=== PATIENT | male | born 1945 | race Caucasian/White ===

== ENCOUNTER 2021-04-01 19:11 | Emergency (ER) | payer MEDICARE, BC ==
[2021-04-01 19:25] LABS: Glucose,Whole Blood 131 mg/dL (75-99)
[2021-04-01 19:34] LABS: Basophils % (A) 0 %; Eosinophils # (A) 0.1 k/uL (0-0.7); Eosinophils % (A) 1 %; HCT 41.6 % (39.0-53.0); HGB 13.9 gm/dL (13.0-17.5); Lymphocytes # (A) 0.4 k/uL (1.0-4.8); Lymphocytes % (A) 5 %; MCH 32.5 pg (25.0-35.0); MCHC 33.3 g/dL (31.0-37.0); MCV 97.6 fL (80.0-100.0); Mean Platelet Volume 7.2; Monocytes # (A) 0.4 k/uL (0-1.0); Monocytes % (A) 5 %; Neutrophils # (A) 6.6 k/uL (1.3-7.7); Neutrophils % (A) 87 %; Platelet Count 183 k/uL (150-450); RBC 4.27 m/uL (4.30-5.90); RDW 13.2 % (11.5-15.5); WBC 7.6 k/uL (3.8-10.6)
[2021-04-01 19:45] LABS: ALT 15 U/L (4-49); AST 30 U/L (17-59); African American GFR (CKD) 75 (>60 ml/min/1.73 sqM); Alcohol <10 mg/dL; Alkaline Phosphatase 73 U/L (38-126); Anion Gap 8 mmol/L; Blood Urea Nitrogen 16 mg/dL (9-20); Calcium 9.8 mg/dL (8.4-10.2); Carbon Dioxide 25 mmol/L (22-30); Chloride 105 mmol/L (98-107); Creatine Kinase 200 U/L (55-170); Glucose 132 mg/dL (74-99); Magnesium 1.6 mg/dL (1.6-2.3); Non-African American GFR(CKD) 65 (>60 ml/min/1.73 sqM); Sodium 138 mmol/L (137-145); Total Protein 6.6 g/dL (6.3-8.2)
[2021-04-01 19:48] LABS: Partial Thromboplastin Time 22.6 sec (22.0-30.0); Prothrombin Time 10.4 sec (9.0-12.0)
--- NOTE | 2021-04-01 20:08 | CT ---
EXAMINATION TYPE: CT brain ramon jean DATE OF EXAM: 04/01/2021 COMPARISON: None HISTORY: Frequent falls. CT DLP: 1525.9 mGycm Automated exposure control for dose reduction was used. Images obtained of the brain and cervical spine without contrast. There is cerebral cortical atrophy. There is no mass effect nor midline shift. There is no sign of in tracranial hemorrhage. The cervical vertebra have fairly normal alignment. There is a minimal retrolisthesis at C3-4. There is degenerative disc space narrowing throughout the cervical spine with moderate spur formation. Ther e is multilevel hypertrophic facet arthropathy. There is C5-6 left-sided neural foraminal stenosis du e to uncovertebral spurring. There is right side C3-4 neural foraminal stenosis. There is right temporal parietal scalp hematoma. This measures up to 1.5 cm in thickness. IMPRESSION: Cerebral atrophy. No acute intracranial abnormality. Right temporal parietal scalp hematoma. Multilevel cervical spondylotic changes. No fracture.
--- NOTE | 2021-04-01 20:15 | ED ---
General Adult HPI - General Chief complaint: Fall Stated complaint: Fall Time Seen by Provider: 04/01/21 19:18 Source: patient, EMS Mode of arrival: EMS Limitations: no limitations - History of Present Illness Initial comments: Dictation was produced using [employer] dictation software. please excuse any grammatical, word or spelling errors. Chief Complaint: 76-year-old male presents to the emergency department for frequent falls History of Present Illness: 76-year-old male he is been suffering frequent falls. He was at home by himself. His neighbors came to check on him and saw that he was on the ground. He seemed to be very weak. Patient states that he was squatting on the ground when he lost his balance and fell forward striking his head. This concerned that patient has been falling frequently. Patient was at home by himself. States that he takes depression medications. States that he feels fine at this point denies any pain currently. The ROS documented in this emergency department record has been reviewed and confirmed by me. Those systems with pertinent positive or negative responses have been documented in the HPI. All other systems are other negative and/or noncontributory. PHYSICAL EXAM: General Impression: Alert and oriented x3, not in acute distress HEENT: Abrasion to the forehead, extra-ocular movements intact, pupils equal and reactive to light bilaterally, mucous membranes moist. Cardiovascular: Heart regular rate and rhythm Chest: Able to complete full sentences, no retractions, no tachypnea Abdomen: abdomen soft, non-tender, non-distended, no organomegaly Musculoskeletal: Pulses present and equal in all extremities, no peripheral edema, all extremities ranged with no complication Motor: no focal deficits noted Neurological: CN II-XII grossly intact, no focal motor or sensory deficits noted Skin: Abrasions to the bilateral knees Psych: Normal affect and mood ED course: 76-year-old male presents to the emergency department for frequent falls. Supposedly he felt today. Vital signs Upon arrival shows her oral 5, rest of vital signs within acceptable limits. Chest x-ray pelvis x-ray is not acute. Laboratory evaluation obtained. CBC, coag panel, walk panel, urinalysis unremarkable. Serum alcohol is negative. Computed tomography scan of the head and C-spine shows no acute processes. Discussed patient had recommended he stay in hospital due to the concern that he has physical exam findings for multiple falls. He is coherent and does not want to stay to be admitted. He lives at home by himself. He does not have family in the area. He does however have neighbors that are concerned about his well- being. He understands that he is a fall risk and if he falls on he can hurt himself even more seriously. Patient understands the risk and wants to be discharged and follow up with his primary care physician. He is coherent and understands the risk of discharge. EKG interpretation: Ventricular rate sinus tachycardia, heart rate 104, UT interval 170, QRS 80, QTC 452. No UT prolongation, no QTC prolongation, no ST or T-wave changes noted. Overall, this EKG is unremarkable - Related Data Allergies Allergy/AdvReac Type Severity Reaction Status Date / Time No Known Allergies Allergy Verified 04/01/21 19:24 Review of Systems ROS Statement: Those systems with pertinent positive or pertinent negative responses have been documented in the HPI. ROS Other: All systems not noted in ROS Statement are negative. Past Medical History Past Medical History: No Reported History History of Any Multi-Drug Resistant Organisms: None Reported Additional Past Surgical History / Comment(s): eye surgery Past Psychological History: Depression Smoking Status: Never smoker Past Alcohol Use History: Daily Past Drug Use History: None Reported General Exam Limitations: no limitations Course Vital Signs 04/01/21 04/01/21 19:19 19:24 Temperature 98.0 F Pulse Rate 104 H 105 H Respiratory 18 18 Rate Blood Pressure 147/79 157/96 O2 Sat by Pulse 94 L 95 Oximetry Medical Decision Making - Lab Data Result diagrams: 04/01/21 19:26 04/01/21 19:26 Lab Results 04/01/21 04/01/21 04/01/21 Range/Units 19:23 19:26 19:26 WBC 7.6 (3.8-10.6) k/uL RBC 4.27 L (4.30-5.90) m/uL Hgb 13.9 (13.0-17.5) gm/dL Hct 41.6 (39.0-53.0) % MCV 97.6 (80.0-100.0) fL MCH 32.5 (25.0-35.0) pg MCHC 33.3 (31.0-37.0) g/dL RDW 13.2 (11.5-15.5) % Plt Count 183 (150-450) k/uL MPV 7.2 Neutrophils % 87 % Lymphocytes % 5 % Monocytes % 5 % Eosinophils % 1 % Basophils % 0 % Neutrophils # 6.6 (1.3-7.7) k/uL Lymphocytes # 0.4 L (1.0-4.8) k/uL Monocytes # 0.4 (0-1.0) k/uL Eosinophils # 0.1 (0-0.7) k/uL Basophils # 0.0 (0-0.2) k/uL PT 10.4 (9.0-12.0) sec INR 1.0 (<1.2) APTT 22.6 (22.0-30.0) sec Sodium (137-145) mmol/L Potassium (3.5-5.1) mmol/L Chloride (98-107) mmol/L Carbon Dioxide (22-30) mmol/L Anion Gap mmol/L BUN (9-20) mg/dL Creatinine (0.66-1.25) mg/dL Est GFR (CKD-EPI)AfAm (>60 ml/min/1.73 sqM) Est GFR (CKD-EPI)NonAf (>60 ml/min/1.73 sqM) Glucose (74-99) mg/dL POC Glucose (mg/dL) 131 H (75-99) mg/dL POC Glu Pit Operator Belkys Camacho Plasma Lactic Acid Ulises (0.7-2.0) mmol/L Calcium (8.4-10.2) mg/dL Magnesium (1.6-2.3) mg/dL Total Bilirubin (0.2-1.3) mg/dL AST (17-59) U/L ALT (4-49) U/L Alkaline Phosphatase (38-126) U/L Creatine Kinase (55-170) U/L Troponin I (0.000-0.034) ng/mL Total Protein (6.3-8.2) g/dL Albumin (3.5-5.0) g/dL Urine Color Urine Appearance (Clear) Urine pH (5.0-8.0) Ur Specific [place] (1.001-1.035) Urine Protein (Negative) Urine Glucose (UA) (Negative) Urine Ketones (Negative) Urine Blood (Negative) Urine Nitrite (Negative) Urine Bilirubin (Negative) Urine Urobilinogen (<2.0) mg/dL Ur Leukocyte Esterase (Negative) Urine RBC (0-5) /hpf Urine WBC (0-5) /hpf Ur Squamous Epith Cells (0-4) /hpf Hyaline Casts (0-2) /lpf Urine Mucus (None) /hpf Serum Alcohol mg/dL 04/01/21 04/01/21 04/01/21 Range/Units 19:26 19:26 19:26 WBC (3.8-10.6) k/uL RBC (4.30-5.90) m/uL Hgb (13.0-17.5) gm/dL Hct (39.0-53.0) % MCV (80.0-100.0) fL MCH (25.0-35.0) pg MCHC (31.0-37.0) g/dL RDW (11.5-15.5) % Plt Count (150-450) k/uL MPV Neutrophils % % Lymphocytes % % Monocytes % % Eosinophils % % Basophils % % Neutrophils # (1.3-7.7) k/uL Lymphocytes # (1.0-4.8) k/uL Monocytes # (0-1.0) k/uL Eosinophils # (0-0.7) k/uL Basophils # (0-0.2) k/uL PT (9.0-12.0) sec INR (<1.2) APTT (22.0-30.0) sec Sodium 138 (137-145) mmol/L Potassium 4.0 (3.5-5.1) mmol/L Chloride 105 (98-107) mmol/L Carbon Dioxide 25 (22-30) mmol/L Anion Gap 8 mmol/L BUN 16 (9-20) mg/dL Creatinine 1.11 (0.66-1.25) mg/dL Est GFR (CKD-EPI)AfAm 75 (>60 ml/min/1.73 sqM) Est GFR (CKD-EPI)NonAf 65 (>60 ml/min/1.73 sqM) Glucose 132 H (74-99) mg/dL POC Glucose (mg/dL) (75-99) mg/dL POC Glu Pit Operator ID Plasma Lactic Acid Ulises 1.3 (0.7-2.0) mmol/L Calcium 9.8 (8.4-10.2) mg/dL Magnesium 1.6 (1.6-2.3) mg/dL Total Bilirubin 1.0 (0.2-1.3) mg/dL AST 30 (17-59) U/L ALT 15 (4-49) U/L Alkaline Phosphatase 73 (38-126) U/L Creatine Kinase 200 H (55-170) U/L Troponin I (0.000-0.034) ng/mL Total Protein 6.6 (6.3-8.2) g/dL Albumin 4.0 (3.5-5.0) g/dL Urine Color Yellow Urine Appearance Clear (Clear) Urine pH 5.5 (5.0-8.0) Ur Specific [place] 1.018 (1.001-1.035) Urine Protein Trace H (Negative) Urine Glucose (UA) Negative (Negative) Urine Ketones 1+ H (Negative) Urine Blood Negative (Negative) Urine Nitrite Negative (Negative) Urine Bilirubin Negative (Negative) Urine Urobilinogen <2.0 (<2.0) mg/dL Ur Leukocyte Esterase Small H (Negative) Urine RBC 1 (0-5) /hpf Urine WBC 4 (0-5) /hpf Ur Squamous Epith Cells <1 (0-4) /hpf Hyaline Casts 15 H (0-2) /lpf Urine Mucus Rare H (None) /hpf Serum Alcohol <10 mg/dL 04/01/21 Range/Units 19:26 WBC (3.8-10.6) k/uL RBC (4.30-5.90) m/uL Hgb (13.0-17.5) gm/dL Hct (39.0-53.0) % MCV (80.0-100.0) fL MCH (25.0-35.0) pg MCHC (31.0-37.0) g/dL RDW (11.5-15.5) % Plt Count (150-450) k/uL MPV Neutrophils % % Lymphocytes % % Monocytes % % Eosinophils % % Basophils % % Neutrophils # (1.3-7.7) k/uL Lymphocytes # (1.0-4.8) k/uL Monocytes # (0-1.0) k/uL Eosinophils # (0-0.7) k/uL Basophils # (0-0.2) k/uL PT (9.0-12.0) sec INR (<1.2) APTT (22.0-30.0) sec Sodium (137-145) mmol/L Potassium (3.5-5.1) mmol/L Chloride (98-107) mmol/L Carbon Dioxide (22-30) mmol/L Anion Gap mmol/L BUN (9-20) mg/dL Creatinine (0.66-1.25) mg/dL Est GFR (CKD-EPI)AfAm (>60 ml/min/1.73 sqM) Est GFR (CKD-EPI)NonAf (>60 ml/min/1.73 sqM) Glucose (74-99) mg/dL POC Glucose (mg/dL) (75-99) mg/dL POC Glu Pit Operator ID Plasma Lactic Acid Ulises (0.7-2.0) mmol/L Calcium (8.4-10.2) mg/dL Magnesium (1.6-2.3) mg/dL Total Bilirubin (0.2-1.3) mg/dL AST (17-59) U/L ALT (4-49) U/L Alkaline Phosphatase (38-126) U/L Creatine Kinase (55-170) U/L Troponin I <0.012 (0.000-0.034) ng/mL Total Protein (6.3-8.2) g/dL Albumin (3.5-5.0) g/dL Urine Color Urine Appearance (Clear) Urine pH (5.0-8.0) Ur Specific [place] (1.001-1.035) Urine Protein (Negative) Urine Glucose (UA) (Negative) Urine Ketones (Negative) Urine Blood (Negative) Urine Nitrite (Negative) Urine Bilirubin (Negative) Urine Urobilinogen (<2.0) mg/dL Ur Leukocyte Esterase (Negative) Urine RBC (0-5) /hpf Urine WBC (0-5) /hpf Ur Squamous Epith Cells (0-4) /hpf Hyaline Casts (0-2) /lpf Urine Mucus (None) /hpf Serum Alcohol mg/dL Disposition Clinical Impression: Frequent falls Disposition: HOME SELF-CARE Condition: Fair Instructions (If sedation given, give patient instructions): Fall Prevention for Older Adults (ED) Is patient prescribed a controlled substance at d/c from ED?: No Referrals: Nonstaff,Physician [Primary Care Provider] - 1-2 days
--- NOTE | 2021-04-01 20:21 | XR ---
EXAMINATION TYPE: XR pelvis AP view DATE OF EXAM: 04/01/2021 COMPARISON: NONE HISTORY: Pain TECHNIQUE: Single view FINDINGS: Pelvic ring is intact. The proximal femurs and hip joints are intact. Sacroiliac joints are intact. There is no fracture. IMPRESSION: Negative pelvis x-ray exam.
--- NOTE | 2021-04-01 20:23 | XR ---
EXAMINATION TYPE: XR chest 1V portable DATE OF EXAM: 04/01/2021 COMPARISON: NONE HISTORY: Pain. Fall. TECHNIQUE: Single view FINDINGS: Heart is normal. The lungs are clear of consolidation. There are no hilar masses. Costophre curt angles are clear. There are chest leads. There is minimal reticular nodular density in the lungs. IMPRESSION: There is some pulmonary fibrosis. Normal heart.
[2021-04-01 20:38] LABS: Appearance,Urine Clear (Clear); Bilirubin,Urine Negative (Negative); Blood,Urine Negative (Negative); Color,Urine Yellow; Glucose,Urine (UA) Negative (Negative); Hyaline Casts,Urine 15 /lpf (0-2); Ketones,Urine 1+ (Negative); Leukocyte Esterase,Urine Small (Negative); Mucus,Urine Rare /hpf; Nitrite,Urine Negative (Negative); PH, Urine 5.5 (5.0-8.0); Protein,Urine Trace (Negative); RBC,Urine 1 /hpf (0-5); Specific Gravity,Urine 1.018 (1.001-1.035); Squamous Epithelial Cell,Urine <1 /hpf (0-4); Urobilinogen,Urine <2.0 mg/dL (<2.0); WBC,Urine 4 /hpf (0-5)
[2021-04-01] MEDS ORDERED: DIPH,PERTUS(ACELL)TETVAC-LF 0.5 ML VIAL IM ONE (21:08)
[2021-04-01 22:14] VITALS: BP 147/71; PULSE 71; RESP 15; TEMP 97.2
== END 2021-04-01 22:15 | disposition home or self-care (01) ==
LOC: EC 19:11
DX: S00.03XA Contusion of scalp, initial encounter (principal); S80.212A Abrasion, left knee, initial encounter; S80.211A Abrasion, right knee, initial encounter; S00.81XA Abrasion of other part of head, initial encounter; R29.6 Repeated falls; W01.10XA Fall on same level from slipping, tripping and stumbling with subsequent striking against unspecified object, initial encounter
CPT/HCPCS: 99285; 36415; 93005; 80053; 82550; 83605; 83735; 84484; 85025; 85610; 85730; 81001; 72170; 71045; 72125; 70450; G0480; 80320

== ENCOUNTER 2021-04-01 23:13 | Observation (INO) | payer MEDICARE, BC ==
[2021-04-01 23:22] VITALS: RESP 18
[2021-04-01] MEDS ORDERED: NALOXONE 0.4 MG/ML 1 ML VIAL IV PRN (23:27)
--- NOTE | 2021-04-01 23:27 | ED ---
General Adult HPI - General Chief complaint: Weakness Stated complaint: Weakness Time Seen by Provider: 04/01/21 23:22 Source: patient, family Mode of arrival: wheelchair Limitations: no limitations - History of Present Illness Initial comments: Dictation was produced using [employer] dictation software. please excuse any grammatical, word or spelling errors. Chief Complaint: 76-year-old male presents for debility History of Present Illness: Patient is a 76-year-old male he was seen by myself earlier today. He was seen earlier for frequent falls and a fall today. He expressed to me that he wanted to be discharge. Patient was discharged and was brought home by her best friend Lori. Lori states that shortly in the house every could not even stand up. She's had to turn around patient talks him since intubation and now he is agreeable to stay. The ROS documented in this emergency department record has been reviewed and c onfirmed by me. Those systems with pertinent positive or negative responses have been documented in the HPI. All other systems are other negative and/or noncontributory. PHYSICAL EXAM: General Impression: Alert and oriented x3, not in acute distress HEENT: Normocephalic atraumatic, extra-ocular movements intact, pupils equal and reactive to light bilaterally, mucous membranes moist. Cardiovascular: Heart regular rate and rhythm Chest: Able to complete full sentences, no retractions, no tachypnea Abdomen: abdomen soft, non-tender, non-distended, no organomegaly Musculoskeletal: Pulses present and equal in all extremities, no peripheral edema Motor: no focal deficits noted Neurological: CN II-XII grossly intact, no focal motor or sensory deficits noted Skin: Intact with no visualized rashes Psych: Normal affect and mood ED course: 76-year-old male presents with generalized weakness and grave disability. He lives at home by himself and is a fall risk. Vital signs upon arrival are within Acceptable limits. Patient will be admitted to [facility]. - Related Data Allergies Allergy/AdvReac Type Severity Reaction Status Date / Time No Known Allergies Allergy Verified 04/01/21 19:24 Review of Systems ROS Statement: Those systems with pertinent positive or pertinent negative responses have been documented in the HPI. ROS Other: All systems not noted in ROS Statement are negative. Past Medical History Past Medical History: No Reported History History of Any Multi-Drug Resistant Organisms: None Reported Past Surgical History: No Surgical Hx Reported Additional Past Surgical History / Comment(s): eye surgery Past Psychological History: Depression Smoking Status: Never smoker Past Alcohol Use History: Daily Past Drug Use History: None Reported General Exam Limitations: no limitations Course Vital Signs 04/01/21 23:16 Temperature 98.0 F Pulse Rate 106 H Respiratory 18 Rate Blood Pressure 105/46 O2 Sat by Pulse 95 Oximetry Disposition Clinical Impression: Risk for falls Disposition: ADMITTED IP TO THIS HOSP Condition: Fair Referrals: Nonstaff,Physician [Primary Care Provider] - 1-2 days
[2021-04-02] MEDS ORDERED: ACETAMINOPHEN TAB 500 MG TAB PO PRN (05:34)
[2021-04-02] MEDS ORDERED: lamoTRIgine 100 MG TAB PO SCH (11:15)
[2021-04-02] MEDS ORDERED: ESCITALOPRAM 20 MG TAB PO SCH (11:15)
[2021-04-02] MEDS ORDERED: PANTOPRAZOLE 40 MG TABLET PO PRN (11:15)
--- NOTE | 2021-04-02 13:14 | P.DS ---
Providers Date of admission: 04/01/21 23:27 Attending physician: Keith Guerrero Primary care physician: Physician Nonstaff Hospital Course: Please refer to HPI for further details Patient Condition at Discharge: Fair Plan - Discharge Summary New Discharge Prescriptions: New Cholecalciferol [Vitamin D3 (25 Mcg = 1000 Iu)] 25 mcg PO DAILY #30 tab No Action lamoTRIgine 200 mg PO BID Escitalopram [Lexapro] 20 mg PO DAILY Omeprazole 20 mg PO BID PRN PRN Reason: GERDS Discharge Medication List Escitalopram [Lexapro] 20 mg PO DAILY 04/01/21 [History] Omeprazole 20 mg PO BID PRN 04/01/21 [History] lamoTRIgine 200 mg PO BID 04/01/21 [History] Cholecalciferol [Vitamin D3 (25 Mcg = 1000 Iu)] 25 mcg PO DAILY #30 tab 04/02/21 [Rx] Follow up Appointment(s)/Referral(s): Jelani Cervantes MD [STAFF PHYSICIAN] - 1-2 Days
--- NOTE | 2021-04-02 13:14 | P.HPIM ---
History of Present Illness Patient is a pleasant 76-year-old the male was admitted after he presented to ER with complaints of frequent falls patient has multiple lacerations and bruises. Patient lives by himself. Patient was seen in ER yesterday and was subsequently discharged after discharge family brought him back as they were unable to even get him out of the car into the house. Patient doesn't have any fever chills doesn't have any signs or symptoms of sepsis patient doesn't have any dysuria chest x-ray did not show pneumonia. Patient is alert oriented 3 but does have some memory deficits elicited status of possible senile or vascular dementia. Patient has progressive weakness that progressed over months to years. Patient is awaiting placement probably will be discharged to subacute rehabilitation. Patient doesn't appear to be dehydrated either. Review of Systems REVIEW OF SYSTEMS: CONSTITUTIONAL: No fever, no malaise, no fatigue. HEENT: No recent visual problems or hearing problems. Denied any sore throat. CARDIOVASCULAR: No chest pain, orthopnea, PND, no palpitations, no syncope. PULMONARY: No shortness of breath, no cough, no hemoptysis. GASTROINTESTINAL: No diarrhea, no nausea, no vomiting, no abdominal pain. NEUROLOGICAL: No headaches, no weakness, no numbness. HEMATOLOGICAL: Denies any bleeding or petechiae. GENITOURINARY: Denies any burning micturition, frequency, or urgency. MUSCULOSKELETAL/RHEUMATOLOGICAL: Denies any joint pain, swelling, or any muscle pain. ENDOCRINE: Denies any polyuria or polydipsia. The rest of the 14-point review of systems is negative. Past Medical History Past Medical History: No Reported History History of Any Multi-Drug Resistant Organisms: None Reported Past Surgical History: No Surgical Hx Reported Additional Past Surgical History / Comment(s): eye surgery Past Psychological History: Depression Smoking Status: Never smoker Past Alcohol Use History: Daily Past Drug Use History: None Reported Medications and Allergies Home Medications Medication Instructions Recorded Confirmed Type Escitalopram [Lexapro] 20 mg PO DAILY 04/01/21 04/01/21 History Omeprazole 20 mg PO BID PRN 04/01/21 04/01/21 History lamoTRIgine 200 mg PO BID 04/01/21 04/01/21 History Allergies Allergy/AdvReac Type Severity Reaction Status Date / Time No Known Allergies Allergy Verified 04/01/21 23:30 Physical Exam Vitals: Vital Signs Temp Pulse Pulse Resp BP BP Pulse Ox 04/02/21 07:49 91 18 04/02/21 06:44 99.1 F 91 18 167/81 93 L 04/02/21 00:23 99.0 F 94 18 173/96 96 04/01/21 23:16 98.0 F 106 H 18 105/46 95 Intake and Output 04/01/21 04/02/21 04/02/21 22:59 06:59 14:59 Output Total 100 Balance -100 Output: Urine 100 Straight 100 Other: # Voids 3 Weight 86.183 kg PHYSICAL EXAMINATION: GENERAL: The patient is alert and oriented x3, not in any acute distress. Well developed, well nourished. HEENT: Pupils are round and equally reacting to light. EOMI. No scleral icterus. No conjunctival pallor. Normocephalic, atraumatic. No pharyngeal erythema. No thyromegaly. CARDIOVASCULAR: S1 and S2 present. No murmurs, rubs, or gallops. PULMONARY: Chest is clear to auscultation, no wheezing or crackles. ABDOMEN: Soft, nontender, nondistended, normoactive bowel sounds. No palpable organomegaly. MUSCULOSKELETAL: No joint swelling or deformity. EXTREMITIES: No cyanosis, clubbing, or pedal edema. NEUROLOGICAL: Gross neurological examination did not reveal any focal deficits. Does have generalized weakness SKIN:bruising, lacerations ulcerations multiple areas of the body Assessment and Plan Plan: Generalized weakness and deconditioning:: Mostly secondary to age-related muscle atrophy, possible early stages of dementia patient will benefit from a placement in subacute rehabilitation. We'll also obtain TSH and d-dimer considering the patient is tachycardic. If they're negative patient will be discharged to subacute rehabilitation today. Patient will be discharged on vitamin D supplementation -Gastroesophageal reflux disease -Depression.
[2021-04-02 15:08] VITALS: BP 169/81; PULSE 83; TEMP 98.2
--- NOTE | 2021-04-02 15:51 | CT ---
CT CHEST FOR PULMONARY EMBOLISM. EXAMINATION TYPE: CT angio chest DATE OF EXAM: 04/02/2021 INDICATION: Elevated d-dimer. CT DLP: 331.1 mGycm, Automated exposure control for dose reduction was used. CONTRAST: Patient injected with 100 mL of Isovue 370. COMPARISON: None TECHNIQUE: CT of the chest is performed on a spiral scan at 2 mm thick sections. Study is performed with intravenous contrast timed for evaluation for pulmonary embolism. This will limit additional po rtions of the evaluation. 3-D MIP images reconstructed by the technologist are reviewed on the compu ter in the coronal and sagittal planes. FINDINGS: No persistent filling defects are evident to suggest an acute pulmonary embolism. Subcarinal adenopathy is present which appears enlarged. Calcifications are present. This may measure 1.7 cm. A 1.0 cm lateral aortic pulmonic window lymph node is present. There may be a pretracheal ao rtopulmonic window lymph node 1.2 cm. Small superior mediastinal lymph nodes are present. Calcified l ymphadenopathy is present. The ascending aorta diameter at the level of the main pulmonary artery is 3.2 cm. The main pulmonary artery diameter at the bifurcation is 2.6 cm. There is a 0.7 cm nodule in the left apex. Series 406 image 16. There is some pleural-based thickenin g within the bilateral upper lung dozier measuring 0.4 cm on the left and 0.6 cm on the right. Series 406 image 53. There are some additional small areas of pleural thickening. There is a nodular densit y within the right mid lung peripherally measuring 0.7 cm. Series 406 image 67. Additional nodules ar e in this right midlung region. Examples 0.6 cm image 69. 0.8 cm, image 75. Additional peripheral sma ller nodules are present in the posterior lateral right lung base. Consider atelectasis within the di fferential. Groundglass opacities are at the left lung base. Limited CT section through the upper abdomen are unremarkable. IMPRESSIONS: 1. No acute pulmonary embolism. 2. Scattered pulmonary nodules greater on the right with some enlarged lymphadenopathy discussed abov e. Metastatic disease should be considered. Consider PET CT for additional evaluation.
== END 2021-04-02 17:35 ==
LOC: EC 23:13 → 4SSUR 23:27
PROVIDERS: ADMIT Internal Medicine; ATTEND Internal Medicine
DX: R53.1 Weakness (principal); M62.50 Muscle wasting and atrophy, not elsewhere classified, unspecified site; W19.XXXA Unspecified fall, initial encounter; R00.0 Tachycardia, unspecified; R29.6 Repeated falls; R91.1 Solitary pulmonary nodule; R59.9 Enlarged lymph nodes, unspecified; Z20.822 Contact with and (suspected) exposure to COVID-19; K21.9 Gastro-esophageal reflux disease without esophagitis; F32.9 Major depressive disorder, single episode, unspecified; Z79.899 Other long term (current) drug therapy; Z91.81 History of falling
CPT/HCPCS: 99285; 97162; 97166; 85379; 84443; 87635; 71275; G0378; Q9967

== ENCOUNTER 2021-04-02 19:49 | Emergency (ER) | payer MEDICARE, BC ==
[2021-04-02 19:57] VITALS: BP 153/80; PULSE 69; RESP 20; TEMP 98.1
--- NOTE | 2021-04-02 19:58 | ED ---
General Adult HPI - General Stated complaint: Recheck Time Seen by Provider: 04/02/21 19:50 - History of Present Illness Initial comments: Dictation was produced using [employer], dictation software. please excuse any grammatical, word or spelling errors. Chief Complaint: Patient is 76-year-old male he was sent here from [facility] for unequal pupils History of Present Illness: To 76-year-old male he is very familiar to me. I saw him twice yesterday. He was here in emergency department twice. The first time he was here in the ER he had an seen for frequent falls. Computed tomography scan of the head and C-spine and blood work. His workup was essentially negative and was encouraged him to be admitted because he is a fall risk and lives at home by himself. He refuses in preferred to be discharged. He was discharged however his family friend tried to bring him home but he could not walk to get into his own house. He was convinced by family friend, Lori to agree to be admitted. Patient was here in emergency department. He had a d- dimer and a CT of the chest that showed no embolism but scattered pulmonary nodules. Nonetheless he was discharged tomorrow with for further rehab. According to EMS he was evaluated there and was found to have unequal pupils. Patient denies any complaints at this time. Denies any headache. No numbness and paresthesias to the arms or legs. The ROS documented in this emergency department record has been reviewed and confirmed by me. Those systems with pertinent positive or negative responses have been documented in the HPI. All other systems are other negative and/or noncontributory. PHYSICAL EXAM: General Impression: Alert and oriented x3, not in acute distress HEENT: Normocephalic atraumatic, extra-ocular movements intact, pupils equal and reactive to light bilaterally, mucous membranes moist. Cardiovascular: Heart regular rate and rhythm Chest: Able to complete full sentences, no retractions, no tachypnea Abdomen: abdomen soft, non-tender, non-distended, no organomegaly Musculoskeletal: Pulses present and equal in all extremities, no peripheral edema Motor: no focal deficits noted Neurological: CN II-XII grossly intact, no focal motor or sensory deficits noted Skin: Intact with no visualized rashes Psych: Normal affect and mood ED course: 76-year-old male brought to our emergency department for unequal pupils. He is not appended physical examination is benign. Clinical presentation consistent with anisocoria. Vital signs are within acceptable limits. Patient had extensive workup yesterday. He had computed tomography scan of the head C-spine pelvis x-ray chest x-ray complete blood work which were within acceptable limits. He was simply admitted for fall risk. During his hospital stay in d-dimer was ordered which led to CT angios the chest that showed scattered pulmonary nodules concerning for possibly metastatic disease. He is discharged from [place]. There was concern by EMS that patient did not have a extensive enough workup. It is likely that [facility] did not get access information from patient's two ER visits yesterday. - Related Data Home Medications Medication Instructions Recorded Confirmed Escitalopram [Lexapro] 20 mg PO DAILY 04/01/21 04/01/21 Omeprazole 20 mg PO BID PRN 04/01/21 04/01/21 lamoTRIgine 200 mg PO BID 04/01/21 04/01/21 Previous Rx's Medication Instructions Recorded Acetaminophen Tab [Tylenol] 1,000 mg PO Q6HR PRN tab 04/02/21 Cholecalciferol [Vitamin D3 (25 25 mcg PO DAILY #30 tab 04/02/21 Mcg = 1000 Iu)] Allergies Allergy/AdvReac Type Severity Reaction Status Date / Time No Known Allergies Allergy Verified 04/02/21 19:57 Review of Systems ROS Statement: Those systems with pertinent positive or pertinent negative responses have been documented in the HPI. ROS Other: All systems not noted in ROS Statement are negative. Past Medical History Past Medical History: No Reported History History of Any Multi-Drug Resistant Organisms: None Reported Past Surgical History: No Surgical Hx Reported Additional Past Surgical History / Comment(s): eye surgery Past Psychological History: Depression Smoking Status: Never smoker Past Alcohol Use History: Daily Past Drug Use History: None Reported Disposition Clinical Impression: Anisocoria Disposition: OTHER INSTITUTION NOT DEFINED Condition: Fair Instructions (If sedation given, give patient instructions): Fall Prevention for Older Adults (ED) Is patient prescribed a controlled substance at d/c from ED?: No Referrals: None,Stated [Primary Care Provider] - 1-2 days - Out of Hospital Transfer - Req. Specs Out of Hospital Transfer - Requested Specifics: Other Non-Acute ([facility])
== END 2021-04-02 22:08 | disposition other institution (70) ==
LOC: EC 19:49
DX: H57.02 Anisocoria (principal); F32.9 Major depressive disorder, single episode, unspecified; Z79.899 Other long term (current) drug therapy
CPT/HCPCS: 99284

== ENCOUNTER 2021-05-15 17:16 | Inpatient (IN) | payer MEDICARE, BC ==
[2021-05-15 18:28] LABS: Basophils % (A) 0 %; Eosinophils # (A) 0.1 k/uL (0-0.7); Eosinophils % (A) 2 %; HCT 39.5 % (39.0-53.0); HGB 13.7 gm/dL (13.0-17.5); Lymphocytes # (A) 0.6 k/uL (1.0-4.8); Lymphocytes % (A) 8 %; MCH 34.5 pg (25.0-35.0); MCHC 34.7 g/dL (31.0-37.0); MCV 99.3 fL (80.0-100.0); Mean Platelet Volume 7.9; Monocytes # (A) 0.7 k/uL (0-1.0); Monocytes % (A) 8 %; Neutrophils # (A) 6.4 k/uL (1.3-7.7); Neutrophils % (A) 81 %; Platelet Count 293 k/uL (150-450); RBC 3.98 m/uL (4.30-5.90); RDW 12.1 % (11.5-15.5)
[2021-05-15 18:40] LABS: ALT 14 U/L (4-49); AST 29 U/L (17-59); African American GFR (CKD) >90 (>60 ml/min/1.73 sqM); Alkaline Phosphatase 101 U/L (38-126); Anion Gap 10 mmol/L; Blood Urea Nitrogen 15 mg/dL (9-20); Calcium 9.5 mg/dL (8.4-10.2); Carbon Dioxide 25 mmol/L (22-30); Chloride 103 mmol/L (98-107); Creatine Kinase 178 U/L (55-170); Glucose 122 mg/dL (74-99); Non-African American GFR(CKD) 87 (>60 ml/min/1.73 sqM); Potassium 3.9 mmol/L (3.5-5.1); Sodium 138 mmol/L (137-145); Total Bilirubin 0.6 mg/dL (0.2-1.3); Total Protein 6.8 g/dL (6.3-8.2)
[2021-05-15 18:45] LABS: Valproic Acid (Depakene) 23.7 ug/mL
[2021-05-15 18:48] LABS: INR 0.9 (<1.2); Partial Thromboplastin Time 23.7 sec (22.0-30.0); Prothrombin Time 10.1 sec (9.0-12.0)
--- NOTE | 2021-05-15 18:48 | ED ---
Altered Mental Status HPI - General Chief Complaint: Altered Mental Status Stated Complaint: Altered Mental Status Source: EMS Mode of arrival: EMS Limitations: language barrier, altered mental status, physical limitation - History of Present Illness Initial Comments: The patient is a 76-year-old male with past medical history of chronic alcohol abuse, multiple falls who presents to the emergency department with altered mental status. Patient's was a heavy drinker and could no longer take care of himself. He was admitted to [facility] in March. Facility reports that the patient continues to have frequent falls and has had decrease in his mentation since admission to their facility. EMS presents today with the patient stating that he has had accelerated mental status changes today. He was recently started on Depakote on Monday for mood stabilization. They deny that the patient suffered any type of trauma. No fevers. Patient cannot provide any history. I did revi ew the patient's chart. Depakote was started on the . Patient had a UA and laboratory studies completed yesterday. UA was positive for nitrates and the patient was initiated on Ceftin - Related Data Home Medications Medication Instructions Recorded Confirmed Escitalopram [Lexapro] 20 mg PO DAILY@0800 04/01/21 05/15/21 lamoTRIgine 200 mg PO BID@0800,2100 04/01/21 05/15/21 Acetaminophen Tab [Tylenol] 1,000 mg PO Q6H PRN 05/15/21 05/15/21 Cefuroxime Axetil [Ceftin] 500 mg PO BID@0800,1700 05/15/21 05/15/21 Cholecalciferol [Vitamin D3 (25 25 mcg PO DAILY@1700 05/15/21 05/15/21 Mcg = 1000 Iu)] Divalproex Sprinkle [Depakote 125 mg PO BID@0800,1700 05/15/21 05/15/21 Sprinkle] LORazepam [Ativan] 0.5 mg PO Q8H PRN 05/15/21 05/15/21 Magnesium Hydroxide [Milk of 7,200 mg PO Q48H PRN 05/15/21 05/15/21 Magnesia Concentrate] Na Phos,M-B/Na Phos,Di-Ba [Fleet 133 ml RECTAL DAILY PRN 05/15/21 05/15/21 Adult] Omeprazole 20 mg PO BID PRN 05/15/21 05/15/21 QUEtiapine FUMARATE [SEROquel] 25 mg PO BID@0800,2100 05/15/21 05/15/21 bisacodyL [Bisacodyl] 10 mg RECTAL DAILY PRN 05/15/21 05/15/21 Allergies Allergy/AdvReac Type Severity Reaction Status Date / Time No Known Allergies Allergy Verified 05/15/21 18:06 Review of Systems ROS Statement: Those systems with pertinent positive or pertinent negative responses have been documented in the HPI. ROS Other: All systems not noted in ROS Statement are negative. Past Medical History Past Medical History: GERD/Reflux History of Any Multi-Drug Resistant Organisms: None Reported Past Surgical History: No Surgical Hx Reported Additional Past Surgical History / Comment(s): eye surgery Past Psychological History: Depression Smoking Status: Never smoker Past Alcohol Use History: Daily Past Drug Use History: None Reported - Past Family History Father Family Medical History: Unable to Obtain General Exam Limitations: altered mental status, physical limitation General appearance: obtunded Head exam: Present: atraumatic, normocephalic, normal inspection Eye exam: Present: normal appearance, PERRL, EOMI. Absent: scleral icterus, conjunctival injection, periorbital swelling Respiratory exam: Present: normal lung sounds bilaterally. Absent: respiratory distress, wheezes, rales, rhonchi, stridor Cardiovascular Exam: Present: normal rhythm, tachycardia GI/Abdominal exam: Present: soft, normal bowel sounds. Absent: distended, tenderness, guarding, rebound, rigid Extremities exam: Present: normal inspection, full ROM, normal capillary refill. Absent: tenderness, pedal edema, joint swelling, calf tenderness Neurological exam: Present: altered, other (will not follow commands. Does not respond to verbal or tactile stimuli. Appears agitated. Moves all extremities. Rigidity) Course Vital Signs 05/15/21 05/15/21 05/15/21 17:18 18:11 20:00 Temperature 98.4 F 98.8 F Pulse Rate 112 H 110 H 118 H Respiratory 18 17 18 Rate Blood Pressure 152/118 189/97 188/108 O2 Sat by Pulse 95 97 Oximetry 05/15/21 20:53 Temperature 98.7 F Pulse Rate 117 H Respiratory 18 Rate Blood Pressure 163/106 O2 Sat by Pulse 95 Oximetry Medical Decision Making - Medical Decision Making Upon arrival patient was placed into room 8. A thorough history was attempted to be obtained. Laboratory studies were obtained. Valproic acid level 23.7. CT of the patient's brain demonstrates her vital and chronic small vessel ischemia. No acute cranial mobility. Chest x-ray does demonstrate increasing pulmonary interstitial infiltrates. I did obtain blood cultures and initiated the patient on Rocephin. I spoke with Dr. cleaning who agreed to admit the patient. Will place neurology and psychiatry on consult of this may be medic ation side effect. Patient remained in stable condition awaiting a bed on the floor - Lab Data Result diagrams: 05/16/21 05:33 05/16/21 05:33 Lab Results 05/15/21 05/15/21 05/15/21 Range/Units 18:11 18:11 18:11 WBC 8.0 (3.8-10.6) k/uL RBC 3.98 L (4.30-5.90) m/uL Hgb 13.7 (13.0-17.5) gm/dL Hct 39.5 (39.0-53.0) % MCV 99.3 (80.0-100.0) fL MCH 34.5 (25.0-35.0) pg MCHC 34.7 (31.0-37.0) g/dL RDW 12.1 (11.5-15.5) % Plt Count 293 (150-450) k/uL MPV 7.9 Neutrophils % 81 % Lymphocytes % 8 % Monocytes % 8 % Eosinophils % 2 % Basophils % 0 % Neutrophils # 6.4 (1.3-7.7) k/uL Lymphocytes # 0.6 L (1.0-4.8) k/uL Monocytes # 0.7 (0-1.0) k/uL Eosinophils # 0.1 (0-0.7) k/uL Basophils # 0.0 (0-0.2) k/uL PT (9.0-12.0) sec INR (<1.2) APTT (22.0-30.0) sec Sodium 138 (137-145) mmol/L Potassium 3.9 (3.5-5.1) mmol/L Chloride 103 (98-107) mmol/L Carbon Dioxide 25 (22-30) mmol/L Anion Gap 10 mmol/L BUN 15 (9-20) mg/dL Creatinine 0.81 (0.66-1.25) mg/dL Est GFR (CKD-EPI)AfAm >90 (>60 ml/min/1.73 sqM) Est GFR (CKD-EPI)NonAf 87 (>60 ml/min/1.73 sqM) BUN/Creatinine Ratio (12.00-20.00) Ratio Glucose 122 H (74-99) mg/dL POC Glucose (mg/dL) (75-99) mg/dL POC Glu Hull Molder ID Calcium 9.5 (8.4-10.2) mg/dL Total Bilirubin 0.6 (0.2-1.3) mg/dL AST 29 (17-59) U/L ALT 14 (4-49) U/L Alkaline Phosphatase 101 (38-126) U/L Ammonia (<30) umol/L Creatine Kinase 178 H (55-170) U/L Troponin I (0.000-0.034) ng/mL Total Protein 6.8 (6.3-8.2) g/dL Albumin 4.0 (3.5-5.0) g/dL TSH 0.972 (0.465-4.680) mIU/L Urine Color Urine Appearance (Clear) Urine pH (5.0-8.0) Ur Specific [place] (1.001-1.035) Urine Protein (Negative) Urine Glucose (UA) (Negative) Urine Ketones (Negative) Urine Blood (Negative) Urine Nitrite (Negative) Urine Bilirubin (Negative) Urine Urobilinogen (<2.0) mg/dL Ur Leukocyte Esterase (Negative) Urine RBC (0-5) /hpf Urine WBC (0-5) /hpf Ur Squamous Epith Cells (0-4) /hpf Urine Mucus (None) /hpf Urine Opiates Screen (NotDetected) Ur Oxycodone Screen (NotDetected) Urine Methadone Screen (NotDetected) Ur Propoxyphene Screen (NotDetected) Ur Barbiturates Screen (NotDetected) Valproic Acid 23.7 ug/mL Lamotrigine 11.6 (2.0-15.0) ug/mL U Tricyclic Antidepress (NotDetected) Ur Phencyclidine Scrn (NotDetected) Ur Amphetamines Screen (NotDetected) U Methamphetamines Scrn (NotDetected) U Benzodiazepines Scrn (NotDetected) Urine Cocaine Screen (NotDetected) U Marijuana (THC) Screen (NotDetected) 05/15/21 05/15/21 05/15/21 Range/Units 18:11 18:11 18:11 WBC (3.8-10.6) k/uL RBC (4.30-5.90) m/uL Hgb (13.0-17.5) gm/dL Hct (39.0-53.0) % MCV (80.0-100.0) fL MCH (25.0-35.0) pg MCHC (31.0-37.0) g/dL RDW (11.5-15.5) % Plt Count (150-450) k/uL MPV Neutrophils % % Lymphocytes % % Monocytes % % Eosinophils % % Basophils % % Neutrophils # (1.3-7.7) k/uL Lymphocytes # (1.0-4.8) k/uL Monocytes # (0-1.0) k/uL Eosinophils # (0-0.7) k/uL Basophils # (0-0.2) k/uL PT 10.1 (9.0-12.0) sec INR 0.9 (<1.2) APTT 23.7 (22.0-30.0) sec Sodium (137-145) mmol/L Potassium (3.5-5.1) mmol/L Chloride (98-107) mmol/L Carbon Dioxide (22-30) mmol/L Anion Gap mmol/L BUN (9-20) mg/dL Creatinine (0.66-1.25) mg/dL Est GFR (CKD-EPI)AfAm (>60 ml/min/1.73 sqM) Est GFR (CKD-EPI)NonAf (>60 ml/min/1.73 sqM) BUN/Creatinine Ratio (12.00-20.00) Ratio Glucose (74-99) mg/dL POC Glucose (mg/dL) (75-99) mg/dL POC Glu Hull Molder ID Calcium (8.4-10.2) mg/dL Total Bilirubin (0.2-1.3) mg/dL AST (17-59) U/L ALT (4-49) U/L Alkaline Phosphatase (38-126) U/L Ammonia <9 (<30) umol/L Creatine Kinase (55-170) U/L Troponin I <0.012 (0.000-0.034) ng/mL Total Protein (6.3-8.2) g/dL Albumin (3.5-5.0) g/dL TSH (0.465-4.680) mIU/L Urine Color Urine Appearance (Clear) Urine pH (5.0-8.0) Ur Specific [place] (1.001-1.035) Urine Protein (Negative) Urine Glucose (UA) (Negative) Urine Ketones (Negative) Urine Blood (Negative) Urine Nitrite (Negative) Urine Bilirubin (Negative) Urine Urobilinogen (<2.0) mg/dL Ur Leukocyte Esterase (Negative) Urine RBC (0-5) /hpf Urine WBC (0-5) /hpf Ur Squamous Epith Cells (0-4) /hpf Urine Mucus (None) /hpf Urine Opiates Screen (NotDetected) Ur Oxycodone Screen (NotDetected) Urine Methadone Screen (NotDetected) Ur Propoxyphene Screen (NotDetected) Ur Barbiturates Screen (NotDetected) Valproic Acid ug/mL Lamotrigine (2.0-15.0) ug/mL U Tricyclic Antidepress (NotDetected) Ur Phencyclidine Scrn (NotDetected) Ur Amphetamines Screen (NotDetected) U Methamphetamines Scrn (NotDetected) U Benzodiazepines Scrn (NotDetected) Urine Cocaine Screen (NotDetected) U Marijuana (THC) Screen (NotDetected) 05/15/21 05/15/21 05/16/21 Range/Units 20:33 20:45 05:33 WBC 8.9 (3.8-10.6) k/uL RBC 4.00 L (4.30-5.90) m/uL Hgb 13.4 (13.0-17.5) gm/dL Hct 39.8 (39.0-53.0) % MCV 99.4 (80.0-100.0) fL MCH 33.4 (25.0-35.0) pg MCHC 33.6 (31.0-37.0) g/dL RDW 12.0 (11.5-15.5) % Plt Count 273 (150-450) k/uL MPV 8.2 Neutrophils % 85 % Lymphocytes % 5 % Monocytes % 8 % Eosinophils % 0 % Basophils % 0 % Neutrophils # 7.6 (1.3-7.7) k/uL Lymphocytes # 0.5 L (1.0-4.8) k/uL Monocytes # 0.7 (0-1.0) k/uL Eosinophils # 0.0 (0-0.7) k/uL Basophils # 0.0 (0-0.2) k/uL PT (9.0-12.0) sec INR (<1.2) APTT (22.0-30.0) sec Sodium (137-145) mmol/L Potassium (3.5-5.1) mmol/L Chloride (98-107) mmol/L Carbon Dioxide (22-30) mmol/L Anion Gap mmol/L BUN (9-20) mg/dL Creatinine (0.66-1.25) mg/dL Est GFR (CKD-EPI)AfAm (>60 ml/min/1.73 sqM) Est GFR (CKD-EPI)NonAf (>60 ml/min/1.73 sqM) BUN/Creatinine Ratio (12.00-20.00) Ratio Glucose (74-99) mg/dL POC Glucose (mg/dL) 179 H (75-99) mg/dL POC Glu Hull Molder ID Lucianago, Admon Calcium (8.4-10.2) mg/dL Total Bilirubin (0.2-1.3) mg/dL AST (17-59) U/L ALT (4-49) U/L Alkaline Phosphatase (38-126) U/L Ammonia (<30) umol/L Creatine Kinase (55-170) U/L Troponin I (0.000-0.034) ng/mL Total Protein (6.3-8.2) g/dL Albumin (3.5-5.0) g/dL TSH (0.465-4.680) mIU/L Urine Color Yellow Urine Appearance Clear (Clear) Urine pH 7.5 (5.0-8.0) Ur Specific [place] 1.016 (1.001-1.035) Urine Protein Negative (Negative) Urine Glucose (UA) Negative (Negative) Urine Ketones 2+ H (Negative) Urine Blood Negative (Negative) Urine Nitrite Negative (Negative) Urine Bilirubin Negative (Negative) Urine Urobilinogen 2.0 (<2.0) mg/dL Ur Leukocyte Esterase Moderate H (Negative) Urine RBC 4 (0-5) /hpf Urine WBC 29 H (0-5) /hpf Ur Squamous Epith Cells <1 (0-4) /hpf Urine Mucus Rare H (None) /hpf Urine Opiates Screen Not Detected (NotDetected) Ur Oxycodone Screen Not Detected (NotDetected) Urine Methadone Screen Not Detected (NotDetected) Ur Propoxyphene Screen Not Detected (NotDetected) Ur Barbiturates Screen Not Detected (NotDetected) Valproic Acid ug/mL Lamotrigine (2.0-15.0) ug/mL U Tricyclic Antidepress Not Detected (NotDetected) Ur Phencyclidine Scrn Not Detected (NotDetected) Ur Amphetamines Screen Not Detected (NotDetected) U Methamphetamines Scrn Not Detected (NotDetected) U Benzodiazepines Scrn Detected H (NotDetected) Urine Cocaine Screen Not Detected (NotDetected) U Marijuana (THC) Screen Not Detected (NotDetected) 05/16/21 Range/Units 05:33 WBC (3.8-10.6) k/uL RBC (4.30-5.90) m/uL Hgb (13.0-17.5) gm/dL Hct (39.0-53.0) % MCV (80.0-100.0) fL MCH (25.0-35.0) pg MCHC (31.0-37.0) g/dL RDW (11.5-15.5) % Plt Count (150-450) k/uL MPV Neutrophils % % Lymphocytes % % Monocytes % % Eosinophils % % Basophils % % Neutrophils # (1.3-7.7) k/uL Lymphocytes # (1.0-4.8) k/uL Monocytes # (0-1.0) k/uL Eosinophils # (0-0.7) k/uL Basophils # (0-0.2) k/uL PT (9.0-12.0) sec INR (<1.2) APTT (22.0-30.0) sec Sodium 138 (137-145) mmol/L Potassium 3.6 (3.5-5.1) mmol/L Chloride 102 (98-107) mmol/L Carbon Dioxide 24.5 (22-30) mmol/L Anion Gap 11.50 mmol/L BUN 12.0 (9-20) mg/dL Creatinine 0.8 (0.66-1.25) mg/dL Est GFR (CKD-EPI)AfAm 101.3 (>60 ml/min/1.73 sqM) Est GFR (CKD-EPI)NonAf 87.4 (>60 ml/min/1.73 sqM) BUN/Creatinine Ratio 15.00 (12.00-20.00) Ratio Glucose 154 H (74-99) mg/dL POC Glucose (mg/dL) (75-99) mg/dL POC Glu Hull Molder ID Calcium 9.1 (8.4-10.2) mg/dL Total Bilirubin (0.2-1.3) mg/dL AST (17-59) U/L ALT (4-49) U/L Alkaline Phosphatase (38-126) U/L Ammonia (<30) umol/L Creatine Kinase (55-170) U/L Troponin I (0.000-0.034) ng/mL Total Protein (6.3-8.2) g/dL Albumin (3.5-5.0) g/dL TSH (0.465-4.680) mIU/L Urine Color Urine Appearance (Clear) Urine pH (5.0-8.0) Ur Specific [place] (1.001-1.035) Urine Protein (Negative) Urine Glucose (UA) (Negative) Urine Ketones (Negative) Urine Blood (Negative) Urine Nitrite (Negative) Urine Bilirubin (Negative) Urine Urobilinogen (<2.0) mg/dL Ur Leukocyte Esterase (Negative) Urine RBC (0-5) /hpf Urine WBC (0-5) /hpf Ur Squamous Epith Cells (0-4) /hpf Urine Mucus (None) /hpf Urine Opiates Screen (NotDetected) Ur Oxycodone Screen (NotDetected) Urine Methadone Screen (NotDetected) Ur Propoxyphene Screen (NotDetected) Ur Barbiturates Screen (NotDetected) Valproic Acid ug/mL Lamotrigine (2.0-15.0) ug/mL U Tricyclic Antidepress (NotDetected) Ur Phencyclidine Scrn (NotDetected) Ur Amphetamines Screen (NotDetected) U Methamphetamines Scrn (NotDetected) U Benzodiazepines Scrn (NotDetected) Urine Cocaine Screen (NotDetected) U Marijuana (THC) Screen (NotDetected) - EKG Data EKG Comments: EKG demonstrates a sinus tachycardia with a ventricular rate of 109. NC interval 176. QRS 76. QTC of 463. No acute ST segment elevations or depressions concerning for ischemic changes Disposition Clinical Impression: Multiple falls, Acute encephalopathy Disposition: ADMITTED IP TO THIS [facility] Condition: Serious Is patient prescribed a controlled substance at d/c from ED?: No Decision to Admit Reason: Admit from EC Decision Date: 05/15/21 Decision Time: 19:55
--- NOTE | 2021-05-15 19:09 | XR ---
EXAMINATION TYPE: XR chest 2V DATE OF EXAM: 05/15/2021 COMPARISON: 04/01/2021 HISTORY: Altered mental status TECHNIQUE: 2 views FINDINGS: There is coarse pulmonary interstitial infiltrates. There is poor inspiration. There are ch est leads. Heart size is fairly normal. IMPRESSION: Increasing pulmonary interstitial infiltrates compared to old exam. No pleural fluid seen to suggest heart failure. This could be some acute and chronic interstitial pneumonia.
--- NOTE | 2021-05-15 19:11 | CT ---
EXAMINATION TYPE: CT brain wo con DATE OF EXAM: 05/15/2021 COMPARISON: 04/01/2021 HISTORY: ams CT DLP: 1158.4 mGycm Automated exposure control for dose reduction was used. There is cerebral cortical atrophy. There is no mass effect nor midline shift. There is no sign of in tracranial hemorrhage. There is hypodensity in the periventricular white matter. The calvarium is int act. Skull base is intact. There is normal aeration of the mastoid sinuses. IMPRESSION: Cerebral atrophy and chronic small vessel ischemia. No acute intracranial abnormality. No change comp ared to recent exam.
[2021-05-15] MEDS ORDERED: cefTRIAXone IN SWFI 1,000 MG/10 ML SYRINGE IVP STA (19:52)
[2021-05-15] MEDS ORDERED: NALOXONE 0.4 MG/ML 1 ML VIAL IV PRN (20:08)
[2021-05-15 20:46] LABS: Glucose,Whole Blood 179 mg/dL (75-99)
[2021-05-15] MEDS ORDERED: PANTOPRAZOLE 40 MG TABLET PO PRN (20:50)
[2021-05-15] MEDS ORDERED: LORazepam 0.5 MG TAB PO PRN (20:50)
[2021-05-15 20:56] LABS: Appearance,Urine Clear (Clear); Bilirubin,Urine Negative (Negative); Blood,Urine Negative (Negative); Color,Urine Yellow; Glucose,Urine (UA) Negative (Negative); Ketones,Urine 2+ (Negative); Leukocyte Esterase,Urine Moderate (Negative); Mucus,Urine Rare /hpf; Nitrite,Urine Negative (Negative); PH, Urine 7.5 (5.0-8.0); Protein,Urine Negative (Negative); RBC,Urine 4 /hpf (0-5); Specific Gravity,Urine 1.016 (1.001-1.035); Squamous Epithelial Cell,Urine <1 /hpf (0-4); WBC,Urine 29 /hpf (0-5)
[2021-05-15 21:08] LABS: Amphetamine Screen,Urine Not Detected (NotDetected); Cocaine Screen,Urine Not Detected (NotDetected); Opiate Screen,Urine Not Detected (NotDetected); Phencyclidine Screen,Urine Not Detected (NotDetected); Urn Cannabinoid Scrn Not Detected (NotDetected)
[2021-05-15 21:09] LABS: Barbiturate Screen,Urine Not Detected (NotDetected); Benzodiazepines Screen,Urine Detected (NotDetected); Methadone Screen, Urine Not Detected (NotDetected); Oxycodone Screen, Urine Not Detected (NotDetected); Tricyclic Antidepressant,Urine Not Detected (NotDetected)
[2021-05-16] MEDS: SODIUM CHLORIDE 0.9% 1,000 ML IV SCH ×2 (00:35→11:13)
[2021-05-16] MEDS: lamoTRIgine 100 MG TAB PO SCH ×3 (01:35→20:54)
[2021-05-16 05:52] LABS: Basophils % (A) 0 %; Eosinophils % (A) 0 %; HCT 39.8 % (39.0-53.0); HGB 13.4 gm/dL (13.0-17.5); Lymphocytes # (A) 0.5 k/uL (1.0-4.8); Lymphocytes % (A) 5 %; MCH 33.4 pg (25.0-35.0); MCHC 33.6 g/dL (31.0-37.0); MCV 99.4 fL (80.0-100.0); Mean Platelet Volume 8.2; Monocytes # (A) 0.7 k/uL (0-1.0); Monocytes % (A) 8 %; Neutrophils # (A) 7.6 k/uL (1.3-7.7); Neutrophils % (A) 85 %; Platelet Count 273 k/uL (150-450); WBC 8.9 k/uL (3.8-10.6)
[2021-05-16] MEDS ORDERED: CEFDINIR 300 MG CAP PO SCH (08:00)
[2021-05-16] MEDS: ESCITALOPRAM 20 MG TAB PO SCH (09:30)
[2021-05-16 10:23] LABS: African American GFR (CKD) 101.3 (60.0-200.0); Anion Gap 11.5 mmol/L (4.00-12.00); Calcium 9.1 mg/dL (8.7-10.3); Carbon Dioxide 24.5 mmol/L (21.6-31.8); Non-African American GFR(CKD) 87.4 (60.0-200.0); Potassium 3.6 mmol/L (3.5-5.5)
--- NOTE | 2021-05-16 13:39 | P.CNNES ---
History of Present Illness Consult date: 05/16/21 Requesting physician: Charisma Lane Reason for Consult: Acute encephalopathy History of Present Illness: This is a tele-neurology consultation performed today on 05/16/2021. Patient is a 76-year-old male came to the hospital yesterday at 5:16 PM by ambulance. As per EMS flow sheet, patient is a resident of [facility]. Patient is noted to normally be combative and attempts to stand multiple times a day. Patient over the last 2 days has had a decrease in mentation and level of consciousness. Yesterday, patient was noted by staff to be lethargic, and today on the day of admission, patient was noted to have 0 oral intake and has not in awake for any period through the day. Patient is otherwise very active known in the care home. On examination patient was found to be alert to painful stimuli but no response appropriately. No obvious signs of trauma. Pupils were round and reacting. Patient would normally follow commands. Patient's vital status at the scene was blood pressure 171/104 pulse 110, saturation 96%, blood sugar 136 and temperature 98.6 [address] GCS was 10. CT head showed cerebral atrophy and chronic small vessel ischemia. No acute intracranial abnormality. No change compared to recent exam. Chest x-ray showed increasing pulmonary interstitial infiltrates compared to old exam. No pleural fluid seen to suggest heart failure. This could be subacute and chronic interstitial pneumonia. EKG shows sinus tachycardia, left axis deviation. Blood tests shows WBC 8.0 hemoglobin 13.7, normal platelets. PT/PTT normal. Chem-20 normal. Troponin negative. CK 178, TSH 0.92. UA shows moderate leukocyte esterase, 29 WBC. Urine drug screen positive for benzodiazepine. Depakote level is 23.7. Patient has been started on Rocephin 1 g every 24 hours. Hemoglobin A1c 5.7 on 05/13/2021. B12 801 on 04/26/2021. TFTs normal. Patient's home medications include Lamictal 200 mg twice a day, Depakote 125 mg twice a day, Seroquel 25 mg twice a day, lorazepam 0.5 mg every 8 hours when necessary, Lexapro 20 mg. Vitamin D and omeprazole. Patient apparently during hospital admission on 04/02/2021 was not on Depakote. This now has been admitted to the regimen since last admission. Depakote probably resulted in Lamictal toxicity. Patient at present not able to provide any history. Review of Systems ROS unobtainable: due to mental status Past Medical History Past Medical History: GERD/Reflux History of Any Multi-Drug Resistant Organisms: None Reported Past Surgical History: No Surgical Hx Reported Additional Past Surgical History / Comment(s): eye surgery Past Anesthesia/Blood Transfusion Reactions: Unable to Obtain Past Psychological History: Depression Smoking Status: Never smoker Past Alcohol Use History: Daily Past Drug Use History: None Reported - Past Family History Father Family Medical History: Unable to Obtain Medications and Allergies Home Medications Medication Instructions Recorded Confirmed Type Escitalopram [Lexapro] 20 mg PO DAILY@0800 04/01/21 05/15/21 History lamoTRIgine 200 mg PO BID@0800,2100 04/01/21 05/15/21 History Acetaminophen Tab [Tylenol] 1,000 mg PO Q6H PRN 05/15/21 05/15/21 History Cefuroxime Axetil [Ceftin] 500 mg PO BID@0800,1700 05/15/21 05/15/21 History Cholecalciferol [Vitamin D3 (25 25 mcg PO DAILY@1700 05/15/21 05/15/21 History Mcg = 1000 Iu)] Divalproex Sprinkle [Depakote 125 mg PO BID@0800,1700 05/15/21 05/15/21 History Sprinkle] LORazepam [Ativan] 0.5 mg PO Q8H PRN 05/15/21 05/15/21 History Magnesium Hydroxide [Milk of 7,200 mg PO Q48H PRN 05/15/21 05/15/21 History Magnesia Concentrate] Na Phos,M-B/Na Phos,Di-Ba [Fleet 133 ml RECTAL DAILY PRN 05/15/21 05/15/21 History Adult] Omeprazole 20 mg PO BID PRN 05/15/21 05/15/21 History QUEtiapine FUMARATE [SEROquel] 25 mg PO BID@0800,2100 05/15/21 05/15/21 History bisacodyL [Bisacodyl] 10 mg RECTAL DAILY PRN 05/15/21 05/15/21 History Allergies Allergy/AdvReac Type Severity Reaction Status Date / Time No Known Allergies Allergy Verified 05/15/21 18:06 Physical Examination - Vital Signs Vital Signs: Vital Signs Temp Pulse Pulse Resp BP BP Pulse Ox 05/16/21 05:18 98.2 F 111 H 18 179/104 94 L 05/16/21 02:00 121 H 16 186/99 92 L 05/15/21 21:18 109 H 05/15/21 20:53 98.7 F 117 H 18 163/106 95 05/15/21 20:00 98.8 F 118 H 18 188/108 97 05/15/21 18:11 110 H 17 189/97 95 05/15/21 17:18 98.4 F 112 H 18 152/118 Intake and Output 05/15/21 05/16/21 05/16/21 22:59 06:59 14:59 Intake Total 600 Balance 600 Intake: Intake, IV Titration 600 Amount Sodium Chloride 0.9% 1, 600 000 ml @ 75 mls/hr IV . [id number] [facility] Rx#:[id number] Other: Voiding Method Diaper Diaper Incontinent Incontinent Weight 91.354 kg Patient is an elderly male, in no acute distress. Patient is obtunded, not responding to painful stimuli. He does open his eyes, but does not track, or grimace on painful stimuli. Speech and language functions cannot be assessed due to mental status. Attention, concentration is severely impaired and fund of knowledge is adequate cannot be assessed. On cranial examination, pupils are round and reacting to light, left pupil is slightly larger, both are equally reactive. Patient is not tracking. visual dozier cannot be checked. extraocular muscles could not be checked as patient would not cooperate because of encephalopathy. On rotating his head [id number], patient did wince slightly. Patient's face is symmetric, tongue cannot be checked. Palatal elevation and sensation cannot be checked. Hearing cannot be checked. Shoulder shrug cannot be checked. On muscle strength testing, patient does hold his arms up, but slightly more faster brings down the left arm as compared to the right. Patient seems to move the right arm and right leg slightly more than the left. Patient has equal strength for the existing for passive movements of the legs and arms. Deep tendon reflexes are 2 in the upper limbs at biceps and brachioradialis, 3 at the knees, 1+ at ankles and plantars are upgoing bilaterally. Sensory to touch cannot be assessed. Patient does not withdraw or grimace to painful stimuli on either side. Cerebellar function cannot be checked. Tone is slightly increased and bulk of muscles normal. Gait not able to be checked. On general examination, there is no carotid bruit or murmur, S1-S2 audible. Abdomen is soft nontender. Chest is clear. Peripheral pulses are present. Mild edema in the left leg. Results - Laboratory Findings CBC and BMP: 05/16/21 05:33 05/16/21 05:33 Abnormal Lab Findings: Abnormal Labs 05/15/21 05/15/21 05/15/21 18:11 18:11 20:33 RBC 3.98 L Lymphocytes # 0.6 L Glucose 122 H POC Glucose (mg/dL) Creatine Kinase 178 H Urine Ketones 2+ H Ur Leukocyte Esterase Moderate H Urine WBC 29 H Urine Mucus Rare H U Benzodiazepines Scrn Detected H 05/15/21 05/16/21 05/16/21 20:45 05:33 05:33 RBC 4.00 L Lymphocytes # 0.5 L Glucose 154 H POC Glucose (mg/dL) 179 H Creatine Kinase Urine Ketones Ur Leukocyte Esterase Urine WBC Urine Mucus U Benzodiazepines Scrn Assessment and Plan Assessment: * Altered mental status, most likely due to Lamictal toxicity. Patient is on high-dose Lamictal 200 mg twice a day. It appears Depakote was recently introduced (since sometimes after last admission on 04/02/2021). Depakote can further increase the dose of Lamictal due to medication interaction. Toxic metabolic encephalopathy due to reasons mentioned below also a possibility. * Abnormal UA, possible UTI. Patient has been started on ceftriaxone. * Abnormal chest x-ray, rule out interstitial pneumonia. * Patient is noticed to be moving left side of the body slightly less as compared to the right. Rule out CVA, although less likely. Plan: * Hold Depakote, as it can significantly enhance the serum levels of Lamictal. * Hold Lamictal until levels are back. Once patient's mental status improves, then would recommend decreasing dose of Lamictal to 150 mg twice a day. * Await Lamictal level. * Carotid Doppler to rule out stenosis. * EEG to evaluate for any epileptiform activity. * 2-D echo * Await Lamictal level. * Hemoglobin A1c normal 5.7, TFTs normal, B12 normal 801. Ammonia normal <9. * Await blood and urine cultures. Patient on ceftriaxone. * Repeat computed tomography scan of head in a.m., if mental status does not improve. * Dr. Luis Worley will resume neurology service in the morning.
--- NOTE | 2021-05-16 15:04 | US ---
EXAMINATION TYPE: US carotid duplex BILAT DATE OF EXAM: 05/16/2021 COMPARISON: NONE CLINICAL HISTORY: Altered mental status, rule out CVA. EXAM MEASUREMENTS: RIGHT: Peak Systolic Velocity (PSV) cm/sec ----- Right CCA: 77.3 cm/s (Calcified atherosclerotic plaque at the right carotid bulb/proximal int ernal carotid artery which limits evaluation of the lumen). ----- Right ICA: 96.1 cm/s ----- Right ECA: 112 cm/s ICA/CCA ratio: 1.24 RIGHT: End Diastole cm/sec ----- Right CCA: 11.0 cm/s ----- Right ICA: 18.8 cm/s ----- Right ECA: 0.0 cm/s LEFT: Peak Systolic Velocity (PSV) cm/sec ----- Left CCA: 75.4 cm/s ----- Left ICA: 65.0 cm/s ----- Left ECA: Not obtained ICA/CCA ratio: 0.86 LEFT: End Diastole cm/sec ----- Left CCA: 11.0 cm/s ----- Left ICA: 0.00 cm/s ----- Left ECA: Not obtained VERTEBRALS (direction of flow): Right Vertebral: Antegrade Left Vertebral: Not well visualized and appears small caliber on previous CTA chest IMPRESSION: 1. Calcified atherosclerotic plaque of the right carotid bulb/proximal internal carotid artery which limits evaluation of the lumen. Further evaluation with CTA neck can be obtained. The remaining right common carotid artery and internal carotid artery appear normal. 2. Normal left common carotid artery and internal carotid artery. 3. Antegrade flow of the right vertebral artery; however, the left vertebral artery was not well visu alized and appears small caliber on the previous CTA chest. NASCET criteria was used in interpretation of this exam? Criteria for Assigning % of Stenosis / Diameter reduction (Estimation based on the indirect measurements of the internal carotid artery velocities (ICA PSV). 1. Normal (no stenosis)=ICA PSV < 125 cm/s: ratio < 2.0: ICA EDV<40 cm/s. 2. Less than 50% stenosis=ICA PSV < 125 cm/s: ratio < 2.0: ICA EDV<40 cm/s. 3. 50 to 69% stenosis=ICA PSV of 125 to 230 cm/s: ration 2.0 ? 4.0: ICA EDV 40-100 cm/s. 4. Greater than 70% stenosis to near occlusion= ICA PSV > 230 cm/s: ratio > 4.0: ICA EDV > 100 cm/s. 5. Near occlusion= ICA PSV velocities may be low or undetectable: variable ratio and ICA EDV. 6. Total occlusion=unable to detect flow.
[2021-05-16] MEDS: CHOLECALCIFEROL 25 MCG (1000 IU) TABLET PO SCH (17:19)
--- NOTE | 2021-05-16 18:06 | P.PN ---
Progress Note - Text Progress Note Date: 05/16/21 Reason for psych consult ; acute encephalopathy Attempted to see the patient. The patient is currently not alert. Psychiatry will attempt again tomorrow to complete the psychiatric assessment
[2021-05-17] MEDS: SODIUM CHLORIDE 0.9% 1,000 ML IV SCH ×2 (00:28→20:04)
--- NOTE | 2021-05-17 02:15 | P.HPIM ---
History of Present Illness H&P Date: 05/16/21 Chief Complaint: Altered mental status Patient is a 76 male with a known history of alcohol use, GERD, multiple infarcts and depression who is currently at [facility] was sent to hospital due to altered mental status. Patient did have severe alcohol abuse and could not take care of himself. He was admitted to [facility] in March 2021. Patient continues to have frequent falls and decreasing mentation since admission. EMS was called due to increased altered mental status, lethargy and not taking any oral intake.. He was recently started on Depakote on Monday for mood stabilization. Patient cannot provide any history. Chest x-ray showed increasing pulmonary interstitial infiltrates compared to old exam. No pleural fluid is seen to suggest heart failure. It could be some acute and chronic interstitial pneumonia. CT head showed stable atrophy and chronic small vessel ischemia. No acute intracranial normality. No change compared to old exam. EKG showed sinus tachycardia Laboratory data reviewed. Urinalysis showed 2+ ketones and moderate leukocyte esterase and elevated WBC count 29 Urinalysis positive for benzodiazepines.. Review of Systems Complete review of systems could not be obtained from the patient Past Medical History Past Medical History: GERD/Reflux History of Any Multi-Drug Resistant Organisms: None Reported Past Surgical History: No Surgical Hx Reported Additional Past Surgical History / Comment(s): eye surgery Past Anesthesia/Blood Transfusion Reactions: Unable to Obtain Past Psychological History: Depression Smoking Status: Never smoker Past Alcohol Use History: Daily Past Drug Use History: None Reported - Past Family History Father Family Medical History: Unable to Obtain Medications and Allergies Home Medications Medication Instructions Recorded Confirmed Type Escitalopram [Lexapro] 20 mg PO DAILY@0800 04/01/21 05/15/21 History lamoTRIgine 200 mg PO BID@0800,2100 04/01/21 05/15/21 History Acetaminophen Tab [Tylenol] 1,000 mg PO Q6H PRN 05/15/21 05/15/21 History Cefuroxime Axetil [Ceftin] 500 mg PO BID@0800,1700 05/15/21 05/15/21 History Cholecalciferol [Vitamin D3 (25 25 mcg PO DAILY@1700 05/15/21 05/15/21 History Mcg = 1000 Iu)] Divalproex Sprinkle [Depakote 125 mg PO BID@0800,1700 05/15/21 05/15/21 History Sprinkle] LORazepam [Ativan] 0.5 mg PO Q8H PRN 05/15/21 05/15/21 History Magnesium Hydroxide [Milk of 7,200 mg PO Q48H PRN 05/15/21 05/15/21 History Magnesia Concentrate] Na Phos,M-B/Na Phos,Di-Ba [Fleet 133 ml RECTAL DAILY PRN 05/15/21 05/15/21 History Adult] Omeprazole 20 mg PO BID PRN 05/15/21 05/15/21 History QUEtiapine FUMARATE [SEROquel] 25 mg PO BID@0800,2100 05/15/21 05/15/21 History bisacodyL [Bisacodyl] 10 mg RECTAL DAILY PRN 05/15/21 05/15/21 History Allergies Allergy/AdvReac Type Severity Reaction Status Date / Time No Known Allergies Allergy Verified 05/15/21 18:06 Physical Exam Vitals: Vital Signs Temp Pulse Pulse Resp BP BP Pulse Ox 05/16/21 05:18 98.2 F 111 H 18 179/104 94 L 05/16/21 02:00 121 H 16 186/99 92 L 05/15/21 21:18 109 H 05/15/21 20:53 98.7 F 117 H 18 163/106 95 05/15/21 20:00 98.8 F 118 H 18 188/108 97 05/15/21 18:11 110 H 17 189/97 95 05/15/21 17:18 98.4 F 112 H 18 152/118 Intake and Output 05/15/21 05/16/21 05/16/21 22:59 06:59 14:59 Intake Total 600 Balance 600 Intake: Intake, IV Titration 600 Amount Sodium Chloride 0.9% 1, 600 000 ml @ 75 mls/hr IV . [id number] [facility] Rx#:[id number] Other: Voiding Method Diaper Diaper Incontinent Incontinent Weight 91.354 kg PHYSICAL EXAMINATION: Patient is lying in the bed comfortably, no acute distress,.Is obtunded and not responding to verbal or painful stimuli.. HEENT: Normocephalic. Neck is supple. Pupils reactive. Nostrils clear. Oral cavity is moist. Neck reveals no JVD, carotid bruits, or thyromegaly. CHEST EXAMINATION: Trachea is central. Symmetrical expansion. Lung dozier clear to auscultation and percussion. CARDIAC: Normal S1, S2 with no gallops. No murmurs ABDOMEN: Soft. Bowel sounds normal. No organomegaly. No abdominal bruits. Extremities: trace edema. No clubbing or cyanosis Neurologically Is obtunded and not responding to verbal or painful stimuli. no gross focal deficits noted Skin: No rash or skin lesions. Psychiatric: could not be assesed Musculoskeletal: No joint swelling or deformity. Results CBC & Chem 7: 05/16/21 05:33 05/16/21 05:33 Labs: Abnormal Lab Results - Last 24 Hours (Table) 05/15/21 05/15/21 05/15/21 Range/Units 18:11 18:11 20:33 RBC 3.98 L (4.30-5.90) m/uL Lymphocytes # 0.6 L (1.0-4.8) k/uL Glucose 122 H (74-99) mg/dL POC Glucose (mg/dL) (75-99) mg/dL Creatine Kinase 178 H (55-170) U/L Urine Ketones 2+ H (Negative) Ur Leukocyte Esterase Moderate H (Negative) Urine WBC 29 H (0-5) /hpf Urine Mucus Rare H (None) /hpf U Benzodiazepines Scrn Detected H (NotDetected) 05/15/21 05/16/21 05/16/21 Range/Units 20:45 05:33 05:33 RBC 4.00 L (4.30-5.90) m/uL Lymphocytes # 0.5 L (1.0-4.8) k/uL Glucose 154 H (74-99) mg/dL POC Glucose (mg/dL) 179 H (75-99) mg/dL Creatine Kinase (55-170) U/L Urine Ketones (Negative) Ur Leukocyte Esterase (Negative) Urine WBC (0-5) /hpf Urine Mucus (None) /hpf U Benzodiazepines Scrn (NotDetected) Thrombosis Risk Factor Assmnt - DVT/VTE Prophylaxis DVT/VTE Prophylaxis: Pharmacologic Prophylaxis ordered - Choose All That Apply Any of the Below Risk Factors Present?: Yes Each Factor Represents 1 point: Obesity (BMI >25) Other Risk Factors: Yes Each Risk Factor Represents 3 Points: Age 75 years or older Other congenital or acquired thrombophilia - If yes, enter type in comment: No Thrombosis Risk Factor Assessment Total Risk Factor Score: 4 Thrombosis Risk Factor Assessment Level: Moderate Risk Assessment and Plan Assessment: Altered mental status likely due to metabolic and toxic encephalopathy. P ossible Lamictal toxicity is being considered. Patient is Seroquel, Lexapro, lamotrigine and recently added Depakote. Acute urinary tract infection. Possible interstitial pneumonia Severe alcohol abuse and currently not able to take care of himself. Admitted to [facility] in March 2021 Depression/bipolar disorder GERD DVT and GI prophylaxis Plan: Patient will be continued on gentle IV hydration And antibiotics in the form of ceftriaxone and follow-up urine culture report. Depakote is on hold. Hold Lamictal until levels are back. EEG, carotid duplex, 2D echo was ordered. Neurology is on board. Appreciate recommendations. Continue to follow closely. Continue supportive care. Time with Patient: Greater than 30
[2021-05-17] MEDS: HEPARIN SODIUM,PORCINE/PF 5,000 UNIT/0.5 ML SYRINGE SQ SCH ×2 (08:47→16:50)
[2021-05-17] MEDS: ESCITALOPRAM 20 MG TAB PO SCH (08:47)
--- NOTE | 2021-05-17 12:19 | ECHOF ---
Referral Reason:Altered mental status, rule out CVA MEASUREMENTS -------- HEIGHT: 180.3 cm WEIGHT: 91.2 kg BP: 199/109 IVSd: 1.0 cm (0.6 - 1.1) LVIDd: 2.9 cm (3.9 - 5.3) LVPWd: 1.3 cm (0.6 - 1.1) IVSs: 1.6 cm LVIDs: 1.3 cm LVPWs: 1.4 cm Ao Diam: 3.2 cm (2.0 - 3.7) AV Cusp: 2.0 cm (1.5 - 2.6) LA Diam: 3.7 cm (2.7 - 3.8) MV E Stanley: 0.47 m/s MV DecT: 113 ms MV A Stanley: 0.24 m/s MV E/A Ratio: 1.98 AV maxP.55 mmHg AV meanP.85 mmHg RAP: 5.00 mmHg RVSP: 9.94 mmHg FINDINGS -------- Sinus rhythm. This was a technically difficult study with suboptimal views. The left ventricular size is normal. Left ventricular wall thickness is normal. Overall left vent ricular systolic function is normal with, an EF between 55 - 60 %. The RV was not well visualized. The left atrium was not well visualized. The right atrium was not well visualized. Lumason used The aortic valve was not well visualized. Peak/mean gradient across the Aortic Valve is 16.55mmHg / 9.85mmHg. The mitral valve is normal. Mild mitral regurgitation is present. The tricuspid valve appears structurally normal. Trace tricuspid regurgitation present. Right devyn tricular systolic pressure is normal at < 35 mmHg. The pulmonic valve was not well visualized. The aortic root size is normal. IVC Not well visulized. There is no pericardial effusion. CONCLUSIONS -------- 1. This was a technically difficult study with suboptimal views. 2. Left ventricular wall thickness is normal. 3. Overall left ventricular systolic function is normal with, an EF between 55 - 60 %. 4. Peak/mean gradient across the Aortic Valve is 16.55mmHg / 9.85mmHg. 5. Mild mitral regurgitation is present. 6. Trace tricuspid regurgitation present. 7. There is no pericardial effusion. RESIDENTIAL [employer] TECHNICIAN: Bryanna Stone RDCS
[2021-05-17] MEDS: THIAMINE 100 MG in SODIUM CHLORIDE 0.9% 50 ML IVPB SCH ×2 (12:34→20:04)
--- NOTE | 2021-05-17 14:05 | XR ---
EXAMINATION TYPE: XR Hip Bilateral Complete DATE OF EXAM: 05/17/2021 COMPARISON: NONE HISTORY: 76-year-old male with pain TECHNIQUE: 2 views each side FINDINGS: Bony adenopathy at both greater trochanters. Vascular calcifications. No acute fracture, subluxation, dislocation. IMPRESSION: Prominent reactive bony changes of gluteal insertional tendinopathy on both sides. No acute osseous a bnormality seen.
--- NOTE | 2021-05-17 14:43 | EEG ---
ELECTROENCEPHALOGRAM REPORT DATE OF SERVICE: 05/17/2021 CLINICAL HISTORY: This is a 76-year-old gentleman with reported history of depression who has altered mental status. This video EEG is obtained to evaluate for seizure epileptiform activity. RELEVANT MEDICATION: Lamictal and Depakote. EEG TYPE: A routine 21 channel EEG is obtained with video using the 10/20 electrode placement system. DESCRIPTION: Wakefulness is only obtained. During wakefulness, the background consists of moderate voltage of nonrhythmic 5-5.5 hertz theta activity and sometimes intermixed with delta activity. There is no sleep background architecture seen. There is no focal slowing. Interictal and ictal is none. ACTIVATION PROCEDURE: Photic stimulation and hyperventilation are not performed. CLINICAL INTERPRETATION: This is an abnormal routine EEG. The background slowing is suggestive of moderate to severe encephalopathy. There are no focal slowing, epileptiform discharge or seizure on the EEG. Clinical correlation is recommended. SANDI / HAILEEN: [id number] /
--- NOTE | 2021-05-17 15:25 | P.PN ---
Subjective Progress Note Date: 05/17/21 Patient is a 76 male with a known history of alcohol use, GERD, multiple infarcts and depression who is currently at [facility] was sent to hospital due to altered mental status. Patient did have severe alcohol abuse and could not take care of himself. He was admitted to [facility] in March 2021. Patient continues to have frequent falls and decreasing mentation since admission. EMS was called due to increased altered mental status, lethargy and not taking any oral intake.. He was recently started on Depakote on Monday for mood stabilization. Patient cannot provide any history. Chest x-ray showed increasing pulmonary interstitial infiltrates compared to old exam. No pleural fluid is seen to suggest heart failure. It could be some acute and chronic interstitial pneumonia. CT head showed stable atrophy and chronic small vessel ischemia. No acute intracranial normality. No change compared to old exam. EKG showed sinus tachycardia Laboratory data reviewed. Urinalysis showed 2+ ketones and moderate leukocyte esterase and elevated WBC count 29 Urinalysis positive for benzodiazepines.. 05/17/2021 Patient is seen in follow-up this morning continues to be confused and somewhat altered although per nursing staff more awake today and responding to questions and commands. Patient states [place] although unsure of where in [place] and unable to give a date. Patient is having generalized pain and reported pain in the hip and will obtain x-ray. Patient is also having difficulty in swallowing food along with medications. Will consult speech for swallow eval. Urine culture obtained and pending although patient denies any urinary frequency or dysuria and was maintained on IV ceftriaxone and will discontinue and monitor cultures closely. Neurology also evaluating the patient and EEG was taken and waiting to be red along with a 2-D echo. Will add Toradol for pain and monitor closely. Patient also awaiting for psych consult and will await report. PT/OT to evaluate the patient and will likely require ECF placement for continued weakness. Lamictal level was 11.6 and valproic acid 23.7. Will use Seroquel at night as needed for agitation. Patient is continued on gentle IV hydration and will continue and repeat a.m. labs. Review of systems: Constitutional: reports of fatigue, no reports of fever, or chills Cardiovascular: No reports of chest pain or palpitations Respiratory: No reports of shortness of breath or cough GI: No reports of nausea, vomiting, or diarrhea : No reports of dysuria or retention Neurovascular: Reports generalized weakness and pain All medications have been reviewed Physical exam: Patient is lying in the bed comfortably, no acute distress,.slightly more awake today alert and oriented 1-2 HEENT: Normocephalic. Neck is supple. Pupils reactive. Nostrils clear. Oral cavity is moist. Neck reveals no JVD, carotid bruits, or thyromegaly. CHEST EXAMINATION: Trachea is central. Symmetrical expansion. Lung dozier clear to auscultation and percussion. CARDIAC: Normal S1, S2 with no gallops. No murmurs ABDOMEN: Soft. Bowel sounds normal. No organomegaly. No abdominal bruits. Extremities: trace edema. No clubbing or cyanosis Neurologically diffusely weak. no gross focal deficits noted Skin: No rash or skin lesions. Psychiatric: could not be assessed Musculoskeletal: No joint swelling or deformity. Assessment and plan: Altered mental status likely due to metabolic and toxic encephalopathy. Possible Lamictal toxicity is being considered although Lamictal level was within normal limits. Patient is on Seroquel, Lexapro, lamotrigine and recently added Depakote. Possible Acute urinary tract infection Possible asymptomatic bacteriuria, denies any dysuria or retention and awaiting urine culture Possible interstitial pneumonia Severe alcohol abuse and currently not able to take care of himself. Admitted to ECF in March 2021 Depression/bipolar disorder GERD DVT and GI prophylaxis Full code Plan: Patient will be continued on gentle IV hydration, and antibiotics have been discontinued as patient was maintained on ceftriaxone and will follow culture report and make changes as necessary. Depakote on hold along with Lamictal and levels came back within normal limits. Neurology following and underwent EEG which is pending and also awaiting psychology evaluation. PT/OT to evaluate the patient as patient will likely require ECF placement once stabilized discharged. Will also order speech eval as he is having difficulty swallowing food and medications. Patient is having some bilateral hip pain and will order x-ray. Will add Toradol for pain and continue to monitor closely. Objective - Vital Signs Vital signs: Vital Signs Temp 97.4 F L 05/17/21 05:00 Pulse 104 H 05/17/21 05:00 Resp 16 05/17/21 05:00 BP 199/109 05/17/21 05:00 Pulse Ox 96 05/17/21 05:00 Intake & Output 05/16/21 05/17/21 05/17/21 18:59 06:59 18:59 Intake Total 900 1290 Balance 900 1290 Intake: Intake, IV Titration 900 900 Amount Sodium Chloride 0.9% 1, 900 900 000 ml @ 75 mls/hr IV . [id number] [facility] Rx#:[id number] Oral 390 Other: Voiding Method Diaper Diaper Incontinent Incontinent # Voids 1 3 - Labs CBC & Chem 7: 05/16/21 05:33 05/16/21 05:33 Labs: Abnormal Lab Results - Last 24 Hours (Table) 05/16/21 Range/Units 05:33 Glucose 154 H (70-110) mg/dL Microbiology - Last 24 Hours (Table) 05/15/21 20:30 Blood Culture - Preliminary Blood No Growth after 24 hours 05/15/21 20:33 Urine Culture - Preliminary Urine,Voided
[2021-05-17] MEDS: KETOROLAC 15 MG/ML 1 ML VIAL IVP PRN ×2 (16:50→22:51)
[2021-05-17] MEDS: CHOLECALCIFEROL 25 MCG (1000 IU) TABLET PO SCH (16:51)
--- NOTE | 2021-05-17 18:02 | P.PN ---
Subjective Progress Note Date: 05/17/21 I'm seeing the patient for the first time. Please refer to Dr. Harley's note for further details. Per the patient nurse the patient continues to be altered. Per the nurse he has not had any jerking of any extremities. He does not have fever or leukocytosis. He was suppose to be seen by his Neurologist and get work-up such as Dariusz scan and other work-up. I spoke with Lori (friend) and has known him for 20 years and is the power of prosecuting attorney. She stated he has recurrent falls and had a fall in March and had left sided weakness and was taken to [facility]. She stated that his speech is declining for the past one week that is understable. He has rigidity of hands and clenches and declining for the past 4 weeks. She said he had left side weakness initially then progressively for generalized weakness. He had MRI Brain recently at Dr. Marino's office. He was suppose to be on get other MRI and Dariusz scan this weakness. He has history of carpal tunnel syndrome and hold off surgery He has not been complaining of headache, nausea or vomiting. He does not have history of seizure. He goes to [place] and follows-up a physician there. But not sure why he is on Depakote or Lamictal. He is on Lexapro. It seems he has significant history alcohol use and possible last drink was a month ago. Objective - Vital Signs Vital signs: Vital Signs Temp 97.8 F 05/17/21 12:32 Pulse 108 H 05/17/21 12:32 Resp 18 05/17/21 12:32 BP 115/85 05/17/21 12:32 Pulse Ox 98 05/17/21 12:32 Intake & Output 05/16/21 05/17/21 05/17/21 18:59 06:59 18:59 Intake Total 900 1290 Balance 900 1290 Intake: Intake, IV Titration 900 900 Amount Sodium Chloride 0.9% 1, 900 900 000 ml @ 75 mls/hr IV . [id number] [facility] Rx#:[id number] Oral 390 Other: Voiding Method Diaper Diaper Diaper Incontinent Incontinent Incontinent # Voids 1 3 - Exam GENERAL: The patient is lying in bed and is not in acute distress. HENT: Neck is rigid and could not assess because of his cooperation. PSYCH: Flat affect. NEUROLOGICAL: Limited because of his condition/cooperation. Higher mental function: The patient is awake. Not verbally responding or following commands. Could not assess language. Cranial nerves: The pupils are round, equal and reactive to light. He minimally track with both eyes to right and left but not fully. No facial weakness. Could not assess rest of cranial nerves because of his condition. Motor: The strength is hard to assess because he was severely rigid in upper extremities> lowers and then after resting the patient he was mildly to moderately rigid in uppers. He would spontaneously move upper briefly on his own. Normal bulk. Cerebellum: Could not assess. Sensation: Could not assess. Reflexes (right/left): 2+ uppers, patellar 1-2+ and ankles are 1+ bilaterally. Plantars are upgoing bilaterally. WORK-UP: CT head showed cerebral atrophy and chronic small vessel ischemia. No acute intracranial abnormality. No change compared to recent exam. 2-D echo was reported as left ventricle wall thickness is normal. Ejection fraction of 55-60%. Left atrium was not well visualized. Carotid duplex is reported as calcified atherosclerotic plaque of the right carotid bulb/proximal internal carotid artery which limits evaluation of the lumen. Further evaluation was CTA neck can be obtained at. The remaining right common carotid artery and internal carotid artery appears normal. Normal left common carotid artery and internal carotid artery. Antegrade flow of the right vertebral artery, however left vertebral artery was not well visualized and appears small caliber on the previous CTA chest. Chest x-ray showed increasing pulmonary interstitial infiltrates compared to old exam. No pleural fluid seen to suggest heart failure. This could be subacute and chronic interstitial pneumonia. UA shows moderate leukocyte esterase, 29 WBC. Urine drug screen positive for benzodiazepine. Hemoglobin A1c 5.7 on 05/13/2021. B12 801 on 04/26/2021. Depakote level is 23.7 (subtherapeutic). Lamictal 11.6 (therapeutic) TSH: 0.972 (normal). Ammonia <9 (normal) EEG on 05/17/2021: Is an abnormal routine EEG. The background slowing suggestive of moderate to severe encephalopathy. There are no focal slowing, epileptiform discharges or seizure in the EEG. - Labs CBC & Chem 7: 05/16/21 05:33 05/16/21 05:33 Labs: Microbiology - Last 24 Hours (Table) 05/15/21 20:30 Blood Culture - Preliminary Blood No Growth after 24 hours 05/15/21 20:33 Urine Culture - Preliminary Urine,Voided Assessment and Plan Assessment: * Encephalopathy: Unknown cause. It was suspected to Lamictal toxicity because on high dose 200mg bid but his levels were therapeutic. Rule out underlying central infection and seems low (but no leukocytosis or fever). * It was reported that patient is noticed to be moving left side of the body slightly less as compared to the right. Rule out CVA, although less likely. * He has been declining for the past 4 weeks (per his power of prosecuting attorney). * He is on Lamictal and Depakote and no history of seizure * Abnormal UA, possible UTI. Patient has been started on ceftriaxone. * Abnormal chest x-ray, rule out interstitial pneumonia. * History of significant of alcohol use (possibly last drink 4 weeks ago per power of prosecuting attorney) Plan: We a copy of recent MRI Brain that he had at Dr. Duncan's. I ordered CTA of the head and neck. PT, OT and IMMIGRATION MANAGER are consulted Q4 hour neuro-checks. On IV thiamine 100mg daily every 12 hours. Will consider getting lumbar puncture after getting results of MRI. Patient is on extremely high dose of Lamictal 200 mg 1 tablet twice a day and he is on Depakote 250 mg twice a day recommend the if possible to be on a lower dose of Lamictal and defer the management to the psychiatry team Psychiatry team is consulted. Will defer the rest of medical management to the primary team. The plan is discussed with the patient's nurse and his power of prosecuting attorney (Lori) via phone. Luis Worley MD Neuro-Hospitalist Time with Patient: Less than 30
--- NOTE | 2021-05-18 00:10 | CT ---
EXAMINATION TYPE: CT angio head neck DATE OF EXAM: 05/17/2021 COMPARISON: None HISTORY: left side weakness CT DLP: 406.3 mGycm Automated exposure control for dose reduction was used. CONTRAST: Performed with IV Contrast, patient injected with 65 mL of Isovue 370. Images obtained from the aortic arch to the vertex of the brain with IV contrast. There are 3-D post processed images. There is normal branching pattern of the great vessels on the aortic arch. There is arterial flow in both subclavian arteries. There is arterial flow in the common internal and external carotid arteries bilaterally. There is arterial flow in both vertebral arteries. There is plaque formation with calci fication at the right carotid artery bifurcation. I do not see any significant luminal narrowing. The re is no evidence of carotid or vertebral artery aneurysm or dissection. There is wide patency of the carotid artery bifurcations. There is arterial flow in the anterior middle and posterior cerebral arteries. There is no mass effec t. I see no evidence of intracranial aneurysm or neovascularity. There is normal enhancement of the v enous sinuses. I see no evidence of intracranial arterial stenosis. IMPRESSION: No significant angiographic abnormality of the brain and neck.
[2021-05-18] MEDS: HEPARIN SODIUM,PORCINE/PF 5,000 UNIT/0.5 ML SYRINGE SQ SCH ×3 (00:35→17:10)
[2021-05-18] MEDS: SODIUM CHLORIDE 0.9% 1,000 ML IV SCH ×2 (03:40→21:34)
[2021-05-18] MEDS: KETOROLAC 15 MG/ML 1 ML VIAL IVP PRN (06:08)
[2021-05-18] MEDS: ESCITALOPRAM 20 MG TAB PO SCH (07:44)
[2021-05-18] MEDS: THIAMINE 100 MG in SODIUM CHLORIDE 0.9% 50 ML IVPB SCH ×2 (07:44→21:38)
--- NOTE | 2021-05-18 13:53 | P.CN ---
Psychiatric Consult - . Consult date: 05/18/21 Consult:: 05/18/21 13:51 IDENTIFYING DATA: This patient is a 76-year-old male who is a resident of [facility] presents to the hospital on 05/15/2021 for altered mental status. HISTORY OF PRESENT ILLNESS: The patient presented to the hospital brought in by EMS for altered mental status. The patient has a reported history of being a heavy alcoholic and has had multiple falls and decrease in mentation since being admitted to [facility] in March. The patient recently was started on Depakote for mood stabilization 1 week prior to his presentation to this hospital. Psychiatry has been consulted for evaluation of altered mental status and possible medication side effects. My colleague attempted to assess the patient on 05/16/21, but the patient was not alert and unable to participate in the p sychiatric interview. The patient was seen at bedside and is reportedly doing much better than his initial presentation 2 days prior. The patient is currently somnolent but he is alert and oriented to person and place but does not answer or respond to the time. As per discussion with the patient's nurse and neurology, the patient is currently being worked up by his outpatient neurologist Dr. Duncan for his complaints of weakaness with an MRI anad Dariusz scan ordered. He does not have a reported history of seizure and has been prescribed lamictal and depakote for mood stabilization. The patient is quite somnolent at this time and does not provide any significant history regarding his mood or history of psychosis. He does not participate in the psychiatric interview and is somnolent. PAST PSYCHIATRIC HISTORY: Patient has a reported history of alcohol abuse and depression. He has been prescribed lamictal and depakote for mood stabilization. Other home medications include ativan, lexapro and seroquel. PAST MEDICAL HISTORY: Past Medical History: GERD/Reflux History of Any Multi-Drug Resistant Organisms: None Reported Past Surgical History: No Surgical Hx Reported Additional Past Surgical History / Comment(s): eye surgery Past Anesthesia/Blood Transfusion Reactions: Unable to Obtain Past Psychological History: Depression Smoking Status: Never smoker Past Alcohol Use History: Daily Past Drug Use History: None Reported ALLERGIES: NO KNOWN DRUG ALLERGIES CHEMICAL DEPENDENCY HISTORY: History of alcohol abuse. unable to obtain further history. FAMILY PSYCHIATRIC/SUBSTANCE USE HISTORY: unable to obtain SOCIAL HISTORY: Patient is currently a resident of [facility]. His friend Lori is the Power of Store Sales Consultant. MENTAL STATUS EXAM: General Appearance: Patient appears to be stated age, is somnolent, and appears to have fair hygiene and grooming wearing hospital gown with fair eye contact. Behavior: Patient is calmly lying in bed without any agitated behavior. Difficult to arouse. Speech: Patient's speech is nonspontaneous, low in volume, minimal in conversation. Mood/Affect: Unable to assess. Suicidality/Homicidality: Unable to assess. Perceptions: Unable to assess. Though content/process: Unable to assess. Memory and concentration: Unable to assess. Grossly poor. Judgment and insight: poor Vital Signs Temp 97.9 F 05/18/21 12:08 Pulse 95 05/18/21 12:08 Resp 17 05/18/21 12:08 BP 161/87 05/18/21 12:08 Pulse Ox 94 L 05/18/21 12:08 Intake & Output 05/17/21 05/18/21 05/18/21 18:59 06:59 18:59 Intake Total 1100 1550 Balance 1100 1550 Intake: Intake, IV Titration 700 950 Amount Sodium Chloride 0.9% 1, 600 900 000 ml @ 75 mls/hr IV . [id number] [facility] Rx#:[id number] Thiamine 100 mg In Sodium 50 50 Chloride 0.9% 50 ml @ 100 mls/hr IVPB Q12HR [facility] Rx#:[id number] cefTRIAXone 1 gm In 50 Sodium Chloride 0.9% 50 ml @ 100 mls/hr IVPB Q24HR [facility] Rx#:[id number] Oral 400 600 Other: Voiding Method Diaper Diaper Diaper Incontinent Incontinent Incontinent # Voids 3 2 4 # Bowel Movements 2 3 Laboratory Results WBC 8.9 k/uL (3.8-10.6) 05/16/21 05:33 RBC 4.00 m/uL (4.30-5.90) L 05/16/21 05:33 Hgb 13.4 gm/dL (13.0-17.5) 05/16/21 05:33 Hct 39.8 % (39.0-53.0) 05/16/21 05:33 MCV 99.4 fL (80.0-100.0) 05/16/21 05:33 MCH 33.4 pg (25.0-35.0) 05/16/21 05:33 MCHC 33.6 g/dL (31.0-37.0) 05/16/21 05:33 RDW 12.0 % (11.5-15.5) 05/16/21 05:33 Plt Count 273 k/uL (150-450) 05/16/21 05:33 MPV 8.2 05/16/21 05:33 Neutrophils % 85 % 05/16/21 05:33 Lymphocytes % 5 % 05/16/21 05:33 Monocytes % 8 % 05/16/21 05:33 Eosinophils % 0 % 05/16/21 05:33 Basophils % 0 % 05/16/21 05:33 Neutrophils # 7.6 k/uL (1.3-7.7) 05/16/21 05:33 Lymphocytes # 0.5 k/uL (1.0-4.8) L 05/16/21 05:33 Monocytes # 0.7 k/uL (0-1.0) 05/16/21 05:33 Eosinophils # 0.0 k/uL (0-0.7) 05/16/21 05:33 Basophils # 0.0 k/uL (0-0.2) 05/16/21 05:33 PT 10.1 sec (9.0-12.0) 05/15/21 18:11 INR 0.9 (<1.2) 05/15/21 18:11 APTT 23.7 sec (22.0-30.0) 05/15/21 18:11 Sodium 138 mmol/L (135-145) 05/16/21 05:33 Potassium 3.6 mmol/L (3.5-5.5) 05/16/21 05:33 Chloride 102 mmol/L (96-109) 05/16/21 05:33 Carbon Dioxide 24.5 mmol/L (21.6-31.8) 05/16/21 05:33 Anion Gap 11.50 mmol/L (4.00-12.00) 05/16/21 05:33 BUN 12.0 mg/dL (9.0-27.0) 05/16/21 05:33 Creatinine 0.8 mg/dL (0.6-1.5) 05/16/21 05:33 Est GFR (CKD-EPI)AfAm 101.3 (60.0-200.0) 05/16/21 05:33 Est GFR (CKD-EPI)NonAf 87.4 (60.0-200.0) 05/16/21 05:33 BUN/Creatinine Ratio 15.00 Ratio (12.00-20.00) 05/16/21 05:33 Glucose 154 mg/dL (70-110) H 05/16/21 05:33 POC Glucose (mg/dL) 179 mg/dL (75-99) H 05/15/21 20:45 POC Glu General Repair Mechanic ID Wayne Regalado 05/15/21 20:45 Calcium 9.1 mg/dL (8.7-10.3) 05/16/21 05:33 Total Bilirubin 0.6 mg/dL (0.2-1.3) 05/15/21 18:11 AST 29 U/L (17-59) 05/15/21 18:11 ALT 14 U/L (4-49) 05/15/21 18:11 Alkaline Phosphatase 101 U/L (38-126) 05/15/21 18:11 Ammonia <9 umol/L (<30) 05/15/21 18:11 Creatine Kinase 178 U/L (55-170) H 05/15/21 18:11 Troponin I <0.012 ng/mL (0.000-0.034) 05/15/21 18:11 Total Protein 6.8 g/dL (6.3-8.2) 05/15/21 18:11 Albumin 4.0 g/dL (3.5-5.0) 05/15/21 18:11 TSH 0.972 mIU/L (0.465-4.680) 05/15/21 18:11 Urine Color Yellow 05/15/21 20:33 Urine Appearance Clear (Clear) 05/15/21 20:33 Urine pH 7.5 (5.0-8.0) 05/15/21 20:33 Ur Specific [place] 1.016 (1.001-1.035) 05/15/21 20:33 Urine Protein Negative (Negative) 05/15/21 20:33 Urine Glucose (UA) Negative (Negative) 05/15/21 20:33 Urine Ketones 2+ (Negative) H 05/15/21 20:33 Urine Blood Negative (Negative) 05/15/21 20:33 Urine Nitrite Negative (Negative) 05/15/21 20:33 Urine Bilirubin Negative (Negative) 05/15/21 20:33 Urine Urobilinogen 2.0 mg/dL (<2.0) 05/15/21 20:33 Ur Leukocyte Esterase Moderate (Negative) H 05/15/21 20:33 Urine RBC 4 /hpf (0-5) 05/15/21 20:33 Urine WBC 29 /hpf (0-5) H 05/15/21 20:33 Ur Squamous Epith Cells <1 /hpf (0-4) 05/15/21 20:33 Urine Mucus Rare /hpf (None) H 05/15/21 20:33 Urine Opiates Screen Not Detected (NotDetected) 05/15/21 20:33 Ur Oxycodone Screen Not Detected (NotDetected) 05/15/21 20:33 Urine Methadone Screen Not Detected (NotDetected) 05/15/21 20:33 Ur Propoxyphene Screen Not Detected (NotDetected) 05/15/21 20:33 Ur Barbiturates Screen Not Detected (NotDetected) 05/15/21 20:33 Valproic Acid 23.7 ug/mL 05/15/21 18:11 Lamotrigine 11.6 ug/mL (2.0-15.0) 05/15/21 18:11 U Tricyclic Antidepress Not Detected (NotDetected) 05/15/21 20:33 Ur Phencyclidine Scrn Not Detected (NotDetected) 05/15/21 20:33 Ur Amphetamines Screen Not Detected (NotDetected) 05/15/21 20:33 U Methamphetamines Scrn Not Detected (NotDetected) 05/15/21 20:33 U Benzodiazepines Scrn Detected (NotDetected) H 05/15/21 20:33 Urine Cocaine Screen Not Detected (NotDetected) 05/15/21 20:33 U Marijuana (THC) Screen Not Detected (NotDetected) 05/15/21 20:33 IMPRESSIONS: Encephalopathy - Unknown cause - Depakote and lamictal levels were within therapeutic range; Possible polypharmacy; Neurology onboard. Possible UTI - on ceftriaxone Alcohol Use Disorder Mood disorder, unspecified - Patient prescribed home medications of lamictal, depakote, lexapro and seroquel. Medication regimen consistent with bipolar disorder but no records of prior inpatient psychiatric admissions to this hospital. Patient is a poor historian at this time. PLAN: -At this time patient DOES NOT meet criteria for inpatient psychiatric admission. -Delirium precautions recommended with patient including - avoiding use of narcotics and CHIEF EXECUTIVE OFFICER sedatives, limit anticholinergic medications when possible, frequent re-orientation, minimize use of restraints, open window shades during the day and close them at night -Would recommend the following medication changes/additions: Continue Lexapro 20 mg daily for depression Agree with Seroquel PRN for agitation Hold home medications of lamictal, ativan and depakote. -Will continue to follow along to reassess for bipolar history / necessity of his home psychotropic medications. 05/18/21 13:51
--- NOTE | 2021-05-18 16:28 | P.PN ---
Subjective Progress Note Date: 05/18/21 The patient is seen at bedside and per the nurse he is doing better today compared to what was reported yesterday. Patient stated what is he doing here? He denies of any headaches, focal weakness, numbness, visual disturbance. We are still waiting for report of MRI Brain from his neurologist (Dr. Duncan). Objective - Vital Signs Vital signs: Vital Signs Temp 97.9 F 05/18/21 12:08 Pulse 95 05/18/21 12:08 Resp 17 05/18/21 12:08 BP 161/87 05/18/21 12:08 Pulse Ox 94 L 05/18/21 12:08 Intake & Output 05/17/21 05/18/21 05/18/21 18:59 06:59 18:59 Intake Total 1100 1550 Balance 1100 1550 Intake: Intake, IV Titration 700 950 Amount Sodium Chloride 0.9% 1, 600 900 000 ml @ 75 mls/hr IV . [id number] ASAD Rx#:[id number] Thiamine 100 mg In Sodium 50 50 Chloride 0.9% 50 ml @ 100 mls/hr IVPB Q12HR ASAD Rx#:[id number] cefTRIAXone 1 gm In 50 Sodium Chloride 0.9% 50 ml @ 100 mls/hr IVPB Q24HR ASAD Rx#:[id number] Oral 400 600 Other: Voiding Method Diaper Diaper Diaper Incontinent Incontinent Incontinent # Voids 3 2 4 # Bowel Movements 2 3 - Exam GENERAL: The patient is lying in bed and is not in acute distress. HENT: Neck is rigid and could not assess because of his cooperation. PSYCH: Flat affect. NEUROLOGICAL: Higher mental function: The patient is awake, alert, oriented to self and place. Not oriented to time. Patient is following commands. Patient is able to name objects (pen, watch and glassess). No aphasia and no neglect. Cranial nerves: The pupils are round, equal and reactive to light and accommodation. Visual dozier are full to confrontation throughout. Extraocular movement is intact no nystagmus is noted. Facial sensation is normal to touch throughout. The facial strength is normal throughout. Tongue is midline and moved [id number] without any difficulty. No dysarthria is noted. Shoulder shrug is normal bilaterally. Motor: The strength over the left upper extremity is 4+ to 5- while right 5 over 5. The lower is able to lift above gravity without drift. Normal tone and bulk. Cerebellum: Normal finger to nose bilaterally. Sensation: Sensation is normal to touch throughout. Reflexes (right/left): 2+ uppers, patellar 1-2+ and ankles are 1+ bilaterally. Plantars are upgoing bilaterally. WORK-UP: CT head showed cerebral atrophy and chronic small vessel ischemia. No acute intracranial abnormality. No change compared to recent exam. 2-D echo was reported as left ventricle wall thickness is normal. Ejection fraction of 55-60%. Left atrium was not well visualized. Carotid duplex is reported as calcified atherosclerotic plaque of the right carotid bulb/proximal internal carotid artery which limits evaluation of the lumen. Further evaluation was CTA neck can be obtained at. The remaining right common carotid artery and internal carotid artery appears normal. Normal left common carotid artery and internal carotid artery. Antegrade flow of the right vertebral artery, however left vertebral artery was not well visualized and appears small caliber on the previous CTA chest. Chest x-ray showed increasing pulmonary interstitial infiltrates compared to old exam. No pleural fluid seen to suggest heart failure. This could be subacute and chronic interstitial pneumonia. UA shows moderate leukocyte esterase, 29 WBC. Urine drug screen positive for benzodiazepine. Hemoglobin A1c 5.7 on 05/13/2021. B12 801 on 04/26/2021. Depakote level is 23.7 (subtherapeutic). Lamictal 11.6 (therapeutic) TSH: 0.972 (normal). Ammonia <9 (normal) EEG on 05/17/2021: Is an abnormal routine EEG. The background slowing suggestive of moderate to severe encephalopathy. There are no focal slowing, epileptiform discharges or seizure in the EEG. CT angiography of the head and neck was reported as no significant drive for abnormality of the brain and the neck - Labs CBC & Chem 7: 05/16/21 05:33 05/16/21 05:33 Labs: Microbiology - Last 24 Hours (Table) 05/15/21 20:30 Blood Culture - Preliminary Blood No Growth after 48 hours 05/15/21 20:33 Urine Culture - Final Urine,Voided Assessment and Plan Assessment: * Encephalopathy: Unknown cause. It was suspected to Lamictal toxicity because on high dose 200mg bid but his levels were therapeutic. Possibly polypharamcy. Rule out underlying central infection and seems low (but no leukocytosis or fever)--mentation improved * It was reported that patient is noticed to be moving left side of the body slightly less as compared to the right. Rule out CVA, although less likely. * He has been declining for the past 4 weeks (per his power of welder fitter gas). * He is on Lamictal and Depakote and no history of seizure * Abnormal UA, possible UTI. Patient has been started on ceftriaxone. * Abnormal chest x-ray, rule out interstitial pneumonia. * History of significant of alcohol use (possibly last drink 4 weeks ago per power of welder fitter gas) Plan: Pending to get a copy of recent MRI Brain that he had at Dr. Duncan's. PT, OT and DIGITAL MEDIA REPRESENTATIVE are consulted Q4 hour neuro-checks. On IV thiamine 100mg daily every 12 hours. Will consider getting lumbar puncture after getting results of MRI (hold off for now since his mentation drastically improved which does not support meningoencephalitis. Patient is on extremely high dose of Lamictal 200 mg 1 tablet twice a day and he is on Depakote 250 mg twice a day recommend the if possible to be on a lower dose of Lamictal and defer the management to the psychiatry team Psychiatry team is consulted. Will defer the rest of medical management to the primary team. Upon discharge, the patient needs to follow-up with his neurologist (Dr. Duncan) as outpatient within 1-2 weeks. The plan is discussed with the patient's nurse and the primary team. Lusi Worley MD Neuro-Hospitalist Time with Patient: Less than 30
[2021-05-18] MEDS: CHOLECALCIFEROL 25 MCG (1000 IU) TABLET PO SCH (17:10)
[2021-05-19] MEDS: HEPARIN SODIUM,PORCINE/PF 5,000 UNIT/0.5 ML SYRINGE SQ SCH ×4 (01:00→23:08)
[2021-05-19] MEDS: QUEtiapine 25 MG TAB PO PRN ×2 (01:00→20:27)
--- NOTE | 2021-05-19 01:36 | P.PN ---
Subjective Progress Note Date: 05/18/21 Patient is a 76 male with a known history of alcohol use, GERD, multiple infarcts and depression who is currently at [facility] was sent to hospital due to altered mental status. Patient did have severe alcohol abuse and could not take care of himself. He was admitted to [facility] in March 2021. Patient continues to have frequent falls and decreasing mentation since admission. EMS was called due to increased altered mental status, lethargy and not taking any oral intake.. He was recently started on Depakote on Monday for mood stabilization. Patient cannot provide any history. Chest x-ray showed increasing pulmonary interstitial infiltrates compared to old exam. No pleural fluid is seen to suggest heart failure. It could be some acute and chronic interstitial pneumonia. CT head showed stable atrophy and chronic small vessel ischemia. No acute intracranial normality. No change compared to old exam. EKG showed sinus tachycardia Laboratory data reviewed. Urinalysis showed 2+ ketones and moderate leukocyte esterase and elevated WBC count 29 Urinalysis positive for benzodiazepines.. 05/17/2021 Patient is seen in follow-up this morning continues to be confused and somewhat altered although per nursing staff more awake today and responding to questions and commands. Patient states he is in [place] although unsure of where in [place] and unable to give a date. Patient is having generalized pain and reported pain in the hip and will obtain x-ray. Patient is also having difficulty in swallowing food along with medications. Will consult speech for swallow eval. Urine culture obtained and pending although patient denies any urinary frequency or dysuria and was maintained on IV ceftriaxone and will discontinue and monitor cultures closely. Neurology also evaluating the patient and EEG was taken and waiting to be red along with a 2-D echo. Will add Toradol for pain and monitor closely. Patient also awaiting for psych consult and will await report. PT/OT to evaluate the patient and will likely require ECF placement for continued weakness. Lamictal level was 11.6 and valproic acid 23.7. Will use Seroquel at night as needed for agitation. Patient is continued on gentle IV hydration and will continue and repeat a.m. labs 05/18/2021 Patient is seen this morning and appearing more awake and alert at times compared to yesterday but continues to have periods of lethargy and encephalopathy. Patient is being followed by neurology along with psychiatry and mood stabilizing medications of lamictal, ativan, and depakote remain on hold. To continue with seroquel as needed at night. Patient seen by speech therapy for swallow eval and no reported deficits noted on exam and to continue with current diet. Recommend continued supervision with meals and aspiration precautions due to extreme lethargy and periods of confusion. Urine culture finalized showing normal presley. Awaiting MRI results from Dr. Duncan's office that was done rec ently to determine possible lumbar puncture which is being deferred at this time and this was discussed with neurology. Review of systems: Constitutional: reports of fatigue, no reports of fever, or chills Cardiovascular: No reports of chest pain or palpitations Respiratory: No reports of shortness of breath or cough GI: No reports of nausea, vomiting, or diarrhea : No reports of dysuria or retention Neurovascular: Reports generalized weakness and pain All medications have been reviewed Physical exam: Patient is lying in the bed comfortably, no acute distress,.slightly more awake today alert and oriented 1-2 HEENT: Normocephalic. Neck is supple. Pupils reactive. Nostrils clear. Oral cavity is moist. Neck reveals no JVD, carotid bruits, or thyromegaly. CHEST EXAMINATION: Trachea is central. Symmetrical expansion. Lung dozier clear to auscultation and percussion. CARDIAC: Normal S1, S2 with no gallops. No murmurs ABDOMEN: Soft. Bowel sounds normal. No organomegaly. No abdominal bruits. Extremities: trace edema. No clubbing or cyanosis Neurologically diffusely weak. no gross focal deficits noted Skin: No rash or skin lesions. Psychiatric: could not be assessed Musculoskeletal: No joint swelling or deformity. Assessment and plan: Altered mental status likely due to metabolic and toxic encephalopathy. Possible Lamictal toxicity was being considered although Lamictal level was within normal limits and depakote subtherapeutic. Lamictal, depakote, ativan on hold and psychiatry following. PRN Seroquel at night for agitation Patient is on Seroquel, Lexapro, lamotrigine and recently added Depakote. Possible Acute urinary tract infection, ruled out cultures were negative and patient did receive 3 days of IV ceftriaxone with no improvement in mentation Possible asymptomatic bacteriuria, denies any dysuria or retention and urine culture finalized as normal presley Possible interstitial pneumonia, although suspicion is low as patient is afebrile, not requiring oxygen, and WBC within normal limits Severe alcohol abuse and currently not able to take care of himself. Admitted to ECF in March 2021 Depression/bipolar disorder Hypertension GERD DVT and GI prophylaxis Full code Plan: Patient will be continued on gentle IV hydration, and antibiotics have been discontinued as patient was maintained on ceftriaxone and follow up culture finalized showing normal presley. Neurology following and underwent EEG which was abnormal with no epileptiform activity noted. Psych following. Awaiting MRI that was recently done in Dr. Duncan's office to evaluate. PT/OT to evaluate the patient as patient will likely require ECF placement once stabilized discharged. speech eval performed showing normal findings. Patient was having some bilateral hip pain and xray negative for acute fracture or dislocation noted. Will continue to monitor closely. Repeat am labs. Objective - Vital Signs Vital signs: Vital Signs Temp 97.5 F L 05/18/21 05:00 Pulse 93 05/18/21 05:00 Resp 16 05/18/21 05:00 BP 131/81 05/18/21 05:00 Pulse Ox 85 L 05/18/21 05:00 Intake & Output 05/17/21 05/18/21 05/18/21 18:59 06:59 18:59 Intake Total 1100 1550 Balance 1100 1550 Intake: Intake, IV Titration 700 950 Amount Sodium Chloride 0.9% 1, 600 900 000 ml @ 75 mls/hr IV . [id number] ASAD Rx#:[id number] Thiamine 100 mg In Sodium 50 50 Chloride 0.9% 50 ml @ 100 mls/hr IVPB Q12HR ASAD Rx#:[id number] cefTRIAXone 1 gm In 50 Sodium Chloride 0.9% 50 ml @ 100 mls/hr IVPB Q24HR ASDA Rx#:[id number] Oral 400 600 Other: Voiding Method Diaper Diaper Diaper Incontinent Incontinent Incontinent # Voids 3 2 # Bowel Movements 2 - Labs CBC & Chem 7: 05/16/21 05:33 05/16/21 05:33 Labs: Microbiology - Last 24 Hours (Table) 05/15/21 20:30 Blood Culture - Preliminary Blood No Growth after 48 hours 05/15/21 20:33 Urine Culture - Final Urine,Voided
[2021-05-19 06:03] LABS: Basophils % (A) 0 %; Eosinophils # (A) 0.2 k/uL (0-0.7); Eosinophils % (A) 3 %; HCT 39.9 % (39.0-53.0); HGB 13.5 gm/dL (13.0-17.5); Lymphocytes # (A) 0.5 k/uL (1.0-4.8); Lymphocytes % (A) 9 %; MCH 33.3 pg (25.0-35.0); MCHC 33.8 g/dL (31.0-37.0); MCV 98.5 fL (80.0-100.0); Mean Platelet Volume 7.3; Monocytes # (A) 0.5 k/uL (0-1.0); Monocytes % (A) 8 %; Neutrophils # (A) 4.6 k/uL (1.3-7.7); Neutrophils % (A) 76 %; Platelet Count 297 k/uL (150-450); RBC 4.05 m/uL (4.30-5.90); RDW 12.5 % (11.5-15.5); WBC 6.1 k/uL (3.8-10.6)
[2021-05-19 06:19] LABS: African American GFR (CKD) >90 (>60 ml/min/1.73 sqM); Anion Gap 8 mmol/L; Blood Urea Nitrogen 16 mg/dL (9-20); Calcium 9.1 mg/dL (8.4-10.2); Carbon Dioxide 27 mmol/L (22-30); Chloride 101 mmol/L (98-107); Glucose 148 mg/dL (74-99); Non-African American GFR(CKD) >90 (>60 ml/min/1.73 sqM); Potassium 3.2 mmol/L (3.5-5.1); Sodium 136 mmol/L (137-145)
[2021-05-19] MEDS: SODIUM CHLORIDE 0.9% 1,000 ML IV SCH ×2 (06:35→20:15)
[2021-05-19] MEDS: ESCITALOPRAM 20 MG TAB PO SCH (08:47)
[2021-05-19] MEDS: THIAMINE 100 MG in SODIUM CHLORIDE 0.9% 50 ML IVPB SCH ×2 (08:47→21:26)
[2021-05-19] MEDS ORDERED: Potassium Replacement Protocol 1 EACH MISC MISCELLANE PRN (10:53)
--- NOTE | 2021-05-19 11:13 | P.DS ---
Providers Date of admission: 05/17/21 08:55 Expected date of discharge: 05/19/21 Attending physician: Justin Mojica MD Consults: 05/15/21 20:10 Consult Physician Urgent Consulting Provider: Cornelio Harley Consult Reason/Comments: acute encephalopathy Do you want consulting provider notified?: Yes Consult Physician Urgent Consulting Provider: Lemuel Lopez Consult Reason/Comments: acute encephlopathy, possible medication side effect Do you want consulting provider notified?: Yes Primary care physician: Jelani Cervantes Hospital Course: Final diagnosis Altered mental status likely due to metabolic and toxic encephalopathy. Possible Lamictal toxicity was being considered although Lamictal level was within normal limits and depakote subtherapeutic. Lamictal, depakote, ativan on hold and psychiatry following. PRN Seroquel at night for agitation Patient is on Seroquel, Lexapro, lamotrigine and recently added Depakote. Possible Acute urinary tract infection, ruled out cultures were negative and patient did receive 3 days of IV ceftriaxone with no improvement in mentation Possible asymptomatic bacteriuria, denies any dysuria or retention and urine culture finalized as normal presley Possible interstitial pneumonia, although suspicion is low as patient is afebrile, not requiring oxygen, and WBC within normal limits Severe alcohol abuse and currently not able to take care of himself. Admitted to [facility] in March 2021 Depression/bipolar disorder Hypertension GERD DVT and GI prophylaxis Full code Discharge disposition Patient is being discharged in a stable condition with guarded prognosis to [facility] for continued PT/OT therapy. Patient will follow-up with Dr. Cervantes in the outpatient setting upon discharge. Patient needs outpatient follow-up this week with Dr. Duncan neurology to discuss medication adjustments as Lamictal/Depakote/Ativan are on hold. Total time taken is greater than 35 minutes. Hospital course Patient is a 76 male with a known history of alcohol use, GERD, multiple infarcts and depression who is currently at [facility] was sent to hospital due to altered mental status. Patient did have severe alcohol abuse and could not take care of himself. He was admitted to [facility] in March 2021. Patient continues to have frequent falls and decreasing mentation since admission. EMS was called due to increased altered mental status, lethargy and not taking any oral intake.. He was recently started on Depakote on Monday for mood stabilization. Patient cannot provide any history. Chest x-ray showed increasing pulmonary interstitial infiltrates compared to old exam. No pleural fluid is seen to suggest heart failure. It could be some acute and chronic interstitial pneumonia. CT head showed stable atrophy and chronic small vessel ischemia. No acute intracranial normality. No change compared to old exam. EKG showed sinus tachycardia Laboratory data reviewed. Urinalysis showed 2+ ketones and moderate leukocyte esterase and elevated WBC count 29 Urinalysis positive for benzodiazepines.. 05/17/2021 Patient is seen in follow-up this morning continues to be confused and somewhat altered although per nursing staff more awake today and responding to questions and commands. Patient states he is in [place] although unsure of where in [place] and unable to give a date. Patient is having generalized pain and reported pain in the hip and will obtain x-ray. Patient is also having difficulty in swallowing food along with medications. Will consult speech for swallow eval. Urine culture obtained and pending although patient denies any urinary frequency or dysuria and was maintained on IV ceftriaxone and will discontinue and monitor cultures closely. Neurology also evaluating the patient and EEG was taken and waiting to be red along with a 2-D echo. Will add Toradol for pain and monitor closely. Patient also awaiting for psych consult and will await report. PT/OT to evaluate the patient and will likely require ECF placement for continued weakness. Lamictal level was 11.6 and valproic acid 23.7. Will use Seroquel at night as needed for agitation. Patient is continued on gentle IV hydration and will continue and repeat a.m. labs 05/18/2021 Patient is seen this morning and appearing more awake and alert at times compared to yesterday but continues to have periods of lethargy and encephalopathy. Patient is being followed by neurology along with psychiatry and mood stabilizing medications of lamictal, ativan, and depakote remain on hold. To continue with seroquel as needed at night. Patient seen by speech therapy for swallow eval and no reported deficits noted on exam and to continue with current diet. Recommend continued supervision with meals and aspiration precautions due to extreme lethargy and periods of confusion. Urine culture finalized showing normal presley. Awaiting MRI results from Dr. Duncan's office that was done recently to determine possible lumbar puncture which is being deferred at this time and this was discussed with neurology. 05/19/2021 Patient is seen in follow-up this morning no acute overnight issues. Patient is awake and alert although continues to be confused at times. Mood stabilizing medications on hold right now and needs follow-up with his neurologist Dr. Duncan this week about medication adjustments. Patient was initially started on IV antibiotics for possible UTI although cultures reveal negative and no growth and antibiotics have been discontinued patient did receive 3 days of IV antibiotics. Discussion was had with power of employment law attorney at the bedside along with neurology and recommend continuing outpatient follow-up with Dr. Duncan where he is established and recently had an MRI. She was having some difficulty swallowing food and medications possibly due to encephalopathy although much improved and was evaluated by speech therapy recommending continued current diet. Patient potassium today 3.2 and replaced and recommend repeat labs in 2-3 days to monitor electrolytes. Currently no reports of chest pain, shortness of breath, or palpitations. Patient is afebrile. No reports of nausea or vomiting and patient is tolerating diet. Patient will be going to [facility] today. On exam vital signs are stable. Cardio S1, S2 are muffled. Respiratory system shows diminished breath sounds at the bases with no wheezing or rhonchi noted. Abdomen is soft and nontender. Nervous system shows diffuse weakness. Please refer to medication reconciliation sheet for a list of medications. Patient Condition at Discharge: Stable Plan - Discharge Summary Discharge Rx Participant: Yes New Discharge Prescriptions: New QUEtiapine [SEROquel] 25 mg PO HS PRN tab PRN Reason: Agitation Thiamine [Vitamin B-1] 100 mg PO DAILY #30 tablet Continue Na Phos,M-B/Na Phos,Di-Ba [Fleet Adult] 133 ml RECTAL DAILY PRN PRN Reason: Constipation Magnesium Hydroxide [Milk of Magnesia Concentrate] 7,200 mg PO Q48H PRN PRN Reason: Constipation Acetaminophen Tab [Tylenol] 1,000 mg PO Q6H PRN PRN Reason: Fever And/ Or Pain Omeprazole 20 mg PO BID PRN PRN Reason: gerd Escitalopram [Lexapro] 20 mg PO DAILY@0800 bisacodyL [Bisacodyl] 10 mg RECTAL DAILY PRN PRN Reason: Constipation Cholecalciferol [Vitamin D3 (25 Mcg = 1000 Iu)] 25 mcg PO DAILY@1700 Discontinued lamoTRIgine 200 mg PO BID@0800,2100 LORazepam [Ativan] 0.5 mg PO Q8H PRN PRN Reason: Anxiety QUEtiapine FUMARATE [SEROquel] 25 mg PO BID@0800,2100 Divalproex Sprinkle [Depakote Sprinkle] 125 mg PO BID@0800,1700 Cefuroxime Axetil [Ceftin] 500 mg PO BID@0800,1700 Discharge Medication List Escitalopram [Lexapro] 20 mg PO DAILY@0800 04/01/21 [History] Acetaminophen Tab [Tylenol] 1,000 mg PO Q6H PRN 05/15/21 [History] Cholecalciferol [Vitamin D3 (25 Mcg = 1000 Iu)] 25 mcg PO DAILY@1700 05/15/21 [History] Magnesium Hydroxide [Milk of Magnesia Concentrate] 7,200 mg PO Q48H PRN 05/15/21 [History] Na Phos,M-B/Na Phos,Di-Ba [Fleet Adult] 133 ml RECTAL DAILY PRN 05/15/21 [History] Omeprazole 20 mg PO BID PRN 05/15/21 [History] bisacodyL [Bisacodyl] 10 mg RECTAL DAILY PRN 05/15/21 [History] QUEtiapine [SEROquel] 25 mg PO HS PRN tab 05/19/21 [Rx] Thiamine [Vitamin B-1] 100 mg PO DAILY #30 tablet 05/19/21 [Rx] Follow up Appointment(s)/Referral(s): Jelani Cervantes MD [Primary Care Provider] - 1-2 days Ambulatory/Diagnostic Orders: Basic Metabolic Panel [LAB.AMB] Time Frame: 3 Days, Location: None Selected Activity/Diet/Wound Care/Special Instructions: Patient is returning to [facility] Activity as tolerated Patient needs follow-up with neurology outpatient in one week with Dr. Duncan to discuss medications Lamictal/Ativan/Depakote on hold currently Continue with Seroquel at night as needed Recommend BMP in 2-3 days to monitor electrolytes Continue with heart healthy diet and had of the bed elevated 30-45 with sup ervision with meals Discharge Disposition: TRANSFER TO SNF/ECF
[2021-05-19] MEDS: POTASSIUM CHLORIDE ER 20 MEQ TAB.ER PO SCH ×2 (12:32→13:48)
--- NOTE | 2021-05-19 12:59 | P.PN ---
Progress Note - Text Progress Note Date: 05/19/21 Interval History: Patient was seen resting in bed and was directable and agreeable to speak with editorial writer in his room. Currently the patient is alert and oriented to person and place but not to time. He is not endorsing any suicidal or homicidal ideation, intention, and/or plan. He is not reporting any auditory or visual hallucinations. As per discussion with his nurse he is appearing to be at baseline. The patient is a poor historian and could not provide details as to why he is prescribed lamictal and depakote or who prescribed it to him. This provider has attempted to contact [facility] for clarification and they provided collaeral: The patient is followed by [facility] was prescribed lamictal and depakote due to extreme restlessness and agitation throughout the day which resulted in 18+ falls. At night he has been noted to be aggressive and agitated. He is being worked up by Dr Duncan for Parkinson's Dementia. Prior to the regimen of Lamictal and depakote, the patient was placed on seroquel 25 mg twice daily which also provided no significant relief. The nursing staff expressed concern that the patient would continue to be agitated back at [facility]. Mental Status Exam: General Appearance: Patient appears to be stated age is alert, directable, and cooperative. Behavior: [Patient is calmly lying in bed without any agitated behavior. Speech: Patient's speech is fluent and nonpressured. Minimal and nonspontaneous. Mood/Affect: Mood is "feeling okay." Affect is blunted. Suicidality/Homicidality: Patient denies having any suicidal or homicidal ideation intent or plan. Perceptions: Patient denies any visual hallucinations and denies any auditory hallucinations Though content/process: There is no evidence of any delusional thought content and thought process is linear and goal-directed. Memory and concentration: AOX2 - Person and place but not to time, concentration is grossly intact for the purposes of this session Judgment and insight: Poor Assessment Encephalopathy - Unknown cause - Depakote and lamictal levels were within therap eutic range; Possible polypharmacy - appears resolved Possible UTI - on ceftriaxone Alcohol Use Disorder Mood disorder, unspecified Plan: -At this time patient DOES NOT meet criteria for inpatient psychiatric admission. Currently patient is not displaying any signfiicant agitation and polypharmacy may have contributed to his reason for admission. Recommend close outpatient follow-up with special attention to polypharmacy. -Delirium precautions recommended with patient including - avoiding use of narcotics and ANIMAL HUSBANDRY TECHNICIAN sedatives, limit anticholinergic medications when possible, frequent re-orientation, minimize use of restraints, open window shades during the day and close them at night -Would recommend the following medication changes/additions: Continue Lexapro 20 mg daily for depression Restart lamictal 25 mg daily for mood stabilization Start Risperdal 0.5 mg twice daily for mood stabilization --> Medications to be managed outpatient by [facility] when the patient returns to [facility]. [facility] was agreeable with the recommendation for Risperdal for agitation/mood stabilization. -Psychiatry will sign off at this time. Thank you for this consult.
[2021-05-19] MEDS: CHOLECALCIFEROL 25 MCG (1000 IU) TABLET PO SCH (16:59)
--- NOTE | 2021-05-19 17:15 | P.PN ---
Subjective Progress Note Date: 05/19/21 She seen at bedside and he stated that he is doing well. Denies of any new weakness, numbness or headaches. I spoke with the nurse practitioner for the primary team and she stated that she agrees that the patient is doing better compared to his initial presentation. Patient had MRI of the brain on the 05/10/[address] Duncan's office and we are able to get hold of the report. It is reported as moderate periventricular white matter ischemic change. H related involutional change. Technically limited examination secondary to patient motion. Objective - Vital Signs Vital signs: Vital Signs Temp 97.9 F 05/19/21 04:59 Pulse 91 05/19/21 12:21 Resp 19 05/19/21 12:21 BP 167/97 05/19/21 12:21 Pulse Ox 92 L 05/19/21 12:21 Intake & Output 05/18/21 05/19/21 05/19/21 18:59 06:59 18:59 Other: Voiding Method Diaper Diaper Diaper Incontinent Incontinent Incontinent # Voids 4 3 1 # Bowel Movements 3 1 - Exam GENERAL: The patient is lying in bed and is not in acute distress. HENT: Neck is rigid and could not assess because of his cooperation. PSYCH: Flat affect. NEUROLOGICAL: Higher mental function: The patient is awake, alert, oriented to self and place. Not oriented to time. Patient is following commands. Patient is able to name objects (pen, watch and glassess). No aphasia and no neglect. Cranial nerves: The pupils are round, equal and reactive to light and accommodation. Visual dozier are full to confrontation throughout. Extraocular movement is intact no nystagmus is noted. Facial sensation is normal to touch throughout. The facial strength is normal throughout. Tongue is midline and moved [id number] without any difficulty. No dysarthria is noted. Shoulder shrug is normal bilaterally. Motor: The strength over the left upper extremity is 4+ to 5- while right 5 over 5. The lower is able to lift above gravity without drift. Normal tone and bulk. Cerebellum: Normal finger to nose bilaterally. Sensation: Sensation is normal to touch throughout. Reflexes (right/left): 2+ uppers, patellar 1-2+ and ankles are 1+ bilaterally. Plantars are upgoing bilaterally. WORK-UP: * Hemoglobin A1c 5.7 on 05/13/2021. B12 801 on 04/26/2021. * Depakote level is 23.7 (subtherapeutic). Lamictal 11.6 (therapeutic) * TSH: 0.972 (normal). * Ammonia <9 (normal) * Chest x-ray showed increasing pulmonary interstitial infiltrates compared to old exam. No pleural fluid seen to suggest heart failure. This could be subacute and chronic interstitial pneumonia. * UA shows moderate leukocyte esterase, 29 WBC. * Urine drug screen positive for benzodiazepine. * CT head showed cerebral atrophy and chronic small vessel ischemia. No acute intracranial abnormality. No change compared to recent exam. * CT angiography of the head and neck was reported as no significant drive for abnormality of the brain and the neck * Patient had MRI of the brain on the 05/10/[address] Duncan's office and we are able to get hold of the report. It is reported as moderate periventricular white matter ischemic change. H related involutional change. Technically limited examination secondary to patient motion. * Carotid duplex is reported as calcified atherosclerotic plaque of the right carotid bulb/proximal internal carotid artery which limits evaluation of the lumen. Further evaluation was CTA neck can be obtained at. The remaining right common carotid artery and internal carotid artery appears normal. Normal left common carotid artery and internal carotid artery. Antegrade flow of the right vertebral artery, however left vertebral artery was not well visualized and appears small caliber on the previous CTA chest. * EEG on 05/17/2021: Is an abnormal routine EEG. The background slowing suggestive of moderate to severe encephalopathy. There are no focal slowing, epileptiform discharges or seizure in the EEG. * 2-D echo was reported as left ventricle wall thickness is normal. Ejection fraction of 55-60%. Left atrium was not well visualized. - Labs CBC & Chem 7: 05/19/21 05:30 05/19/21 05:30 Labs: Abnormal Lab Results - Last 24 Hours (Table) 05/19/21 05/19/21 Range/Units 05:30 05:30 RBC 4.05 L (4.30-5.90) m/uL Lymphocytes # 0.5 L (1.0-4.8) k/uL Sodium 136 L (137-145) mmol/L Potassium 3.2 L (3.5-5.1) mmol/L Creatinine 0.61 L (0.66-1.25) mg/dL Glucose 148 H (74-99) mg/dL Microbiology - Last 24 Hours (Table) 05/15/21 20:30 Blood Culture - Preliminary Blood No Growth after 72 hours Assessment and Plan Assessment: * Encephalopathy: Unknown cause. It was suspected to Lamictal toxicity because on high dose 200mg bid but his levels were therapeutic. Possibly polypharamcy. Rule out underlying central infection and seems low (but no leukocytosis or fever)--mentation improving * It was reported that patient is noticed to be moving left side of the body slightly less as compared to the right. Rule out CVA, although less likely (on his recent MRI Brain at his Neurologist office no mention of stroke). * He has been declining for the past 4 weeks (per his power of state's attorney). * He is on Lamictal and Depakote and no history of seizure * Abnormal UA, possible UTI. Patient has been started on ceftriaxone. * Abnormal chest x-ray, rule out interstitial pneumonia. * History of significant of alcohol use (possibly last drink 4 weeks ago per po wer of state's attorney) Plan: I recommend for the patient to the get the rest of the imaging such as MRI of the cervical and possibly consider repeating MRI the brain. PT, OT and SALESPERSON ART OBJECTS are consulted Q4 hour neuro-checks. On IV thiamine 100mg daily every 12 hours. Since the patient's mentation is improving there is no reason to get the lumbar puncture at this time. Patient is on extremely high dose of Lamictal 200 mg 1 tablet twice a day and he is on Depakote 250 mg twice a day recommend the if possible to be on a lower dose of Lamictal and defer the management to the psychiatry team Psychiatry team is consulted. Will defer the rest of medical management to the primary team. Upon discharge, the patient needs to follow-up with his neurologist (Dr. Duncan) as outpatient within 1-2 weeks. I spoke with the patient guardian (Lori) that she stated that she would like the rest of the workup to be done as an outpatient with Dr. Duncan's office. The plan is discussed with the primary team's nurse practioner and his friend (Lori). Luis Worley MD Neuro-Hospitalist Time with Patient: Less than 30
[2021-05-19] MEDS: risperiDONE 0.5 MG TAB PO SCH (20:27)
[2021-05-19] MEDS ORDERED: lamoTRIgine 25 MG TAB PO ONE (21:42)
[2021-05-20] MEDS: SODIUM CHLORIDE 0.9% 1,000 ML IV SCH ×2 (09:24→21:09)
[2021-05-20] MEDS: THIAMINE 100 MG in SODIUM CHLORIDE 0.9% 50 ML IVPB SCH ×2 (09:25→21:10)
[2021-05-20] MEDS: lamoTRIgine 25 MG TAB PO SCH (09:26)
[2021-05-20] MEDS: ESCITALOPRAM 20 MG TAB PO SCH (09:26)
[2021-05-20] MEDS: HEPARIN SODIUM,PORCINE/PF 5,000 UNIT/0.5 ML SYRINGE SQ SCH ×2 (09:26→16:20)
[2021-05-20] MEDS: risperiDONE 0.5 MG TAB PO SCH ×2 (09:26→21:58)
--- NOTE | 2021-05-20 13:54 | P.PN ---
Subjective Progress Note Date: 05/20/21 The patient seen at bedside per the nurses aid and primary team nurse practioner the patient is doing better today. It seems he had fluctuation of his mentaiton. He continues to be afebrile. No leukocytosis. Objective - Vital Signs Vital signs: Vital Signs Temp 98.1 F 05/20/21 12:32 Pulse 74 05/20/21 12:32 Resp 16 05/20/21 12:32 BP 146/92 05/20/21 12:32 Pulse Ox 91 L 05/20/21 12:32 Intake & Output 05/19/21 05/20/21 05/20/21 18:59 06:59 18:59 Intake Total 200 1150 Balance 200 1150 Intake: Intake, IV Titration 0 Amount Sodium Chloride 0.9% 1, 0 000 ml @ 75 mls/hr IV . [id number] [facility] Rx#:[id number] Thiamine 100 mg In Sodium 0 Chloride 0.9% 50 ml @ 100 mls/hr IVPB Q12HR [facility] Rx#:[id number] Oral 200 1150 Other: Voiding Method Diaper Diaper Diaper Incontinent Incontinent Incontinent # Voids 1 4 # Bowel Movements 1 1 - Exam GENERAL: The patient is lying in bed and is not in acute distress. HENT: Neck is rigid and could not assess because of his cooperation. PSYCH: Flat affect. NEUROLOGICAL: Higher mental function: The patient is awake, alert, oriented to self. He stated the year is 2020. He could not tell me month and did not respond for place. Patient is following commands. Patient is able to name objects (pen, watch and glassess). No aphasia and no neglect. Cranial nerves: The pupils are round, equal and reactive to light and accommodation. Visual dozier are full to confrontation throughout but had to be directed. Extraocular movement is intact no nystagmus is noted. Facial sensation is normal to touch throughout. The facial strength is normal throughout. Tongue is midline and moved [id number] without any difficulty. No dysarthria is noted. Shoulder shrug is normal bilaterally. Motor: The strength over the left upper extremity is 4+ to 5- while right 5 over 5. The lower is able to lift above gravity without drift. Normal tone and bulk. Sensation: Sensation is normal to touch throughout. Reflexes (right/left): 2+ uppers, patellar 1-2+ and ankles are 1+ bilaterally. Plantars are upgoing bilaterally. WORK-UP: * Hemoglobin A1c 5.7 on 05/13/2021. B12 801 on 04/26/2021. * Depakote level is 23.7 (subtherapeutic). Lamictal 11.6 (therapeutic) * TSH: 0.972 (normal). * Ammonia <9 (normal) * Chest x-ray showed increasing pulmonary interstitial infiltrates compared to old exam. No pleural fluid seen to suggest heart failure. This could be subacute and chronic interstitial pneumonia. * UA shows moderate leukocyte esterase, 29 WBC. * Urine drug screen positive for benzodiazepine. * CT head showed cerebral atrophy and chronic small vessel ischemia. No acute intracranial abnormality. No change compared to recent exam. * CT angiography of the head and neck was reported as no significant drive for abnormality of the brain and the neck * Patient had MRI of the brain on the 05/10/[address] Duncan's office and we are able to get hold of the report. It is reported as moderate periventricular white matter ischemic change. H related involutional change. Technically limited examination secondary to patient motion. * Carotid duplex is reported as calcified atherosclerotic plaque of the right carotid bulb/proximal internal carotid artery which limits evaluation of the lumen. Further evaluation was CTA neck can be obtained at. The remaining right common carotid artery and internal carotid artery appears normal. Normal left common carotid artery and internal carotid artery. Antegrade flow of the right vertebral artery, however left vertebral artery was not well visualized and appears small caliber on the previous CTA chest. * EEG on 05/17/2021: Is an abnormal routine EEG. The background slowing suggestive of moderate to severe encephalopathy. There are no focal slowing, epileptiform discharges or seizure in the EEG. * 2-D echo was reported as left ventricle wall thickness is normal. Ejection fraction of 55-60%. Left atrium was not well visualized. - Labs CBC & Chem 7: 05/19/21 05:30 05/19/21 05:30 Labs: Microbiology - Last 24 Hours (Table) 05/15/21 20:30 Blood Culture - Preliminary Blood No Growth after 96 hours Assessment and Plan Assessment: * Encephalopathy: Possilby due polypharmacy ?UTI. It was suspected to Lamictal toxicity because on high dose 200mg bid but his levels were therapeutic. (but no leukocytosis or fever)--mentation improving * Delerium * It was reported that patient is noticed to be moving left side of the body slightly less as compared to the right. Rule out CVA, although less likely (on his recent MRI Brain at his Neurologist office no mention of stroke). * He has been declining for the past 4 weeks (per his power of transactional attorney). * He is on Lamictal and Depakote and no history of seizure * Abnormal UA, possible UTI. Patient has been started on ceftriaxone. * Abnormal chest x-ray, rule out interstitial pneumonia. * History of significant of alcohol use (possibly last drink 4 weeks ago per power of transactional attorney) Plan: Patient is on extremely high dose of Lamictal 200 mg 1 tablet twice a day and he is on Depakote 250 mg twice a day recommend the if possible to be on a lower dose of Lamictal and defer the management to the psychiatry team. He was started on Lamictal 25 mg daily by psych as well as the Risperdal 0.5 mg 1 tablet twice a day. On thiamine 100mg daily every 12 hours. IF patient condition declines recommend repeating MRI Brain and getting MRI cervical. PT, OT and METAL BONDING HELPER are consulted Q4 hour neuro-checks. Since the patient's mentation is improving there is no reason to get the lumbar puncture at this time. Psychiatry team is on board. Will defer the rest of medical management to the primary team. Upon discharge, the patient needs to follow-up with his neurologist (Dr. Duncan) as outpatient within 1-2 weeks. I spoke with the patient guardian (Lori) that she stated that she is in agreement to pursue with work-up as outpatient with Dr. Duncan's office. The plan is discussed with the primary team's nurse practioner and his friend (Lori). Luis Worley MD Neuro-Hospitalist Time with Patient: Less than 30
[2021-05-20] MEDS: CHOLECALCIFEROL 25 MCG (1000 IU) TABLET PO SCH (16:20)
[2021-05-20] MEDS: QUEtiapine 25 MG TAB PO PRN (21:58)
[2021-05-21] MEDS: HEPARIN SODIUM,PORCINE/PF 5,000 UNIT/0.5 ML SYRINGE SQ SCH ×2 (01:43→08:51)
--- NOTE | 2021-05-21 02:23 | P.PN ---
Subjective Progress Note Date: 05/20/21 Patient is a 76 male with a known history of alcohol use, GERD, multiple infarcts and depression who is currently at [facility] was sent to hospital due to altered mental status. Patient did have severe alcohol abuse and could not take care of himself. He was admitted to [facility] in March 2021. Patient continues to have frequent falls and decreasing mentation since admission. EMS was called due to increased altered mental status, lethargy and not taking any oral intake.. He was recently started on Depakote on Monday for mood stabilization. Patient cannot provide any history. Chest x-ray showed increasing pulmonary interstitial infiltrates compared to old exam. No pleural fluid is seen to suggest heart failure. It could be some acute and chronic interstitial pneumonia. CT head showed stable atrophy and chronic small vessel ischemia. No acute intracranial normality. No change compared to old exam. EKG showed sinus tachycardia Laboratory data reviewed. Urinalysis showed 2+ ketones and moderate leukocyte esterase and elevated WBC count 29 Urinalysis positive for benzodiazepines.. 05/17/2021 Patient is seen in follow-up this morning continues to be confused and somewhat altered although per nursing staff more awake today and responding to questions and commands. Patient states he is in [place] unsure of where [place] and unable to give a date. Patient is having generalized pain and reported pain in the hip and will obtain x-ray. Patient is also having difficulty in swallowing food along with medications. Will consult speech for swallow eval. Urine culture obtained and pending although patient denies any urinary frequency or dysuria and was maintained on IV ceftriaxone and will discontinue and monitor cultures closely. Neurology also evaluating the patient and EEG was taken and waiting to be red along with a 2-D echo. Will add Toradol for pain and monitor closely. Patient also awaiting for psych consult and will await report. PT/OT to evaluate the patient and will likely require ECF placement for continued weakness. Lamictal level was 11.6 and valproic acid 23.7. Will use Seroquel at night as needed for agitation. Patient is continued on gentle IV hydration and will continue and repeat a.m. labs 05/18/2021 Patient is seen this morning and appearing more awake and alert at times compared to yesterday but continues to have periods of lethargy and encephalopathy. Patient is being followed by neurology along with psychiatry and mood stabilizing medications of lamictal, ativan, and depakote remain on hold. To continue with seroquel as needed at night. Patient seen by speech therapy for swallow eval and no reported deficits noted on exam and to continue with current diet. Recommend continued supervision with meals and aspiration precautions due to extreme lethargy and periods of confusion. Urine culture finalized showing normal presley. Awaiting MRI results from Dr. Duncan's office that was done rec ently to determine possible lumbar puncture which is being deferred at this time and this was discussed with neurology. 05/20/2021 Patient is seen and evaluated this morning and has been resumed on low dose Lamictal and risperdal added and patient is also continued on Seroquel. Per nursing staff, patient is calm, cooperative, and appropriate today with no signs of increased agitation noted. Patient is awake with continued periods of confusion at times. Patient denies any chest pain or palpitations. Patient is afebrile. Review of systems: Constitutional: reports of fatigue, no reports of fever, or chills Cardiovascular: No reports of chest pain or palpitations Respiratory: No reports of shortness of breath or cough GI: No reports of nausea, vomiting, or diarrhea : No reports of dysuria or retention Neurovascular: Reports generalized weakness All medications have been reviewed Physical exam: Patient is lying in the bed comfortably, no acute distress,.slightly more awake today alert and oriented 2 HEENT: Normocephalic. Neck is supple. Pupils reactive. Nostrils clear. Oral cavity is moist. Neck reveals no JVD, carotid bruits, or thyromegaly. CHEST EXAMINATION: Trachea is central. Symmetrical expansion. Lung dozier clear to auscultation and percussion. CARDIAC: Normal S1, S2 with no gallops. No murmurs ABDOMEN: Soft. Bowel sounds normal. No organomegaly. No abdominal bruits. Extremities: trace edema. No clubbing or cyanosis Neurologically diffusely weak. no gross focal deficits noted Skin: No rash or skin lesions. Psychiatric: cooperative Musculoskeletal: No joint swelling or deformity. Assessment and plan: Altered mental status likely due to metabolic and toxic encephalopathy. Lamictal low dose resumed and continues on Seroquel. Psych evaluated the patient and started on risperdal twice daily. Possible Acute urinary tract infection, ruled out cultures were negative and patient did receive 3 days of IV ceftriaxone Possible asymptomatic bacteriuria, denies any dysuria or retention and urine culture finalized as normal presley Possible interstitial pneumonia, although suspicion is low as patient is afebrile, not requiring oxygen, and WBC within normal limits Severe alcohol abuse and currently not able to take care of himself. [facility] Depression/bipolar disorder Hypertension GERD DVT and GI prophylaxis Full code Plan: Patient resumed on low dose Lamictal and risperdal and will continue with seroquel. Patient will be returning to [facility] once discharged. Neurology following and have ordered MRI to further assess and patient continues to have periods of confusion. Patient will need outpatient follow up with his ne urologist Dr. Duncan. Will continue to monitor closely. Anticipate discharge in 24 hours. Objective - Vital Signs Vital signs: Vital Signs Temp 97.0 F L 05/20/21 05:00 Pulse 101 H 05/20/21 05:00 Resp 20 05/20/21 05:00 BP 177/98 05/20/21 05:00 Pulse Ox 96 05/20/21 05:00 Intake & Output 05/19/21 05/20/21 05/20/21 18:59 06:59 18:59 Intake Total 200 1150 Balance 200 1150 Intake: Intake, IV Titration 0 Amount Sodium Chloride 0.9% 1, 0 000 ml @ 75 mls/hr IV . [id number] [facility] Rx#:[id number] Thiamine 100 mg In Sodium 0 Chloride 0.9% 50 ml @ 100 mls/hr IVPB Q12HR [facility] Rx#:[id number] Oral 200 1150 Other: Voiding Method Diaper Diaper Diaper Incontinent Incontinent Incontinent # Voids 1 4 # Bowel Movements 1 1 - Labs CBC & Chem 7: 05/19/21 05:30 05/19/21 05:30 Labs: Microbiology - Last 24 Hours (Table) 05/15/21 20:30 Blood Culture - Preliminary Blood No Growth after 96 hours
[2021-05-21] MEDS: lamoTRIgine 25 MG TAB PO SCH (08:51)
[2021-05-21] MEDS: risperiDONE 0.5 MG TAB PO SCH (08:51)
[2021-05-21] MEDS: ESCITALOPRAM 20 MG TAB PO SCH (08:51)
[2021-05-21] MEDS: SODIUM CHLORIDE 0.9% 1,000 ML IV SCH (08:52)
[2021-05-21] MEDS: THIAMINE 100 MG in SODIUM CHLORIDE 0.9% 50 ML IVPB SCH (08:52)
--- NOTE | 2021-05-21 10:22 | P.DS ---
Providers Date of admission: 05/17/21 08:55 Expected date of discharge: 05/21/21 Attending physician: Justin Mojica MD Consults: 05/15/21 20:10 Consult Physician Urgent Consulting Provider: Cornelio Harley Consult Reason/Comments: acute encephalopathy Do you want consulting provider notified?: Yes Consult Physician Urgent Consulting Provider: Lemuel Lopez Consult Reason/Comments: acute encephlopathy, possible medication side effect Do you want consulting provider notified?: Yes Primary care physician: Jelani Cervantes Hospital Course: Final diagnosis Altered mental status likely due to metabolic and toxic encephalopathy. Possible Lamictal toxicity was being considered although Lamictal level was within normal limits and depakote subtherapeutic. Lamictal, depakote, ativan on hold and psychiatry following. PRN Seroquel at night for agitation Patient is on Seroquel, Lexapro, lamotrigine and recently added Depakote. Possible Acute urinary tract infection, ruled out cultures were negative and patient did receive 3 days of IV ceftriaxone with no improvement in mentation Possible asymptomatic bacteriuria, denies any dysuria or retention and urine culture finalized as normal presley Possible interstitial pneumonia, although suspicion is low as patient is afebrile, not requiring oxygen, and WBC within normal limits Severe alcohol abuse and currently not able to take care of himself. Admitted to [facility] in March 2021 Depression/bipolar disorder Hypertension GERD DVT and GI prophylaxis Full code Discharge disposition Patient is being discharged in a stable condition with guarded prognosis to [facility] for continued PT/OT therapy. Patient will follow-up with Dr. Cervantes in the outpatient setting upon discharge. Patient needs outpatient follow-up this week with Dr. Duncan neurology to discuss medication adjustments as Lamictal/Depakote/Ativan are on hold. Total time taken is greater than 35 minutes. Hospital course Patient is a 76 male with a known history of alcohol use, GERD, multiple infarcts and depression who is currently at [facility] was sent to hospital due to altered mental status. Patient did have severe alcohol abuse an d could not take care of himself. He was admitted to [facility] in March 2021. Patient continues to have frequent falls and decreasing mentation since admission. EMS was called due to increased altered mental status, lethargy and not taking any oral intake.. He was recently started on Depakote on Monday for mood stabilization. Patient cannot provide any history. Chest x-ray showed increasing pulmonary interstitial infiltrates compared to old exam. No pleural fluid is seen to suggest heart failure. It could be some acute and chronic interstitial pneumonia. CT head showed stable atrophy and chronic small vessel ischemia. No acute intracranial normality. No change compared to old exam. EKG showed sinus tachycardia Laboratory data reviewed. Urinalysis showed 2+ ketones and moderate leukocyte esterase and elevated WBC count 29 Urinalysis positive for benzodiazepines.. 05/17/2021 Patient is seen in follow-up this morning continues to be confused and somewhat altered although per nursing staff more awake today and responding to questions and commands. Patient states he is in [place] although unsure of where [place] and unable to give a date. Patient is having generalized pain and reported pain in the hip and will obtain x-ray. Patient is also having difficulty in swallowing food along with medications. Will consult speech for swallow eval. Urine culture obtained and pending although patient denies any urinary frequency or dysuria and was maintained on IV ceftriaxone and will discontinue and monitor cultures closely. Neurology also evaluating the patient and EEG was taken and waiting to be red along with a 2-D echo. Will add Toradol for pain and monitor closely. Patient also awaiting for psych consult and will await report. PT/OT to evaluate the patient and will likely require ECF placement for continued weakness. Lamictal level was 11.6 and valproic acid 23.7. Will use Seroquel at night as needed for agitation. Patient is continued on gentle IV hydration and will continue and repeat a.m. labs 05/18/2021 Patient is seen this morning and appearing more awake and alert at times compared to yesterday but continues to have periods of lethargy and encephalopathy. Patient is being followed by neurology along with psychiatry and mood stabilizing medications of lamictal, ativan, and depakote remain on hold. To continue with seroquel as needed at night. Patient seen by speech therapy for swallow eval and no reported deficits noted on exam and to continue with current diet. Recommend continued supervision with meals and aspiration precautions due to extreme lethargy and periods of confusion. Urine culture finalized showing normal presley. Awaiting MRI results from Dr. Duncan's office that was done recently to determine possible lumbar puncture which is being deferred at this time and this was discussed with neurology. 05/19/2021 Patient is seen in follow-up this morning no acute overnight issues. Patient is awake and alert although continues to be confused at times. Mood stabilizing medications on hold right now and needs follow-up with his neurologist Dr. Duncan this week about medication adjustments. Patient was initially started on IV antibiotics for possible UTI although cultures reveal negative and no growth and antibiotics have been discontinued patient did receive 3 days of IV antibiotics. Discussion was had with power of transactional attorney at the bedside along with neurology and recommend continuing outpatient follow-up with Dr. Duncan where he is established and recently had an MRI. She was having some difficulty swallowing food and medications possibly due to encephalopathy although much improved and was evaluated by speech therapy recommending continued current diet. Patient potassium today 3.2 and replaced and recommend repeat labs in 2-3 days to monitor electrolytes. Currently no reports of chest pain, shortness of breath, or palpitations. Patient is afebrile. No reports of nausea or vomiting and patient is tolerating diet. Patient to have medication addressed prior to return to [facility]. Patient did have lamictal and depakote on hold while continued on Seroquel. Discussed the outside MRI that was recently done at Dr. Duncan's office and will defer LP to his neurologist if warranted in an outpatient setting. Patient denies any chest pain or shortness of breath. Patient continues to have periods of confusion which appears to be baseline when talking with POA at the bedside. Potassium found to be 3.2 and will replace per protocol. 05/20/2021 Patient is seen and evaluated this morning and has been resumed on low dose Lamictal and risperdal added and patient is also continued on Seroquel. Per nursing staff, patient is calm, cooperative, and appropriate today with no signs of increased agitation noted. Patient is awake with continued periods of confusion at times. Patient denies any chest pain or palpitations. Patient is afebrile. 05/21/2021 Patient seen in follow-up with no acute overnight issues noted. Patient improving in mentation and decreased agitation also continues to improve. Neurology following an ordered nuclear medicine ILEANA scan of the brain along with MRI of the brain and C-spine and underwent the ILEANA nuclear scan which is pending an MRI can also be done outpatient per neurology recommendations with his neurologist Dr. Duncan. A to follow with Dr. Duncan as well in regards to the nuclear scan as he was having continued episodes of confusion. Power of transactional attorney Sandra is aware and agreeable with outpatient follow-up and would like patient to return to [facility] for continued PT/OT therapy. Patient will be discharged to [facility] today. Patient did have a potassium of 3.2 yesterday and was replaced and recommend outpatient follow-up with labs in a few days to monitor electrolytes and kidney functions. Physical Exam: GENERAL: The patient is alert and oriented x2-3, not in any acute distress. Well developed, well nourished. HEENT: Pupils are round and equally reacting to light. EOMI. No scleral icterus. No conjunctival pallor. Normocephalic, atraumatic. No pharyngeal erythema. No thyromegaly. CARDIOVASCULAR: S1 and S2 present. No murmurs, rubs, or gallops. PULMONARY: Diminished breath sounds bilaterally with no wheezing or rhonchi noted. ABDOMEN: Soft, nontender, nondistended, normoactive bowel sounds. No palpable o rganomegaly. MUSCULOSKELETAL: No joint swelling or deformity. EXTREMITIES: No cyanosis, clubbing NEUROLOGICAL: Gross neurological examination did not reveal any focal deficits. Diffusely weak SKIN: No rashes. no petechiae. On exam vital signs are stable. Cardio S1, S2 are muffled. Respiratory system shows diminished breath sounds at the bases with no wheezing or rhonchi noted. Abdomen is soft and nontender. Nervous system shows diffuse weakness. Please refer to medication reconciliation sheet for a list of medications. Patient Condition at Discharge: Stable Plan - Discharge Summary Discharge Rx Participant: Yes New Discharge Prescriptions: New lamoTRIgine [LaMICtal] 25 mg PO DAILY #10 tab QUEtiapine [SEROquel] 25 mg PO HS PRN tab PRN Reason: Agitation Thiamine [Vitamin B-1] 100 mg PO DAILY #30 tablet risperiDONE [RisperDAL] 0.5 mg PO BID #10 tab Continue Na Phos,M-B/Na Phos,Di-Ba [Fleet Adult] 133 ml RECTAL DAILY PRN PRN Reason: Constipation Magnesium Hydroxide [Milk of Magnesia Concentrate] 7,200 mg PO Q48H PRN PRN Reason: Constipation Acetaminophen Tab [Tylenol] 1,000 mg PO Q6H PRN PRN Reason: Fever And/ Or Pain Omeprazole 20 mg PO BID PRN PRN Reason: gerd Escitalopram [Lexapro] 20 mg PO DAILY@0800 bisacodyL [Bisacodyl] 10 mg RECTAL DAILY PRN PRN Reason: Constipation Cholecalciferol [Vitamin D3 (25 Mcg = 1000 Iu)] 25 mcg PO DAILY@1700 Discontinued lamoTRIgine 200 mg PO BID@0800,2100 LORazepam [Ativan] 0.5 mg PO Q8H PRN PRN Reason: Anxiety QUEtiapine FUMARATE [SEROquel] 25 mg PO BID@0800,2100 Divalproex Sprinkle [Depakote Sprinkle] 125 mg PO BID@0800,1700 Cefuroxime Axetil [Ceftin] 500 mg PO BID@0800,1700 Discharge Medication List Escitalopram [Lexapro] 20 mg PO DAILY@0800 04/01/21 [History] Acetaminophen Tab [Tylenol] 1,000 mg PO Q6H PRN 05/15/21 [History] Cholecalciferol [Vitamin D3 (25 Mcg = 1000 Iu)] 25 mcg PO DAILY@1700 05/15/21 [History] Magnesium Hydroxide [Milk of Magnesia Concentrate] 7,200 mg PO Q48H PRN 05/15/21 [History] Na Phos,M-B/Na Phos,Di-Ba [Fleet Adult] 133 ml RECTAL DAILY PRN 05/15/21 [History] Omeprazole 20 mg PO BID PRN 05/15/21 [History] bisacodyL [Bisacodyl] 10 mg RECTAL DAILY PRN 05/15/21 [History] QUEtiapine [SEROquel] 25 mg PO HS PRN tab 05/19/21 [Rx] Thiamine [Vitamin B-1] 100 mg PO DAILY #30 tablet 05/19/21 [Rx] lamoTRIgine [LaMICtal] 25 mg PO DAILY #10 tab 05/21/21 [Rx] risperiDONE [RisperDAL] 0.5 mg PO BID #10 tab 05/21/21 [Rx] Follow up Appointment(s)/Referral(s): Jelani Cervantes MD [Primary Care Provider] - 1-2 days Gonzalez Duncan MD [Medical Doctor] - 1 Week Ambulatory/Diagnostic Orders: Basic Metabolic Panel [LAB.AMB] Time Frame: 3 Days, Location: None Selected Activity/Diet/Wound Care/Special Instructions: Patient is returning to [facility] Activity as tolerated Patient needs follow-up with neurology outpatient in one week with Dr. Duncan to discuss MRI studies and further MRI testing Continue current medications Continue with Seroquel at night as needed Recommend BMP in 2-3 days to monitor electrolytes Continue with heart healthy diet and had of the bed elevated 30-45 with supervision with meals Discharge Disposition: TRANSFER TO SNF/ECF
[2021-05-21 12:11] VITALS: BP 136/85; PULSE 97; RESP 16; TEMP 97.7
[2021-05-21 13:01] VITALS: BMI 27.3
--- NOTE | 2021-05-21 16:18 | NM ---
EXAMINATION TYPE: NM DatScan Brain SPECT DATE OF EXAM: 05/21/2021 COMPARISON: Correlation CT brain 05/15/2021 HISTORY: 76-year-old male confusion, altered mental status. TECHNIQUE: 10 drops of Lugol's solution was administered 1 hour prior to injection as a thyroid bloc prabha agent. After the administration of 4.3 mCi I-123 Ioflupane DaTscan. Images obtained [address] injection. SPECT images of the brain were acquired with axial and coronal reconstructions. FINDINGS: No significant increased background uptake. We note that the patient's head was tilted. Attempt at re -aligning the Y axis was made. Very subtle asymmetrically decreased activity within the right striatum is suspected to relate to the patient's head tilt. The overall comma shape remains relatively symmetrical. IMPRESSION: Minimal asymmetrically decreased activity within the right striatum felt to be a consequence of patie nt's head tilt as the overall comma shape is preserved. We suspect a normal study. If symptoms persis t and a reevaluation is desired at a later time, follow-up can be performed.
== END 2021-05-21 15:23 | DRG 93 ==
LOC: EC 17:16 → 5NMEDONC 20:08 → OBSVTOIN 05-17 08:55
PROVIDERS: ADMIT Internal Medicine; ATTEND Internal Medicine
DX: G92 Toxic encephalopathy (principal); T42.6X5A Adverse effect of other antiepileptic and sedative-hypnotic drugs, initial encounter; F10.10 Alcohol abuse, uncomplicated; R29.6 Repeated falls; K21.9 Gastro-esophageal reflux disease without esophagitis; F31.9 Bipolar disorder, unspecified; Z20.822 Contact with and (suspected) exposure to COVID-19; G20 Parkinson's disease; F02.80 Dementia in other diseases classified elsewhere, unspecified severity, without behavioral disturbance, psychotic disturbance, mood disturbance, and anxiety; I10 Essential (primary) hypertension; R13.10 Dysphagia, unspecified; R00.0 Tachycardia, unspecified; Z79.899 Other long term (current) drug therapy; Z91.81 History of falling
CPT/HCPCS: 36415; 70450; 70496; 70498; 71046; 73521; 78803; 80048; 80053; 80164; 80175; 80306; 81001; 82140; 82550; 84443; 84484; 85025; 85610; 85730; 87040; 87086; 87635; 93005; 93306; 93880; 95816; 99285

== ENCOUNTER 2021-06-24 13:59 | Emergency (ER) | payer MEDICARE, BC ==
[2021-06-24] MEDS ORDERED: SODIUM CHLORIDE 0.9% 500 ML 500 ML IV STA (14:02)
[2021-06-24 14:09] VITALS: RESP 18; TEMP 97.8
[2021-06-24 14:25] LABS: Basophils % (A) 0 %; Eosinophils # (A) 0.1 k/uL (0-0.7); Eosinophils % (A) 2 %; HCT 37.5 % (39.0-53.0); HGB 12.9 gm/dL (13.0-17.5); Lymphocytes % (A) 22 %; MCHC 34.4 g/dL (31.0-37.0); MCV 96.1 fL (80.0-100.0); Mean Platelet Volume 8.2; Monocytes # (A) 0.5 k/uL (0-1.0); Monocytes % (A) 11 %; Neutrophils # (A) 2.8 k/uL (1.3-7.7); Neutrophils % (A) 61 %; Platelet Count 189 k/uL (150-450); RBC 3.91 m/uL (4.30-5.90); RDW 12.2 % (11.5-15.5); WBC 4.5 k/uL (3.8-10.6)
--- NOTE | 2021-06-24 14:36 | CT ---
EXAMINATION TYPE: CT brain wo con DATE OF EXAM: 06/24/2021 COMPARISON: 05/15/2021 HISTORY: Dizziness, neuro deficits, acute, stroke suspected CT DLP: 1074.4 mGycm Automated exposure control for dose reduction was used. FINDINGS: There is mild to moderate generalized degenerative change. Diffuse areas of nonspecific white matter density most typical remote white matter ischemia. No midline shift or mass effect. No acute hemorrha ge. Orbits are symmetric. Sinuses are clear. Craniocervical junction maintained. Sella turcica has a norm al appearance. IMPRESSION: DEGENERATIVE AND NONSPECIFIC WHITE MATTER CHANGE MOST TYPICAL OF REMOTE ISCHEMIA.
[2021-06-24 14:39] LABS: ALT 17 U/L (4-49); AST 24 U/L (17-59); African American GFR (CKD) >90 (>60 ml/min/1.73 sqM); Albumin 3.5 g/dL (3.5-5.0); Alkaline Phosphatase 87 U/L (38-126); Anion Gap 8 mmol/L; Blood Urea Nitrogen 21 mg/dL (9-20); Calcium 9.4 mg/dL (8.4-10.2); Carbon Dioxide 28 mmol/L (22-30); Chloride 103 mmol/L (98-107); Glucose 186 mg/dL (74-99); Non-African American GFR(CKD) 84 (>60 ml/min/1.73 sqM); Potassium 4.1 mmol/L (3.5-5.1); Sodium 139 mmol/L (137-145); Total Bilirubin 0.1 mg/dL (0.2-1.3); Total Protein 6.3 g/dL (6.3-8.2)
--- NOTE | 2021-06-24 14:40 | ED ---
General Adult HPI - General Chief complaint: Neuro Symptoms/Deficit Stated complaint: Stroke symptoms Time Seen by Provider: 06/24/21 13:59 Source: patient, EMS, RN notes reviewed, old records reviewed Mode of arrival: EMS - History of Present Illness Initial comments: This is a 76-year-old male who [facility] because of altered level of consciousness and initially thought he might have some facial droop however on arrival patient has no facial droop feet speaks clearly needs able to move all 4 extremities with coordination. Patient has a complaint of a headache which she states is mild. Patient denies any injury or trauma. Patient denies difficulty breathing or chest pain. Patient denies any fever chills or cough per patient denies abdominal pain patient denies nausea vomiting diarrhea. Patient's only complaint is that he is extremely tired. - Related Data Home Medications Medication Instructions Recorded Confirmed Escitalopram [Lexapro] 20 mg PO DAILY@0800 04/01/21 06/24/21 Acetaminophen Tab [Tylenol] 1,000 mg PO Q6H PRN 05/15/21 06/24/21 Cholecalciferol [Vitamin D3 (25 25 mcg PO DAILY@79905/15/21 06/24/21 Mcg = 1000 Iu)] Magnesium Hydroxide [Milk of 7,200 mg PO Q48H PRN 05/15/21 06/24/21 Magnesia Concentrate] Na Phos,M-B/Na Phos,Di-Ba [Fleet 133 ml RECTAL DAILY PRN 05/15/21 06/24/21 Adult] Omeprazole 20 mg PO BID PRN 05/15/21 06/24/21 bisacodyL 10 mg RECTAL DAILY PRN 05/15/21 06/24/21 Divalproex Sodium [Depakote] 125 mg PO TID@0600,1400,209906/24/21 06/24/21 SILVER sulfADIAZINE CREAM 1 applic TOPICAL BID@0800,209906/24/21 06/24/21 [Silvadene Cream] Thiamine [Vitamin B-1] 100 mg PO DAILY@79906/24/21 06/24/21 lamoTRIgine [LaMICtal] 25 mg PO DAILY@0806/24/21 06/24/21 risperiDONE [RisperDAL] 0.5 mg PO BID@0800,209906/24/2106/24/21 Allergies Allergy/AdvReac Type Severity Reaction Status Date / Time No Known Allergies Allergy Verified 06/24/21 14:49 Review of Systems ROS Statement: Those systems with pertinent positive or pertinent negative responses have been documented in the HPI. ROS Other: All systems not noted in ROS Statement are negative. Past Medical History Past Medical History: GERD/Reflux History of Any Multi-Drug Resistant Organisms: None Reported Past Surgical History: No Surgical Hx Reported Additional Past Surgical History / Comment(s): eye surgery Past Anesthesia/Blood Transfusion Reactions: Unable to Obtain Past Psychological History: Depression Smoking Status: Never smoker Past Alcohol Use History: Daily Past Drug Use History: None Reported - Past Family History Father Family Medical History: Unable to Obtain General Exam - General Exam Comments Initial Comments: GENERAL: Patient is well-developed and well-nourished. Patient is nontoxic and well- hydrated and is in mild distress. ENT: Neck is soft and supple. No significant lymphadenopathy is noted. Oropharynx is clear. Moist mucous membranes. Neck has full range of motion without eliciting any pain. EYES: The sclera were anicteric and conjunctiva were pink and moist. Extraocular movements were intact and pupils were equal round and reactive to light. Eyelids were unremarkable. PULMONARY: Unlabored respirations. Good breath sounds bilaterally. No audible rales rhonchi or wheezing was noted. CARDIOVASCULAR: There is a regular rate and rhythm without any murmurs gallops or rubs. ABDOMEN: Soft and nontender with normal bowel sounds. No palpable organomegaly was noted. There is no palpable pulsatile mass. SKIN: Skin is clear with no lesions or rashes and otherwise unremarkable. NEUROLOGIC: Patient is alert and oriented 2. Cranial nerves II through XII are grossly intact. Motor and sensory are also intact. Normal speech, volume and content. Symmetrical smile. Cerebellar testing finger to nose is normal bilaterally. MUSCULOSKELETAL: Normal extremities with adequate strength and full range of motion. No lower extremity swelling or edema. No calf tenderness. LYMPHATICS: No significant lymphadenopathy is noted PSYCHIATRIC: Normal psychiatric evaluation. Course Vital Signs 06/24/21 06/24/21 06/24/21 14:02 16:22 17:07 Temperature 97.8 F Pulse Rate 95 88 92 Respiratory 18 18 18 Rate Blood Pressure 155/85 154/90 150/97 O2 Sat by Pulse 96 97 99 Oximetry Medical Decision Making - Medical Decision Making EKG shows normal sinus rhythm at 93 bpm DC interval is 174 QRS is 70 QT interval 336 QTC is 417. Patient's EKG shows no ST segment elevation or depression. CT of the brain shows no acute abnormality. Patient has no complaints and [facility] guardian is in agreement with this. Chest x-ray shows no acute abnormality. - Lab Data Result diagrams: 06/24/21 14:15 06/24/21 14:15 Lab Results 06/24/21 06/24/21 06/24/21 Range/Units 14:15 14:15 14:15 WBC 4.5 (3.8-10.6) k/uL RBC 3.91 L (4.30-5.90) m/uL Hgb 12.9 L (13.0-17.5) gm/dL Hct 37.5 L (39.0-53.0) % MCV 96.1 (80.0-100.0) fL MCH 33.0 (25.0-35.0) pg MCHC 34.4 (31.0-37.0) g/dL RDW 12.2 (11.5-15.5) % Plt Count 189 (150-450) k/uL MPV 8.2 Neutrophils % 61 % Lymphocytes % 22 % Monocytes % 11 % Eosinophils % 2 % Basophils % 0 % Neutrophils # 2.8 (1.3-7.7) k/uL Lymphocytes # 1.0 (1.0-4.8) k/uL Monocytes # 0.5 (0-1.0) k/uL Eosinophils # 0.1 (0-0.7) k/uL Basophils # 0.0 (0-0.2) k/uL Manual Slide Review Performed Poikilocytosis (manual Present PT 9.7 (9.0-12.0) sec INR 0.9 (<1.2) APTT 21.4 L (22.0-30.0) sec Sodium 139 (137-145) mmol/L Potassium 4.1 (3.5-5.1) mmol/L Chloride 103 (98-107) mmol/L Carbon Dioxide 28 (22-30) mmol/L Anion Gap 8 mmol/L BUN 21 H (9-20) mg/dL Creatinine 0.89 (0.66-1.25) mg/dL Est GFR (CKD-EPI)AfAm >90 (>60 ml/min/1.73 sqM) Est GFR (CKD-EPI)NonAf 84 (>60 ml/min/1.73 sqM) Glucose 186 H (74-99) mg/dL Calcium 9.4 (8.4-10.2) mg/dL Total Bilirubin 0.1 L (0.2-1.3) mg/dL AST 24 (17-59) U/L ALT 17 (4-49) U/L Alkaline Phosphatase 87 (38-126) U/L Troponin I (0.000-0.034) ng/mL Total Protein 6.3 (6.3-8.2) g/dL Albumin 3.5 (3.5-5.0) g/dL Urine Color Urine Appearance (Clear) Urine pH (5.0-8.0) Ur Specific Logan (1.001-1.035) Urine Protein (Negative) Urine Glucose (UA) (Negative) Urine Ketones (Negative) Urine Blood (Negative) Urine Nitrite (Negative) Urine Bilirubin (Negative) Urine Urobilinogen (<2.0) mg/dL Ur Leukocyte Esterase (Negative) Urine RBC (0-5) /hpf Urine WBC (0-5) /hpf Urine Mucus (None) /hpf 06/24/21 06/24/21 Range/Units 14:15 16:32 WBC (3.8-10.6) k/uL RBC (4.30-5.90) m/uL Hgb (13.0-17.5) gm/dL Hct (39.0-53.0) % MCV (80.0-100.0) fL MCH (25.0-35.0) pg MCHC (31.0-37.0) g/dL RDW (11.5-15.5) % Plt Count (150-450) k/uL MPV Neutrophils % % Lymphocytes % % Monocytes % % Eosinophils % % Basophils % % Neutrophils # (1.3-7.7) k/uL Lymphocytes # (1.0-4.8) k/uL Monocytes # (0-1.0) k/uL Eosinophils # (0-0.7) k/uL Basophils # (0-0.2) k/uL Manual Slide Review Poikilocytosis (manual PT (9.0-12.0) sec INR (<1.2) APTT (22.0-30.0) sec Sodium (137-145) mmol/L Potassium (3.5-5.1) mmol/L Chloride (98-107) mmol/L Carbon Dioxide (22-30) mmol/L Anion Gap mmol/L BUN (9-20) mg/dL Creatinine (0.66-1.25) mg/dL Est GFR (CKD-EPI)AfAm (>60 ml/min/1.73 sqM) Est GFR (CKD-EPI)NonAf (>60 ml/min/1.73 sqM) Glucose (74-99) mg/dL Calcium (8.4-10.2) mg/dL Total Bilirubin (0.2-1.3) mg/dL AST (17-59) U/L ALT (4-49) U/L Alkaline Phosphatase (38-126) U/L Troponin I <0.012 (0.000-0.034) ng/mL Total Protein (6.3-8.2) g/dL Albumin (3.5-5.0) g/dL Urine Color Light Yellow Urine Appearance Clear (Clear) Urine pH 7.0 (5.0-8.0) Ur Specific Logan 1.012 (1.001-1.035) Urine Protein Negative (Negative) Urine Glucose (UA) Negative (Negative) Urine Ketones Negative (Negative) Urine Blood Negative (Negative) Urine Nitrite Negative (Negative) Urine Bilirubin Negative (Negative) Urine Urobilinogen <2.0 (<2.0) mg/dL Ur Leukocyte Esterase Moderate H (Negative) Urine RBC 2 (0-5) /hpf Urine WBC 5 (0-5) /hpf Urine Mucus Rare H (None) /hpf Disposition Clinical Impression: Fatigue Disposition: HOME SELF-CARE Condition: Good Is patient prescribed a controlled substance at d/c from ED?: No Referrals: Jelani Cervantes MD [Primary Care Provider] - 1-2 days Time of Disposition: 17:43
[2021-06-24 14:44] LABS: INR 0.9 (<1.2); Partial Thromboplastin Time 21.4 sec (22.0-30.0); Prothrombin Time 9.7 sec (9.0-12.0)
--- NOTE | 2021-06-24 14:44 | XR ---
EXAMINATION TYPE: XR chest 2V DATE OF EXAM: 06/24/2021 COMPARISON: Chest x-ray May 15, 2021 and CTA chest April 02, 2021 HISTORY: Altered mental status and weakness. TECHNIQUE: Frontal and lateral views of the chest are obtained. FINDINGS: Background mild underlying emphysematous change with increasing hilar reticulonodular opac ities in the mid to lower lungs. Low lung volumes. The cardiac silhouette size remains within normal limits. 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 IMPRESSION: Worsening bilateral reticulonodular central opacities consistent with atypical infiltrat e and/or edema. Correlate clinically.
[2021-06-24 15:12] LABS: Poikilocytosis (M) Present
[2021-06-24 17:11] LABS: Appearance,Urine Clear (Clear); Bilirubin,Urine Negative (Negative); Blood,Urine Negative (Negative); Color,Urine Light Yellow; Glucose,Urine (UA) Negative (Negative); Ketones,Urine Negative (Negative); Leukocyte Esterase,Urine Moderate (Negative); Mucus,Urine Rare /hpf; Nitrite,Urine Negative (Negative); Protein,Urine Negative (Negative); RBC,Urine 2 /hpf (0-5); Specific Gravity,Urine 1.012 (1.001-1.035); Urobilinogen,Urine <2.0 mg/dL (<2.0); WBC,Urine 5 /hpf (0-5)
[2021-06-24 18:27] VITALS: BP 154/87; PULSE 78
== END 2021-06-24 18:10 | disposition home or self-care (01) ==
LOC: EC 13:59
DX: R53.83 Other fatigue (principal); K21.9 Gastro-esophageal reflux disease without esophagitis; F32.9 Major depressive disorder, single episode, unspecified
CPT/HCPCS: 36415; 70450; 71046; 80053; 81001; 84484; 85025; 85610; 85730; 93005; 99285

== ENCOUNTER 2021-07-13 12:30 | Emergency (ER) | payer MEDICARE, BC ==
[2021-07-13 12:43] VITALS: RESP 18; TEMP 98.2
--- NOTE | 2021-07-13 12:44 | ED ---
General Adult HPI - General Stated complaint: Fall Time Seen by Provider: 07/13/21 12:30 Source: patient, RN notes reviewed, old records reviewed - History of Present Illness Initial comments: This a 76-year-old male was brought to the emergency department by EMS. They were told that the patient rolled out of the bed which is approximately 1 foot off the ground and hit his head on the floor even though there is a mat But he missed his head on the floor patient is not complaining of any headache patient has no numbness weakness. Patient has no neck pain. Patient does complain of some left shoulder pain. Patient did not lose consciousness. Patient is not very accurate his history but he does complain of left shoulder pain. Patient denies any back pain chest pain or abdominal pain. Patient denies any other extremity pain. - Related Data Home Medications Medication Instructions Recorded Confirmed Escitalopram [Lexapro] 20 mg PO DAILY@0800 04/01/21 07/13/21 Acetaminophen Tab [Tylenol] 1,000 mg PO Q6H PRN 05/15/21 07/13/21 Cholecalciferol [Vitamin D3 (25 25 mcg PO DAILY@0800 05/15/21 07/13/21 Mcg = 1000 Iu)] Magnesium Hydroxide [Milk of 7,200 mg PO Q48H PRN 05/15/21 07/13/21 Magnesia Concentrate] Na Phos,M-B/Na Phos,Di-Ba [Fleet 133 ml RECTAL DAILY PRN 05/15/21 07/13/21 Adult] Omeprazole 20 mg PO BID PRN 05/15/21 07/13/21 bisacodyL 10 mg RECTAL DAILY PRN 05/15/21 07/13/21 Thiamine [Vitamin B-1] 100 mg PO DAILY@0800 06/24/21 07/13/21 Divalproex [Depakote] 250 mg PO TID@0600,1400,2100 07/13/21 07/13/21 Melatonin 5 mg PO HS 07/13/21 07/13/21 QUEtiapine [SEROquel] 50 mg PO BID@0800,1700 07/13/21 07/13/21 Allergies Allergy/AdvReac Type Severity Reaction Status Date / Time No Known Allergies Allergy Verified 07/13/21 13:17 Review of Systems ROS Statement: Those systems with pertinent positive or pertinent negative responses have been documented in the HPI. ROS Other: All systems not noted in ROS Statement are negative. Past Medical History Past Medical History: GERD/Reflux History of Any Multi-Drug Resistant Organisms: None Reported Past Surgical History: No Surgical Hx Reported Additional Past Surgical History / Comment(s): eye surgery Past Anesthesia/Blood Transfusion Reactions: Unable to Obtain Past Psychological History: Depression Smoking Status: Never smoker Past Alcohol Use History: Daily Past Drug Use History: None Reported - Past Family History Father Family Medical History: Unable to Obtain General Exam - General Exam Comments Initial Comments: GENERAL: Patient is well-developed and well-nourished. Patient is nontoxic and well- hydrated and is in no acute distress. ENT: Neck is soft and supple. No significant lymphadenopathy is noted. Oropharynx is clear. Moist mucous membranes. Neck has full range of motion without eliciting any pain. EYES: The sclera were anicteric and conjunctiva were pink and moist. Extraocular movements were intact and pupils were equal round and reactive to light. Eyelids were unremarkable. PULMONARY: Unlabored respirations. Good breath sounds bilaterally. No audible rales rhonchi or wheezing was noted. CARDIOVASCULAR: There is a regular rate and rhythm without any murmurs gallops or rubs. ABDOMEN: Soft and nontender with normal bowel sounds. No palpable organomegaly was noted. There is no palpable pulsatile mass. SKIN: Skin is clear with no lesions or rashes and otherwise unremarkable. NEUROLOGIC: Patient is alert and oriented x3. Cranial nerves II through XII are grossly intact. Motor and sensory are also intact. Normal speech, volume and content. Symmetrical smile. MUSCULOSKELETAL: Patient has anterior left shoulder pain and he is limited range of motion secondary to pain but he is able to do it if he can overcome the pain. LYMPHATICS: No significant lymphadenopathy is noted PSYCHIATRIC: Normal psychiatric evaluation. Course Vital Signs 07/13/21 12:35 Temperature 98.2 F Pulse Rate 87 Respiratory 18 Rate Blood Pressure 126/95 O2 Sat by Pulse 97 Oximetry Medical Decision Making - Medical Decision Making CT of the brain and C-spine showed no acute abnormality. CT of the shoulder showed no acute abnormality. Disposition Clinical Impression: Fall, Shoulder contusion Disposition: HOME SELF-CARE Condition: Good Instructions (If sedation given, give patient instructions): Fall Prevention for Older Adults (ED), Shoulder Pain (ED) Is patient prescribed a controlled substance at d/c from ED?: No Referrals: Jelani Cervantes MD [Primary Care Provider] - 1-2 days Time of Disposition: 15:16
--- NOTE | 2021-07-13 13:47 | CT ---
EXAMINATION TYPE: CT brain ramon jean DATE OF EXAM: 07/13/2021 COMPARISON: 06/24/2021 HISTORY: Fall with head injury. CT DLP: 1589.[address] of the brain was performed. The ventricles, basal cisterns and sulci overlying the cerebral convexities demonstrate enlargement. There is no evidence for intracranial hemorrhage or sulcal effacement. There is decreased attenuatio n about the periventricular white matter and deep white matter of both cerebral hemispheres, compatib le with chronic small vessel ischemia. No mass effects are seen. If symptoms persist consider MRI. Osseous calvarium is intact. IMPRESSION: 1. Age related atrophic and chronic small vessel ischemic change without acute intracranial process seen at this time. CT Cervical Spine: Unenhanced CT of the cervical spine was performed with bone and soft tissue window settings submitted . Coronal and sagittal reconstruction is obtained. There is normal alignment and prevertebral soft tissues. No evidence for acute cervical fracture . Severe Scattered degenerative disc disease and spondylosis. Biapical scarring. IMPRESSION: 1. No evidence for acute fracture or subluxation of the cervical spine.
--- NOTE | 2021-07-13 13:48 | XR ---
EXAMINATION TYPE: XR shoulder complete LT DATE OF EXAM: 07/13/2021 CLINICAL HISTORY: pain COMPARISON: NONE TECHNIQUE: Three views of the left shoulder are obtained. FINDINGS: There is no acute fracture/dislocation evident. The acromioclavicular and glenohumeral dorothy int spaces appear mildly narrowed. The visualized ribs are intact and unremarkable. Reticulonodular densities throughout the left lung. IMPRESSION: 1. There is no acute fracture or dislocation. ICD 10 NO FRACTURE, INITIAL EVALUATION
[2021-07-13 16:10] VITALS: BP 165/94; PULSE 81
== END 2021-07-13 16:11 | disposition home or self-care (01) ==
LOC: EC 12:30
DX: S40.012A Contusion of left shoulder, initial encounter (principal); W06.XXXA Fall from bed, initial encounter; Y92.89 Other specified places as the place of occurrence of the external cause
CPT/HCPCS: 70450; 72125; 99284

== ENCOUNTER 2021-08-31 20:59 | Inpatient (IN) | payer MEDICARE, BC ==
[2021-08-31] MEDS ORDERED: SODIUM CHLORIDE 0.9% 500 ML 500 ML IV ONE (21:05)
[2021-08-31 21:26] LABS: Glucose,Whole Blood 159 mg/dL (75-99)
[2021-08-31] MEDS ORDERED: KETOROLAC 15 MG/ML 1 ML VIAL IVP STA (21:29)
[2021-08-31 21:39] LABS: Basophils % (A) 1 %; Eosinophils % (A) 1 %; HGB 14.2 gm/dL (13.0-17.5); Lymphocytes # (A) 0.4 k/uL (1.0-4.8); Lymphocytes % (A) 8 %; MCH 30.2 pg (25.0-35.0); MCV 91.4 fL (80.0-100.0); Mean Platelet Volume 8.1; Monocytes # (A) 0.8 k/uL (0-1.0); Monocytes % (A) 15 %; Neutrophils # (A) 4.2 k/uL (1.3-7.7); Neutrophils % (A) 74 %; Platelet Count 180 k/uL (150-450); RDW 13.1 % (11.5-15.5); WBC 5.7 k/uL (3.8-10.6)
[2021-08-31 21:47] LABS: Partial Thromboplastin Time 25.1 sec (22.0-30.0); Prothrombin Time 10.5 sec (9.0-12.0)
--- NOTE | 2021-08-31 21:52 | ED ---
General Adult HPI - General Chief complaint: Altered Mental Status Stated complaint: Neuro Deficits Time Seen by Provider: 08/31/21 21:03 Source: patient, EMS, RN notes reviewed, old records reviewed Mode of arrival: EMS Limitations: altered mental status, physical limitation - History of Present Illness Initial comments: 76-year-old male with altered mental status. Patient was sent from the group home with confusion, lethargy. The paper does indicate that they had sent the patient to rule out CVA. Uncertain of the exact onset or change in this patient's mental status. History is extremely limited. He has a history of encephalopathy, dementia, and debility. Patient is noted to be febrile upon arrival. - Related Data Home Medications Medication Instructions Recorded Confirmed Escitalopram [Lexapro] 20 mg PO DAILY@0800 04/01/21 08/31/21 Acetaminophen Tab [Tylenol] 1,000 mg PO Q6H PRN 05/15/21 08/31/21 Cholecalciferol [Vitamin D3 (25 25 mcg PO DAILY@0800 05/15/21 08/31/21 Mcg = 1000 Iu)] Magnesium Hydroxide [Milk of 7,200 mg PO Q48H PRN 05/15/21 08/31/21 Magnesia Concentrate] Na Phos,M-B/Na Phos,Di-Ba [Fleet 133 ml RECTAL DAILY PRN 05/15/21 08/31/21 Adult] Omeprazole 20 mg PO BID PRN 05/15/21 08/31/21 bisacodyL 10 mg RECTAL DAILY PRN 05/15/21 08/31/21 Thiamine [Vitamin B-1] 100 mg PO DAILY@0800 06/24/21 08/31/21 Divalproex [Depakote] 250 mg PO TID@0800,1400,2200 07/13/21 08/31/21 Melatonin 5 mg PO HS@2100 07/13/21 08/31/21 QUEtiapine [SEROquel] 50 mg PO BID@0800,1700 07/13/21 08/31/21 Oseltamivir [Tamiflu] 75 mg PO DAILY@1200 08/31/21 08/31/21 lisinopriL [Zestril] 5 mg PO DAILY@0800 08/31/21 08/31/21 Allergies Allergy/AdvReac Type Severity Reaction Status Date / Time No Known Allergies Allergy Verified 08/31/21 21:50 Review of Systems ROS Statement: Those systems with pertinent positive or pertinent negative responses have been documented in the HPI. ROS Other: All systems not noted in ROS Statement are negative. Past Medical History Past Medical History: GERD/Reflux History of Any Multi-Drug Resistant Organisms: None Reported Past Surgical History: Unable to Obtain Additional Past Surgical History / Comment(s): eye surgery Past Anesthesia/Blood Transfusion Reactions: Unable to Obtain Past Psychological History: Depression Smoking Status: Never smoker Past Alcohol Use History: Daily Past Drug Use History: None Reported - Past Family History Father Family Medical History: Unable to Obtain General Exam Limitations: altered mental status, physical limitation General appearance: lethargic Head exam: Present: atraumatic Eye exam: Present: PERRL, other ENT exam: Present: mucous membranes dry Neck exam: Present: normal inspection. Absent: tenderness, meningismus Respiratory exam: Present: rhonchi, decreased breath sounds. Absent: respiratory distress Cardiovascular Exam: Present: normal rhythm, tachycardia GI/Abdominal exam: Present: soft. Absent: distended, tenderness, guarding Extremities exam: Present: normal inspection, normal capillary refill Neurological exam: Present: other (Facial droop on the left, patient is rigid) Skin exam: Present: warm, dry, intact Course Vital Signs 08/31/21 21:01 Temperature 102.6 F H Pulse Rate 118 H Respiratory 18 Rate Blood Pressure 175/107 O2 Sat by Pulse 93 L Oximetry EKG Findings - EKG Comments: EKG Findings:: Sinus tachycardia, left anterior fascicular block, rate of 122, TX interval 152, QRS duration 80, QTC [address] segment elevation. Medical Decision Making - Medical Decision Making 76-year-old male presenting with fever, altered mental status. Very limited history on this patient. Workup is initiated including head CT which is negative for intracranial hemorrhage or mass effect, chest x-ray showing a multifocal pneumonia. Patient has a normal CBC, normal CMP, negative lactic acid, negative troponin. He does test positive for coronavirus. Additionally he has evidence of UTI. Both blood cultures and urine cultures are pending. He started on Rocephin for urinary tract infection. He is given Decadron for coronavirus pneumonia. He will be admitted for further evaluation treatment. Case discussed with Silvina larsen for [facility] - Lab Data Result diagrams: 08/31/21 21:23 08/31/21 21:23 Lab Results 08/31/21 08/31/21 08/31/21 Range/Units 21:22 21:23 21:23 WBC 5.7 (3.8-10.6) k/uL RBC 4.70 (4.30-5.90) m/uL Hgb 14.2 (13.0-17.5) gm/dL Hct 43.0 (39.0-53.0) % MCV 91.4 (80.0-100.0) fL MCH 30.2 (25.0-35.0) pg MCHC 33.0 (31.0-37.0) g/dL RDW 13.1 (11.5-15.5) % Plt Count 180 (150-450) k/uL MPV 8.1 Neutrophils % 74 % Lymphocytes % 8 % Monocytes % 15 % Eosinophils % 1 % Basophils % 1 % Neutrophils # 4.2 (1.3-7.7) k/uL Lymphocytes # 0.4 L (1.0-4.8) k/uL Monocytes # 0.8 (0-1.0) k/uL Eosinophils # 0.0 (0-0.7) k/uL Basophils # 0.0 (0-0.2) k/uL PT 10.5 (9.0-12.0) sec INR 1.0 (<1.2) APTT 25.1 (22.0-30.0) sec Sodium (137-145) mmol/L Potassium (3.5-5.1) mmol/L Chloride (98-107) mmol/L Carbon Dioxide (22-30) mmol/L Anion Gap mmol/L BUN (9-20) mg/dL Creatinine (0.66-1.25) mg/dL Est GFR (CKD-EPI)AfAm (>60 ml/min/1.73 sqM) Est GFR (CKD-EPI)NonAf (>60 ml/min/1.73 sqM) Glucose (74-99) mg/dL POC Glucose (mg/dL) 159 H (75-99) mg/dL POC Glu [employer] ID Phil Bernal Plasma Lactic Acid Ulises (0.7-2.0) mmol/L Calcium (8.4-10.2) mg/dL Magnesium (1.6-2.3) mg/dL Total Bilirubin (0.2-1.3) mg/dL AST (17-59) U/L ALT (4-49) U/L Alkaline Phosphatase (38-126) U/L Troponin I (0.000-0.034) ng/mL Total Protein (6.3-8.2) g/dL Albumin (3.5-5.0) g/dL Urine Color Urine Appearance (Clear) Urine pH (5.0-8.0) Ur Specific [place]fl[place] (1.001-1.035) Urine Protein (Negative) Urine Glucose (UA) (Negative) Urine Ketones (Negative) Urine Blood (Negative) Urine Nitrite (Negative) Urine Bilirubin (Negative) Urine Urobilinogen (<2.0) mg/dL Ur Leukocyte Esterase (Negative) Urine RBC (0-5) /hpf Urine WBC (0-5) /hpf Urine WBC Clumps (None) /hpf Hyaline Casts (0-2) /lpf Urine Mucus (None) /hpf Coronavirus (PCR) (Not Detectd) 08/31/21 08/31/21 08/31/21 Range/Units 21:23 21:23 21:27 WBC (3.8-10.6) k/uL RBC (4.30-5.90) m/uL Hgb (13.0-17.5) gm/dL Hct (39.0-53.0) % MCV (80.0-100.0) fL MCH (25.0-35.0) pg MCHC (31.0-37.0) g/dL RDW (11.5-15.5) % Plt Count (150-450) k/uL MPV Neutrophils % % Lymphocytes % % Monocytes % % Eosinophils % % Basophils % % Neutrophils # (1.3-7.7) k/uL Lymphocytes # (1.0-4.8) k/uL Monocytes # (0-1.0) k/uL Eosinophils # (0-0.7) k/uL Basophils # (0-0.2) k/uL PT (9.0-12.0) sec INR (<1.2) APTT (22.0-30.0) sec Sodium 137 (137-145) mmol/L Potassium 3.9 (3.5-5.1) mmol/L Chloride 101 (98-107) mmol/L Carbon Dioxide 24 (22-30) mmol/L Anion Gap 12 mmol/L BUN 21 H (9-20) mg/dL Creatinine 0.95 (0.66-1.25) mg/dL Est GFR (CKD-EPI)AfAm >90 (>60 ml/min/1.73 sqM) Est GFR (CKD-EPI)NonAf 78 (>60 ml/min/1.73 sqM) Glucose 153 H (74-99) mg/dL POC Glucose (mg/dL) (75-99) mg/dL POC Glu [employer] Engineer ID Plasma Lactic Acid Ulises (0.7-2.0) mmol/L Calcium 9.9 (8.4-10.2) mg/dL Magnesium (1.6-2.3) mg/dL Total Bilirubin 0.6 (0.2-1.3) mg/dL AST 31 (17-59) U/L ALT 19 (4-49) U/L Alkaline Phosphatase 76 (38-126) U/L Troponin I <0.012 (0.000-0.034) ng/mL Total Protein 7.3 (6.3-8.2) g/dL Albumin 4.0 (3.5-5.0) g/dL Urine Color Yellow Urine Appearance Cloudy (Clear) Urine pH 7.0 (5.0-8.0) Ur Specific [place] 1.019 (1.001-1.035) Urine Protein Trace H (Negative) Urine Glucose (UA) Negative (Negative) Urine Ketones 2+ H (Negative) Urine Blood Moderate H (Negative) Urine Nitrite Negative (Negative) Urine Bilirubin Negative (Negative) Urine Urobilinogen 2.0 (<2.0) mg/dL Ur Leukocyte Esterase Large H (Negative) Urine RBC 49 H (0-5) /hpf Urine WBC 89 H (0-5) /hpf Urine WBC Clumps Moderate H (None) /hpf Hyaline Casts 1 (0-2) /lpf Urine Mucus Rare H (None) /hpf Coronavirus (PCR) (Not Detectd) 08/31/21 08/31/21 08/31/21 Range/Units 21:32 21:32 21:32 WBC (3.8-10.6) k/uL RBC (4.30-5.90) m/uL Hgb (13.0-17.5) gm/dL Hct (39.0-53.0) % MCV (80.0-100.0) fL MCH (25.0-35.0) pg MCHC (31.0-37.0) g/dL RDW (11.5-15.5) % Plt Count (150-450) k/uL MPV Neutrophils % % Lymphocytes % % Monocytes % % Eosinophils % % Basophils % % Neutrophils # (1.3-7.7) k/uL Lymphocytes # (1.0-4.8) k/uL Monocytes # (0-1.0) k/uL Eosinophils # (0-0.7) k/uL Basophils # (0-0.2) k/uL PT (9.0-12.0) sec INR (<1.2) APTT (22.0-30.0) sec Sodium (137-145) mmol/L Potassium (3.5-5.1) mmol/L Chloride (98-107) mmol/L Carbon Dioxide (22-30) mmol/L Anion Gap mmol/L BUN (9-20) mg/dL Creatinine (0.66-1.25) mg/dL Est GFR (CKD-EPI)AfAm (>60 ml/min/1.73 sqM) Est GFR (CKD-EPI)NonAf (>60 ml/min/1.73 sqM) Glucose (74-99) mg/dL POC Glucose (mg/dL) (75-99) mg/dL POC Glu [employer] Engineer ID Plasma Lactic Acid Ulises 1.5 (0.7-2.0) mmol/L Calcium (8.4-10.2) mg/dL Magnesium 1.6 (1.6-2.3) mg/dL Total Bilirubin (0.2-1.3) mg/dL AST (17-59) U/L ALT (4-49) U/L Alkaline Phosphatase (38-126) U/L Troponin I (0.000-0.034) ng/mL Total Protein (6.3-8.2) g/dL Albumin (3.5-5.0) g/dL Urine Color Urine Appearance (Clear) Urine pH (5.0-8.0) Ur Specific [place] (1.001-1.035) Urine Protein (Negative) Urine Glucose (UA) (Negative) Urine Ketones (Negative) Urine Blood (Negative) Urine Nitrite (Negative) Urine Bilirubin (Negative) Urine Urobilinogen (<2.0) mg/dL Ur Leukocyte Esterase (Negative) Urine RBC (0-5) /hpf Urine WBC (0-5) /hpf Urine WBC Clumps (None) /hpf Hyaline Casts (0-2) /lpf Urine Mucus (None) /hpf Coronavirus (PCR) Detected A (Not Detectd) Disposition Clinical Impression: Acute encephalopathy, Altered mental status, UTI (urinary tract infection), COVID-19 Disposition: ADMITTED IP TO THIS [facility] Condition: Serious Is patient prescribed a controlled substance at d/c from ED?: No Referrals: Jelani Cervantes MD [Primary Care Provider] - 1-2 days Decision to Admit Reason: Admit from EC Decision Date: 08/31/21 Decision Time: 22:51
[2021-08-31 22:13] LABS: Appearance,Urine Cloudy (Clear); Bilirubin,Urine Negative (Negative); Blood,Urine Moderate (Negative); Color,Urine Yellow; Glucose,Urine (UA) Negative (Negative); Hyaline Casts,Urine 1 /lpf (0-2); Ketones,Urine 2+ (Negative); Leukocyte Esterase,Urine Large (Negative); Mucus,Urine Rare /hpf; Nitrite,Urine Negative (Negative); Protein,Urine Trace (Negative); RBC,Urine 49 /hpf (0-5); Specific Gravity,Urine 1.019 (1.001-1.035); WBC,Urine 89 /hpf (0-5)
[2021-08-31 22:22] LABS: ALT 19 U/L (4-49); AST 31 U/L (17-59); African American GFR (CKD) >90 (>60 ml/min/1.73 sqM); Alkaline Phosphatase 76 U/L (38-126); Anion Gap 12 mmol/L; Blood Urea Nitrogen 21 mg/dL (9-20); Calcium 9.9 mg/dL (8.4-10.2); Carbon Dioxide 24 mmol/L (22-30); Chloride 101 mmol/L (98-107); Glucose 153 mg/dL (74-99); Non-African American GFR(CKD) 78 (>60 ml/min/1.73 sqM); Potassium 3.9 mmol/L (3.5-5.1); Sodium 137 mmol/L (137-145); Total Bilirubin 0.6 mg/dL (0.2-1.3); Total Protein 7.3 g/dL (6.3-8.2)
[2021-08-31] MEDS ORDERED: cefTRIAXone IN SWFI 1,000 MG/10 ML SYRINGE IVP STA (22:24)
--- NOTE | 2021-08-31 22:26 | CT ---
EXAMINATION TYPE: CT brain wo con DATE OF EXAM: 08/31/2021 COMPARISON: 07/13/2021 HISTORY: AMS. Pt not able to follow commands to remain still, despite strapping. Had to repeat. CT DLP: 2199.4 mGycm Automated exposure control for dose reduction was used. There is diffuse cerebral cortical atrophy. There is no mass effect nor midline shift. There is no si gn of intracranial hemorrhage. There is patchy hypodensity in the periventricular white matter. Home rium is intact. Skull base is intact. There is normal aeration of the mastoid sinuses. IMPRESSION: Cerebral atrophy and chronic small vessel ischemia. No acute intracranial abnormality. No significant change compared to old exam.
--- NOTE | 2021-08-31 22:42 | XR ---
EXAMINATION TYPE: XR chest 2V DATE OF EXAM: 08/31/2021 COMPARISON: 06/24/2021 HISTORY: Left side facial pain TECHNIQUE: 2 views FINDINGS: There is coarse interstitial infiltrates throughout both lungs. Heart size is fairly normal . There is no obvious heart failure. There are chest leads. Costophrenic angles are fairly clear. Tho racic spine is intact. IMPRESSION: Interstitial pneumonia. No definite heart failure. Interstitial infiltrates increased com pared to old exam.
[2021-08-31] MEDS ORDERED: ACETAMINOPHEN TAB 325 MG TAB PO PRN (22:48)
[2021-08-31] MEDS ORDERED: NALOXONE 0.4 MG/ML 1 ML VIAL IV PRN (22:48)
[2021-08-31] MEDS ORDERED: DEXAMETHASONE SOD PHOSPHATE 10 MG/ML 1 ML VIAL IV STA (22:49)
[2021-08-31] MEDS ORDERED: ACETAMINOPHEN SUPPOSITORY 650 MG SUPP RECTAL PRN (23:00)
[2021-08-31] MEDS: SODIUM CHLORIDE 0.9% 1,000 ML IV SCH (23:50)
[2021-09-01] MEDS: CHOLECALCIFEROL 25 MCG (1000 IU) TABLET PO SCH ×2 (07:40→10:31)
[2021-09-01] MEDS: ASCORBIC ACID 500 MG TAB PO SCH ×2 (07:41→10:31)
[2021-09-01 09:39] LABS: C Reactive Protein 4.3 mg/dL (<1.0)
--- NOTE | 2021-09-01 10:12 | P.HPIM ---
History of Present Illness This is a pleasant 76 years old male with past medical history of GERD, constipation, hypertension, depression. Also history of Parkinson disease, prostate cancer He was admitted to this facility several times including emergency room visit over the last several 6 months Patient is a half-way resident of [facility]. He presents to the hospital on 05/15/2021 for altered mental status thought secondary to polypharmacy and possible UTI. also He is on Lamictal and Depakote and no history of seizure. At that time on extremely high dose of Lamictal 200 mg 1 tablet twice a day and he is on Depakote 250 mg twice a day recommend the if possible to be on a lower dose of Lamictal and defer the management to the psychiatry team. He was started on Lamictal 25 mg daily however during this hospital admission he is already on Depakote 250 mg 3 times a day. This time patient presents because of altered mental status, he was obtunded yesterday but he is more awake today. He is poor historian. He is disoriented to time, place and person. However he follows commands easily and he can tell his name He denies any headache, no neck stiffness. No weakness or numbness and he moves all extremities equally. He denies chest pain or dyspnea. No coughing. No diarrhea. He denies any urinary symptoms but he has a Cardoso catheter placed and emergency room On admission he has a fever of 100.5, he is tachycardic at 113, blood pressure is 129/79. Labs reviewed showing no leukocytosis with unremarkable CBC, INR and BMP. Creatinine and electrolytes normal. Glucose slightly elevated 159. Lactic acid normal at 1.5 and liver enzymes and troponin are unremarkable. Urinalysis is suspicious for infection: Test is positive CT of the brain: No acute process. ; Chest x-ray: Interstitial pneumonia. No definite heart failure. Interstitial infiltrate increased compared to old exam. EKG showing sinus tachycardia at [address]-T changes. On admission he was started on ceftriaxone and normal saline at 1 30 mL/h and dexamethasone 10 mg. Review of Systems CONSTITUTIONAL: No fever, no malaise, no fatigue. HEENT: No recent visual problems or hearing problems. Denied any sore throat. CARDIOVASCULAR: No orthopnea, PND, no palpitations, no syncope. PULMONARY: No shortness of breath, no cough, no hemoptysis. GASTROINTESTINAL: No diarrhea, no nausea, no vomiting, no abdominal pain. Normoactive bowel sounds. NEUROLOGICAL: No headaches, no weakness, no numbness. HEMATOLOGICAL: Denies any bleeding or petechiae. GENITOURINARY: Denies any burning micturition, frequency, or urgency. MUSCULOSKELETAL/RHEUMATOLOGICAL: Denies any joint pain, swelling, or any muscle pain. ENDOCRINE: Denies any polyuria or polydipsia. Past Medical History Past Medical History: GERD/Reflux History of Any Multi-Drug Resistant Organisms: None Reported Past Surgical History: Unable to Obtain Additional Past Surgical History / Comment(s): eye surgery Past Anesthesia/Blood Transfusion Reactions: Unable to Obtain Past Psychological History: Depression Smoking Status: Never smoker Past Alcohol Use History: Daily Past Drug Use History: None Reported - Past Family History Father Family Medical History: Unable to Obtain Medications and Allergies Home Medications Medication Instructions Recorded Confirmed Type Escitalopram [Lexapro] 20 mg PO DAILY@0800 04/01/21 08/31/21 History Acetaminophen Tab [Tylenol] 1,000 mg PO Q6H PRN 05/15/21 08/31/21 History Cholecalciferol [Vitamin D3 (25 25 mcg PO DAILY@0800 05/15/21 08/31/21 History Mcg = 1000 Iu)] Magnesium Hydroxide [Milk of 7,200 mg PO Q48H PRN 05/15/21 08/31/21 History Magnesia Concentrate] Na Phos,M-B/Na Phos,Di-Ba [Fleet 133 ml RECTAL DAILY PRN 05/15/21 08/31/21 History Adult] Omeprazole 20 mg PO BID PRN 05/15/21 08/31/21 History bisacodyL 10 mg RECTAL DAILY PRN 05/15/21 08/31/21 History Thiamine [Vitamin B-1] 100 mg PO DAILY@0800 06/24/21 08/31/21 History Divalproex [Depakote] 250 mg PO TID@0800,1400,2200 07/13/21 08/31/21 History Melatonin 5 mg PO HS@2100 07/13/21 08/31/21 History QUEtiapine [SEROquel] 50 mg PO BID@0800,1700 07/13/21 08/31/21 History Oseltamivir [Tamiflu] 75 mg PO DAILY@1200 08/31/21 08/31/21 History lisinopriL [Zestril] 5 mg PO DAILY@0800 08/31/21 08/31/21 History Allergies Allergy/AdvReac Type Severity Reaction Status Date / Time No Known Allergies Allergy Verified 08/31/21 21:50 Physical Exam Vitals: Vital Signs Temp Pulse Resp BP Pulse Ox 09/01/21 06:00 82 18 129/79 97 09/01/21 02:30 99.2 F 104 H 20 127/68 95 09/01/21 00:36 100.5 F H 113 H 20 141/86 94 L 09/01/21 00:00 122 H 24 174/91 96 08/31/21 23:45 121 H 16 144/98 95 08/31/21 23:30 122 H 16 172/123 95 08/31/21 23:15 122 H 20 164/103 95 08/31/21 23:00 126 H 20 168/102 96 08/31/21 22:45 123 H 16 138/103 96 08/31/21 22:30 125 H 24 165/121 95 08/31/21 21:45 115 H 18 176/103 96 08/31/21 21:30 115 H 18 170/99 96 08/31/21 21:15 116 H 18 158/99 96 08/31/21 21:14 114 H 18 158/99 96 08/31/21 21:01 102.6 F H 118 H 18 175/107 93 L Intake and Output 08/31/21 09/01/21 09/01/21 22:59 06:59 14:59 Other: Weight 92.533 kg -GENERAL: The patient is alert and oriented x0, follows commands not in any acute distress. Well developed, well nourished. HEENT: Pupils are round and equally reacting to light. EOMI. No scleral icterus. No conjunctival pallor. Normocephalic, atraumatic. No pharyngeal erythema. No thyromegaly. CARDIOVASCULAR: S1 and S2 present. No murmurs, rubs, or gallops. PULMONARY: Chest is clear to auscultation, no wheezing or crackles. -ABDOMEN: Soft, nontender, nondistended, normoactive bowel sounds. No palpable organomegaly. Cardoso catheter is in place MUSCULOSKELETAL: No joint swelling or deformity. EXTREMITIES: No cyanosis, clubbing, or pedal edema. NEUROLOGICAL: Gross neurological examination did not reveal any focal deficits. SKIN: No rashes. No petechiae Results CBC & Chem 7: 08/31/21 21:23 08/31/21 21:23 Labs: Abnormal Lab Results - Last 24 Hours (Table) 08/31/21 08/31/21 08/31/21 Range/Units 21:22 21:23 21:23 Lymphocytes # 0.4 L (1.0-4.8) k/uL BUN 21 H (9-20) mg/dL Glucose 153 H (74-99) mg/dL POC Glucose (mg/dL) 159 H (75-99) mg/dL Urine Protein (Negative) Urine Ketones (Negative) Urine Blood (Negative) Ur Leukocyte Esterase (Negative) Urine RBC (0-5) /hpf Urine WBC (0-5) /hpf Urine WBC Clumps (None) /hpf Urine Mucus (None) /hpf Coronavirus (PCR) (Not Detectd) 08/31/21 08/31/21 Range/Units 21:27 21:32 Lymphocytes # (1.0-4.8) k/uL BUN (9-20) mg/dL Glucose (74-99) mg/dL POC Glucose (mg/dL) (75-99) mg/dL Urine Protein Trace H (Negative) Urine Ketones 2+ H (Negative) Urine Blood Moderate H (Negative) Ur Leukocyte Esterase Large H (Negative) Urine RBC 49 H (0-5) /hpf Urine WBC 89 H (0-5) /hpf Urine WBC Clumps Moderate H (None) /hpf Urine Mucus Rare H (None) /hpf Coronavirus (PCR) Detected A (Not Detectd) Assessment and Plan Assessment: Altered mental status most likely metabolic encephalopathy acute urinary tract infection Acute covid infection with bilateral pneumonia History of GERD History of constipation Hypertension History of depression Plan: this is a pleasant 76 years old male who presents with AMS, UTI, pneumonia continue with ceftriaxone, O with follow-up urine culture Dexamethasone and had multiple vitamins, vitamin C, D and zinc infectious disease consult Check hemoglobin A1c, inflammatory markers. Check renal ultrasound Labs and medication were reviewed.. Continue same treatment. Continue with symptomatic treatment. Resume home medication. Monitor lytes and vitals. DVT and GI prophylaxis. Further recommendations depends on the clinical course of the patient DVT prophylaxis: Subcutaneous heparin GI Prophylaxis: Pepcid PT/OT: Pending Prognosis is guarded
[2021-09-01] MEDS: DEXAMETHASONE SOD PHOSPHATE 10 MG/ML 1 ML VIAL IVP SCH (10:18)
[2021-09-01] MEDS: SODIUM CHLORIDE 0.9% 1,000 ML IV SCH ×2 (10:31→18:17)
--- NOTE | 2021-09-01 11:30 | US ---
EXAMINATION TYPE: US renals and bladder DATE OF EXAM: 09/01/2021 COMPARISON: NONE CLINICAL HISTORY: uti. EXAM MEASUREMENTS: Right Kidney: 11.5 x 5.8 x 5.1 cm Left Kidney: 10.8 x 5.7 x 4.6 cm Right Kidney: No hydronephrosis or masses seen Left Kidney: No hydronephrosis or masses seen Bladder: Cardoso catheter seen in bladder Bilateral Jets seen: No There is no evidence for hydronephrosis at this point in time. Cortical thinning left kidney. No nep hrolithiasis is seen. No renal masses are identified on images saved. Cardoso catheter decompresses b ladder making evaluation at this level suboptimal. IMPRESSION: No hydronephrosis seen bilaterally.
[2021-09-01] MEDS ORDERED: PANTOPRAZOLE 40 MG TABLET PO PRN (21:04)
[2021-09-01] MEDS: DIVALPROEX 250 MG TABLET.DR PO SCH (22:32)
[2021-09-01] MEDS: HEPARIN SODIUM,PORCINE/PF 5,000 UNIT/0.5 ML SYRINGE SQ SCH (22:33)
[2021-09-01] MEDS: FAMOTIDINE 20 MG TAB PO SCH (22:33)
--- NOTE | 2021-09-01 23:29 | P.CONS ---
History of Present Illness - Reason for Consult Consult date: 09/01/21 UTI and covid 19 Requesting physician: Justin E Sheet - Chief Complaint mental status changes x 1 day - History of Present Illness History of present illness : Patient is 76-year-old male who is a resident of a local residential patient was sent to the ER last night from the residential for evaluation of confusion and lethargy with concern for possible CVA uncertain of the exact onset of changes patient mental status patient on presentation to the hospital did have a fever 102.6 degree form height patient was mildly hypoxic requiring supplemental oxygen currently on a 2 L nasal cannula and satting 99% patient did have a normal white count with lymphopenia creatinine was normal liver enzymes are normal CRP was only four-point 3 repeat did have a positive UA castro PCR was positive patient did have a CT of the brain that was negative for any bleed chest x-ray with interstitial pneumonia patient has been admitted to hospital patient was started on Rocephin Decadron infectious disease was consulted for further management most information has been obtained from review the chart and talking to the nursing staff and patient himself cannot provide any history Review of system: Positive point has been mentioned in HPI complete review could not be obtained because of underlying mental status Past medical history : Reviewed, documented below Past surgical history : Reviewed, documented below Social history: Reviewed, documented below Medications: Reviewed, as documented below EXAMINATION: Vital sigans= Reviewed and documented below GENERAL DESCRIPTION: Elderly male lying in bed, no distress. No tachypnea or accessory muscle of respiration use. HEENT: Shows Pallor , no scleral icterus. Oral mucous membrane is dry. NECK: Trachea central, no thyromegaly. LUNGS: Unlabored breathing. Decreased breath sound at the base. No wheeze or crackle. HEART: S1, S2, regular rate and rhythm. ABDOMEN: Soft, no tenderness , guarding or rigidity EXTREMITIES: No edema of feet. SKIN: No rash, no masses palpable. NEUROLOGICAL: The patient is lethargic orientation could not be determined LABS AND RADIOLOGY: Reviewed results see below Assessment : 1-patient presented to hospital with confusion her mental status change which is likely multifactorial and could be more likely due to asymptomatic UTI has the patient fever seem to have responded to the patient on Rocephin and did have a positive UA, the patient also have a positive Covid test in this patient who is a residential resident and apparently he did have a Covid vaccination is very hard to get exact history from this patient about symptom onset however overall seem to be a mild illness and hopefully will improve with supportive treatment only Plan: 1-we will repeat his inflammatory markers with a.m. labs and repeat a chest x-ray second O2 sats on room air 2-Rocephin 2 g every 21 waiting for urine culture to finalize 3-gentle IV fluid 4-continue the Decadron heparin zinc and ascorbic acid We will follow on clinical condition and cultures to further adjust medication if needed Thank you for this consultation we will follow the patient along with you Past Medical History Past Medical History: GERD/Reflux History of Any Multi-Drug Resistant Organisms: None Reported Past Surgical History: Unable to Obtain Additional Past Surgical History / Comment(s): eye surgery Past Anesthesia/Blood Transfusion Reactions: Unable to Obtain Past Psychological History: Anxiety, Bipolar, Depression Smoking Status: Never smoker Past Alcohol Use History: Daily Past Drug Use History: None Reported - Past Family History Father Family Medical History: Unable to Obtain Medications and Allergies Home Medications Medication Instructions Recorded Confirmed Type Escitalopram [Lexapro] 20 mg PO DAILY@0800 04/01/21 08/31/21 History Acetaminophen Tab [Tylenol] 1,000 mg PO Q6H PRN 05/15/21 08/31/21 History Cholecalciferol [Vitamin D3 (25 25 mcg PO DAILY@0800 05/15/21 08/31/21 History Mcg = 1000 Iu)] Magnesium Hydroxide [Milk of 7,200 mg PO Q48H PRN 05/15/21 08/31/21 History Magnesia Concentrate] Na Phos,M-B/Na Phos,Di-Ba [Fleet 133 ml RECTAL DAILY PRN 05/15/21 08/31/21 History Adult] Omeprazole 20 mg PO BID PRN 05/15/21 08/31/21 History bisacodyL 10 mg RECTAL DAILY PRN 05/15/21 08/31/21 History Thiamine [Vitamin B-1] 100 mg PO DAILY@0800 06/24/21 08/31/21 History Divalproex [Depakote] 250 mg PO TID@0800,1400,2200 07/13/21 08/31/21 History Melatonin 5 mg PO HS@2100 07/13/21 08/31/21 History QUEtiapine [SEROquel] 50 mg PO BID@0800,1700 07/13/21 08/31/21 History Oseltamivir [Tamiflu] 75 mg PO DAILY@1200 08/31/21 08/31/21 History lisinopriL [Zestril] 5 mg PO DAILY@0800 08/31/21 08/31/21 History Allergies Allergy/AdvReac Type Severity Reaction Status Date / Time No Known Allergies Allergy Verified 08/31/21 21:50 Physical Exam Vitals: Vital Signs Temp Pulse Pulse Resp BP BP Pulse Ox 09/01/21 15:01 97.7 F 81 14 139/77 97 09/01/21 11:40 97.3 F L 69 14 127/71 97 09/01/21 09:07 95 09/01/21 08:30 69 14 09/01/21 07:24 97.5 F L 78 12 133/84 98 09/01/21 06:00 82 18 129/79 97 09/01/21 02:30 99.2 F 104 H 20 127/68 95 09/01/21 00:36 100.5 F H 113 H 20 141/86 94 L 09/01/21 00:00 122 H 24 174/91 96 08/31/21 23:45 121 H 16 144/98 95 08/31/21 23:30 122 H 16 172/123 95 08/31/21 23:15 122 H 20 164/103 95 08/31/21 23:00 126 H 20 168/102 96 08/31/21 22:45 123 H 16 138/103 96 08/31/21 22:30 125 H 24 165/121 95 08/31/21 21:45 115 H 18 176/103 96 08/31/21 21:30 115 H 18 170/99 96 08/31/21 21:15 116 H 18 158/99 96 08/31/21 21:14 114 H 18 158/99 96 08/31/21 21:01 102.6 F H 118 H 18 175/107 93 L Intake and Output 09/01/21 09/01/21 09/01/21 06:59 14:59 22:59 Output Total 1000 Balance -1000 Output: Urine 1000 Other: Voiding Method Indwelling Catheter Weight 92.533 kg Results CBC & Chem 7: 08/31/21 21:23 08/31/21 21:23 Labs: Abnormal Lab Results - Last 24 Hours (Table) 08/31/21 08/31/21 08/31/21 Range/Units 21:22 21:23 21:23 Lymphocytes # 0.4 L (1.0-4.8) k/uL BUN 21 H (9-20) mg/dL Glucose 153 H (74-99) mg/dL POC Glucose (mg/dL) 159 H (75-99) mg/dL Hemoglobin A1c (4.0-6.0) % C-Reactive Protein (<1.0) mg/dL Urine Protein (Negative) Urine Ketones (Negative) Urine Blood (Negative) Ur Leukocyte Esterase (Negative) Urine RBC (0-5) /hpf Urine WBC (0-5) /hpf Urine WBC Clumps (None) /hpf Urine Mucus (None) /hpf Coronavirus (PCR) (Not Detectd) 08/31/21 08/31/21 09/01/21 Range/Units 21:27 21:32 07:47 Lymphocytes # (1.0-4.8) k/uL BUN (9-20) mg/dL Glucose (74-99) mg/dL POC Glucose (mg/dL) (75-99) mg/dL Hemoglobin A1c (4.0-6.0) % C-Reactive Protein 4.3 H (<1.0) mg/dL Urine Protein Trace H (Negative) Urine Ketones 2+ H (Negative) Urine Blood Moderate H (Negative) Ur Leukocyte Esterase Large H (Negative) Urine RBC 49 H (0-5) /hpf Urine WBC 89 H (0-5) /hpf Urine WBC Clumps Moderate H (None) /hpf Urine Mucus Rare H (None) /hpf Coronavirus (PCR) Detected A (Not Detectd) 09/01/21 Range/Units 07:47 Lymphocytes # (1.0-4.8) k/uL BUN (9-20) mg/dL Glucose (74-99) mg/dL POC Glucose (mg/dL) (75-99) mg/dL Hemoglobin A1c 7.6 H (4.0-6.0) % C-Reactive Protein (<1.0) mg/dL Urine Protein (Negative) Urine Ketones (Negative) Urine Blood (Negative) Ur Leukocyte Esterase (Negative) Urine RBC (0-5) /hpf Urine WBC (0-5) /hpf Urine WBC Clumps (None) /hpf Urine Mucus (None) /hpf Coronavirus (PCR) (Not Detectd) Microbiology - Last 24 Hours (Table) 08/31/21 21:27 Urine Culture - Preliminary Urine,Voided
[2021-09-02] MEDS: SODIUM CHLORIDE 0.9% 1,000 ML IV SCH ×4 (00:28→16:21)
[2021-09-02 09:12] LABS: Basophils # (A) 0.01 X 10*3/uL (0.00-0.10); Basophils % (A) 0.2 %; Eosinophils # (A) 0 X 10*3/uL (0.04-0.35); Eosinophils % (A) 0 %; HGB 12.6 g/dL (13.0-17.0); Lymphocytes # (A) 0.99 X 10*3/uL (0.90-5.00); Lymphocytes % (A) 18.2 %; MCH 29.8 pg (27.0-32.0); MCHC 32.3 g/dL (32.0-37.0); MCV 92.2 fL (80.0-97.0); Mean Platelet Volume 10.8 fL (9.5-12.2); Monocytes # (A) 0.91 X 10*3/uL (0.20-1.00); Monocytes % (A) 16.7 %; Neutrophils # (A) 3.52 X 10*3/uL (1.80-7.70); Neutrophils % (A) 64.7 %; Platelet Count 180 X 10*3/uL (140-440); RBC 4.23 X 10*6/uL (4.40-5.60); RDW 13.3 % (11.5-14.5); WBC 5.44 X 10*3/uL (4.50-10.00)
[2021-09-02] MEDS: THIAMINE 100 MG TAB PO SCH (09:25)
[2021-09-02] MEDS: lisinopriL 5 MG TAB PO SCH (09:25)
[2021-09-02] MEDS: FAMOTIDINE 20 MG TAB PO SCH ×2 (09:25→20:36)
[2021-09-02] MEDS: HEPARIN SODIUM,PORCINE/PF 5,000 UNIT/0.5 ML SYRINGE SQ SCH ×2 (09:25→20:36)
[2021-09-02] MEDS: QUEtiapine 50 MG TAB PO SCH ×2 (09:25→20:36)
[2021-09-02] MEDS: ESCITALOPRAM 20 MG TAB PO SCH (09:26)
[2021-09-02] MEDS: DIVALPROEX 250 MG TABLET.DR PO SCH ×3 (09:26→20:36)
[2021-09-02] MEDS: DEXAMETHASONE SOD PHOSPHATE 10 MG/ML 1 ML VIAL IVP SCH (09:54)
--- NOTE | 2021-09-02 11:40 | P.PN ---
Subjective This is a pleasant 76 years old male with past medical history of GERD, constipation, hypertension, depression. Also history of Parkinson disease, prostate cancer He was admitted to this facility several times including emergency room visit over the last several 6 months Patient is a alf resident of [facility]. He presents to the hospital on 05/15/2021 for altered mental status thought secondary to polypharmacy and possible UTI. also He is on Lamictal and Depakote and no history of seizure. At that time on extremely high dose of Lamictal 200 mg 1 tablet twice a day and he is on Depakote 250 mg twice a day recommend the if possible to be on a lower dose of Lamictal and defer the management to the psychiatry team. He was started on Lamictal 25 mg daily however during this hospital admission he is already on Depakote 250 mg 3 times a day. This time patient presents because of altered mental status, he was obtunded yesterday but he is more awake today. He is poor historian. He is disoriented to time, place and person. However he follows commands easily and he can tell his name He denies any headache, no neck stiffness. No weakness or numbness and he moves all extremities equally. He denies chest pain or dyspnea. No coughing. No diarrhea. He denies any urinary symptoms but he has a Cardoso catheter placed and emergency room On admission he has a fever of 100.5, he is tachycardic at 113, blood pressure is 129/79. Labs reviewed showing no leukocytosis with unremarkable CBC, INR and BMP. Creatinine and electrolytes normal. Glucose slightly elevated 159. Lactic acid normal at 1.5 and liver enzymes and troponin are unremarkable. Urinalysis is suspicious for infection: Test is positive CT of the brain: No acute process. ; Chest x-ray: Interstitial pneumonia. No definite heart failure. Interstitial infiltrate increased compared to old exam. EKG showing sinus tachycardia at [address]-T changes. On admission he was started on ceftriaxone and normal saline at 1 30 mL/h and dexamethasone 10 mg. 09/02/2021 Patient is more awake and alert he knows he is in the hospital but he has to be reminded it is [facility]. He thought it is 1967 and could not tell the name of the president. Patient was reoriented. Patient denies any specific complaint. Hemodynamically stable. Fever on admission has subsided and has no fever today. He is saturating 94% on 3 L oxygen via nasal cannula. Labs are stable. Urine culture is pending. Hemoglobin A1c is elevated at 7.6. And negative at 0.08. LDH slightly elevated at 401 and C-reactive protein elevated at 4.3. influenza test is negative renal ultrasound shows no hydronephrosis pt remains on ceftriaxone 2 gm daily Objective - Vital Signs Vital signs: Vital Signs Temp 98.1 F 09/02/21 10:19 Pulse 48 L 09/02/21 10:19 Resp 18 09/02/21 10:19 BP 131/80 09/02/21 10:19 Pulse Ox 94 L 09/02/21 10:19 Intake & Output 09/01/21 09/02/21 09/02/21 18:59 06:59 18:59 Intake Total 100 Output Total 1000 550 Balance -900 -550 Intake: Intake, IV Titration 100 Amount cefTRIAXone 1 gm In 100 Sodium Chloride 0.9% 50 ml @ 100 mls/hr IVPB Q24HR [facility] Rx#:[id number] Output: Urine 1000 550 Other: Voiding Method Indwelling Catheter Indwelling Catheter # Voids 2 - Exam -GENERAL: The patient is alert and oriented x1, follows commands not in any acute distress. Well developed, well nourished. HEENT: Pupils are round and equally reacting to light. EOMI. No scleral icterus. No conjunctival pallor. Normocephalic, atraumatic. No pharyngeal erythema. No thyromegaly. CARDIOVASCULAR: S1 and S2 present. No murmurs, rubs, or gallops. PULMONARY: Chest is clear to auscultation, no wheezing or crackles. -ABDOMEN: Soft, nontender, nondistended, normoactive bowel sounds. No palpable organomegaly. Cardoso catheter is in place MUSCULOSKELETAL: No joint swelling or deformity. EXTREMITIES: No cyanosis, clubbing, or pedal edema. NEUROLOGICAL: Gross neurological examination did not reveal any focal deficits. SKIN: No rashes. No petechiae - Labs CBC & Chem 7: 09/02/21 06:30 08/31/21 21:23 Labs: Abnormal Lab Results - Last 24 Hours (Table) 09/01/21 09/02/21 09/02/21 Range/Units 07:47 06:30 06:30 RBC 4.23 L (4.40-5.60) X 10*6/uL Hgb 12.6 L (13.0-17.0) g/dL Hct 39.0 L (39.6-50.0) % Eosinophils # 0 L (0.04-0.35) X 10*3/uL D-Dimer 0.81 H (<0.60) mg/L FEU Hemoglobin A1c 7.6 H (4.0-6.0) % Microbiology - Last 24 Hours (Table) 08/31/21 21:00 Blood Culture - Preliminary Blood No Growth after 24 hours 08/31/21 21:16 Blood Culture - Preliminary Blood No Growth after 24 hours 08/31/21 21:27 Urine Culture - Preliminary Urine,Voided Assessment and Plan Assessment: Altered mental status most likely metabolic encephalopathy acute urinary tract infection Acute covid infection with bilateral pneumonia History of GERD History of constipation Hypertension History of depression Plan: this is a pleasant 76 years old male who presents with AMS, UTI, pneumonia continue with ceftriaxone, with follow-up urine culture Dexamethasone and had multiple vitamins, vitamin C, D and zinc infectious disease consult Labs and medication were reviewed.. Continue same treatment. Continue with symptomatic treatment. Resume home medication. Monitor lytes and vitals. DVT and GI prophylaxis. Further recommendations depends on the clinical course of the patient DVT prophylaxis: Subcutaneous heparin GI Prophylaxis: Pepcid PT/OT: Pending Prognosis is guarded
[2021-09-02 13:17] LABS: African American GFR (CKD) 96.7 (60.0-200.0); Albumin/Globulin Ratio 1.33 (1.60-3.17); Anion Gap 12.8 mmol/L (4.00-12.00); BUN/Creat Ratio 34.53 Ratio (12.00-20.00); Blood Urea Nitrogen 30.9 mg/dL (9.0-27.0); C Reactive Protein 2.8 mg/dL (0.00-0.80); Calcium 8.5 mg/dL (8.7-10.3); Carbon Dioxide 22.9 mmol/L (21.6-31.8); Globulin 2.3 g/dL (1.6-3.3); Non-African American GFR(CKD) 83.5 (60.0-200.0); Total Bilirubin 0.2 mg/dL (0.30-1.20); Total Protein 5.3 g/dL (6.2-8.2)
--- NOTE | 2021-09-02 22:27 | PN ---
PROGRESS NOTE DATE OF SERVICE: 09/02/2021 REASON FOR FOLLOWUP: UTI and COVID-19 infection. INTERVAL HISTORY: The patient is afebrile. The patient is currently breathing comfortably on room air. The patient is more awake and alert. Denies having any chest pain or shortness of breath. Minimal cough. No abdominal pain or diarrhea. PHYSICAL EXAMINATION: Blood pressure 123/75, pulse of 65, temperature 97.7. He is 93% on room air. General description is an elderly male lying in bed in no distress. Respiratory system: Unlabored breathing, decreased intensity of breath sounds. No wheeze. Heart S1, S2. Regular rate and rhythm. Abdomen soft, no tenderness. LABS: Hemoglobin is 12.3, white count of 5.4. D-dimer is 0.81. Creatinine 0.9. Blood culture normal. DIAGNOSTIC IMPRESSION AND PLAN: 1. Patient admitted to hospital with fever concerning for a COVID-19 infection, acute, in this patient who seems to have shown overall improvement with current supportive treatment of the Decadron, Lovenox, zinc and ascorbic acid. To continue. If any evidence of worsening hypoxemia, may qualify for remdesivir. Currently on room air. 2. Urinary tract infection, covered with Rocephin. Continue supportive care. MMODL / IJN: [id number] /
[2021-09-03] MEDS: SODIUM CHLORIDE 0.9% 1,000 ML IV SCH ×3 (05:56→16:01)
[2021-09-03] MEDS: DEXAMETHASONE SOD PHOSPHATE 10 MG/ML 1 ML VIAL IVP SCH (07:32)
[2021-09-03] MEDS: HEPARIN SODIUM,PORCINE/PF 5,000 UNIT/0.5 ML SYRINGE SQ SCH ×2 (07:32→22:08)
[2021-09-03] MEDS: DIVALPROEX 250 MG TABLET.DR PO SCH ×3 (07:35→22:09)
[2021-09-03] MEDS: THIAMINE 100 MG TAB PO SCH (07:35)
[2021-09-03] MEDS: FAMOTIDINE 20 MG TAB PO SCH ×2 (07:35→22:08)
[2021-09-03] MEDS: lisinopriL 5 MG TAB PO SCH (07:35)
[2021-09-03] MEDS: CHOLECALCIFEROL 25 MCG (1000 IU) TABLET PO SCH (07:35)
[2021-09-03] MEDS: ESCITALOPRAM 20 MG TAB PO SCH (07:35)
[2021-09-03] MEDS: QUEtiapine 50 MG TAB PO SCH ×2 (07:35→22:08)
[2021-09-03] MEDS: ASCORBIC ACID 500 MG TAB PO SCH (07:35)
[2021-09-03 15:41] VITALS: BMI 29.2
--- NOTE | 2021-09-03 18:25 | PN ---
PROGRESS NOTE DATE OF SERVICE: 09/03/2021 REASON FOR FOLLOWUP: UTI and COVID-19 infection. INTERVAL HISTORY: The patient is afebrile. The patient is breathing comfortably. He is currently on room air. The patient remains pleasantly confused. No distress. No vomiting or diarrhea has been reported by the nursing staff. PHYSICAL EXAMINATION: Blood pressure 142/67, pulse of 69, temperature 98.2. He is 99% on 2 L nasal cannula. General description is an elderly male lying in bed in no distress. Respiratory system: Unlabored breathing, decreased intensity of breath sounds. No wheeze. Heart S1, S2. Regular rate and rhythm. Abdomen soft, no tenderness. LABS: No new labs been obtained today. DIAGNOSTIC IMPRESSION AND PLAN: Patient admitted to hospital with fever concerning for acute COVID-19 infection and a urinary tract infection. Patient did well and was on room air, is currently 99% on 2 L. Will check his O2 saturations on room air. If any hypoxemia, consider remdesivir. Otherwise continue with Zosyn, Lovenox, zinc and ascorbic acid along with Rocephin and monitor his clinical course closely. MMODL / IJN: [id number] /
--- NOTE | 2021-09-03 20:36 | P.PN ---
Subjective This is a pleasant 76 years old male with past medical history of GERD, constipation, hypertension, depression. Also history of Parkinson disease, prostate cancer He was admitted to this facility several times including emergency room visit over the last several 6 months Patient is a senior care resident of [facility]. He presents to the hospital on 05/15/2021 for altered mental status thought secondary to polypharmacy and possible UTI. also He is on Lamictal and Depakote and no history of seizure. At that time on extremely high dose of Lamictal 200 mg 1 tablet twice a day and he is on Depakote 250 mg twice a day recommend the if possible to be on a lower dose of Lamictal and defer the management to the psychiatry team. He was started on Lamictal 25 mg daily however during this hospital admission he is already on Depakote 250 mg 3 times a day. This time patient presents because of altered mental status, he was obtunded yesterday but he is more awake today. He is poor historian. He is disoriented to time, place and person. However he follows commands easily and he can tell his name He denies any headache, no neck stiffness. No weakness or numbness and he moves all extremities equally. He denies chest pain or dyspnea. No coughing. No diarrhea. He denies any urinary symptoms but he has a Cardoso catheter placed and emergency room On admission he has a fever of 100.5, he is tachycardic at 113, blood pressure is 129/79. Labs reviewed showing no leukocytosis with unremarkable CBC, INR and BMP. Creatinine and electrolytes normal. Glucose slightly elevated 159. Lactic acid normal at 1.5 and liver enzymes and troponin are unremarkable. Urinalysis is suspicious for infection: Test is positive CT of the brain: No acute process. ; Chest x-ray: Interstitial pneumonia. No definite heart failure. Interstitial infiltrate increased compared to old exam. EKG showing sinus tachycardia at [address]-T changes. On admission he was started on ceftriaxone and normal saline at 1 30 mL/h and dexamethasone 10 mg. 09/02/2021 Patient is more awake and alert he knows he is in the hospital but he has to be reminded it is [facility]. He thought it is 1967 and could not tell the name of the president. Patient was reoriented. Patient denies any specific complaint. Hemodynamically stable. Fever on admission has subsided and has no fever today. He is saturating 94% on 3 L oxygen via nasal cannula. Labs are stable. Urine culture is pending. Hemoglobin A1c is elevated at 7.6. And negative at 0.08. LDH slightly elevated at 401 and C-reactive protein elevated at 4.3. influenza test is negative renal ultrasound shows no hydronephrosis pt remains on ceftriaxone 2 gm daily 09/03/2021 Patient clinically improving he's awake and alert. His oxygen saturation is 94- 99% on 2-3 L/m of oxygen. His respiratory status looks stable He still liquid diet which is going to be advanced to regular diet tomorrow. Urine culture is still pending. his fever on admission has subsided Continue with ceftriaxone, dexamethasone and multiple vitamins. IV fluids were discontinued Objective - Vital Signs Vital signs: Vital Signs Temp 98.2 F 09/03/21 13:34 Pulse 69 09/03/21 13:34 Resp 18 09/03/21 13:34 BP 142/67 09/03/21 13:34 Pulse Ox 99 09/03/21 13:34 Intake & Output 09/02/21 09/03/21 09/03/21 18:59 06:59 18:59 Intake Total 50 240 Output Total 2200 Balance 50 -1960 Intake: Intake, IV Titration 50 Amount cefTRIAXone 2 gm In 50 Sodium Chloride 0.9% 50 ml @ 100 mls/hr IVPB Q24HR [facility] Rx#:[id number] Oral 240 Output: Urine 2200 Other: Voiding Method Indwelling Catheter Indwelling Catheter Indwelling Catheter # Bowel Movements 2 - Exam -GENERAL: The patient is alert and oriented x1, follows commands not in any acute distress. Well developed, well nourished. HEENT: Pupils are round and equally reacting to light. EOMI. No scleral icterus. No conjunctival pallor. Normocephalic, atraumatic. No pharyngeal erythema. No thyromegaly. CARDIOVASCULAR: S1 and S2 present. No murmurs, rubs, or gallops. PULMONARY: Chest is clear to auscultation, no wheezing or crackles. -ABDOMEN: Soft, nontender, nondistended, normoactive bowel sounds. No palpable organomegaly. Cardoso catheter is in place MUSCULOSKELETAL: No joint swelling or deformity. EXTREMITIES: No cyanosis, clubbing, or pedal edema. NEUROLOGICAL: Gross neurological examination did not reveal any focal deficits. SKIN: No rashes. No petechiae - Labs CBC & Chem 7: 09/02/21 06:30 09/02/21 06:30 Labs: Microbiology - Last 24 Hours (Table) 08/31/21 21:00 Blood Culture - Preliminary Blood No Growth after 48 hours 08/31/21 21:16 Blood Culture - Preliminary Blood No Growth after 48 hours Assessment and Plan Assessment: Altered mental status most likely metabolic encephalopathy acute urinary tract infection Acute covid infection with bilateral pneumonia History of GERD History of constipation Hypertension History of depression Plan: this is a pleasant 76 years old male who presents with AMS, UTI, pneumonia continue with ceftriaxone, with follow-up urine culture Dexamethasone and had multiple vitamins, vitamin C, D and zinc infectious disease consult Labs and medication were reviewed.. Continue same treatment. Continue with symptomatic treatment. Resume home medication. Monitor lytes and vitals. DVT and GI prophylaxis. Further recommendations depends on the clinical course of the patient DVT prophylaxis: Subcutaneous heparin GI Prophylaxis: Pepcid PT/OT: Back to senior care Prognosis is guarded
[2021-09-04] MEDS: SODIUM CHLORIDE 0.9% 1,000 ML IV SCH ×3 (05:05→19:47)
[2021-09-04] MEDS: ASCORBIC ACID 500 MG TAB PO SCH (08:05)
[2021-09-04] MEDS: HEPARIN SODIUM,PORCINE/PF 5,000 UNIT/0.5 ML SYRINGE SQ SCH ×2 (08:05→19:47)
[2021-09-04] MEDS: ESCITALOPRAM 20 MG TAB PO SCH (08:05)
[2021-09-04] MEDS: QUEtiapine 50 MG TAB PO SCH ×2 (08:06→19:48)
[2021-09-04] MEDS: DIVALPROEX 250 MG TABLET.DR PO SCH ×3 (08:06→19:48)
[2021-09-04] MEDS: FAMOTIDINE 20 MG TAB PO SCH ×2 (08:06→19:48)
[2021-09-04] MEDS: CHOLECALCIFEROL 25 MCG (1000 IU) TABLET PO SCH (08:07)
[2021-09-04] MEDS: lisinopriL 5 MG TAB PO SCH (08:07)
[2021-09-04] MEDS: DEXAMETHASONE SOD PHOSPHATE 10 MG/ML 1 ML VIAL IVP SCH (08:07)
[2021-09-04] MEDS: THIAMINE 100 MG TAB PO SCH (08:07)
[2021-09-04] MEDS: SULFAMETHOX-TMP 800-160MG 1 EACH TAB PO SCH (19:48)
--- NOTE | 2021-09-04 19:49 | PN ---
PROGRESS NOTE DATE OF SERVICE: 09/04/2021 REASON FOR FOLLOWUP: UTI and COVID-19 infection. INTERVAL HISTORY: The patient is afebrile. The patient remains to be on room air. The patient remains to be slightly lethargic and unable to provide any history. No changes were reported by nursing staff. PHYSICAL EXAMINATION: Blood pressure is 128/78 with a pulse of 74, temperature 98.4. He is 94% on room air. General description is an elderly male lying in bed in no distress. Respiratory system: Unlabored breathing, decreased intensity of breath sounds. No wheeze. Heart S1, S2. Regular rate and rhythm. Abdomen soft, no tenderness. LABS: Urine showing yeast Staph epidermidis resistant to cefazolin. DIAGNOSTIC IMPRESSION AND PLAN: 1. Patient admitted to the hospital with fever. Concern for possible urinary tract infection. The patient did have positive urine showing a staph epi resistant to Rocephin. Antibiotic adjusted to Cipro 500 twice a day. 2. Patient with COVID-19 infection. Patient to continue with symptomatic treatment, as the patient is currently not hypoxic or need for supplemental oxygen therapy and continue supportive care. MMODL / IJN: [id number] /
[2021-09-04] MEDS ORDERED: DOXYCYCLINE 100 MG CAP PO STA (23:56)
--- NOTE | 2021-09-04 23:59 | P.PN ---
Subjective This is a pleasant 76 years old male with past medical history of GERD, constipation, hypertension, depression. Also history of Parkinson disease, prostate cancer He was admitted to this facility several times including emergency room visit over the last several 6 months Patient is a retirement resident of [facility]. He presents to the hospital on 05/15/2021 for altered mental status thought secondary to polypharmacy and possible UTI. also He is on Lamictal and Depakote and no history of seizure. At that time on extremely high dose of Lamictal 200 mg 1 tablet twice a day and he is on Depakote 250 mg twice a day recommend the if possible to be on a lower dose of Lamictal and defer the management to the psychiatry team. He was started on Lamictal 25 mg daily however during this hospital admission he is already on Depakote 250 mg 3 times a day. This time patient presents because of altered mental status, he was obtunded yesterday but he is more awake today. He is poor historian. He is disoriented to time, place and person. However he follows commands easily and he can tell his name He denies any headache, no neck stiffness. No weakness or numbness and he moves all extremities equally. He denies chest pain or dyspnea. No coughing. No diarrhea. He denies any urinary symptoms but he has a Cardoso catheter placed and emergency room On admission he has a fever of 100.5, he is tachycardic at 113, blood pressure is 129/79. Labs reviewed showing no leukocytosis with unremarkable CBC, INR and BMP. Creatinine and electrolytes normal. Glucose slightly elevated 159. Lactic acid normal at 1.5 and liver enzymes and troponin are unremarkable. Urinalysis is suspicious for infection: Test is positive CT of the brain: No acute process. ; Chest x-ray: Interstitial pneumonia. No definite heart failure. Interstitial infiltrate increased compared to old exam. EKG showing sinus tachycardia at [address]-T changes. On admission he was started on ceftriaxone and normal saline at 1 30 mL/h and dexamethasone 10 mg. 09/02/2021 Patient is more awake and alert he knows he is in the hospital but he has to be reminded it is [facility]. He thought it is 1967 and could not tell the name of the president. Patient was reoriented. Patient denies any specific complaint. Hemodynamically stable. Fever on admission has subsided and has no fever today. He is saturating 94% on 3 L oxygen via nasal cannula. Labs are stable. Urine culture is pending. Hemoglobin A1c is elevated at 7.6. And negative at 0.08. LDH slightly elevated at 401 and C-reactive protein elevated at 4.3. influenza test is negative renal ultrasound shows no hydronephrosis pt remains on ceftriaxone 2 gm daily 09/03/2021 Patient clinically improving he's awake and alert. His oxygen saturation is 94- 99% on 2-3 L/m of oxygen. His respiratory status looks stable He still liquid diet which is going to be advanced to regular diet tomorrow. Urine culture is still pending. his fever on admission has subsided Continue with ceftriaxone, dexamethasone and multiple vitamins. IV fluids were discontinued 09/04/2021 Yobani is awake and interactive. Urine culture is growing staph epidermidis which is resistant to cephalosporin for ceftriaxone was discontinued and patient was started by Bactrim by ID team however it is also resistant to Bactrim therefore we will give 1 dose of doxycycline today and discussed the case with ID team tomorrow. No altered mental status, no respiratory symptoms. Cardoso catheter is in a Place. No fever Also patient on dexamethasone and multiple vitamins for his covid section Objective - Vital Signs Vital signs: Vital Signs Temp 98.4 F 09/04/21 14:00 Pulse 64 09/04/21 14:00 Resp 18 09/04/21 14:00 BP 128/78 09/04/21 14:00 Pulse Ox 93 L 09/04/21 14:00 Intake & Output 09/03/21 09/04/21 09/04/21 18:59 06:59 18:59 Intake Total 875 Output Total 1999 3099 2199 Balance -1125 -30990 Weight 92.533 kg Intake: IV 875 Sodium Chloride 0.9% 1, 825 000 ml @ 130 mls/hr IV . Q7H42M [facility] Rx#:[id number] cefTRIAXone 2 gm In 50 Sodium Chloride 0.9% 50 ml @ 100 mls/hr IVPB Q24HR [facility] Rx#:[id number] Output: Urine 19990 Other: Voiding Method Indwelling Catheter Indwelling Catheter Indwelling Catheter # Bowel Movements 0 - Exam -GENERAL: The patient is alert and oriented x1, follows commands not in any acute distress. Well developed, well nourished. HEENT: Pupils are round and equally reacting to light. EOMI. No scleral icterus. No conjunctival pallor. Normocephalic, atraumatic. No pharyngeal erythema. No thyromegaly. CARDIOVASCULAR: S1 and S2 present. No murmurs, rubs, or gallops. PULMONARY: Chest is clear to auscultation, no wheezing or crackles. -ABDOMEN: Soft, nontender, nondistended, normoactive bowel sounds. No palpable organomegaly. Cardoso catheter is in place MUSCULOSKELETAL: No joint swelling or deformity. EXTREMITIES: No cyanosis, clubbing, or pedal edema. NEUROLOGICAL: Gross neurological examination did not reveal any focal deficits. SKIN: No rashes. No petechiae - Labs CBC & Chem 7: 09/02/21 06:30 09/02/21 06:30 Labs: Microbiology - Last 24 Hours (Table) 08/31/21 21:27 Urine Culture - Final Urine,Voided Staphylococcus epidermidis 08/31/21 21:16 Blood Culture - Preliminary Blood No Growth after 72 hours 08/31/21 21:00 Blood Culture - Preliminary Blood No Growth after 72 hours Assessment and Plan Assessment: Altered mental status most likely metabolic encephalopathy acute urinary tract infection Acute covid infection with bilateral pneumonia History of GERD History of constipation Hypertension History of depression Plan: this is a pleasant 76 years old male who presents with AMS, UTI, pneumonia continue with antibiotics as per ID team Dexamethasone and had multiple vitamins, vitamin C, D and zinc infectious disease consult Labs and medication were reviewed.. Continue same treatment. Continue with symptomatic treatment. Resume home medication. Monitor lytes and vitals. DVT and GI prophylaxis. Further recommendations depends on the clinical course of the patient DVT prophylaxis: Subcutaneous heparin GI Prophylaxis: Pepcid PT/OT: Back to retirement Prognosis is guarded
[2021-09-05] MEDS: SODIUM CHLORIDE 0.9% 1,000 ML IV SCH ×3 (01:45→15:00)
[2021-09-05] MEDS: ESCITALOPRAM 20 MG TAB PO SCH (07:53)
[2021-09-05] MEDS: FAMOTIDINE 20 MG TAB PO SCH ×2 (07:53→20:42)
[2021-09-05] MEDS: QUEtiapine 50 MG TAB PO SCH ×2 (07:53→20:42)
[2021-09-05] MEDS: ASCORBIC ACID 500 MG TAB PO SCH (07:53)
[2021-09-05] MEDS: CHOLECALCIFEROL 25 MCG (1000 IU) TABLET PO SCH (07:53)
[2021-09-05] MEDS: DIVALPROEX 250 MG TABLET.DR PO SCH ×3 (07:53→20:42)
[2021-09-05] MEDS: THIAMINE 100 MG TAB PO SCH (07:53)
[2021-09-05] MEDS: lisinopriL 5 MG TAB PO SCH (07:54)
[2021-09-05] MEDS: SULFAMETHOX-TMP 800-160MG 1 EACH TAB PO SCH ×2 (07:54→20:42)
[2021-09-05] MEDS: HEPARIN SODIUM,PORCINE/PF 5,000 UNIT/0.5 ML SYRINGE SQ SCH ×2 (07:54→20:42)
[2021-09-05] MEDS: DEXAMETHASONE SOD PHOSPHATE 10 MG/ML 1 ML VIAL IVP SCH (07:54)
[2021-09-05 13:25] LABS: Appearance,Urine Clear (Clear); Bacteria,Urine Rare /hpf; Bilirubin,Urine Negative (Negative); Blood,Urine Negative (Negative); Color,Urine Light Yellow; Glucose,Urine (UA) 2+ (Negative); Hyaline Casts,Urine 1 /lpf (0-2); Ketones,Urine Negative (Negative); Leukocyte Esterase,Urine Trace (Negative); Nitrite,Urine Negative (Negative); PH, Urine 6.5 (5.0-8.0); Protein,Urine Negative (Negative); RBC,Urine 1 /hpf (0-5); Specific Gravity,Urine 1.008 (1.001-1.035); Urobilinogen,Urine <2.0 mg/dL (<2.0); WBC,Urine 1 /hpf (0-5)
--- NOTE | 2021-09-05 20:39 | P.PN ---
Subjective This is a pleasant 76 years old male with past medical history of GERD, constipation, hypertension, depression. Also history of Parkinson disease, prostate cancer He was admitted to this facility several times including emergency room visit over the last several 6 months Patient is a detention resident of [facility]. He presents to the hospital on 05/15/2021 for altered mental status thought secondary to polypharmacy and possible UTI. also He is on Lamictal and Depakote and no history of seizure. At that time on extremely high dose of Lamictal 200 mg 1 tablet twice a day and he is on Depakote 250 mg twice a day recommend the if possible to be on a lower dose of Lamictal and defer the management to the psychiatry team. He was started on Lamictal 25 mg daily however during this hospital admission he is already on Depakote 250 mg 3 times a day. This time patient presents because of altered mental status, he was obtunded yesterday but he is more awake today. He is poor historian. He is disoriented to time, place and person. However he follows commands easily and he can tell his name He denies any headache, no neck stiffness. No weakness or numbness and he moves all extremities equally. He denies chest pain or dyspnea. No coughing. No diarrhea. He denies any urinary symptoms but he has a Cardoso catheter placed and emergency room On admission he has a fever of 100.5, he is tachycardic at 113, blood pressure is 129/79. Labs reviewed showing no leukocytosis with unremarkable CBC, INR and BMP. Creatinine and electrolytes normal. Glucose slightly elevated 159. Lactic acid normal at 1.5 and liver enzymes and troponin are unremarkable. Urinalysis is suspicious for infection: Test is positive CT of the brain: No acute process. ; Chest x-ray: Interstitial pneumonia. No definite heart failure. Interstitial infiltrate increased compared to old exam. EKG showing sinus tachycardia at [address]-T changes. On admission he was started on ceftriaxone and normal saline at 1 30 mL/h and dexamethasone 10 mg. 09/02/2021 Patient is more awake and alert he knows he is in the hospital but he has to be reminded it is [facility]. He thought it is 1967 and could not tell the name of the president. Patient was reoriented. Patient denies any specific complaint. Hemodynamically stable. Fever on admission has subsided and has no fever today. He is saturating 94% on 3 L oxygen via nasal cannula. Labs are stable. Urine culture is pending. Hemoglobin A1c is elevated at 7.6. And negative at 0.08. LDH slightly elevated at 401 and C-reactive protein elevated at 4.3. influenza test is negative renal ultrasound shows no hydronephrosis pt remains on ceftriaxone 2 gm daily 09/03/2021 Patient clinically improving he's awake and alert. His oxygen saturation is 94- 99% on 2-3 L/m of oxygen. His respiratory status looks stable He still liquid diet which is going to be advanced to regular diet tomorrow. Urine culture is still pending. his fever on admission has subsided Continue with ceftriaxone, dexamethasone and multiple vitamins. IV fluids were discontinued 09/04/2021 Yobani is awake and interactive. Urine culture is growing staph epidermidis which is resistant to cephalosporin for ceftriaxone was discontinued and patient was started by Bactrim by ID team however it is also resistant to Bactrim therefore we will give 1 dose of doxycycline today and discussed the case with ID team tomorrow. No altered mental status, no respiratory symptoms. Cardoso catheter is in a Place. No fever Also patient on dexamethasone and multiple vitamins for his covid section 09/05/2021 I clinically is awake and alert, he has some degree of confusion related to his dementia which is his baseline. His urine culture is growing staph epidermidis area currently is on Bactrim per infectious disease team. We will discuss with ID team about his treatment plan. No fever,. Vitals are stable. He's also on dexamethasone. Fluids stopped Objective - Vital Signs Vital signs: Vital Signs Temp 97.9 F 09/05/21 10:00 Pulse 69 09/05/21 10:00 Resp 16 09/05/21 10:00 BP 146/80 09/05/21 10:00 Pulse Ox 93 L 09/05/21 10:00 Intake & Output 09/04/21 09/05/21 09/05/21 18:59 06:59 18:59 Intake Total 960 Output Total 3200 2200 Balance -2240 -2200 Intake: Oral 960 Output: Urine 3200 2200 Other: Voiding Method Indwelling Catheter Indwelling Catheter Indwelling Catheter # Bowel Movements 1 0 - Exam -GENERAL: The patient is alert and oriented x1, follows commands not in any acute distress. Well developed, well nourished. HEENT: Pupils are round and equally reacting to light. EOMI. No scleral icterus. No conjunctival pallor. Normocephalic, atraumatic. No pharyngeal erythema. No thyromegaly. CARDIOVASCULAR: S1 and S2 present. No murmurs, rubs, or gallops. PULMONARY: Chest is clear to auscultation, no wheezing or crackles. -ABDOMEN: Soft, nontender, nondistended, normoactive bowel sounds. No palpable organomegaly. Cardoso catheter is in place MUSCULOSKELETAL: No joint swelling or deformity. EXTREMITIES: No cyanosis, clubbing, or pedal edema. NEUROLOGICAL: Gross neurological examination did not reveal any focal deficits. SKIN: No rashes. No petechiae - Labs CBC & Chem 7: 09/02/21 06:30 09/02/21 06:30 Labs: Abnormal Lab Results - Last 24 Hours (Table) 09/05/21 Range/Units 13:00 Urine Glucose (UA) 2+ H (Negative) Ur Leukocyte Esterase Trace H (Negative) Urine Bacteria Rare H (None) /hpf Microbiology - Last 24 Hours (Table) 08/31/21 21:00 Blood Culture - Preliminary Blood No Growth after 96 hours 08/31/21 21:16 Blood Culture - Preliminary Blood No Growth after 96 hours 08/31/21 21:27 Urine Culture - Final Urine,Voided Staphylococcus epidermidis Assessment and Plan Assessment: Altered mental status most likely metabolic encephalopathy acute urinary tract infection secondary to staph epidermidis Acute covid infection with bilateral pneumonia History of GERD History of constipation Hypertension History of depression Plan: this is a pleasant 76 years old male who presents with AMS, UTI, pneumonia continue with antibiotics as per ID team Dexamethasone and had multiple vitamins, vitamin C, D and zinc infectious disease consult Labs and medication were reviewed.. Continue same treatment. Continue with symptomatic treatment. Resume home medication. Monitor lytes and vitals. DVT and GI prophylaxis. Further recommendations depends on the clinical course of the patient DVT prophylaxis: Subcutaneous heparin GI Prophylaxis: Pepcid PT/OT: Back to detention Prognosis is guarded
[2021-09-06] MEDS: SODIUM CHLORIDE 0.9% 1,000 ML IV SCH ×3 (00:37→15:25)
[2021-09-06 06:21] VITALS: TEMP 97.8
[2021-09-06] MEDS: CHOLECALCIFEROL 25 MCG (1000 IU) TABLET PO SCH (08:21)
[2021-09-06] MEDS: FAMOTIDINE 20 MG TAB PO SCH (08:22)
[2021-09-06] MEDS: lisinopriL 5 MG TAB PO SCH (08:22)
[2021-09-06] MEDS: SULFAMETHOX-TMP 800-160MG 1 EACH TAB PO SCH (08:22)
[2021-09-06] MEDS: DIVALPROEX 250 MG TABLET.DR PO SCH ×2 (08:22→15:45)
[2021-09-06] MEDS: DEXAMETHASONE SOD PHOSPHATE 10 MG/ML 1 ML VIAL IVP SCH (08:22)
[2021-09-06] MEDS: THIAMINE 100 MG TAB PO SCH (08:22)
[2021-09-06] MEDS: ASCORBIC ACID 500 MG TAB PO SCH (08:22)
[2021-09-06] MEDS: ESCITALOPRAM 20 MG TAB PO SCH (08:22)
[2021-09-06] MEDS: HEPARIN SODIUM,PORCINE/PF 5,000 UNIT/0.5 ML SYRINGE SQ SCH (08:23)
--- NOTE | 2021-09-06 08:25 | PN ---
PROGRESS NOTE DATE OF SERVICE: 09/05/2021 REASON FOR FOLLOWUP: 1. UTI. 2. COVID-19 infection. INTERVAL HISTORY: The patient is currently afebrile. The patient is breathing comfortably on room air. The patient is hemodynamically stable. The patient remains slightly lethargic and is unable to provide any history. No vomiting or diarrhea reported by nursing staff. PHYSICAL EXAMINATION: Blood pressure 153/74, pulse of 79, temperature 97.5. He is 92% on room air. General description is an elderly male lying in bed in no distress. Respiratory system: Unlabored breathing, decreased intensity of breath sounds. No wheeze. Heart S1, S2. Regular rate and rhythm. Abdomen soft, no tenderness. LABS: Hemoglobin is 12.6, white count 5.4. No new labs have been obtained. DIAGNOSTIC IMPRESSION AND PLAN: 1. Patient admitted to hospital with fever concerning for urinary tract infection. Urine with positive Staphylococcus epidermidis. Short course of Bactrim DS. 2. Patient with COVID-19 infection, currently being treated with dexamethasone, Lovenox, zinc and ascorbic acid, respiratory support. Monitor his clinical course closely. MMODL / IJN: [id number] /
[2021-09-06] MEDS: QUEtiapine 50 MG TAB PO SCH (09:30)
[2021-09-06 10:31] VITALS: RESP 18
[2021-09-06 10:32] VITALS: BP 152/88; PULSE 62
[2021-09-06] MEDS ORDERED: DOXYCYCLINE 100 MG CAP PO SCH (11:00)
--- NOTE | 2021-09-06 12:09 | P.DS ---
Providers Date of admission: 08/31/21 22:48 Attending physician: Keily Bansal Consults: 09/01/21 07:35 Consult Physician Urgent Consulting Provider: Erick Fernandez Consult Reason/Comments: covid and UTI Do you want consulting provider notified?: Yes Primary care physician: Jelani Cervantes Hospital Course: Diagnoses: Altered mental status most likely metabolic encephalopathy. Resolved acute urinary tract infection secondary to staph epidermidis. Improved significantly Acute covid infection with bilateral pneumonia . No hypoxia or respiratory symptoms History of GERD History of constipation Hypertension History of depression Hospital Course: This is a pleasant 76 years old male with past medical history of GERD, constipation, hypertension, depression. Also history of Parkinson disease, pros mustafa cancer He was admitted to this facility several times including emergency room visit over the last several 6 months Patient is a retirement resident of [facility]. He presents to the hospital on 05/15/2021 for altered mental status thought secondary to polypharmacy and possible UTI. also He is on Lamictal and Depakote and no history of seizure. At that time on extremely high dose of Lamictal 200 mg 1 tablet twice a day and he is on Depakote 250 mg twice a day recommend the if possible to be on a lower dose of Lamictal and defer the management to the psychiatry team. He was started on Lamictal 25 mg daily however during this hospital admission he is already on Depakote 250 mg 3 times a day. This time patient presents because of altered mental status, he was obtunded on admission but his mentation improved with treatment. Patient found to have acute urinary tract infection secondary to staph epidermidis which responded to treatment with ceftriaxone. Infectious disease tomorrow following the patient closely. Patient will be discharged on 5 more days of doxycycline base per sensitivity. Also patient has been followed by ID team and treated for his bilateral Covid pneumonia. However his breathing is a stable and he is saturating 98% on room air. He is not tachypneic. No chest pain or coughing. No other respiratory symptoms. Fever on admission at 100 and to have subsided for the last several days. Patient is at baseline mental status which is slightly confused although he knows in the hospital. Patient was excited he is being discharged today as he wants to leave the hospital back to his auto place. He denies chest pain or dyspnea. No abdominal pain. No nausea vomiting. No change in urine or bowel habits. No fever. And was cleared for discharge by ID team Problems and management plan were discussed with the patient and he verbalized understanding and acceptance Patient was found stable and can be discharged home however he needs follow-up as an outpatient. Patient was instructed to follow up with PCP within one week and patient agrees Physical exam -Gen: patient is a AAOx1, no distress CVS: S1-S2, RRR, no murmur Lungs: B/L CTA, no wheezing -Abdomen: soft, no distention, no tenderness, positive bowel sounds. Cardoso catheter is in a Place. Extremity: no leg edema or induration Time spent more than 35 minutes Patient Condition at Discharge: Serious Plan - Discharge Summary New Discharge Prescriptions: New dexAMETHasone ORAL [Hexadrol] 6 mg PO DAILY 6 Days #6 tablet Ascorbic Acid [Vitamin C] 1,000 mg PO DAILY #60 tab Cholecalciferol [Vitamin D3 (25 Mcg = 1000 Iu)] 50 mcg PO DAILY #60 tablet Continue Na Phos,M-B/Na Phos,Di-Ba [Fleet Adult] 133 ml RECTAL DAILY PRN PRN Reason: Constipation Magnesium Hydroxide [Milk of Magnesia Concentrate] 7,200 mg PO Q48H PRN PRN Reason: Constipation Acetaminophen Tab [Tylenol] 1,000 mg PO Q6H PRN PRN Reason: Pain Omeprazole 20 mg PO BID PRN PRN Reason: gerd Thiamine [Vitamin B-1] 100 mg PO DAILY@0800 Melatonin 5 mg PO HS@2100 Divalproex [Depakote] 250 mg PO TID@0800,1400,2200 Escitalopram [Lexapro] 20 mg PO DAILY@0800 bisacodyL 10 mg RECTAL DAILY PRN PRN Reason: Constipation QUEtiapine [SEROquel] 50 mg PO BID@0800,1700 lisinopriL [Zestril] 5 mg PO DAILY@0800 Discontinued Oseltamivir [Tamiflu] 75 mg PO DAILY@1200 Cholecalciferol [Vitamin D3 (25 Mcg = 1000 Iu)] 25 mcg PO DAILY@0800 Discharge Medication List Escitalopram [Lexapro] 20 mg PO DAILY@0800 04/01/21 [History] Acetaminophen Tab [Tylenol] 1,000 mg PO Q6H PRN 05/15/21 [History] Magnesium Hydroxide [Milk of Magnesia Concentrate] 7,200 mg PO Q48H PRN 05/15/21 [History] Na Phos,M-B/Na Phos,Di-Ba [Fleet Adult] 133 ml RECTAL DAILY PRN 05/15/21 [History] Omeprazole 20 mg PO BID PRN 05/15/21 [History] bisacodyL 10 mg RECTAL DAILY PRN 05/15/21 [History] Thiamine [Vitamin B-1] 100 mg PO DAILY@0800 06/24/21 [History] Divalproex [Depakote] 250 mg PO TID@0800,1400,2200 07/13/21 [History] Melatonin 5 mg PO HS@2100 07/13/21 [History] QUEtiapine [SEROquel] 50 mg PO BID@0800,1700 07/13/21 [History] lisinopriL [Zestril] 5 mg PO DAILY@0800 08/31/21 [History] Ascorbic Acid [Vitamin C] 1,000 mg PO DAILY #60 tab 09/04/21 [Rx] Cholecalciferol [Vitamin D3 (25 Mcg = 1000 Iu)] 50 mcg PO DAILY #60 tablet 09/04/21 [Rx] dexAMETHasone ORAL [Hexadrol] 6 mg PO DAILY 6 Days #6 tablet 09/04/21 [Rx] Follow up Appointment(s)/Referral(s): Jelani Cervantes MD [Primary Care Provider] - 1-2 days Patient Instructions/Handouts: Coronavirus Disease 2019 (COVID-19), Urinary Tract Infection in Men (DC)
--- NOTE | 2021-09-06 14:28 | PN ---
PROGRESS NOTE DATE OF SERVICE: 09/06/2021 REASON FOR FOLLOWUP: UTI and COVID-19 infection. INTERVAL HISTORY: Patient is currently afebrile. Patient is breathing comfortably on room air. The patient is more awake and alert. Denies any chest pain or cough. No abdominal pain or diarrhea. PHYSICAL EXAMINATION: Blood pressure 152/88 with a pulse of 62, temperature is 97.8. He is 98% on room air. General description is an elderly male lying in bed in no distress. Respiratory system: Unlabored breathing, decreased intensity of breath sounds. No wheeze. Heart S1, S2. Regular rate and rhythm. Abdomen soft, no tenderness. LABS: Hemoglobin is 12.8, white count 5.4, creatinine 0.9. Repeat urine is so far negative. DIAGNOSTIC IMPRESSION AND PLAN: 1. Patient admitted to the hospital with fever and mental status changes, multifactorial, possible component of urinary tract infection to finish therapy with a course of . 2. Patient with COVID-19 infection, mild illness and has improved with supportive treatment. Patient has been saturating 96 to 98% on room air. May consider zinc and ascorbic acid on discharge and close outpatient followup. MMODL / IJN: [id number] /
== END 2021-09-06 16:41 | DRG 177 ==
LOC: EC 20:59 → 4SSUR 22:48 → 1SOBS 09-01 04:09 → 4SSUR 09-01 16:50
PROVIDERS: ADMIT Hospitalist; ATTEND Hospitalist
PROC: 3E0333Z Introduction of Anti-inflammatory into Peripheral Vein, Percutaneous Approach (ICD-10-PCS; principal; 2021-09-01)
DX: U07.1 COVID-19 (principal); G93.41 Metabolic encephalopathy; J12.82 Pneumonia due to coronavirus disease 2019; N39.0 Urinary tract infection, site not specified; Z16.29 Resistance to other single specified antibiotic; B95.7 Other staphylococcus as the cause of diseases classified elsewhere; F31.9 Bipolar disorder, unspecified; G20 Parkinson's disease; I10 Essential (primary) hypertension; F02.80 Dementia in other diseases classified elsewhere, unspecified severity, without behavioral disturbance, psychotic disturbance, mood disturbance, and anxiety; Z79.899 Other long term (current) drug therapy; Z85.46 Personal history of malignant neoplasm of prostate
CPT/HCPCS: 36415; 70450; 71046; 76770; 80053; 81001; 82728; 83036; 83605; 83615; 83735; 84145; 84484; 85025; 85379; 85610; 85730; 86140; 87040; 87077; 87086; 87186; 87502; 87635; 93005; 94760; 99285

== ENCOUNTER 2022-10-19 01:14 | Inpatient (IN) | payer MEDICARE, BC ==
[2022-10-19] MEDS ORDERED: SODIUM CHLORIDE 0.9% 500 ML 500 ML IV STA (01:36)
[2022-10-19] MEDS ORDERED: SODIUM CHLORIDE 0.9% 1,000 ML IV STA (01:36)
[2022-10-19] MEDS ORDERED: ACETAMINOPHEN TAB 500 MG TAB PO STA (01:36)
[2022-10-19] MEDS ORDERED: IBUPROFEN 800 MG TAB PO STA (01:36)
--- NOTE | 2022-10-19 01:36 | ED ---
Fever HPI - General Chief Complaint: Shortness of Breath Stated Complaint: Fever Time Seen by Provider: 10/19/22 01:35 Source: EMS, RN notes reviewed, old records reviewed, Caregiver Mode of arrival: EMS Limitations: no limitations - History of Present Illness Initial Comments: This is a 77-year-old male to the ER for evaluation of weakness was noted to fever shortness of breath today. Patient comes from a care facility with her is known positive flu test. Patient having persistent weakness and shortness of breath here in the emergency department patient does have history of dementia is a poor historian MD Complaint: fever, malaise, weakness -: days(s) Temperature Source: subjective Context: sick contacts, multiple patients with similar symptoms Associated Symptoms: chills, myalgias, nasal congestion, sore throat, cough Treatments Prior to Arrival: none - Related Data Home Medications Medication Instructions Recorded Confirmed Escitalopram [Lexapro] 20 mg PO DAILY@0800 04/01/21 08/31/21 Acetaminophen Tab [Tylenol] 1,000 mg PO Q6H PRN 05/15/21 08/31/21 Magnesium Hydroxide [Milk of 7,200 mg PO Q48H PRN 05/15/21 08/31/21 Magnesia Concentrate] Na Phos,M-B/Na Phos,Di-Ba [Fleet 133 ml RECTAL DAILY PRN 05/15/21 08/31/21 Adult] Omeprazole 20 mg PO BID PRN 05/15/21 08/31/21 bisacodyL 10 mg RECTAL DAILY PRN 05/15/21 08/31/21 Thiamine [Vitamin B-1] 100 mg PO DAILY@0800 06/24/21 08/31/21 Divalproex [Depakote] 250 mg PO TID@0800,1400,2200 07/13/21 08/31/21 Melatonin 5 mg PO HS@2100 07/13/21 08/31/21 QUEtiapine [SEROquel] 50 mg PO BID@0800,1700 07/13/21 08/31/21 lisinopriL [Zestril] 5 mg PO DAILY@0800 08/31/21 08/31/21 Previous Rx's Medication Instructions Recorded Ascorbic Acid [Vitamin C] 1,000 mg PO DAILY #60 tab 09/04/21 Cholecalciferol [Vitamin D3 (25 50 mcg PO DAILY #60 tablet 09/04/21 Mcg = 1000 Iu)] dexAMETHasone ORAL [Hexadrol] 6 mg PO DAILY 6 Days #6 tablet 09/04/21 Doxycycline [Vibramycin] 100 mg PO BID 5 Days #9 cap 09/06/21 Allergies Allergy/AdvReac Type Severity Reaction Status Date / Time No Known Allergies Allergy Verified 10/19/22 01:16 Review of Systems ROS Statement: Those systems with pertinent positive or pertinent negative responses have been documented in the HPI. ROS Other: All systems not noted in ROS Statement are negative. Past Medical History Past Medical History: GERD/Reflux History of Any Multi-Drug Resistant Organisms: None Reported Past Surgical History: Unable to Obtain Additional Past Surgical History / Comment(s): eye surgery Past Anesthesia/Blood Transfusion Reactions: Unable to Obtain Past Psychological History: Anxiety, Bipolar, Depression Smoking Status: Never smoker Past Alcohol Use History: Daily Past Drug Use History: None Reported - Past Family History Father Family Medical History: Unable to Obtain General Exam Limitations: no limitations General appearance: alert, in no apparent distress Head exam: Present: atraumatic, normocephalic, normal inspection Eye exam: Present: normal appearance, PERRL, EOMI. Absent: scleral icterus, conjunctival injection, periorbital swelling ENT exam: Present: normal exam, mucous membranes dry Neck exam: Present: normal inspection. Absent: tenderness, meningismus, lymphadenopathy Respiratory exam: Present: normal lung sounds bilaterally. Absent: respiratory distress, wheezes, rales, rhonchi, stridor Cardiovascular Exam: Present: normal rhythm, tachycardia, normal heart sounds. Absent: systolic murmur, diastolic murmur, rubs, gallop, clicks GI/Abdominal exam: Present: soft, normal bowel sounds. Absent: distended, tenderness, guarding, rebound, rigid Extremities exam: Present: normal inspection, full ROM, normal capillary refill. Absent: tenderness, pedal edema, joint swelling, calf tenderness Back exam: Present: normal inspection Neurological exam: Present: alert, oriented X3, CN II-XII intact Psychiatric exam: Present: normal affect, normal mood Skin exam: Present: warm, dry, intact, normal color. Absent: rash Course Vital Signs 10/19/22 10/19/22 10/19/22 01:16 02:40 02:52 Temperature 101.2 F H 101.7 F H Pulse Rate 112 H 107 H Respiratory 17 20 Rate Blood Pressure 174/98 O2 Sat by Pulse 92 L 93 L Oximetry - Reevaluation(s) Reevaluation #1: 10/19/22 02:13 Medical record is reviewed Reevaluation #2: 10/19/22 03:33 Patient symptoms improved here in the ER Reevaluation #3: 10/19/22 03:34 Patient informed of results and questions have been answered Reevaluation #4: 10/19/22 02:13 Differential Fever: Pneumonia, viral URI, endocarditis, myocarditis, pericarditis, otitis, sinusitis, peritonsillar Abscess, retropharyngeal Abscess, epiglottitis, peritonitis, appendicitis, Trina cystitis, diverticulitis, hepatitis, colitis, UTI, PID, TOA, pyelonephritis, prostatitis, epididymitis, meningitis, encephalitis, pulmonary embolism, CVA, thyroid storm, pancreatitis, adrenal crisis, cavernous sinus thrombosis, this is not meant to be an all-inclusive list. Reevaluation #5: 10/19/22 02:14 Was pt. sent in by a medical professional or institution? @ -fdc Did you speak to anyone other than the patient for history? @ -ems Did you review nursing and triage notes? @ -agree Were old charts reviewed? @ -no Differential Diagnosis? @ -prior EKG interpreted by me (3pts min.)? @ -yes X-rays interpreted by me (1pt min.)? @ -yes CT interpreted by me (1pt min.)? @ -no U/S interpreted by me (1pt. min.)? @ -[none] What testing was considered but not performed? (CT, X-rays, U/S, labs)? Why? @ no What meds were considered but not given? Why? @ -[none] Did you discuss the management of the patient with other professionals? @ -no Did you reconcile home meds? @ -[none] Was smoking cessation discussed for >3mins.? @ -[none] Was critical care preformed (if so, how long)? @ -[none] Were there social determinants of health that impacted care today? How? (Homelessness, low income, unemployed, alcoholism, drug addiction, transport ation, low edu. Level, literacy, decrease access to med. care, [facility], rehab)? @ -no Was there de-escalation of care discussed even if they declined? (Discuss DNR or withdrawal of care, Hospice)? @ -DNR What co-morbidities impacted this encounter? (DM, HTN, Smoking, COPD, CAD, Cancer, CVA, Hep., AIDS, mental health diagnosis, sleep apnea, morbid obesity)? @ -no Was patient admitted / discharged? @ -admit Undiagnosed new problem with uncertain prognosis? @ -[none] Drug Therapy requiring intensive monitoring for toxicity (Heparin, Nitro, Insulin, Cardizem)? @ -[none] Were any procedures done? @ -[none] Diagnosis/symptom? @ -weak Acute, or Chronic, or Acute on Chronic? @ -acute Uncomplicated (without systemic symptoms) or Complicated (systemic symptoms)? @ -no Side effects of treatment? @ -[none] Exacerbation, Progression, or Severe Exacerbation] @ -[no] Poses a threat to life or bodily function? @ -[no] 10/19/22 03:34 Medical Decision Making - Medical Decision Making 77 male to the emergency department for evaluation positive fever significant positive influenza CHF and pneumonia on x-ray hypoxia, patient will be admitted for supportive care. - Lab Data Result diagrams: 10/19/22 01:49 Lab Results 10/19/22 10/19/22 10/19/22 Range/Units 01:27 01:49 01:49 Sodium 137 (137-145) mmol/L Potassium (3.5-5.1) mmol/L Chloride 103 (98-107) mmol/L Carbon Dioxide 26 (22-30) mmol/L Anion Gap 8 mmol/L BUN 23 H (9-20) mg/dL Creatinine 0.76 (0.66-1.25) mg/dL Est GFR (CKD-EPI)AfAm >90 (>60 ml/min/1.73 sqM) Est GFR (CKD-EPI)NonAf 89 (>60 ml/min/1.73 sqM) Glucose 168 H (74-99) mg/dL Plasma Lactic Acid Ulises 2.0 (0.7-2.0) mmol/L Calcium 7.9 L (8.4-10.2) mg/dL Magnesium 1.4 L (1.6-2.3) mg/dL Total Bilirubin 2.3 H (0.2-1.3) mg/dL AST 57 (17-59) U/L ALT 20 (4-49) U/L Alkaline Phosphatase 42 (38-126) U/L Troponin I (0.000-0.034) ng/mL Total Protein 8.0 (6.3-8.2) g/dL Albumin 4.4 (3.5-5.0) g/dL Influenza Type A (PCR) Detected A (Not Detectd) Influenza Type B (PCR) Not Detected (Not Detectd) RSV (PCR) Not Detected (Not Detectd) SARS-CoV-2 (PCR) Not Detected (Not Detectd) 10/19/22 Range/Units 01:49 Sodium (137-145) mmol/L Potassium (3.5-5.1) mmol/L Chloride (98-107) mmol/L Carbon Dioxide (22-30) mmol/L Anion Gap mmol/L BUN (9-20) mg/dL Creatinine (0.66-1.25) mg/dL Est GFR (CKD-EPI)AfAm (>60 ml/min/1.73 sqM) Est GFR (CKD-EPI)NonAf (>60 ml/min/1.73 sqM) Glucose (74-99) mg/dL Plasma Lactic Acid Ulises (0.7-2.0) mmol/L Calcium (8.4-10.2) mg/dL Magnesium (1.6-2.3) mg/dL Total Bilirubin (0.2-1.3) mg/dL AST (17-59) U/L ALT (4-49) U/L Alkaline Phosphatase (38-126) U/L Troponin I 0.027 (0.000-0.034) ng/mL Total Protein (6.3-8.2) g/dL Albumin (3.5-5.0) g/dL Influenza Type A (PCR) (Not Detectd) Influenza Type B (PCR) (Not Detectd) RSV (PCR) (Not Detectd) SARS-CoV-2 (PCR) (Not Detectd) - EKG Data -: EKG Interpreted by Me (EKG is sinus tachycardia 108 IA 151 QRS 60 QTC 355) - Radiology Data Radiology results: report reviewed (Chest x-ray positive for CHF pneumonia), image reviewed Critical Care Time Critical Care Time: Yes Total Critical Care Time: 31 Disposition Clinical Impression: Altered mental status, Weakness, Acute pulmonary edema, Community acquired pneumonia, Congestive heart failure, Influenza A, Fever Disposition: ADMITTED IP TO THIS HOSP Condition: Serious Is patient prescribed a controlled substance at d/c from ED?: No Referrals: Stephane London MD [Primary Care Provider] - 1-2 days Time of Disposition: 03:35
[2022-10-19 02:25] LABS: ALT 20 U/L (4-49); AST 57 U/L (17-59); African American GFR (CKD) >90 (>60 ml/min/1.73 sqM); Albumin 4.4 g/dL (3.5-5.0); Alkaline Phosphatase 42 U/L (38-126); Anion Gap 8 mmol/L; Blood Urea Nitrogen 23 mg/dL (9-20); Calcium 7.9 mg/dL (8.4-10.2); Carbon Dioxide 26 mmol/L (22-30); Chloride 103 mmol/L (98-107); Glucose 168 mg/dL (74-99); Magnesium 1.4 mg/dL (1.6-2.3); Non-African American GFR(CKD) 89 (>60 ml/min/1.73 sqM); Sodium 137 mmol/L (137-145); Total Bilirubin 2.3 mg/dL (0.2-1.3)
--- NOTE | 2022-10-19 02:53 | XR ---
EXAMINATION TYPE: XR chest 1V portable DATE OF EXAM: 10/19/2022 COMPARISON: 08/31/2021 HISTORY: Short of breath TECHNIQUE: FINDINGS: There is pulmonary interstitial and airspace edema. Heart size is fairly normal. No definit e pleural effusion. There are chest leads. Bony thorax appears intact. No pneumothorax. IMPRESSION: There is pulmonary edema which is slightly worse than last exam and could be acute heart failure or acute pneumonia.
[2022-10-19] MEDS ORDERED: PNEUMONIA PROTOCOL UTILIZED 1 EACH MISC PO PRN (03:30)
[2022-10-19] MEDS ORDERED: OSELTAMIVIR 75 MG CAP PO STA (03:30)
[2022-10-19] MEDS ORDERED: AZITHROMYCIN 500 MG in SODIUM CHLORIDE 0.9% 250 ML IVPB ONE (03:30)
[2022-10-19] MEDS ORDERED: IPRATROPIUM-ALBUTEROL 3 ML NEB INHALATION STA (03:30)
[2022-10-19] MEDS ORDERED: IPRATROPIUM-ALBUTEROL 3 ML NEB INHALATION PRN (03:30)
[2022-10-19 03:36] LABS: HCT 43.3 % (39.0-53.0); HGB 15.1 gm/dL (13.0-17.5); MCH 33.6 pg (25.0-35.0); MCHC 34.8 g/dL (31.0-37.0); MCV 96.7 fL (80.0-100.0); Mean Platelet Volume 10.6; Platelet Count 110 k/uL (150-450); RBC 4.48 m/uL (4.30-5.90); RDW 12.7 % (11.5-15.5); WBC 7.9 k/uL (3.8-10.6)
[2022-10-19] MEDS: SODIUM CHLORIDE 0.9% 1,000 ML IV SCH (04:48)
[2022-10-19 04:57] LABS: Nucleated Red Blood Cells 0 /100 WBC (0-0)
[2022-10-19 05:00] LABS: Band Neutrophils % 17 %; Lymphocytes # (M) 0.55 k/uL (1.0-4.8); Neutrophils % (M) 71 %; Total Cells Counted 200
[2022-10-19 05:02] LABS: Toxic Vacuolation Present
[2022-10-19 05:12] LABS: Partial Thromboplastin Time 25.8 sec (22.0-30.0); Prothrombin Time 10.3 sec (9.0-12.0)
[2022-10-19] MEDS: OSELTAMIVIR 75 MG CAP PO SCH ×2 (09:38→20:38)
[2022-10-19] MEDS: methylPREDNISolone SOD SUCCI 125 MG/2 ML VIAL IV SCH ×3 (12:41→23:23)
[2022-10-19] MEDS: IPRATROPIUM-ALBUTEROL 3 ML NEB INHALATION SCH ×3 (12:45→20:39)
--- NOTE | 2022-10-19 13:03 | HP ---
HISTORY AND PHYSICAL CHIEF COMPLAINT: Fever and shortness of breath and hypotension. HISTORY OF PRESENT ILLNESS: This 77-year-old gentleman with a past medical history of multiple medical problems including GERD, being followed by Dr. Cervantes in the outpatient setting. He was taken to [facility] with complaints of fever and shortness of breath. The patient with bilateral pneumonia, patient hypotensive also. There is no history of any headache or loss of consciousness. PAST MEDICAL HISTORY: History of GERD, rest of the history reviewed, rest of the chart is also reviewed. HOME MEDICATIONS: Reviewed include omeprazole, dose and rest of medications reviewed. ALLERGIES: None. FAMILY HISTORY: Could not be taken because of the patient's baseline mental status. SOCIAL HISTORY: Could not be taken because of the patient's baseline mental status. REVIEW OF SYSTEMS: Could not be taken because of the patient's baseline mental status. PHYSICAL EXAMINATION: VITAL SIGNS: Pulse is 106, blood pressure 83/59, and respirations 20. HEENT: Conjunctivae are normal. NECK: No jugular venous distention. CARDIOVASCULAR: S1 and S2 muffled. RESPIRATORY: Breath sounds diminished at the bases, bilateral scattered rhonchi and crackles. ABDOMEN: Soft, nontender. LEGS: No edema. NERVOUS SYSTEM: Diffusely weak. SKIN: No ulcer, rash, or bleeding. JOINTS: No active deforming arthropathy. LABORATORY DATA: Reviewed. Chest x-ray reviewed personally. ASSESSMENT: 1. Bilateral pneumonia with possible sepsis and hypotension. 2. Acute hypoxic respiratory failure. 3. Influenza A. 4. Dementia, possibly. 5. Gastroesophageal reflux disease. 6. Multiple medical issues. RECOMMENDATIONS: This 77-year-old gentleman presented with multiple complex medical issues, we will monitor the patient closely. I would recommend again a bolus of 1 L broad- spectrum IV antibiotics, obtain the cultures. The patient most likely has a complicated bacterial pneumonia along with the flu. Resume the home medications, intensive bronchodilators, steroids. Overall prognosis extremely guarded. Procalcitonin is elevated. Discussed with staff, further recommendations to follow. Pulmonary also will be consulted. See orders for details. The patient might need ICU transfer if the blood pressure remains unstable. MMODL / IJN: [id number] / [id number]
--- NOTE | 2022-10-19 13:38 | P.CNPUL ---
History of Present Illness Consult date: 10/19/22 History of present illness: 77-year-old male patient got transferred to us from the alf because of diminished level of consciousness, diminished alertness on top of his chronic altered mentation. The patient immediately was diagnosed having an acute influenza a infection and the chest exit showed perihilar bilateral lower lobe pulmonary infiltrates in addition to lower lobe pulmonary infiltrates and the patient was given Tamiflu and Rocephin and Zithromax. At this point in time the patient is on 100% nonrebreather facemask. He is slightly tachypneic. Pulse ox is 97%. No reported aspiration. Note that the patient was seen here in the hospital approximately in August 2021 and back then he had a Covid 19 infection. He did survive that episode. He is known to have Parkinson's disease and he has chronic cognitive impairment, he is a DNR/DNI CODE STATUS, he has issues with hypertension, depression, chronic constipation and previous history of prostate cancer. During this current admission, the patient was given blood work that showed WBC count of 7.9 with a hemoglobin of 15 and a platelet count of 110. The patient does have normal platelet counts on previous evaluations. At the same time, the sodium is at 137, BUN is at 23 with a crea tinine of 0.7, pro-calcitonin level was at 0.32, proBNP level was 1820 and a troponin was negative. His bilirubin was at 1.2.3 and the rest of the LFTs are essentially within normal limits. The patient is unable to volunteer any medical information. No reported history of aspiration although this is an obvious concern. He withdraws to painful stimulation in all 4 extremities. He is currently on IV fluids Review of Systems CONSTITUTIONAL: No fever, no malaise, no fatigue. HEENT: No recent visual problems or hearing problems. Denied any sore throat. CARDIOVASCULAR: No orthopnea, PND, no palpitations, no syncope. PULMONARY: No shortness of breath, no cough, no hemoptysis. GASTROINTESTINAL: No diarrhea, no nausea, no vomiting, no abdominal pain. Normoactive bowel sounds. NEUROLOGICAL: No headaches, no weakness, no numbness. HEMATOLOGICAL: Denies any bleeding or petechiae. GENITOURINARY: Denies any burning micturition, frequency, or urgency. MUSCULOSKELETAL/RHEUMATOLOGICAL: Denies any joint pain, swelling, or any muscle pain. ENDOCRINE: Denies any polyuria or polydipsia. Past Medical History Past Medical History: Cancer (Prostate cancer), Dementia, Diabetes Mellitus, GERD/Reflux Additional Past Medical History / Comment(s): parkinson disease, dementia, cognitive impairement History of Any Multi-Drug Resistant Organisms: None Reported Past Surgical History: Unable to Obtain Additional Past Surgical History / Comment(s): eye surgery Past Anesthesia/Blood Transfusion Reactions: Unable to Obtain Past Psychological History: Anxiety, Bipolar, Depression Smoking Status: Never smoker Past Alcohol Use History: Daily Past Drug Use History: None Reported - Past Family History Father Family Medical History: Unable to Obtain Medications and Allergies Home Medications Medication Instructions Recorded Confirmed Type Thiamine [Vitamin B-1] 100 mg PO DAILY@0800 06/24/21 10/19/22 History Divalproex [Depakote] 250 mg PO TID@0800,1400,1800 07/13/21 10/19/22 History Melatonin 5 mg PO DAILY@1800 07/13/21 10/19/22 History QUEtiapine [SEROquel] 50 mg PO BID@0800,1800 07/13/21 10/19/22 History lisinopriL [Zestril] 5 mg PO DAILY@0800 08/31/21 10/19/22 History Ascorbic Acid [Vitamin C] 1,000 mg PO DAILY #60 tab 09/04/21 10/19/22 Rx Cholecalciferol [Vitamin D3 (25 50 mcg PO DAILY #60 tablet 09/04/21 10/19/22 Rx Mcg = 1000 Iu)] Acetaminophen Tab [Tylenol] 650 mg PO Q4H PRN 10/19/22 10/19/22 History Benadryl [place] 1 spray TOPICAL QID PRN 10/19/22 10/19/22 History Donepezil [Aricept] 5 mg PO HS 10/19/22 10/19/22 History Tsering-Lanta 15 ml PO BID PRN 10/19/22 10/19/22 History Kaolin Pectin 30 ml PO DIRECTED PRN 10/19/22 10/19/22 History Magnesium Hydroxide [Milk of 2,400 mg PO HS PRN 10/19/22 10/19/22 History Magnesia] Omeprazole [PriLOSEC] 20 mg PO BID PRN 10/19/22 10/19/22 History Sertraline [Zoloft] 50 mg PO DAILY@0800 10/19/22 10/19/22 History Sertraline [Zoloft] 100 mg PO DAILY@1800 10/19/22 10/19/22 History guaiFENesin SYRUP 100MG/5ML 200 mg PO Q6H PRN 10/19/22 10/19/22 History [Robitussin] metFORMIN HCL [Glucophage] 500 mg PO BID@0800,1800 10/19/22 10/19/22 History rOPINIRole HCL [Requip] 1 mg PO BID@0800,1800 10/19/22 10/19/22 History traZODone HCL [Desyrel] 25 mg PO DAILY@1800 10/19/22 10/19/22 History Allergies Allergy/AdvReac Type Severity Reaction Status Date / Time No Known Allergies Allergy Verified 10/19/22 08:25 Physical Exam Vitals: Vital Signs Temp Pulse Resp BP Pulse Ox FiO2 10/19/22 12:52 89 22 10/19/22 12:45 89 24 10/19/22 09:49 96 20 10/19/22 09:39 93 18 97 97 10/19/22 06:40 106 H 20 83/59 95 10/19/22 05:04 97.9 F 115 H 22 107/72 96 10/19/22 03:59 107 H 94 L 100 10/19/22 03:48 107 H 10/19/22 02:52 101.7 F H 10/19/22 02:40 107 H 20 93 L 10/19/22 01:16 101.2 F H 112 H 17 174/98 92 L Intake and Output 10/18/22 10/19/22 10/19/22 22:59 06:59 14:59 Other: Weight 74.843 kg -GENERAL: The patient is alert and oriented x0, follows commands not in any acute distress. the patient is currently a mild degree of respiratory distress and the patient is currently on 100% nonrebreather facemask. HEENT: Pupils are round and equally reacting to light. EOMI. No scleral icterus. No conjunctival pallor. Normocephalic, atraumatic. No pharyngeal erythema. No thyromegaly. CARDIOVASCULAR: S1 and S2 present. No murmurs, rubs, or gallops. PULMONARY: Chest is diminished breath sounds and the patient has scattered rhonchi heard throughout the lung dozier bilaterally -ABDOMEN: Soft, nontender, nondistended, normoactive bowel sounds. No palpable organomegaly. Cardoso catheter is in place MUSCULOSKELETAL: No joint swelling or deformity. EXTREMITIES: No cyanosis, clubbing, or pedal edema. NEUROLOGICAL: Gross neurological examination did not reveal any focal deficits. he is nonverbal. He is withdrawing only to painful stimulation. Pupils are equal and reactive to light. No facial asymmetry. Withdraws to painful stimulation bilaterally. SKIN: No rashes. No petechiae Results - Laboratory Findings CBC and BMP: 10/19/22 01:49 10/19/22 01:49 PT/INR, D-dimer PT 10.3 sec (9.0-12.0) 10/19/22 01:49 INR 1.0 (<1.2) 10/19/22 01:49 Abnormal lab findings: Abnormal Labs 10/19/22 10/19/22 10/19/22 01:27 01:49 01:49 Plt Count 110 L Lymphocytes # (Manual) 0.55 L BUN 23 H Glucose 168 H Calcium 7.9 L Magnesium 1.4 L Total Bilirubin 2.3 H Procalcitonin Influenza Type A (PCR) Detected A 10/19/22 07:38 Plt Count Lymphocytes # (Manual) BUN Glucose Calcium Magnesium Total Bilirubin Procalcitonin 0.32 H Influenza Type A (PCR) Assessment and Plan Plan: Acute influenza A pneumonia Acute hypoxic respiratory failure currently on 100% on rebreather facemask. Rule out superinfection, bacterial, rule out aspiration. Acute shortness of breath secondary to above Acute on chronic altered mentation related to encephalopathy caused by influenza A infection History of Parkinson's disease Chronic dementia with impairment of cognitive functions previous history of Covid 19 infection in 2020, recovered DNR/DNI CODE STATUS Prostate cancer Hypertension Bipolar disorder/depression, history of Chronic constipation Acid reflux [facility] resident Plan Keep the patient 100% nonrebreather facemask Keep the patient nothing by mouth for now Swallow evaluation within next 24 hours Start the patient on Tamiflu and IV Zosyn combination Check pro calcitonin level Lovenox 40 mg subcu for DVT prophylaxis DNR/DNI CODE STATUS. We'll continue to follow.
[2022-10-19] MEDS: PIPERACILLIN-TAZOBACTAM 3.375 GM in SODIUM CHLORIDE 0.9% 100 ML IVPB SCH ×2 (16:31→23:25)
[2022-10-20] MEDS: SODIUM CHLORIDE 0.9% 1,000 ML IV SCH (05:21)
--- NOTE | 2022-10-20 05:48 | P.CONS ---
History of Present Illness - Reason for Consult Consult date: 10/19/22 Influenza pneumonia Requesting physician: Wendy Tinsley - Chief Complaint Weakness and decreased level of consciousness x one day - History of Present Illness Patient is a 77-year-old male resident of the local [place] [facility] with multiple comorbidities including Parkinson's disease and chronic cognitive impairment patient was sent to the ER for evaluation of decreased level of consciousness from the local [place] [facility], on arrival to the ER patient did have a fever of 101.2 F patient was hypoxic O2 sats of 92% and is currently on a 15 L high flow oxygen to maintain his O2 sats patient did have a normal white count creatinine was normal her liver enzymes are normal tested positive for influenza RSV and COVID was negative patient did have a chest x-ray pulmonary edema slightly worse than last exam could be acute heart failure or acute pneumonia patient was started on Tamiflu received Rocephin Zithromax subsequently back switched over to Zosyn infectious disease was consulted for further management of antibiotic therapy most information has been obtained from review the chart talking to nursing staff as the patient himself cannot provide any history he withdraws to pain but did not answer any question no vomiting or diarrhea was reported by the nursing staff Review of Systems Positive points has been mentioned in HPI complete review could not be obtained because of his underlying mental status Past Medical History Past Medical History: GERD/Reflux History of Any Multi-Drug Resistant Organisms: None Reported Past Surgical History: Unable to Obtain Additional Past Surgical History / Comment(s): eye surgery Past Anesthesia/Blood Transfusion Reactions: Unable to Obtain Past Psychological History: Anxiety, Bipolar, Depression Smoking Status: Never smoker Past Alcohol Use History: Daily Past Drug Use History: None Reported - Past Family History Father Family Medical History: Unable to Obtain Medications and Allergies Home Medications Medication Instructions Recorded Confirmed Type Thiamine [Vitamin B-1] 100 mg PO DAILY@0800 06/24/21 10/19/22 History Divalproex [Depakote] 250 mg PO TID@0800,1400,1800 07/13/21 10/19/22 History Melatonin 5 mg PO DAILY@1800 07/13/21 10/19/22 History QUEtiapine [SEROquel] 50 mg PO BID@0800,1800 07/13/21 10/19/22 History lisinopriL [Zestril] 5 mg PO DAILY@0800 08/31/21 10/19/22 History Ascorbic Acid [Vitamin C] 1,000 mg PO DAILY #60 tab 09/04/21 10/19/22 Rx Cholecalciferol [Vitamin D3 (25 50 mcg PO DAILY #60 tablet 09/04/21 10/19/22 Rx Mcg = 1000 Iu)] Acetaminophen Tab [Tylenol] 650 mg PO Q4H PRN 10/19/22 10/19/22 History Benadryl [place] 1 spray TOPICAL QID PRN 10/19/22 10/19/22 History Donepezil [Aricept] 5 mg PO HS 10/19/22 10/19/22 History Tsering-Lanta 15 ml PO BID PRN 10/19/22 10/19/22 History Kaolin Pectin 30 ml PO DIRECTED PRN 10/19/22 10/19/22 History Magnesium Hydroxide [Milk of 2,400 mg PO HS PRN 10/19/22 10/19/22 History Magnesia] Omeprazole [PriLOSEC] 20 mg PO BID PRN 10/19/22 10/19/22 History Sertraline [Zoloft] 50 mg PO DAILY@0800 10/19/22 10/19/22 History Sertraline [Zoloft] 100 mg PO DAILY@1800 10/19/22 10/19/22 History guaiFENesin SYRUP 100MG/5ML 200 mg PO Q6H PRN 10/19/22 10/19/22 History [Robitussin] metFORMIN HCL [Glucophage] 500 mg PO BID@0800,1800 10/19/22 10/19/22 History rOPINIRole HCL [Requip] 1 mg PO BID@0800,1800 10/19/22 10/19/22 History traZODone HCL [Desyrel] 25 mg PO DAILY@1800 10/19/22 10/19/22 History Ipratropium-Albuterol Nebulize 3 ml INHALATION RT-Q4H PRN each 10/24/22 Rx [Duoneb 0.5 mg-3 mg/3 ml Soln] Ipratropium-Albuterol Nebulize 3 ml INHALATION RT-QID 30 Days 10/24/22 Rx [Duoneb 0.5 mg-3 mg/3 ml Soln] #120 each Moxifloxacin HCl [Avelox] 400 mg PO DAILY 7 Days #7 tab 10/24/22 Rx predniSONE [Deltasone] 20 mg PO DAILY #12 tab 10/24/22 Rx Allergies Allergy/AdvReac Type Severity Reaction Status Date / Time No Known Allergies Allergy Verified 10/19/22 08:25 Physical Exam Vitals: Vital Signs Temp Pulse Resp BP Pulse Ox FiO2 10/19/22 09:49 96 20 10/19/22 09:39 93 18 97 97 10/19/22 06:40 106 H 20 83/59 95 10/19/22 05:04 97.9 F 115 H 22 107/72 96 10/19/22 03:59 107 H 94 L 100 10/19/22 03:48 107 H 10/19/22 02:52 101.7 F H 10/19/22 02:40 107 H 20 93 L 10/19/22 01:16 101.2 F H 112 H 17 174/98 92 L Intake and Output 10/18/22 10/19/22 10/19/22 22:59 06:59 14:59 Other: Weight 74.843 kg GENERAL DESCRIPTION: Elderly male lying in bed, no distress. No tachypnea or accessory muscle of respiration use. HEENT: Shows Pallor , no scleral icterus. Oral mucous membrane is dry. No pha ryngeal erythema or thrush NECK: Trachea central, no thyromegaly. LUNGS: Unlabored breathing. Coarse breath sounds bilaterally. HEART: S1, S2, regular rate and rhythm. No loud murmur ABDOMEN: Soft, no tenderness , guarding or rigidity, no organomegaly EXTREMITIES: No edema of feet. SKIN: No rash, no masses palpable. NEUROLOGICAL: The patient is awake, however nonverbal orientation couldn't be determined Results CBC & Chem 7: 10/24/22 03:51 10/24/22 03:51 Labs: Abnormal Lab Results - Last 24 Hours (Table) 10/19/22 10/19/22 10/19/22 Range/Units 01:27 01:49 01:49 Plt Count 110 L (150-450) k/uL Lymphocytes # (Manual) 0.55 L (1.0-4.8) k/uL BUN 23 H (9-20) mg/dL Glucose 168 H (74-99) mg/dL Calcium 7.9 L (8.4-10.2) mg/dL Magnesium 1.4 L (1.6-2.3) mg/dL Total Bilirubin 2.3 H (0.2-1.3) mg/dL Procalcitonin (0.02-0.09) ng/mL Influenza Type A (PCR) Detected A (Not Detectd) 10/19/22 Range/Units 07:38 Plt Count (150-450) k/uL Lymphocytes # (Manual) (1.0-4.8) k/uL BUN (9-20) mg/dL Glucose (74-99) mg/dL Calcium (8.4-10.2) mg/dL Magnesium (1.6-2.3) mg/dL Total Bilirubin (0.2-1.3) mg/dL Procalcitonin 0.32 H (0.02-0.09) ng/mL Influenza Type A (PCR) (Not Detectd) Assessment and Plan (1) Community acquired pneumonia Status: Acute Code(s): J18.9 - PNEUMONIA, UNSPECIFIED ORGANISM SNOMED Code(s): 463736544 (2) Influenza A Status: Acute Code(s): J10.1 - FLU DUE TO OTH IDENT INFLUENZA VIRUS W OTH RESP MANIFEST SNOMED Code(s): 325005036 Plan: 1patient presented to hospital with mental status changes and acute respiratory failure requiring high flow oxygen likely multifactorial in this patient who did have a initial diagnosis of acute influenza A and now with concern for possible secondary bacterial pneumonia questionable aspiration etiology keep in mind the [place] [facility] resident will need to cover for resistant gram-negative. 2patient to continue with the Tamiflu to finish a 5-day course of therapy. 3Zosyn 3.375 g every 8 hour. 4obtain a sputum for gram stain and culture. We will follow on clinical condition and cultures to further adjust medication if needed Thank you for this consultation we will follow the patient along with you Time with Patient: Greater than 30
[2022-10-20] MEDS: methylPREDNISolone SOD SUCCI 125 MG/2 ML VIAL IV SCH ×4 (06:04→23:42)
[2022-10-20 06:20] LABS: Basophils % (A) 0 %; Eosinophils % (A) 0 %; HCT 38.4 % (39.0-53.0); Lymphocytes # (A) 0.4 k/uL (1.0-4.8); Lymphocytes % (A) 6 %; MCH 33.4 pg (25.0-35.0); MCHC 33.8 g/dL (31.0-37.0); MCV 98.8 fL (80.0-100.0); Mean Platelet Volume 9.8; Monocytes # (A) 0.2 k/uL (0-1.0); Monocytes % (A) 4 %; Neutrophils # (A) 5.2 k/uL (1.3-7.7); Neutrophils % (A) 89 %; Platelet Count 113 k/uL (150-450); RBC 3.88 m/uL (4.30-5.90); WBC 5.9 k/uL (3.8-10.6)
[2022-10-20 06:33] LABS: African American GFR (CKD) >90 (>60 ml/min/1.73 sqM); Anion Gap 4 mmol/L; Blood Urea Nitrogen 24 mg/dL (9-20); Calcium 8.3 mg/dL (8.4-10.2); Carbon Dioxide 29 mmol/L (22-30); Chloride 110 mmol/L (98-107); Glucose 165 mg/dL (74-99); Magnesium 1.6 mg/dL (1.6-2.3); Non-African American GFR(CKD) 89 (>60 ml/min/1.73 sqM); Potassium 4.3 mmol/L (3.5-5.1); Sodium 143 mmol/L (137-145)
--- NOTE | 2022-10-20 07:41 | XR ---
EXAMINATION TYPE: XR chest 1V portable DATE OF EXAM: 10/20/2022 5:58 AM COMPARISON: Chest radiographs from 10/19/2022 TECHNIQUE: XR chest 1V portable Portable AP radiograph of the chest. CLINICAL INDICATION:Male, 77 years old with history of pneumonia; FINDINGS: Lungs/Pleura: No pleural effusion or pneumothorax. Increased bibasilar patchy interstitial airspace o pacities from prior examination. Heart/mediastinum: Cardiomediastinal silhouette is stable. Musculoskeletal: No acute osseous pathology. IMPRESSION: Increased bibasilar patchy and interstitial airspace opacities concerning for worsening pneumonia.
[2022-10-20] MEDS: PIPERACILLIN-TAZOBACTAM 3.375 GM in SODIUM CHLORIDE 0.9% 100 ML IVPB SCH ×3 (07:51→23:42)
[2022-10-20] MEDS: IPRATROPIUM-ALBUTEROL 3 ML NEB INHALATION SCH ×4 (08:13→20:38)
[2022-10-20] MEDS: OSELTAMIVIR 75 MG CAP PO SCH ×2 (08:53→21:31)
[2022-10-20] MEDS ORDERED: AZITHROMYCIN 500 MG TAB PO SCH (09:00)
[2022-10-20] MEDS ORDERED: Magnesium Replacement Protocol 1 EACH MISC MISCELLANE PRN (10:12)
[2022-10-20] MEDS: MAGNESIUM SULFATE-D5W PMX 1 GM in DEXTROSE/WATER 1 100ML.BAG IVPB SCH ×2 (10:59→12:49)
--- NOTE | 2022-10-20 12:13 | P.PN ---
Subjective Progress Note Date: 10/20/22 77-year-old male patient got transferred to us from the senior care because of diminished level of consciousness, diminished alertness on top of his chronic altered mentation. The patient immediately was diagnosed having an acute influenza a infection and the chest exit showed perihilar bilateral lower lobe pulmonary infiltrates in addition to lower lobe pulmonary infiltrates and the patient was given Tamiflu and Rocephin and Zithromax. At this point in time the patient is on 100% nonrebreather facemask. He is slightly tachypneic. Pulse ox is 97%. No reported aspiration. Note that the patient was seen here in the hospital approximately in August 2021 and back then he had a Covid 19 infec tion. He did survive that episode. He is known to have Parkinson's disease and he has chronic cognitive impairment, he is a DNR/DNI CODE STATUS, he has issues with hypertension, depression, chronic constipation and previous history of prostate cancer. During this current admission, the patient was given blood work that showed WBC count of 7.9 with a hemoglobin of 15 and a platelet count of 110. The patient does have normal platelet counts on previous evaluations. At the same time, the sodium is at 137, BUN is at 23 with a creatinine of 0.7, pro-calcitonin level was at 0.32, proBNP level was 1820 and a troponin was negative. His bilirubin was at 1.2.3 and the rest of the LFTs are essentially within normal limits. The patient is unable to volunteer any medical information. No reported history of aspiration although this is an obvious concern. He withdraws to painful stimulation in all 4 extremities. He is currently on IV fluids On today's evaluation of 10/20/2022, the patient is communicating. He is feeling much better compared to yesterday. He was taken off the 100% nonre breather facemask and he was placed on room air oxygen with a pulse ox of 92%. His chest x-ray still showing diffuse bilateral pulmonary infiltrates patchy and interstitial and this may be related to pneumonia versus pulmonary vessel congestion/edema. No major leg edema. He is more communicative compared to yesterday although he is still confused and the patient is known to have chronic cognitive impairment secondary to his underlying Parkinson's disease. The white cell count is at 5.9 with a hemoglobin of 13 and a platelet count of 113. BUN is 24 with a creatinine of 0.7. Pro-calcitonin level was at 0.32 with a sodium level of 143. ProBNP level was 1820. Blood cultures have been negative for now. The patient is on DuoNeb nebulized treatments he is on Tamiflu and he is also on IV Zosyn. IV fluids are currently at 20 mL an hour Objective - Vital Signs Vital signs: Vital Signs Temp 98 F 10/20/22 10:00 Pulse 84 10/20/22 10:00 Resp 18 10/20/22 10:00 BP 125/84 10/20/22 10:00 Pulse Ox 94 L 10/20/22 10:00 FiO2 100 10/19/22 20:41 - Exam -GENERAL: The patient is alert and oriented x0, follows commands not in any acute distress. the patient is currently a mild degree of respiratory distress and the patient is currently on room air oxygen with a pulse ox of 92% HEENT: Pupils are round and equally reacting to light. EOMI. No scleral icterus. No conjunctival pallor. Normocephalic, atraumatic. No pharyngeal erythema. No thyromegaly. CARDIOVASCULAR: S1 and S2 present. No murmurs, rubs, or gallops. PULMONARY: Chest is diminished breath sounds and the patient has scattered rhonchi heard throughout the lung dozier bilaterally -ABDOMEN: Soft, nontender, nondistended, normoactive bowel sounds. No palpable organomegaly. Cardoso catheter is in place MUSCULOSKELETAL: No joint swelling or deformity. EXTREMITIES: No cyanosis, clubbing, or pedal edema. NEUROLOGICAL: Gross neurological examination did not reveal any focal deficits. he is nonverbal. He is withdrawing only to painful stimulation. Pupils are equal and reactive to light. No facial asymmetry. Withdraws to painful stimulation bilaterally. SKIN: No rashes. No petechiae - Labs CBC & Chem 7: 10/20/22 05:55 10/20/22 05:55 Labs: Abnormal Lab Results - Last 24 Hours (Table) 10/20/22 10/20/22 Range/Units 05:55 05:55 RBC 3.88 L (4.30-5.90) m/uL Hct 38.4 L (39.0-53.0) % Plt Count 113 L (150-450) k/uL Lymphocytes # 0.4 L (1.0-4.8) k/uL Chloride 110 H (98-107) mmol/L BUN 24 H (9-20) mg/dL Glucose 165 H (74-99) mg/dL Calcium 8.3 L (8.4-10.2) mg/dL Microbiology - Last 24 Hours (Table) 10/19/22 04:45 Blood Culture - Preliminary Blood No Growth after 24 hours 10/19/22 04:30 Blood Culture - Preliminary Blood No Growth after 24 hours Assessment and Plan Plan: Acute influenza A pneumonia, currently on Tamiflu, clinically stable Acute hypoxic respiratory failure currently on 100% on rebreather facemask. Rule out superinfection, bacterial, rule out aspiration. The patient is improved considerably and the patient is currently on room air oxygen. A chest x-ray still showing perihilar and lower lobe pulmonary infiltrates. Nevertheless, the patient on Tamiflu and Zosyn covering for aspiration pneumonia and his overall respiratory status is stable for now. Acute shortness of breath secondary to above, improved Acute on chronic altered mentation related to encephalopathy caused by influenza A infection, improved and the patient more communicable and alert on today's evaluation History of Parkinson's disease Chronic dementia with impairment of cognitive functions previous history of Covid 19 infection in 2020, recovered DNR/DNI CODE STATUS Prostate cancer Hypertension Bipolar disorder/depression, history of Chronic constipation Acid reflux longterm resident Plan Keep the patient on room air oxygen Swallow evaluation pending Start the patient on Tamiflu and IV Zosyn combination Check pro calcitonin level lower spectrum of normal Lovenox 40 mg subcu for DVT prophylaxis DNR/DNI CODE STATUS. We'll continue to follow.
--- NOTE | 2022-10-20 23:04 | PN ---
PROGRESS NOTE DATE OF SERVICE: 10/20/2022 SUBJECTIVE: This 77-year-old gentleman, who was admitted with fever and bilateral pneumonia with possible sepsis and hypotension, is being closely monitored. The patient is feeling slightly better. No chest pain. No palpitations. No fever. Dr. Briones and Dr. Fernandez following the patient closely. X-ray showed some increased bibasilar opacity. ASSESSMENT: 1. Bibasilar pneumonia with sepsis and hypotension. 2. Acute hypoxic respiratory failure. 3. Influenza A. 4. Dementia, possibly. 5. Gastroesophageal reflux disease. 6. Multiple medical issues. RECOMMENDATIONS: I recommend to continue current management and symptomatic treatment. Continue with antibiotics and bronchodilators. Continue with rest of the medications. Repeat labs in the morning. Prognosis is guarded. Further recommendations to follow. MMODL / IJN: [id number] /
[2022-10-21] MEDS: methylPREDNISolone SOD SUCCI 125 MG/2 ML VIAL IV SCH ×3 (05:57→17:38)
[2022-10-21] MEDS: IPRATROPIUM-ALBUTEROL 3 ML NEB INHALATION SCH ×4 (08:31→20:42)
[2022-10-21] MEDS: PIPERACILLIN-TAZOBACTAM 3.375 GM in SODIUM CHLORIDE 0.9% 100 ML IVPB SCH ×2 (08:52→17:39)
[2022-10-21] MEDS: OSELTAMIVIR 75 MG CAP PO SCH ×2 (08:52→20:20)
[2022-10-21] MEDS: SODIUM CHLORIDE 0.9% 1,000 ML IV SCH (08:53)
[2022-10-21 09:14] LABS: Basophils # (A) 0.01 X 10*3/uL (0.00-0.10); Basophils % (A) 0.1 %; Eosinophils # (A) 0 X 10*3/uL (0.04-0.35); Eosinophils % (A) 0 %; HCT 37.5 % (39.6-50.0); HGB 12.3 g/dL (13.0-17.0); Immature Grans, Automated 0.4 %; Lymphocytes % (A) 5.5 %; MCH 31.9 pg (27.0-32.0); MCHC 32.8 g/dL (32.0-37.0); MCV 97.2 fL (80.0-97.0); Monocytes # (A) 0.31 X 10*3/uL (0.20-1.00); Monocytes % (A) 4.2 %; NRBC Per 100 WBC 0 /100 WBCS (0.0-0.0); Neutrophils # (A) 6.57 X 10*3/uL (1.80-7.70); Neutrophils % (A) 89.8 %; Platelet Count 153 X 10*3/uL (140-440); RBC 3.86 X 10*6/uL (4.40-5.60); RDW 12.7 % (11.5-14.5); WBC 7.32 X 10*3/uL (4.50-10.00)
[2022-10-21 09:28] LABS: African American GFR (CKD) 100.6 (60.0-200.0); Anion Gap 8.7 mmol/L (10.00-18.00); BUN/Creat Ratio 31.75 Ratio (12.00-20.00); Blood Urea Nitrogen 25.4 mg/dL (9.0-27.0); Calcium 8.6 mg/dL (8.7-10.3); Carbon Dioxide 26.3 mmol/L (20.0-27.5); Magnesium 1.8 mg/dL (1.5-2.4); Non-African American GFR(CKD) 86.8 (60.0-200.0); Potassium 3.8 mmol/L (3.5-5.5)
--- NOTE | 2022-10-21 11:30 | P.PN ---
Subjective Progress Note Date: 10/21/22 77-year-old male patient got transferred to us from the [facility] because of diminished level of consciousness, diminished alertness on top of his chronic altered mentation. The patient immediately was diagnosed having an acute influenza a infection and the chest exit showed perihilar bilateral lower lobe pulmonary infiltrates in addition to lower lobe pulmonary infiltrates and the patient was given Tamiflu and Rocephin and Zithromax. At this point in time the patient is on 100% nonrebreather facemask. He is slightly tachypneic. Pulse ox is 97%. No reported aspiration. Note that the patient was seen here in the hospital approximately in August 2021 and back then he had a Covid 19 infec tion. He did survive that episode. He is known to have Parkinson's disease and he has chronic cognitive impairment, he is a DNR/DNI CODE STATUS, he has issues with hypertension, depression, chronic constipation and previous history of prostate cancer. During this current admission, the patient was given blood work that showed WBC count of 7.9 with a hemoglobin of 15 and a platelet count of 110. The patient does have normal platelet counts on previous evaluations. At the same time, the sodium is at 137, BUN is at 23 with a creatinine of 0.7, pro-calcitonin level was at 0.32, proBNP level was 1820 and a troponin was negative. His bilirubin was at 1.2.3 and the rest of the LFTs are essentially within normal limits. The patient is unable to volunteer any medical information. No reported history of aspiration although this is an obvious concern. He withdraws to painful stimulation in all 4 extremities. He is currently on IV fluids On today's evaluation of 10/20/2022, the patient is communicating. He is feeling much better compared to yesterday. He was taken off the 100% nonre breather facemask and he was placed on room air oxygen with a pulse ox of 92%. His chest x-ray still showing diffuse bilateral pulmonary infiltrates patchy and interstitial and this may be related to pneumonia versus pulmonary vessel congestion/edema. No major leg edema. He is more communicative compared to yesterday although he is still confused and the patient is known to have chronic cognitive impairment secondary to his underlying Parkinson's disease. The white cell count is at 5.9 with a hemoglobin of 13 and a platelet count of 113. BUN is 24 with a creatinine of 0.7. Pro-calcitonin level was at 0.32 with a sodium level of 143. ProBNP level was 1820. Blood cultures have been negative for now. The patient is on DuoNeb nebulized treatments he is on Tamiflu and he is also on IV Zosyn. IV fluids are currently at 20 mL an hour 10/21/2022, the patient is clinically stable on room air oxygen. He is being treated for influenza A infection. He does cognitive impairment due to his underlying Parkinson's disease. He was quite altered and was having diminished level of consciousness at the time of admission and he gradually arousals. No signs of any respiratory distress. The repeat chest x-ray was done yesterday and there was no major interval change with perihilar and lower lobe at the pulmonary infiltrates. Suspected aspiration pneumonia and the patient also on IV Zosyn. For now, he is completing a course of Tamiflu and Zosyn. He is also on IV fluids at 20 mL an hour. His blood work from today shows a white cell count of 7.3 with a hemoglobin 12.3, platelet at 153, BUN is at 25 with a creatinine of 0.8 and sodium is at 141. His pro calcitonin level from was elevated at 0.82. No other active issues otherwise for now. Objective - Vital Signs Vital signs: Vital Signs Temp 98.3 F 10/21/22 07:25 Pulse 64 10/21/22 08:40 Resp 15 10/21/22 07:25 BP 143/86 10/21/22 07:25 Pulse Ox 94 L 10/21/22 07:25 FiO2 100 10/19/22 20:41 Intake & Output 10/20/22 10/21/22 10/21/22 18:59 06:59 18:59 Intake Total 200 Output Total 650 Balance 200 -650 Weight 74.843 kg Intake: Intake, IV Titration 200 Amount Magnesium Sulfate-D5w Pmx 100 1 gm In Dextrose/Water 1 100ml.bag @ 100 mls/hr IVPB Q1H [facility] Rx#: [id number] Piperacillin-Tazobactam 3 100 .375 gm In Sodium Chloride 0.9% 100 ml @ 25 mls/hr IVPB Q8HR [facility] Rx# :[id number] Output: Urine 650 Other: Voiding Method External Catheter External Catheter External Catheter - Exam -GENERAL: The patient is alert and oriented x0, follows commands not in any acute distress. the patient is currently a mild degree of respiratory distress and the patient is currently on room air oxygen with a pulse ox of 92% HEENT: Pupils are round and equally reacting to light. EOMI. No scleral icterus. No conjunctival pallor. Normocephalic, atraumatic. No pharyngeal erythema. No thyromegaly. CARDIOVASCULAR: S1 and S2 present. No murmurs, rubs, or gallops. PULMONARY: Chest is diminished breath sounds and the patient has scattered rhonchi heard throughout the lung dozier bilaterally -ABDOMEN: Soft, nontender, nondistended, normoactive bowel sounds. No palpable organomegaly. Cardoso catheter is in place MUSCULOSKELETAL: No joint swelling or deformity. EXTREMITIES: No cyanosis, clubbing, or pedal edema. NEUROLOGICAL: Gross neurological examination did not reveal any focal deficits. he is nonverbal. He is withdrawing only to painful stimulation. Pupils are equal and reactive to light. No facial asymmetry. Withdraws to painful stimulation bilaterally. SKIN: No rashes. No petechiae - Labs CBC & Chem 7: 10/21/22 06:03 10/21/22 06:03 Labs: Abnormal Lab Results - Last 24 Hours (Table) 10/21/22 10/21/22 Range/Units 06:03 06:03 RBC 3.86 L (4.40-5.60) X 10*6/uL Hgb 12.3 L (13.0-17.0) g/dL Hct 37.5 L (39.6-50.0) % MCV 97.2 H (80.0-97.0) fL Lymphocytes # 0.40 L (0.90-5.00) X 10*3/uL Eosinophils # 0 L (0.04-0.35) X 10*3/uL Anion Gap 8.70 L (10.00-18.00) mmol/L BUN/Creatinine Ratio 31.75 H (12.00-20.00) Ratio Glucose 168 H (70-110) mg/dL Calcium 8.6 L (8.7-10.3) mg/dL Microbiology - Last 24 Hours (Table) 10/19/22 04:30 Blood Culture - Preliminary Blood No Growth after 48 hours 10/19/22 04:45 Blood Culture - Preliminary Blood No Growth after 48 hours Assessment and Plan Plan: Acute influenza A pneumonia, currently on Tamiflu, clinically stable Acute hypoxic respiratory failure currently on 100% on rebreather facemask. Rule out superinfection, bacterial, rule out aspiration. The patient is improved considerably and the patient is currently on room air oxygen. A chest x-ray still showing perihilar and lower lobe pulmonary infiltrates. Nevertheless, the patient on Tamiflu and Zosyn covering for aspiration pneumonia and his overall respiratory status is stable for now. Acute shortness of breath secondary to above, improved Acute on chronic altered mentation related to encephalopathy caused by influenza A infection, improved and the patient more communicable and alert on today's evaluation History of Parkinson's disease Chronic dementia with impairment of cognitive functions previous history of Covid 19 infection in 2020, recovered DNR/DNI CODE STATUS Prostate cancer Hypertension Bipolar disorder/depression, history of Chronic constipation Acid reflux alf resident Plan Keep the patient on room air oxygen and the patient remains clinically stable as the patient is being treated for influenza A and possible aspiration Continue Tamiflu and IV Zosyn combination Check pro calcitonin level lower spectrum of normal Lovenox 40 mg subcu for DVT prophylaxis DNR/DNI CODE STATUS. We'll continue to follow.
[2022-10-21 11:35] VITALS: BMI 23.6
[2022-10-21] MEDS ORDERED: PANTOPRAZOLE 40 MG TABLET PO PRN (14:11)
[2022-10-21 14:42] LABS: Amorphous Sediment,Urine Rare /hpf; Appearance,Urine Clear (Clear); Bilirubin,Urine Negative (Negative); Blood,Urine Negative (Negative); Color,Urine Yellow; Glucose,Urine (UA) 2+ (Negative); Ketones,Urine Trace (Negative); Leukocyte Esterase,Urine Large (Negative); Mucus,Urine Rare /hpf; Nitrite,Urine Negative (Negative); Protein,Urine Trace (Negative); RBC,Urine 3 /hpf (0-5); Squamous Epithelial Cell,Urine <1 /hpf (0-4); Urobilinogen,Urine <2.0 mg/dL (<2.0); WBC,Urine 13 /hpf (0-5)
--- NOTE | 2022-10-21 15:41 | CDI ---
Documentation Clarification Form Date: 10/21/2022 3:25:54 PM From: Leslye Connolly RN CCDS Admit Date: 10/19/2022 3:30:00 AM Patient Name: Chetan Duke Visit Number: [id number] Discharge Date: ATTENTION: The Clinical Documentation Specialists (CDI) and [facility] Coding Staff appreciate your assistance in clarifying documentation. Please respond to the clarification below the line at the bottom and electronically sign. The CDI & [facility] Coding staff will review the response and follow-up if needed. Please note: Queries are made part of the Legal Health Record. If you have any questions, please contact the author of this message via ITS. Dr. Reginaldo Michelle Right Buttock, stage 2 pressure ulcer is documented Nursing 10/20, pressure injury assessment. Based on this information and the findings below, is there an additional diagnosis that is clinically appropriate for this patient? History/Risk Factors: 77-year-old male presents to the ED via EMS from [facility] for fever and shortness of breath. Medical History: Parkinsons disease; chronic dementia; Prostate CA; HTN; Bipolar depression history of. 10/19, [employer] Operator note. Clinical Indicators: Location: Right Buttock Wound description: length 2.5cm; width 0.5cm Treatment: Zinc; Absorbent pad; Turn 2QHR while in bed. Is there an additional diagnosis that is clinically appropriate for this patient? [ x ] Right Buttock Pressure Ulcer Stage 2 [ ] Other condition, please specify [ ] Unable to determine Clinical Definitions: Stage 1 Pressure Ulcer: intact skin, non-blanching redness of local area Stage 2 Pressure Ulcer: Partial thickness, loss of dermis, pink wound bed Stage 3 Pressure Ulcer: Full thickness tissue loss Stage 4 Pressure Ulcer: Full thickness tissue loss with exposed bone, tendon, or muscle. Unstageable pressure ulcer: Full thickness tissue loss in which the base of the ulcer is covered by slough (yellow, hurtado, demarco, green or brown) and/or eschar (hurtado, brown or black) in the wound bed. (Template Last Revised: December 2020) CLARA
[2022-10-21] MEDS: DIVALPROEX 250 MG TABLET.DR PO SCH (17:38)
--- NOTE | 2022-10-21 21:23 | P.PN ---
Subjective Progress Note Date: 10/20/22 Principal diagnosis: Influenza and pneumonia Patient is a 77-year-old male resident of the local long-term with multiple comorbidities including Parkinson's disease and chronic cognitive impairment patient was sent to the ER for evaluation of decreased level of consc iousness from the local long-term, on arrival to the ER patient did have a fever of 101.2 F, patient has been diagnosed with acute influenza A and was concerned for possible secondary bacterial pneumonia. On today's evaluation that is 10/20/2022, the patient is afebrile the patient is more awake and alert his breathing comfortably currently down to 4 L nasal cannula patient denies any chest pain or worsening cough no abdominal pain or diarrhea Objective - Vital Signs Vital signs: Vital Signs Temp 97.9 F 10/19/22 05:04 Pulse 64 10/20/22 08:26 Resp 22 10/20/22 07:58 BP 144/95 10/20/22 07:58 Pulse Ox 97 10/20/22 08:14 FiO2 100 10/19/22 20:41 - Exam GENERAL DESCRIPTION: An elderly male lying in bed in no distress RESPIRATORY SYSTEM: Unlabored breathing , decreased breath sounds at bases HEART: S1 S2 regular rate and rhythm , ABDOMEN: Soft , no tenderness EXTREMITIES: No edema feet - Labs CBC & Chem 7: 10/21/22 06:03 10/21/22 06:03 Labs: Abnormal Lab Results - Last 24 Hours (Table) 10/20/22 10/20/22 Range/Units 05:55 05:55 RBC 3.88 L (4.30-5.90) m/uL Hct 38.4 L (39.0-53.0) % Plt Count 113 L (150-450) k/uL Lymphocytes # 0.4 L (1.0-4.8) k/uL Chloride 110 H (98-107) mmol/L BUN 24 H (9-20) mg/dL Glucose 165 H (74-99) mg/dL Calcium 8.3 L (8.4-10.2) mg/dL Microbiology - Last 24 Hours (Table) 10/19/22 04:45 Blood Culture - Preliminary Blood No Growth after 24 hours 10/19/22 04:30 Blood Culture - Preliminary Blood No Growth after 24 hours Assessment and Plan (1) Pneumonia Current Visit: Yes Status: Acute Code(s): J18.9 - PNEUMONIA, UNSPECIFIED ORGANISM SNOMED Code(s): 377565259 (2) Influenza A Current Visit: Yes Status: Acute Code(s): J10.1 - FLU DUE TO OTH IDENT INFLUENZA VIRUS W OTH RESP MANIFEST SNOMED Code(s): 812181734 Plan: 1patient presented to hospital with mental status changes and acute respiratory failure requiring high flow oxygen likely multifactorial in this patient who did have a initial diagnosis of acute influenza A and now with concern for possible secondary bacterial pneumonia questionable aspiration etiology keep in mind the long-term resident will need to cover for resistant gram-negative. 2patient seemed to have on clinical improvement and will continue with the Tamiflu to finish a 5-day course of therapy along with Zosyn 3.375 g every 8 hour. Time with Patient: Less than 30
--- NOTE | 2022-10-21 21:25 | P.PN ---
Subjective Progress Note Date: 10/21/22 Principal diagnosis: Influenza and pneumonia Patient is a 77-year-old male resident of the local [facility] with multiple comorbidities including Parkinson's disease and chronic cognitive impairment patient was sent to the ER for evaluation of decreased level of consc iousness from the local [facility], on arrival to the ER patient did have a fever of 101.2 F, patient has been diagnosed with acute influenza A and was concerned for possible secondary bacterial pneumonia. On today's evaluation that is 10/21/2022, the patient remains to be afebrile the patient is breathing comfortably and down to 2 L nasal cannula oxygen, patient denies any chest pain did have occasional dry cough, no abdominal pain or diarrhea Objective - Vital Signs Vital signs: Vital Signs Temp 98.3 F 10/21/22 07:25 Pulse 64 10/21/22 11:49 Resp 15 10/21/22 07:25 BP 143/86 10/21/22 07:25 Pulse Ox 94 L 10/21/22 07:25 FiO2 100 10/19/22 20:41 Intake & Output 10/20/22 10/21/22 10/21/22 18:59 06:59 18:59 Intake Total 200 Output Total 650 Balance 200 -650 Weight 74.843 kg 74.843 kg Intake: Intake, IV Titration 200 Amount Magnesium Sulfate-D5w Pmx 100 1 gm In Dextrose/Water 1 100ml.bag @ 100 mls/hr IVPB Q1H [facility] Rx#: [id number] Piperacillin-Tazobactam 3 100 .375 gm In Sodium Chloride 0.9% 100 ml @ 25 mls/hr IVPB Q8HR [facility] Rx# :[id number] Output: Urine 650 Other: Voiding Method External Catheter External Catheter External Catheter - Exam GENERAL DESCRIPTION: An elderly male lying in bed in no distress RESPIRATORY SYSTEM: Unlabored breathing , decreased breath sounds at bases HEART: S1 S2 regular rate and rhythm , ABDOMEN: Soft , no tenderness EXTREMITIES: No edema feet - Labs CBC & Chem 7: 10/21/22 06:03 10/21/22 06:03 Labs: Abnormal Lab Results - Last 24 Hours (Table) 10/21/22 10/21/22 Range/Units 06:03 06:03 RBC 3.86 L (4.40-5.60) X 10*6/uL Hgb 12.3 L (13.0-17.0) g/dL Hct 37.5 L (39.6-50.0) % MCV 97.2 H (80.0-97.0) fL Lymphocytes # 0.40 L (0.90-5.00) X 10*3/uL Eosinophils # 0 L (0.04-0.35) X 10*3/uL Anion Gap 8.70 L (10.00-18.00) mmol/L BUN/Creatinine Ratio 31.75 H (12.00-20.00) Ratio Glucose 168 H (70-110) mg/dL Calcium 8.6 L (8.7-10.3) mg/dL Microbiology - Last 24 Hours (Table) 10/19/22 04:30 Blood Culture - Preliminary Blood No Growth after 48 hours 10/19/22 04:45 Blood Culture - Preliminary Blood No Growth after 48 hours Assessment and Plan (1) Influenza A Current Visit: Yes Status: Acute Code(s): J10.1 - FLU DUE TO OTH IDENT INFLUENZA VIRUS W OTH RESP MANIFEST SNOMED Code(s): 378839222 (2) Pneumonia Current Visit: Yes Status: Acute Code(s): J18.9 - PNEUMONIA, UNSPECIFIED ORGANISM SNOMED Code(s): 980356943 Plan: 1patient presented to hospital with mental status changes and acute respiratory failure requiring high flow oxygen likely multifactorial in this patient who did have a initial diagnosis of acute influenza A and now with concern for possible secondary bacterial pneumonia questionable aspiration etiology keep in mind the [facility] resident will need to cover for resistant gram-negative. 2patient did have some clinical improvement and the patient continue with the current treatment of Tamiflu to finish a 5-day course of therapy along with Zosyn 3.375 g every 8 hour, try to obtain a sputum to narrow down on antibiotics. Time with Patient: Less than 30
[2022-10-22] MEDS: methylPREDNISolone SOD SUCCI 125 MG/2 ML VIAL IV SCH ×5 (00:02→23:17)
[2022-10-22] MEDS: PIPERACILLIN-TAZOBACTAM 3.375 GM in SODIUM CHLORIDE 0.9% 100 ML IVPB SCH ×4 (00:04→23:16)
[2022-10-22] MEDS: SODIUM CHLORIDE 0.9% 1,000 ML IV SCH ×2 (06:56→22:31)
[2022-10-22] MEDS: IPRATROPIUM-ALBUTEROL 3 ML NEB INHALATION SCH ×4 (08:14→20:46)
[2022-10-22] MEDS: DIVALPROEX 250 MG TABLET.DR PO SCH ×3 (08:55→17:17)
[2022-10-22 09:13] LABS: Basophils # (A) 0.01 X 10*3/uL (0.00-0.10); Basophils % (A) 0.1 %; Eosinophils # (A) 0 X 10*3/uL (0.04-0.35); Eosinophils % (A) 0 %; HCT 38.5 % (39.6-50.0); HGB 12.8 g/dL (13.0-17.0); Lymphocytes # (A) 0.49 X 10*3/uL (0.90-5.00); Lymphocytes % (A) 6.7 %; MCH 31.9 pg (27.0-32.0); MCHC 33.2 g/dL (32.0-37.0); Mean Platelet Volume 10.8 fL (9.5-12.2); Monocytes # (A) 0.39 X 10*3/uL (0.20-1.00); Monocytes % (A) 5.3 %; NRBC Per 100 WBC 0 /100 WBCS (0.0-0.0); Neutrophils # (A) 6.36 X 10*3/uL (1.80-7.70); Neutrophils % (A) 86.9 %; Platelet Count 164 X 10*3/uL (140-440); RBC 4.01 X 10*6/uL (4.40-5.60); RDW 12.4 % (11.5-14.5); WBC 7.32 X 10*3/uL (4.50-10.00)
[2022-10-22 09:21] LABS: African American GFR (CKD) 100.6 (60.0-200.0); Anion Gap 10.4 mmol/L (10.00-18.00); BUN/Creat Ratio 25.63 Ratio (12.00-20.00); Blood Urea Nitrogen 20.5 mg/dL (9.0-27.0); Calcium 8.7 mg/dL (8.7-10.3); Carbon Dioxide 26.6 mmol/L (20.0-27.5); Non-African American GFR(CKD) 86.8 (60.0-200.0); Potassium 3.8 mmol/L (3.5-5.5)
[2022-10-22] MEDS: OSELTAMIVIR 75 MG CAP PO SCH ×2 (10:00→22:23)
--- NOTE | 2022-10-22 12:50 | P.PN ---
Subjective Progress Note Date: 10/22/22 77-year-old male [facility] because of diminished level of consciousness, diminished alertness on top of his chronic altered mentation. The patient immediately was diagnosed having an acute influenza a infection and the chest exit showed perihilar bilateral lower lobe pulmonary infiltrates in addition to lower lobe pulmonary infiltrates and the patient was given Tamiflu and Rocephin and Zithromax. At this point in time the patient is on 100% nonrebreather facemask. He is slightly tachypneic. Pulse ox is 97%. No reported aspiration. Note that the patient was seen here in the hospital approximately in August 2021 and back then he had a Covid 19 infec tion. He did survive that episode. He is known to have Parkinson's disease and he has chronic cognitive impairment, he is a DNR/DNI CODE STATUS, he has issues with hypertension, depression, chronic constipation and previous history of prostate cancer. During this current admission, the patient was given blood work that showed WBC count of 7.9 with a hemoglobin of 15 and a platelet count of 110. The patient does have normal platelet counts on previous evaluations. At the same time, the sodium is at 137, BUN is at 23 with a creatinine of 0.7, pro-calcitonin level was at 0.32, proBNP level was 1820 and a troponin was negative. His bilirubin was at 1.2.3 and the rest of the LFTs are essentially within normal limits. The patient is unable to volunteer any medical information. No reported history of aspiration although this is an obvious concern. He withdraws to painful stimulation in all 4 extremities. He is currently on IV fluids On today's evaluation of 10/20/2022, the patient is communicating. He is feeling much better compared to yesterday. He was taken off the 100% nonre breather facemask and he was placed on room air oxygen with a pulse ox of 92%. His chest x-ray still showing diffuse bilateral pulmonary infiltrates patchy and interstitial and this may be related to pneumonia versus pulmonary vessel congestion/edema. No major leg edema. He is more communicative compared to yesterday although he is still confused and the patient is known to have chronic cognitive impairment secondary to his underlying Parkinson's disease. The white cell count is at 5.9 with a hemoglobin of 13 and a platelet count of 113. BUN is 24 with a creatinine of 0.7. Pro-calcitonin level was at 0.32 with a sodium level of 143. ProBNP level was 1820. Blood cultures have been negative for now. The patient is on DuoNeb nebulized treatments he is on Tamiflu and he is also on IV Zosyn. IV fluids are currently at 20 mL an hour 10/21/2022, the patient is clinically stable on room air oxygen. He is being treated for influenza A infection. He does cognitive impairment due to his underlying Parkinson's disease. He was quite altered and was having diminished level of consciousness at the time of admission and he gradually arousals. No signs of any respiratory distress. The repeat chest x-ray was done yesterday and there was no major interval change with perihilar and lower lobe at the pulmonary infiltrates. Suspected aspiration pneumonia and the patient also on IV Zosyn. For now, he is completing a course of Tamiflu and Zosyn. He is also on IV fluids at 20 mL an hour. His blood work from today shows a white cell count of 7.3 with a hemoglobin 12.3, platelet at 153, BUN is at 25 with a creatinine of 0.8 and sodium is at 141. His pro calcitonin level from was elevated at 0.82. No other active issues otherwise for now. 10/22/2022, the patient is on room air oxygen. As mentioned earlier, he has cognitive impairment secondary to Parkinson's disease and dementia and he doesn't communicative whole lot. Nevertheless, his breathing is non-labored. The patient remains on the same antibiotic coverage and he is on accommodation of Tamiflu and Zosyn. In terms of labs, WBC count is at 7.3 with a hemoglobin 12.3, BUN is at 20 with a creatinine of 0.8 and sodium is at 140. The pro- calcitonin level was at 0.32. No other significant events otherwise for now. He is tolerating his diet. Objective - Vital Signs Vital signs: Vital Signs Temp 97.9 F 10/22/22 06:53 Pulse 58 L 10/22/22 11:48 Resp 16 10/22/22 06:53 BP 153/84 10/22/22 06:53 Pulse Ox 95 10/22/22 08:17 FiO2 100 10/19/22 20:41 Intake & Output 0110/22/22 10/22/22 18:59 06:59 18:59 Output Total 150 Balance -150 Weight 74.843 kg Output: Urine 150 Other: Voiding Method External Catheter External Catheter # Voids 1 4 # Bowel Movements 1 1 - Exam -GENERAL: The patient is alert and oriented x0, follows commands not in any acute distress. the patient is currently a mild degree of respiratory distress and the patient is currently on room air oxygen with a pulse ox of 92% HEENT: Pupils are round and equally reacting to light. EOMI. No scleral icterus. No conjunctival pallor. Normocephalic, atraumatic. No pharyngeal erythema. No thyromegaly. CARDIOVASCULAR: S1 and S2 present. No murmurs, rubs, or gallops. PULMONARY: Chest is diminished breath sounds and the patient has scattered rhonchi heard throughout the lung dozier bilaterally -ABDOMEN: Soft, nontender, nondistended, normoactive bowel sounds. No palpable organomegaly. Cardoso catheter is in place MUSCULOSKELETAL: No joint swelling or deformity. EXTREMITIES: No cyanosis, clubbing, or pedal edema. NEUROLOGICAL: Gross neurological examination did not reveal any focal deficits. he is nonverbal. He is withdrawing only to painful stimulation. Pupils are equal and reactive to light. No facial asymmetry. Withdraws to painful st imulation bilaterally. SKIN: No rashes. No petechiae - Labs CBC & Chem 7: 10/22/22 06:16 10/22/22 06:16 Labs: Abnormal Lab Results - Last 24 Hours (Table) 10/21/22 10/22/22 10/22/22 Range/Units 14:20 06:16 06:16 RBC 4.01 L (4.40-5.60) X 10*6/uL Hgb 12.8 L (13.0-17.0) g/dL Hct 38.5 L (39.6-50.0) % Immature Gran # 0.07 H (0.00-0.04) X 10*3/uL Lymphocytes # 0.49 L (0.90-5.00) X 10*3/uL Eosinophils # 0 L (0.04-0.35) X 10*3/uL BUN/Creatinine Ratio 25.63 H (12.00-20.00) Ratio Glucose 194 H (70-110) mg/dL Urine Protein Trace H (Negative) Urine Glucose (UA) 2+ H (Negative) Urine Ketones Trace H (Negative) Ur Leukocyte Esterase Large H (Negative) Urine WBC 13 H (0-5) /hpf Amorphous Sediment Rare H (None) /hpf Urine Mucus Rare H (None) /hpf Microbiology - Last 24 Hours (Table) 10/19/22 04:30 Blood Culture - Preliminary Blood No Growth after 72 hours 10/19/22 04:45 Blood Culture - Preliminary Blood No Growth after 72 hours 10/21/22 14:20 Urine Culture - Preliminary Urine,Voided Assessment and Plan Plan: Acute influenza A pneumonia, currently on Tamiflu, clinically stable Acute hypoxic respiratory failure currently on 100% on rebreather facemask. Rule out superinfection, bacterial, rule out aspiration. The patient is improved considerably and the patient is currently on room air oxygen. A chest x-ray still showing perihilar and lower lobe pulmonary infiltrates. Nevertheless, the patient on Tamiflu and Zosyn covering for aspiration pneumonia and his overall respiratory status is stable for now. Acute shortness of breath secondary to above, improved Acute on chronic altered mentation related to encephalopathy caused by influenza A infection, improved and the patient more communicable and alert on today's evaluation History of Parkinson's disease Chronic dementia with impairment of cognitive functions previous history of Covid 19 infection in 2020, recovered DNR/DNI CODE STATUS Prostate cancer Hypertension Bipolar disorder/depression, history of Chronic constipation Acid reflux intermediate resident Plan the patient is clinically stable Keep the patient on room air oxygen and the patient remains clinically stable as the patient is being treated for influenza A and possible aspiration Continue Tamiflu and IV Zosyn combination Check pro calcitonin level lower spectrum of normal Lovenox 40 mg subcu for DVT prophylaxis DNR/DNI CODE STATUS. We'll continue to follow. Possibly will stay in the hospital Monday and should be able go back to [facility] home by tomorrow or Monday.
--- NOTE | 2022-10-22 14:40 | P.PN ---
Subjective Progress Note Date: 10/22/22 Principal diagnosis: Influenza and pneumonia Patient is a 77-year-old male resident of the local halfway with multiple comorbidities including Parkinson's disease and chronic cognitive impairment patient was sent to the ER for evaluation of decreased level of consc iousness from the local halfway, on arrival to the ER patient did have a fever of 101.2 F, patient has been diagnosed with acute influenza A and was concerned for possible secondary bacterial pneumonia. On today's evaluation that is 10/22/2022, the patient continues to be afebrile the patient is breathing comfortably on room air today, patient denies any chest pain, the patient did have occasional dry cough, no abdominal pain and no diarrhea has been reported by the nursing staff Objective - Vital Signs Vital signs: Vital Signs Temp 97.9 F 10/22/22 06:53 Pulse 58 L 10/22/22 11:48 Resp 16 10/22/22 06:53 BP 153/84 10/22/22 06:53 Pulse Ox 95 10/22/22 08:17 FiO2 100 10/19/22 20:41 Intake & Output 10/21/22 10/22/22 10/22/22 18:59 06:59 18:59 Output Total 150 Balance -150 Weight 74.843 kg Output: Urine 150 Other: Voiding Method External Catheter External Catheter # Voids 1 4 # Bowel Movements 1 1 - Exam GENERAL DESCRIPTION: An elderly male lying in bed in no distress RESPIRATORY SYSTEM: Unlabored breathing , decreased breath sounds at bases HEART: S1 S2 regular rate and rhythm , ABDOMEN: Soft , no tenderness EXTREMITIES: No edema feet - Labs CBC & Chem 7: 10/22/22 06:16 10/22/22 06:16 Labs: Abnormal Lab Results - Last 24 Hours (Table) 10/21/22 10/22/22 10/22/22 Range/Units 14:20 06:16 06:16 RBC 4.01 L (4.40-5.60) X 10*6/uL Hgb 12.8 L (13.0-17.0) g/dL Hct 38.5 L (39.6-50.0) % Immature Gran # 0.07 H (0.00-0.04) X 10*3/uL Lymphocytes # 0.49 L (0.90-5.00) X 10*3/uL Eosinophils # 0 L (0.04-0.35) X 10*3/uL BUN/Creatinine Ratio 25.63 H (12.00-20.00) Ratio Glucose 194 H (70-110) mg/dL Urine Protein Trace H (Negative) Urine Glucose (UA) 2+ H (Negative) Urine Ketones Trace H (Negative) Ur Leukocyte Esterase Large H (Negative) Urine WBC 13 H (0-5) /hpf Amorphous Sediment Rare H (None) /hpf Urine Mucus Rare H (None) /hpf Microbiology - Last 24 Hours (Table) 10/19/22 04:30 Blood Culture - Preliminary Blood No Growth after 72 hours 10/19/22 04:45 Blood Culture - Preliminary Blood No Growth after 72 hours 10/21/22 14:20 Urine Culture - Preliminary Urine,Voided Assessment and Plan (1) Influenza A Current Visit: Yes Status: Acute Code(s): J10.1 - FLU DUE TO OTH IDENT INFLUENZA VIRUS W OTH RESP MANIFEST SNOMED Code(s): 314008213 (2) Pneumonia Current Visit: Yes Status: Acute Code(s): J18.9 - PNEUMONIA, UNSPECIFIED ORGANISM SNOMED Code(s): 806292552 Plan: 1patient presented to hospital with mental status changes and acute respiratory failure requiring high flow oxygen likely multifactorial in this patient who did have a initial diagnosis of acute influenza A and now with concern for possible secondary bacterial pneumonia questionable aspiration etiology keep in mind the halfway resident will need to cover for resistant gram-negative. 2patient slowly clinically improving and will continue with current treatment of Tamiflu to finish a 5-day course of therapy along with Zosyn 3.375 g every 8 hour, hopefully finishing therapy with oral antibiotic on discharge Time with Patient: Less than 30
[2022-10-23] MEDS: methylPREDNISolone SOD SUCCI 125 MG/2 ML VIAL IV SCH (06:46)
[2022-10-23] MEDS: IPRATROPIUM-ALBUTEROL 3 ML NEB INHALATION SCH ×4 (09:14→21:51)
[2022-10-23] MEDS: OSELTAMIVIR 75 MG CAP PO SCH ×2 (09:16→21:44)
[2022-10-23] MEDS: PIPERACILLIN-TAZOBACTAM 3.375 GM in SODIUM CHLORIDE 0.9% 100 ML IVPB SCH ×2 (09:16→15:48)
[2022-10-23] MEDS: DIVALPROEX 250 MG TABLET.DR PO SCH ×3 (09:20→17:36)
[2022-10-23 10:16] LABS: African American GFR (CKD) 98.8 (60.0-200.0); Anion Gap 10.8 mmol/L (10.00-18.00); BUN/Creat Ratio 20.81 Ratio (12.00-20.00); Blood Urea Nitrogen 17.4 mg/dL (9.0-27.0); Calcium 8.6 mg/dL (8.7-10.3); Carbon Dioxide 26.8 mmol/L (20.0-27.5); Non-African American GFR(CKD) 85.2 (60.0-200.0); Potassium 3.5 mmol/L (3.5-5.5)
[2022-10-23 10:35] LABS: Basophils # (A) 0.03 X 10*3/uL (0.00-0.10); Basophils % (A) 0.5 %; Eosinophils # (A) 0 X 10*3/uL (0.04-0.35); Eosinophils % (A) 0 %; HCT 36.2 % (39.6-50.0); Immature Grans, Automated 1.6 %; Lymphocytes # (A) 0.39 X 10*3/uL (0.90-5.00); Lymphocytes % (A) 6.2 %; MCH 31.7 pg (27.0-32.0); MCHC 33.1 g/dL (32.0-37.0); MCV 95.5 fL (80.0-97.0); Mean Platelet Volume 10.7 fL (9.5-12.2); Monocytes # (A) 0.34 X 10*3/uL (0.20-1.00); Monocytes % (A) 5.4 %; NRBC Per 100 WBC 0 /100 WBCS (0.0-0.0); Neutrophils % (A) 86.3 %; Platelet Count 160 X 10*3/uL (140-440); RBC 3.79 X 10*6/uL (4.40-5.60); RDW 12.3 % (11.5-14.5); WBC 6.26 X 10*3/uL (4.50-10.00)
--- NOTE | 2022-10-23 10:54 | P.PN ---
Subjective Progress Note Date: 10/23/22 77-year-old male patient got transferred to us from the custodial because of diminished level of consciousness, diminished alertness on top of his chronic altered mentation. The patient immediately was diagnosed having an acute influenza a infection and the chest exit showed perihilar bilateral lower lobe pulmonary infiltrates in addition to lower lobe pulmonary infiltrates and the patient was given Tamiflu and Rocephin and Zithromax. At this point in time the patient is on 100% nonrebreather facemask. He is slightly tachypneic. Pulse ox is 97%. No reported aspiration. Note that the patient was seen here in the hospital approximately in August 2021 and back then he had a Covid 19 infec tion. He did survive that episode. He is known to have Parkinson's disease and he has chronic cognitive impairment, he is a DNR/DNI CODE STATUS, he has issues with hypertension, depression, chronic constipation and previous history of prostate cancer. During this current admission, the patient was given blood work that showed WBC count of 7.9 with a hemoglobin of 15 and a platelet count of 110. The patient does have normal platelet counts on previous evaluations. At the same time, the sodium is at 137, BUN is at 23 with a creatinine of 0.7, pro-calcitonin level was at 0.32, proBNP level was 1820 and a troponin was negative. His bilirubin was at 1.2.3 and the rest of the LFTs are essentially within normal limits. The patient is unable to volunteer any medical information. No reported history of aspiration although this is an obvious concern. He withdraws to painful stimulation in all 4 extremities. He is currently on IV fluids On today's evaluation of 10/20/2022, the patient is communicating. He is feeling much better compared to yesterday. He was taken off the 100% nonre breather facemask and he was placed on room air oxygen with a pulse ox of 92%. His chest x-ray still showing diffuse bilateral pulmonary infiltrates patchy and interstitial and this may be related to pneumonia versus pulmonary vessel congestion/edema. No major leg edema. He is more communicative compared to yesterday although he is still confused and the patient is known to have chronic cognitive impairment secondary to his underlying Parkinson's disease. The white cell count is at 5.9 with a hemoglobin of 13 and a platelet count of 113. BUN is 24 with a creatinine of 0.7. Pro-calcitonin level was at 0.32 with a sodium level of 143. ProBNP level was 1820. Blood cultures have been negative for now. The patient is on DuoNeb nebulized treatments he is on Tamiflu and he is also on IV Zosyn. IV fluids are currently at 20 mL an hour 10/21/2022, the patient is clinically stable on room air oxygen. He is being treated for influenza A infection. He does cognitive impairment due to his underlying Parkinson's disease. He was quite altered and was having diminished level of consciousness at the time of admission and he gradually arousals. No signs of any respiratory distress. The repeat chest x-ray was done yesterday and there was no major interval change with perihilar and lower lobe at the pulmonary infiltrates. Suspected aspiration pneumonia and the patient also on IV Zosyn. For now, he is completing a course of Tamiflu and Zosyn. He is also on IV fluids at 20 mL an hour. His blood work from today shows a white cell count of 7.3 with a hemoglobin 12.3, platelet at 153, BUN is at 25 with a creatinine of 0.8 and sodium is at 141. His pro calcitonin level from was elevated at 0.82. No other active issues otherwise for now. 10/22/2022, the patient is on room air oxygen. As mentioned earlier, he has cognitive impairment secondary to Parkinson's disease and dementia and he doesn't communicative whole lot. Nevertheless, his breathing is non-labored. The patient remains on the same antibiotic coverage and he is on accommodation of Tamiflu and Zosyn. In terms of labs, WBC count is at 7.3 with a hemoglobin 12.3, BUN is at 20 with a creatinine of 0.8 and sodium is at 140. The pro- calcitonin level was at 0.32. No other significant events otherwise for now. He is tolerating his diet. 8 2022, the patient is calm and comfortable on room air oxygen. No new complaints. Rest or status is stable. No wheezing. No aspiration. Remains on Tamiflu. Remains on Zosyn. Remains on IV Solu-Medrol. Objective - Vital Signs Vital signs: Vital Signs Temp 98.6 F 10/23/22 06:48 Pulse 60 10/23/22 09:23 Resp 18 10/23/22 06:48 BP 158/89 10/23/22 06:48 Pulse Ox 94 L 10/23/22 06:48 FiO2 21 10/22/22 20:46 Intake & Output 10/22/22 10/23/22 10/23/22 18:59 06:59 18:59 Intake Total 1340 Output Total 1000 Balance 1340 -1000 Intake: Intake, IV Titration 260 Amount Piperacillin-Tazobactam 3 100 .375 gm In Sodium Chloride 0.9% 100 ml @ 25 mls/hr IVPB Q8HR ASAD Rx# :[id number] Sodium Chloride 0.9% 1, 160 000 ml @ 20 mls/hr IV . Q24H ASAD Rx#:[id number] Oral 1080 Output: Urine 1000 Other: # Voids 5 1 # Bowel Movements 2 1 - Exam -GENERAL: The patient is alert and oriented x0, follows commands not in any acute distress. the patient is currently a mild degree of respiratory distress and the patient is currently on room air oxygen with a pulse ox of 92% HEENT: Pupils are round and equally reacting to light. EOMI. No scleral icterus. No conjunctival pallor. Normocephalic, atraumatic. No pharyngeal erythema. No thyromegaly. CARDIOVASCULAR: S1 and S2 present. No murmurs, rubs, or gallops. PULMONARY: Chest is diminished breath sounds and the patient has scattered rhonchi heard throughout the lung dozier bilaterally -ABDOMEN: Soft, nontender, nondistended, normoactive bowel sounds. No palpable organomegaly. Cardoso catheter is in place MUSCULOSKELETAL: No joint swelling or deformity. EXTREMITIES: No cyanosis, clubbing, or pedal edema. NEUROLOGICAL: Gross neurological examination did not reveal any focal deficits. he is nonverbal. He is withdrawing only to painful stimulation. Pupils are equal and reactive to light. No facial asymmetry. Withdraws to painful stimulation bilaterally. SKIN: No rashes. No petechiae - Labs CBC & Chem 7: 10/23/22 04:11 10/23/22 04:11 Labs: Abnormal Lab Results - Last 24 Hours (Table) 10/23/22 10/23/22 Range/Units 04:11 04:11 RBC 3.79 L (4.40-5.60) X 10*6/uL Hgb 12.0 L (13.0-17.0) g/dL Hct 36.2 L (39.6-50.0) % Immature Gran # 0.10 H (0.00-0.04) X 10*3/uL Lymphocytes # 0.39 L (0.90-5.00) X 10*3/uL Eosinophils # 0 L (0.04-0.35) X 10*3/uL BUN/Creatinine Ratio 20.81 H (12.00-20.00) Ratio Glucose 237 H (70-110) mg/dL Calcium 8.6 L (8.7-10.3) mg/dL Microbiology - Last 24 Hours (Table) 10/19/22 04:45 Blood Culture - Preliminary Blood No Growth after 96 hours 10/19/22 04:30 Blood Culture - Preliminary Blood No Growth after 96 hours 10/21/22 14:20 Urine Culture - Final Urine,Voided Assessment and Plan Plan: Acute influenza A pneumonia, currently on Tamiflu, clinically stable Acute hypoxic respiratory failure currently on 100% on rebreather facemask. Rule out superinfection, bacterial, rule out aspiration. The patient is improved considerably and the patient is currently on room air oxygen. A chest x-ray still showing perihilar and lower lobe pulmonary infiltrates. Nevertheless, the patient on Tamiflu and Zosyn covering for aspiration pneumonia and his overall respiratory status is stable for now. The patient remains on room air oxygen. Acute shortness of breath secondary to above, improved Acute on chronic altered mentation related to encephalopathy caused by influenza A infection, improved and the patient more communicable and alert on today's evaluation History of Parkinson's disease Chronic dementia with impairment of cognitive functions previous history of Covid 19 infection in 2020, recovered DNR/DNI CODE STATUS Prostate cancer Hypertension Bipolar disorder/depression, history of Chronic constipation Acid reflux residential resident Plan the patient is clinically stable Discontinue the IV Solu-Medrol Keep the patient on room air oxygen and the patient remains clinically stable as the patient is being treated for influenza A and possible aspiration Continue Tamiflu and IV Zosyn combination Check pro calcitonin level lower spectrum of normal Lovenox 40 mg subcu for DVT prophylaxis DNR/DNI CODE STATUS. We'll continue to follow. Possibly will stay in the hospital Monday and should be able go back to [facility] home by tomorrow or Monday. May suggest a course of Augmentin at time of discharge. Pulmonary critical care services will sign off.
[2022-10-24] MEDS: PIPERACILLIN-TAZOBACTAM 3.375 GM in SODIUM CHLORIDE 0.9% 100 ML IVPB SCH ×3 (01:17→17:02)
--- NOTE | 2022-10-24 01:35 | P.PN ---
Subjective Progress Note Date: 10/21/22 Patient is a 77-year-old male with a past medical history of GERD and other medical medical problems was brought to the ER due to fever and shortness of breath. Patient was found to have bilateral pneumonia and hypotensive on admission. Patient was tested positive for influenza A. 10/21/2022 Patient is currently lying in bed. Awake alert but does have cognitive impairment due to underlying Parkinson's disease Currently on room air. Patient remains on antibiotics and is on Zosyn for possible aspiration Able to tolerate oral diet with one-to-one assistance. Laboratory data showed WBC 7.3 hemoglobin 12.3 and platelets 153 Sodium 141 potassium 3.8 chloride 106 bicarb is 26.3 BUN 25.4 and creatinine 0.8 and magnesium 1.8. Pulmonary is on board. Current medications reviewed. Objective - Vital Signs Vital signs: Vital Signs Temp 98.3 F 10/21/22 07:25 Pulse 64 10/21/22 11:49 Resp 15 10/21/22 07:25 BP 143/86 10/21/22 07:25 Pulse Ox 94 L 10/21/22 07:25 FiO2 100 10/19/22 20:41 Intake & Output 10/20/22 10/21/22 10/21/22 18:59 06:59 18:59 Intake Total 200 Output Total 650 Balance 200 -650 Weight 74.843 kg 74.843 kg Intake: Intake, IV Titration 200 Amount Magnesium Sulfate-D5w Pmx 100 1 gm In Dextrose/Water 1 100ml.bag @ 100 mls/hr IVPB Q1H ASAD Rx#: [id number] Piperacillin-Tazobactam 3 100 .375 gm In Sodium Chloride 0.9% 100 ml @ 25 mls/hr IVPB Q8HR ASAD Rx# :[id number] Output: Urine 650 Other: Voiding Method External Catheter External Catheter External Catheter - Exam PHYSICAL EXAMINATION: Patient is lying in the bed comfortably, no acute distress, awake alert but does have underlying cognitive impairment.. HEENT: Normocephalic. Neck is supple. Pupils reactive. Nostrils clear. Oral cavity is moist. Neck reveals no JVD, carotid bruits, or thyromegaly. CHEST EXAMINATION: Trachea is central. Symmetrical expansion. Lung dozier clear to auscultation and percussion. Bibasilar diminished sounds. No wheezing. CARDIAC: Normal S1, S2 with no gallops. No murmurs ABDOMEN: Soft. Bowel sounds present. Nontender. No organomegaly. No abdominal bruits. Extremities: reveal no edema. No clubbing or cyanosis Neurologically awake, alert does have dementia with. No gross focal deficits noted Skin: No rash or skin lesions. Psychiatric: Coperative could not be assessed completely., Musculoskeletal: No joint swelling or deformity. - Labs CBC & Chem 7: 10/23/22 04:11 10/23/22 04:11 Labs: Abnormal Lab Results - Last 24 Hours (Table) 10/21/22 10/21/22 Range/Units 06:03 06:03 RBC 3.86 L (4.40-5.60) X 10*6/uL Hgb 12.3 L (13.0-17.0) g/dL Hct 37.5 L (39.6-50.0) % MCV 97.2 H (80.0-97.0) fL Lymphocytes # 0.40 L (0.90-5.00) X 10*3/uL Eosinophils # 0 L (0.04-0.35) X 10*3/uL Anion Gap 8.70 L (10.00-18.00) mmol/L BUN/Creatinine Ratio 31.75 H (12.00-20.00) Ratio Glucose 168 H (70-110) mg/dL Calcium 8.6 L (8.7-10.3) mg/dL Microbiology - Last 24 Hours (Table) 10/19/22 04:30 Blood Culture - Preliminary Blood No Growth after 48 hours 10/19/22 04:45 Blood Culture - Preliminary Blood No Growth after 48 hours Assessment and Plan Assessment: Acute influenza A pneumonia Acute hypoxic respiratory failure was requiring high percent nonrebreather and currently titrate down to room air. Possible aspiration pneumonia. Remains on Zosyn. Acute metabolic encephalopathy secondary to infection along with underlying dementia. Parkinson's disease Dementia History of prostate cancer Hypertension Bipolar disorder/depression Chronic constipation GERD DVT prophylaxis Lovenox subcu CODE STATUS is DNR/DNI Plan: Patient will be continued on Tamiflu. O2 titrated down to room air. Continue with Zosyn for possible aspiration. Continue to follow closely. Pulmonary is on board. Time with Patient: Greater than 30
--- NOTE | 2022-10-24 01:36 | P.PN ---
Subjective Progress Note Date: 10/22/22 Patient is a 77-year-old male with a past medical history of GERD and other medical medical problems was brought to the ER due to fever and shortness of breath. Patient was found to have bilateral pneumonia and hypotensive on admission. Patient was tested positive for influenza A. 10/21/2022 Patient is currently lying in bed. Awake alert but does have cognitive impairment due to underlying Parkinson's disease Currently on room air. Patient remains on antibiotics and is on Zosyn for possible aspiration Able to tolerate oral diet with one-to-one assistance. Laboratory data showed WBC 7.3 hemoglobin 12.3 and platelets 153 Sodium 141 potassium 3.8 chloride 106 bicarb is 26.3 BUN 25.4 and creatinine 0.8 and magnesium 1.8. Pulmonary is on board. 10/22/2022 Patient is currently resting in bed. Currently on room air. No no fever no chills. Patient does not communicate due to underlying dementia and Parkinson's disease Remains on time Zosyn. Tolerating oral diet with one-to-one feeding. Procalcitonin was 0.32. Laboratory data showed WBC 7.3 hemoglobin 12.8 and platelets 165 sodium 140 potassium 3.8 chloride 103 bicarb is 26.6 BUN 20.5 and creatinine 0.8 Current medications reviewed. Objective - Vital Signs Vital signs: Vital Signs Temp 97.7 F 10/22/22 19:24 Pulse 68 10/22/22 20:56 Resp 17 10/22/22 19:24 BP 122/75 10/22/22 19:24 Pulse Ox 94 L 10/22/22 20:46 FiO2 21 10/22/22 20:46 Intake & Output 10/22/22 10/22/22 10/23/22 06:59 18:59 06:59 Intake Total 1340 Balance 1340 Intake: Intake, IV Titration 260 Amount Piperacillin-Tazobactam 3 100 .375 gm In Sodium Chloride 0.9% 100 ml @ 25 mls/hr IVPB Q8HR ASAD Rx# :[id number] Sodium Chloride 0.9% 1, 160 000 ml @ 20 mls/hr IV . Q24H ASAD Rx#:[id number] Oral 1080 Other: Voiding Method External Catheter # Voids 4 5 # Bowel Movements 1 2 - Exam PHYSICAL EXAMINATION: Patient is lying in the bed comfortably, no acute distress, awake alert but does have underlying cognitive impairment.. HEENT: Normocephalic. Neck is supple. Pupils reactive. Nostrils clear. Oral cavity is moist. Neck reveals no JVD, carotid bruits, or thyromegaly. CHEST EXAMINATION: Trachea is central. Symmetrical expansion. Lung dozier clear to auscultation and percussion. Bibasilar diminished sounds. No wheezing. CARDIAC: Normal S1, S2 with no gallops. No murmurs ABDOMEN: Soft. Bowel sounds present. Nontender. No organomegaly. No abdominal bruits. Extremities: reveal no edema. No clubbing or cyanosis Neurologically awake, alert does have dementia with. No gross focal deficits noted Skin: No rash or skin lesions. Psychiatric: Coperative could not be assessed completely., Musculoskeletal: No joint swelling or deformity. - Labs CBC & Chem 7: 10/23/22 04:11 10/23/22 04:11 Labs: Abnormal Lab Results - Last 24 Hours (Table) 10/22/22 10/22/22 Range/Units 06:16 06:16 RBC 4.01 L (4.40-5.60) X 10*6/uL Hgb 12.8 L (13.0-17.0) g/dL Hct 38.5 L (39.6-50.0) % Immature Gran # 0.07 H (0.00-0.04) X 10*3/uL Lymphocytes # 0.49 L (0.90-5.00) X 10*3/uL Eosinophils # 0 L (0.04-0.35) X 10*3/uL BUN/Creatinine Ratio 25.63 H (12.00-20.00) Ratio Glucose 194 H (70-110) mg/dL Microbiology - Last 24 Hours (Table) 10/19/22 04:30 Blood Culture - Preliminary Blood No Growth after 72 hours 10/19/22 04:45 Blood Culture - Preliminary Blood No Growth after 72 hours 10/21/22 14:20 Urine Culture - Preliminary Urine,Voided Assessment and Plan Assessment: Acute influenza A pneumonia Acute hypoxic respiratory failure was requiring high percent nonrebreather and currently titrate down to room air. Possible aspiration pneumonia. Remains on Zosyn. Acute metabolic encephalopathy secondary to infection along with underlying dementia. Parkinson's disease Dementia History of prostate cancer Hypertension Bipolar disorder/depression Chronic constipation GERD DVT prophylaxis Lovenox subcu CODE STATUS is DNR/DNI Plan: Patient will be continued on Tamiflu. O2 titrated down to room air. Continue with Zosyn for possible aspiration. Continue to follow closely. Pulmonary is on board. Time with Patient: Greater than 30
--- NOTE | 2022-10-24 01:39 | P.PN ---
Subjective Progress Note Date: 10/23/22 Patient is a 77-year-old male with a past medical history of GERD and other medical medical problems was brought to the ER due to fever and shortness of breath. Patient was found to have bilateral pneumonia and hypotensive on admission. Patient was tested positive for influenza A. 10/21/2022 Patient is currently lying in bed. Awake alert but does have cognitive impairment due to underlying Parkinson's disease Currently on room air. Patient remains on antibiotics and is on Zosyn for possible aspiration Able to tolerate oral diet with one-to-one assistance. Laboratory data showed WBC 7.3 hemoglobin 12.3 and platelets 153 Sodium 141 potassium 3.8 chloride 106 bicarb is 26.3 BUN 25.4 and creatinine 0.8 and magnesium 1.8. Pulmonary is on board. 10/22/2022 Patient is currently resting in bed. Currently on room air. No no fever no chills. Patient does not communicate due to underlying dementia and Parkinson's disease Remains on time Zosyn. Tolerating oral diet with one-to-one feeding. Procalcitonin was 0.32. Laboratory data showed WBC 7.3 hemoglobin 12.8 and platelets 165 sodium 140 potassium 3.8 chloride 103 bicarb is 26.6 BUN 20.5 and creatinine 0.8 10/23/2022 Patient is currently resting in bed. Awake alert but does not communicate due to underlying dementia. No fever no chills. No nausea vomiting or diarrhea. No other acute overnight issues. Currently on Tamiflu and Zosyn. IV Solu-Medrol has been discontinued. Patient is down to room air now. Laboratory showed WBC 6.2 hemoglobin 12.0 and platelets 160 Sodium 138 potassium 3.5 chloride 101 bicarb is 26.8 BUN 17.4 and creatinine 0.8 and calcium 8.6. Cultures have been negative. Possible discharge back to ECF in the next 24 hours. Current medications reviewed. Objective - Vital Signs Vital signs: Vital Signs Temp 97.9 F 10/23/22 19:21 Pulse 72 10/23/22 19:21 Resp 17 10/23/22 19:21 BP 143/80 10/23/22 19:21 Pulse Ox 95 10/23/22 19:21 FiO2 21 10/22/22 20:46 Intake & Output 10/23/22 10/23/22 10/24/22 06:59 18:59 06:59 Intake Total 1660 Output Total 1000 1300 Balance -1000 360 Intake: Intake, IV Titration 100 Amount Piperacillin-Tazobactam 3 100 .375 gm In Sodium Chloride 0.9% 100 ml @ 25 mls/hr IVPB Q8HR [facility] Rx# :[id number] Oral 1560 Output: Urine 1000 1300 Other: # Voids 1 # Bowel Movements 1 2 - Exam PHYSICAL EXAMINATION: Patient is lying in the bed comfortably, no acute distress, awake alert but does have underlying cognitive impairment.. HEENT: Normocephalic. Neck is supple. Pupils reactive. Nostrils clear. Oral cavity is moist. Neck reveals no JVD, carotid bruits, or thyromegaly. CHEST EXAMINATION: Trachea is central. Symmetrical expansion. Lung dozier clear to auscultation and percussion. Bibasilar diminished sounds. No wheezing. CARDIAC: Normal S1, S2 with no gallops. No murmurs ABDOMEN: Soft. Bowel sounds present. Nontender. No organomegaly. No abdominal bruits. Extremities: reveal no edema. No clubbing or cyanosis Neurologically awake, alert does have dementia with. No gross focal deficits noted Skin: No rash or skin lesions. Psychiatric: Coperative could not be assessed completely., Musculoskeletal: No joint swelling or deformity. - Labs CBC & Chem 7: 10/23/22 04:11 10/23/22 04:11 Labs: Abnormal Lab Results - Last 24 Hours (Table) 10/23/22 10/23/22 Range/Units 04:11 04:11 RBC 3.79 L (4.40-5.60) X 10*6/uL Hgb 12.0 L (13.0-17.0) g/dL Hct 36.2 L (39.6-50.0) % Immature Gran # 0.10 H (0.00-0.04) X 10*3/uL Lymphocytes # 0.39 L (0.90-5.00) X 10*3/uL Eosinophils # 0 L (0.04-0.35) X 10*3/uL BUN/Creatinine Ratio 20.81 H (12.00-20.00) Ratio Glucose 237 H (70-110) mg/dL Calcium 8.6 L (8.7-10.3) mg/dL Microbiology - Last 24 Hours (Table) 10/19/22 04:45 Blood Culture - Preliminary Blood No Growth after 96 hours 10/19/22 04:30 Blood Culture - Preliminary Blood No Growth after 96 hours 10/21/22 14:20 Urine Culture - Final Urine,Voided Assessment and Plan Assessment: Acute influenza A pneumonia Acute hypoxic respiratory failure was requiring high percent nonrebreather and currently titrate down to room air. Possible aspiration pneumonia. Remains on Zosyn. Acute metabolic encephalopathy secondary to infection along with underlying dementia. Parkinson's disease Dementia History of prostate cancer Hypertension Bipolar disorder/depression Chronic constipation GERD DVT prophylaxis Lovenox subcu CODE STATUS is DNR/DNI Plan: Patient will be continued on Tamiflu. O2 titrated down to room air.IV Solu- Medrol has been discontinued. Continue with Zosyn for possible aspiration. Cultures have been negative. Possible discharge back to ECF in the next 24 hours. Time with Patient: Greater than 30
[2022-10-24] MEDS: SODIUM CHLORIDE 0.9% 1,000 ML IV SCH (04:02)
--- NOTE | 2022-10-24 07:47 | P.PN ---
Subjective Progress Note Date: 10/23/22 Principal diagnosis: Influenza and pneumonia Patient is a 77-year-old male [facility] local [facility] with multiple comorbidities including Parkinson's disease and chronic cognitive impairment patient was sent to the ER for evaluation of decreased level of consc iousness from the local [facility], on arrival to the ER patient did have a fever of 101.2 F, patient has been diagnosed with acute influenza A and was concerned for possible secondary bacterial pneumonia. On today's evaluation that is 10/23/2022, the patient remains to be afebrile the patient is breathing comfortably on room air, patient denies any chest pain, the patient did have occasional cough but no sputum production no vomiting or diarrhea has been reported Objective - Vital Signs Vital signs: Vital Signs Temp 98.0 F 10/23/22 13:50 Pulse 68 10/23/22 16:40 Resp 19 10/23/22 13:50 BP 147/84 10/23/22 13:50 Pulse Ox 94 L 10/23/22 13:50 FiO2 21 10/22/22 20:46 Intake & Output 10/22/22 10/23/22 10/23/22 18:59 06:59 18:59 Intake Total 1340 580 Output Total 1000 1300 Balance 1340 -1000 -720 Intake: Intake, IV Titration 260 100 Amount Piperacillin-Tazobactam 3 100 100 .375 gm In Sodium Chloride 0.9% 100 ml @ 25 mls/hr IVPB Q8HR [facility] Rx# :[id number] Sodium Chloride 0.9% 1, 160 000 ml @ 20 mls/hr IV . Q24H [facility] Rx#:[id number] Oral 1080 480 Output: Urine 1000 1300 Other: # Voids 5 1 # Bowel Movements 2 1 - Exam GENERAL DESCRIPTION: An elderly male lying in bed in no distress RESPIRATORY SYSTEM: Unlabored breathing , decreased breath sounds at bases HEART: S1 S2 regular rate and rhythm , ABDOMEN: Soft , no tenderness EXTREMITIES: No edema feet - Labs CBC & Chem 7: 10/23/22 04:11 10/23/22 04:11 Labs: Abnormal Lab Results - Last 24 Hours (Table) 10/23/22 10/23/22 Range/Units 04:11 04:11 RBC 3.79 L (4.40-5.60) X 10*6/uL Hgb 12.0 L (13.0-17.0) g/dL Hct 36.2 L (39.6-50.0) % Immature Gran # 0.10 H (0.00-0.04) X 10*3/uL Lymphocytes # 0.39 L (0.90-5.00) X 10*3/uL Eosinophils # 0 L (0.04-0.35) X 10*3/uL BUN/Creatinine Ratio 20.81 H (12.00-20.00) Ratio Glucose 237 H (70-110) mg/dL Calcium 8.6 L (8.7-10.3) mg/dL Microbiology - Last 24 Hours (Table) 10/19/22 04:45 Blood Culture - Preliminary Blood No Growth after 96 hours 10/19/22 04:30 Blood Culture - Preliminary Blood No Growth after 96 hours 10/21/22 14:20 Urine Culture - Final Urine,Voided Assessment and Plan (1) Influenza A Current Visit: Yes Status: Acute Code(s): J10.1 - FLU DUE TO OTH IDENT INFLUENZA VIRUS W OTH RESP MANIFEST SNOMED Code(s): 756500306 (2) Pneumonia Current Visit: Yes Status: Acute Code(s): J18.9 - PNEUMONIA, UNSPECIFIED ORGANISM SNOMED Code(s): 700031843 Plan: 1patient presented to hospital with mental status changes and acute respiratory failure requiring high flow oxygen likely multifactorial in this patient who did have a initial diagnosis of acute influenza A and now with concern for possible secondary bacterial pneumonia questionable aspiration etiology keep in mind the [facility] resident will need to cover for resistant gram-negative. 2patient has shown clinical improvement and has completed a 5 day course of Tamiflu patient is currently on Zosyn 3.375 g every 8 hour with a plan to finish therapy with oral Avelox Time with Patient: Less than 30
[2022-10-24] MEDS: IPRATROPIUM-ALBUTEROL 3 ML NEB INHALATION SCH ×3 (08:08→16:26)
[2022-10-24 08:44] LABS: Basophils # (A) 0.06 X 10*3/uL (0.00-0.10); Basophils % (A) 0.7 %; Eosinophils # (A) 0.02 X 10*3/uL (0.04-0.35); Eosinophils % (A) 0.2 %; HCT 38.8 % (39.6-50.0); HGB 12.9 g/dL (13.0-17.0); Immature Grans, Automated 2.8 %; Lymphocytes # (A) 1.05 X 10*3/uL (0.90-5.00); MCH 32.3 pg (27.0-32.0); MCHC 33.2 g/dL (32.0-37.0); Mean Platelet Volume 10.6 fL (9.5-12.2); Monocytes # (A) 0.75 X 10*3/uL (0.20-1.00); Monocytes % (A) 9.3 %; NRBC Per 100 WBC 0 /100 WBCS (0.0-0.0); Neutrophils # (A) 5.99 X 10*3/uL (1.80-7.70); Platelet Count 188 X 10*3/uL (140-440); RDW 12.4 % (11.5-14.5)
[2022-10-24] MEDS ORDERED: predniSONE 20 MG TAB PO SCH (09:00)
[2022-10-24 09:02] LABS: African American GFR (CKD) 100.6 (60.0-200.0); Anion Gap 9.2 mmol/L (10.00-18.00); BUN/Creat Ratio 22.63 Ratio (12.00-20.00); Blood Urea Nitrogen 18.1 mg/dL (9.0-27.0); Calcium 8.4 mg/dL (8.7-10.3); Carbon Dioxide 29.8 mmol/L (20.0-27.5); Non-African American GFR(CKD) 86.8 (60.0-200.0); Potassium 3.3 mmol/L (3.5-5.5)
--- NOTE | 2022-10-24 09:29 | CDI ---
Documentation Clarification Form Date: 10/24/2022 8:55:44 AM From: Leslye Connolly RN CCDS Admit Date: 10/19/2022 3:30:00 AM Patient Name: Chetan Duke Visit Number: [id number] Discharge Date: ATTENTION: The Clinical Documentation Specialists (CDI) and [facility] Coding Staff appreciate your assistance in clarifying documentation. Please respond to the clarification below the line at the bottom and electronically sign. The CDI & [facility] Coding staff will review the response and follow-up if needed. Please note: Queries are made part of the Legal Health Record. If you have any questions, please contact the author of this message via ITS. Dr. Guerrero Sepsis is documented H&P, and Medicine note, 10/20, but is not noted in subsequent documentation. Clarification is requested. History/Risk Factors: 77-year-old male presents to the ED via EMS from [facility] for fever and shortness of breath. Medical History: Parkinsons disease; chronic dementia; Prostate CA; HTN; Bipolar depression history of. 10/19, Pulmonary note. Clinical Indicators: VSS, 10/19: B/P 174/98; HR 17; Temp 101.2 F Oral; RR 17; SpO2 92% room air Labs, 10/19: Wbc 7.9; Neutrophils 6.90 Blood culture, 10/19: No growth after 120 hours. Medicine note, 10/20: This 77-year-old gentleman, who was admitted with fever and bilateral pneumonia with possible sepsis and hypotension, is being closely monitored. CXR, 10/19: There is pulmonary edema which is slightly worse than last exam and could be acute heart failure or acute pneumonia. CXR, 14: Increased bibasilar patchy and interstitial airspace opacities concerning for worsening pneumonia. Treatment: 10/19 Tylenol PO x 1; 10/19 Motrin PO x 1; Duoneb Inhalation Q4H PRN; Duoneb Inhalation x 1; 10/19 Azithromycin IVPB x 1; 10/19 Ceftriaxone IVPB x 1; 10/19 Tamiflu x 1; 10/19 10/23 Tamiflu PO Q12HR x 10 doses; 10/19 10/23 Solumedrol 60mg IV Q6HR; 10/19 Zosyn IVPB Q8HR; 10/20 Zithromax PO x 2 doses. 10/24 Prednisone 20mg PO Daily. Please clarify if the Sepsis is: [ ] Sepsis confirmed, remains under treatment [ ] Sepsis confirmed, resolved [ ] Sepsis ruled out [ ] Other condition, please specify [ ] Unable to determine Query answered 10/24 in Discharge Summary by Dr Guerrero/ BAKARI Tinsley: Sepsis, present on admission secondary to acute influenza (Template Last Revised: December 2020) MTDD
[2022-10-24] MEDS ORDERED: POTASSIUM CHLORIDE ER 20 MEQ TAB.ER PO STA (09:52)
[2022-10-24] MEDS: DIVALPROEX 250 MG TABLET.DR PO SCH ×2 (10:13→17:01)
[2022-10-24 15:19] VITALS: BP 129/72; RESP 19; TEMP 98.2
[2022-10-24 16:36] VITALS: PULSE 75
--- NOTE | 2022-10-24 20:41 | P.PN ---
Subjective Progress Note Date: 10/24/22 Principal diagnosis: Influenza and pneumonia Patient is a 77-year-old male [facility] with multiple comorbidities including Parkinson's disease and chronic cognitive impairment patient was sent to the ER for evaluation of decreased level of consc iousness from the local [facility], on arrival to the ER patient did have a fever of 101.2 F, patient has been diagnosed with acute influenza A and was concerned for possible secondary bacterial pneumonia. On today's evaluation that is 10/24/2022, the patient continues to be afebrile the patient is breathing comfortably on room air, patient denies any chest pain, the patient denies any worsening cough or sputum production no nausea no vomiting no abdominal pain or diarrhea Objective - Vital Signs Vital signs: Vital Signs Temp 97.7 F 10/24/22 06:57 Pulse 65 10/24/22 08:18 Resp 18 10/24/22 07:35 BP 157/82 10/24/22 06:57 Pulse Ox 95 10/24/22 08:09 FiO2 21 10/22/22 20:46 Intake & Output 10/23/22 10/24/22 10/24/22 18:59 06:59 18:59 Intake Total 1660 Output Total 1300 700 Balance 360 -700 Intake: Intake, IV Titration 100 Amount Piperacillin-Tazobactam 3 100 .375 gm In Sodium Chloride 0.9% 100 ml @ 25 mls/hr IVPB Q8HR [facility] Rx# :[id number] Oral 1560 Output: Urine 1300 700 Other: Voiding Method External Catheter # Voids 2 # Bowel Movements 2 1 - Exam GENERAL DESCRIPTION: An elderly male lying in bed in no distress RESPIRATORY SYSTEM: Unlabored breathing , decreased breath sounds at bases HEART: S1 S2 regular rate and rhythm , ABDOMEN: Soft , no tenderness EXTREMITIES: No edema feet - Labs CBC & Chem 7: 10/24/22 03:51 10/24/22 03:51 Labs: Abnormal Lab Results - Last 24 Hours (Table) 10/24/22 10/24/22 Range/Units 03:51 03:51 RBC 4.00 L (4.40-5.60) X 10*6/uL Hgb 12.9 L (13.0-17.0) g/dL Hct 38.8 L (39.6-50.0) % MCH 32.3 H (27.0-32.0) pg Immature Gran # 0.23 H (0.00-0.04) X 10*3/uL Eosinophils # 0.02 L (0.04-0.35) X 10*3/uL Potassium 3.3 L (3.5-5.5) mmol/L Carbon Dioxide 29.8 H (20.0-27.5) mmol/L Anion Gap 9.20 L (10.00-18.00) mmol/L BUN/Creatinine Ratio 22.63 H (12.00-20.00) Ratio Glucose 176 H (70-110) mg/dL Calcium 8.4 L (8.7-10.3) mg/dL Microbiology - Last 24 Hours (Table) 10/19/22 04:30 Blood Culture - Preliminary Blood No Growth after 120 hours 10/19/22 04:45 Blood Culture - Preliminary Blood No Growth after 120 hours Assessment and Plan (1) Influenza A Status: Acute Code(s): J10.1 - FLU DUE TO OTH IDENT INFLUENZA VIRUS W OTH RESP MANIFEST SNOMED Code(s): 564943311 (2) Pneumonia Status: Acute Code(s): J18.9 - PNEUMONIA, UNSPECIFIED ORGANISM SNOMED Code(s): 454679211 Plan: 1patient presented to hospital with mental status changes and acute respiratory failure requiring high flow oxygen likely multifactorial in this patient who did have a initial diagnosis of acute influenza A and now with concern for possible secondary bacterial pneumonia questionable aspiration etiology keep in mind the jail resident will need to cover for resistant gram-negative. 2patient has shown clinical improvement and has completed a 5 day course of Tamiflu patient to finish therapy with oral Avelox 400 mg daily 7 days on discharge discuss with the [facility] for admitting team
--- NOTE | 2022-10-25 19:10 | P.DS ---
Providers Date of admission: 10/19/22 03:30 Expected date of discharge: 10/24/22 Attending physician: Keily Bansal Consults: 10/19/22 09:16 Consult Physician Stat Consulting Provider: Ronaldo Worley Consult Reason/Comments: Pneumonia Do you want consulting provider notified?: Yes 10/19/22 12:00 Consult Physician Urgent Consulting Provider: Erick Fernandez Consult Reason/Comments: influenza/pna Do you want consulting provider notified?: Yes Primary care physician: Stephane London Hospital Course: Final diagnosis Acute influenza A pneumonia Sepsis, present on admission secondary to acute influenza Acute hypoxic respiratory failure was requiring high percent nonrebreather and currently titrate down to room air. Possible aspiration pneumonia. Acute metabolic encephalopathy secondary to infection along with underlying dementia. Parkinson's disease Dementia History of prostate cancer Hypertension Bipolar disorder/depression Chronic constipation GERD DVT prophylaxis Lovenox subcu CODE STATUS is DNR/DNI Discharge disposition Patient is being discharged in a stable condition with guarded prognosis to [facility]. Patient will follow-up with Dr. London in the outpatient setting upon discharge. Patient is to continue with current medications as mentioned below occluding Avelox daily for the next 7 days. Total time taken is greater than 35 minutes. Hospital course This is a 77-year-old male who was recently admitted with shortness of breath, influenza, pneumonia and altered mental status and being closely monitored. Patient is being evaluated by pulmonary along with infectious disease maintained on antibiotics. Patient will be continued on oral Avelox daily for the next one week to complete the course of anxiety recommendations. Patient did have significant improvement in respiratory status and will continue current regimen. Recommend aspiration precautions as well with dysphasia diet and supervised meals. Patient will be returning to [facility] and recommend outpatient follow-up closely. Patient did complete Tamiflu course. Currently no reports of chest pain, shortness of breath, or palpitations. Patient is afebrile. No reports of nausea or vomiting and patient is tolerating diet. Patient will be going to [facility] today. Guarded prognosis Physical exam: Gen: This is a 77-year-old male who is awake, alert and oriented 2, ill- appearing, elderly appearing male HEENT: Head is atraumatic, normocephalic. Pupils equal, round. Sclerae is anicteric. NECK: Supple. No JVD. No lymphadenopathy. No thyromegaly. LUNGS: Diminished breath sounds bilaterally with some scattered rhonchi noted. No intercostal retractions. HEART: Regular rate and rhythm. No murmur. ABDOMEN: Soft. Bowel sounds are present. No masses. No tenderness. EXTREMITIES: No pedal edema. No calf tenderness. NEUROLOGICAL: Patient is awake, alert and oriented x3. Cranial nerves 2 through 12 are grossly intact. Diffusely weak Please refer to medication reconciliation sheet for a list of medications. The impression and plan of care has been dictated by Wendy Tinsley, Nurse Practitioner as directed. Dr. Reginaldo MD I have performed a history and examination and MDM of this patient, discussed the same with the dictator, and agree with the dictator's assessment and plan as written ,documented as a scribe. Based on total visit time, I have performed more than 50% of the visit. Patient Condition at Discharge: Fair Plan - Discharge Summary Discharge Rx Participant: No New Discharge Prescriptions: New Ipratropium-Albuterol Nebulize [Duoneb 0.5 mg-3 mg/3 ml Soln] 3 ml INHALATION RT-QID 30 Days #120 each Ipratropium-Albuterol Nebulize [Duoneb 0.5 mg-3 mg/3 ml Soln] 3 ml INHALATION RT-Q4H PRN each PRN Reason: shortness of breath Moxifloxacin HCl [Avelox] 400 mg PO DAILY 7 Days #7 tab predniSONE [Deltasone] 20 mg PO DAILY #12 tab Continue Thiamine [Vitamin B-1] 100 mg PO DAILY@0800 Melatonin 5 mg PO DAILY@1800 Divalproex [Depakote] 250 mg PO TID@0800,1400,1800 Ascorbic Acid [Vitamin C] 1,000 mg PO DAILY #60 tab Cholecalciferol [Vitamin D3 (25 Mcg = 1000 Iu)] 50 mcg PO DAILY #60 tablet traZODone HCL [Desyrel] 25 mg PO DAILY@1800 Omeprazole [PriLOSEC] 20 mg PO BID PRN PRN Reason: gerd Kaolin Pectin 30 ml PO DIRECTED PRN PRN Reason: Diarrhea QUEtiapine [SEROquel] 50 mg PO BID@0800,1800 lisinopriL [Zestril] 5 mg PO DAILY@0800 Sertraline [Zoloft] 50 mg PO DAILY@0800 Sertraline [Zoloft] 100 mg PO DAILY@1800 rOPINIRole HCL [Requip] 1 mg PO BID@0800,1800 metFORMIN HCL [Glucophage] 500 mg PO BID@0800,1800 Magnesium Hydroxide [Milk of Magnesia] 2,400 mg PO HS PRN PRN Reason: Constipation guaiFENesin SYRUP 100MG/5ML [Robitussin] 200 mg PO Q6H PRN PRN Reason: Cough Donepezil [Aricept] 5 mg PO HS Acetaminophen Tab [Tylenol] 650 mg PO Q4H PRN PRN Reason: Pain Or Fever > 100.5 Tsering-Lanta 15 ml PO BID PRN PRN Reason: Indigestion Benadryl Hoopa 1 spray TOPICAL QID PRN PRN Reason: irritation Discharge Medication List Thiamine [Vitamin B-1] 100 mg PO DAILY@0800 06/24/21 [History] Divalproex [Depakote] 250 mg PO TID@0800,1400,1800 07/13/21 [History] Melatonin 5 mg PO DAILY@1800 07/13/21 [History] QUEtiapine [SEROquel] 50 mg PO BID@0800,1800 07/13/21 [History] lisinopriL [Zestril] 5 mg PO DAILY@0800 08/31/21 [History] Ascorbic Acid [Vitamin C] 1,000 mg PO DAILY #60 tab 09/04/21 [Rx] Cholecalciferol [Vitamin D3 (25 Mcg = 1000 Iu)] 50 mcg PO DAILY #60 tablet 09/04/21 [Rx] Acetaminophen Tab [Tylenol] 650 mg PO Q4H PRN 10/19/22 [History] Benadryl Hoopa 1 spray TOPICAL QID PRN 10/19/22 [History] Donepezil [Aricept] 5 mg PO HS 10/19/22 [History] Tsering-Lanta 15 ml PO BID PRN 10/19/22 [History] Kaolin Pectin 30 ml PO DIRECTED PRN 10/19/22 [History] Magnesium Hydroxide [Milk of Magnesia] 2,400 mg PO HS PRN 10/19/22 [History] Omeprazole [PriLOSEC] 20 mg PO BID PRN 10/19/22 [History] Sertraline [Zoloft] 50 mg PO DAILY@0800 10/19/22 [History] Sertraline [Zoloft] 100 mg PO DAILY@1800 10/19/22 [History] guaiFENesin SYRUP 100MG/5ML [Robitussin] 200 mg PO Q6H PRN 10/19/22 [History] metFORMIN HCL [Glucophage] 500 mg PO BID@0800,1800 10/19/22 [History] rOPINIRole HCL [Requip] 1 mg PO BID@0800,1800 10/19/22 [History] traZODone HCL [Desyrel] 25 mg PO DAILY@1800 10/19/22 [History] Ipratropium-Albuterol Nebulize [Duoneb 0.5 mg-3 mg/3 ml Soln] 3 ml INHALATION RT-Q4H PRN each 10/24/22 [Rx] Ipratropium-Albuterol Nebulize [Duoneb 0.5 mg-3 mg/3 ml Soln] 3 ml INHALATION RT-QID 30 Days #120 each 10/24/22 [Rx] Moxifloxacin HCl [Avelox] 400 mg PO DAILY 7 Days #7 tab 10/24/22 [Rx] predniSONE [Deltasone] 20 mg PO DAILY #12 tab 10/24/22 [Rx] Follow up Appointment(s)/Referral(s): Stephane London MD [Primary Care Provider] - 1-2 days ( will be seeing patient at his residence in the next 48hrs.) Ambulatory/Diagnostic Orders: Complete Blood Count w/diff [LAB.AMB] Time Frame: 3 Days, Location: None Emilia cted Activity/Diet/Wound Care/Special Instructions: * Discharging RN - Call [facility] home to go over discharge instructions: [phone]. Patient is returning to [facility] Continue taking medications as prescribed Recommend repeat CBC and BMP in the next few days Continue taking antibiotics for 1 week Continue prednisone taper until finished Continue dysphasia 1 pureed Diet Continue aspiration precautions with head of the bed elevated 30-45 at all times and also supervision with meals Discharge Disposition: TRANSFER TO SNF/ECF
== END 2022-10-24 17:30 | DRG 871 ==
LOC: EC 01:14 → 4SSUR 03:30 → 1SOBS 19:32 → 3SCARD 20:01 → 4SSUR 10-20 14:19
PROVIDERS: ADMIT Hospitalist; ATTEND Hospitalist
DX: A41.9 Sepsis, unspecified organism (principal); G93.41 Metabolic encephalopathy; J10.08 Influenza due to other identified influenza virus with other specified pneumonia; J69.0 Pneumonitis due to inhalation of food and vomit; J15.9 Unspecified bacterial pneumonia; J96.01 Acute respiratory failure with hypoxia; Z20.822 Contact with and (suspected) exposure to COVID-19; I95.9 Hypotension, unspecified; K21.9 Gastro-esophageal reflux disease without esophagitis; F31.9 Bipolar disorder, unspecified; G20 Parkinson's disease; I10 Essential (primary) hypertension; Z85.46 Personal history of malignant neoplasm of prostate; K59.09 Other constipation; L89.312 Pressure ulcer of right buttock, stage 2; Z66 Do not resuscitate; F02.80 Dementia in other diseases classified elsewhere, unspecified severity, without behavioral disturbance, psychotic disturbance, mood disturbance, and anxiety; Z23 Encounter for immunization; Z79.84 Long term (current) use of oral hypoglycemic drugs; Z79.899 Other long term (current) drug therapy
CPT/HCPCS: 36415; 71045; 80048; 80053; 81001; 83605; 83735; 83880; 84145; 84484; 85025; 85610; 85730; 87040; 87086; 87636; 93005; 94640; 94760; 96361; 96365; 96366; 96367; 96368; 96375; 96376; 99291

== ENCOUNTER 2022-11-05 12:37 | Emergency (ER) | payer MEDICARE, BC ==
[2022-11-05 13:16] VITALS: RESP 20; TEMP 97.8
--- NOTE | 2022-11-05 13:51 | CT ---
EXAMINATION TYPE: CT brain ramon dietrich con DATE OF EXAM: 11/05/2022 COMPARISON: 08/31/2021 HISTORY: Fall, head injury CT DLP: 1525.2 mGycm Automated exposure control for dose reduction was used. TECHNIQUE: CT scan of the head and cervical spine are performed without contrast. FINDINGS: There is no acute intracranial hemorrhage, mass effect, or midline shift identified. The ventricles, basal cisterns and sulci over convexities are markedly enlarged consistent with marked at rophy. There is marked chronic ischemic white matter demyelination.. The globes are intact and the v isualized sinuses are clear. The calvarium is intact. Cervical spine is visualized in its entirety from C1 through upper thoracic levels and demonstrates s atisfactory alignment without evidence of acute fracture or dislocation. Prevertebral soft tissue ap pears within normal limits. The C1-C2 articulation is unremarkable. There are marked degenerative c hanges involving the throughout the cervical region uncovertebral joints. There is a large posterior hypertrophic spur at the C3-4 level mildly compromising the bony spinal canal at this level. IMPRESSION: 1. There is no acute fracture or dislocation evident in the cervical spine. Marked degenerative lyn es as described above. 2. No acute intracranial hemorrhage, mass effect, or midline shift is seen. Marked atrophy and marked chronic ischemic white matter demyelination as described above.
--- NOTE | 2022-11-05 13:56 | ED ---
Fall HPI - General Chief Complaint: Fall Stated Complaint: Fall Time Seen by Provider: 11/05/22 12:50 Source: patient Mode of arrival: ambulatory - History of Present Illness Initial Comments: 77-year-old male with past history of parkinsonian dementia who presents to the emergency department from his extended care facility. The patient fell out of his shower chair today. He fell and hit his head. There was no loss of consciousness. He is not on any blood thinners. No seizure activity noted. Staff felt that the patient was originally confused however did immediately r eturn to his own baseline. The patient arrives and has no complaints. No outward signs of trauma. He follows all commands. HPI is limited due to advanced nature of dementia - Related Data Home Medications Medication Instructions Recorded Confirmed Thiamine [Vitamin B-1] 100 mg PO DAILY@0800 06/24/21 11/10/22 Divalproex [Depakote] 250 mg PO TID@0800,1400,1800 07/13/21 11/10/22 Melatonin 5 mg PO DAILY@1800 07/13/21 11/10/22 QUEtiapine [SEROquel] 50 mg PO BID@0800,1800 07/13/21 11/10/22 lisinopriL [Zestril] 5 mg PO DAILY@0800 08/31/21 11/10/22 Acetaminophen Tab [Tylenol] 650 mg PO Q4H PRN 10/19/22 11/10/22 Benadryl [place] 1 spray TOPICAL QID PRN 10/19/22 11/10/22 Donepezil [Aricept] 5 mg PO HS 10/19/22 11/10/22 Tsering-L[place] 15 ml PO BID PRN 10/19/22 11/10/22 Kaolin Pectin 30 ml PO DIRECTED PRN 10/19/22 11/10/22 Magnesium Hydroxide [Milk of 2,400 mg PO HS PRN 10/19/22 11/10/22 Magnesia] Omeprazole [PriLOSEC] 20 mg PO BID PRN 10/19/22 11/10/22 Sertraline [Zoloft] 50 mg PO DAILY@0800 10/19/22 11/10/22 Sertraline [Zoloft] 100 mg PO DAILY@1800 10/19/22 11/10/22 guaiFENesin SYRUP 100MG/5ML 200 mg PO Q6H PRN 10/19/22 11/10/22 [Robitussin] metFORMIN HCL [Glucophage] 500 mg PO BID@0800,1800 10/19/22 11/10/22 rOPINIRole HCL [Requip] 1 mg PO BID@0800,1800 10/19/22 11/10/22 traZODone HCL [Desyrel] 25 mg PO DAILY@1800 10/19/22 11/10/22 Liquacel Liquid 30 ml PO BID 11/10/22 11/10/22 dexAMETHasone [Decadron] 4 mg PO DAILY@0800 11/10/22 11/10/22 Previous Rx's Medication Instructions Recorded Ascorbic Acid [Vitamin C] 1,000 mg PO DAILY #60 tab 09/04/21 Cholecalciferol [Vitamin D3 (25 50 mcg PO DAILY #60 tablet 09/04/21 Mcg = 1000 Iu)] Ipratropium-Albuterol Nebulize 3 ml INHALATION RT-QID 30 Days 10/24/22 [Duoneb 0.5 mg-3 mg/3 ml Soln] #120 each Allergies Allergy/AdvReac Type Severity Reaction Status Date / Time No Known Allergies Allergy Verified 11/10/22 09:44 Review of Systems ROS Statement: Those systems with pertinent positive or pertinent negative responses have been documented in the HPI. ROS Other: All systems not noted in ROS Statement are negative. Past Medical History Past Medical History: GERD/Reflux Additional Past Medical History / Comment(s): parkinson disease, dementia, cognitive impairement, covid 09/05 History of Any Multi-Drug Resistant Organisms: None Reported Past Surgical History: Unable to Obtain Additional Past Surgical History / Comment(s): eye surgery Past Anesthesia/Blood Transfusion Reactions: Unable to Obtain Past Psychological History: Anxiety, Bipolar, Depression Smoking Status: Never smoker Past Alcohol Use History: Daily Past Drug Use History: None Reported - Past Family History Father History Unknown: Yes Family Medical History: Unable to Obtain General Exam Limitations: altered mental status General appearance: alert, in no apparent distress Head exam: Present: atraumatic, normocephalic, normal inspection Eye exam: Present: normal appearance, PERRL, EOMI. Absent: scleral icterus, conjunctival injection, periorbital swelling ENT exam: Present: normal exam, mucous membranes moist Neck exam: Present: normal inspection. Absent: tenderness, meningismus, lymphadenopathy Respiratory exam: Present: normal lung sounds bilaterally. Absent: respiratory distress, wheezes, rales, rhonchi, stridor Cardiovascular Exam: Present: regular rate, normal rhythm, normal heart sounds. Absent: systolic murmur, diastolic murmur, rubs, gallop, clicks GI/Abdominal exam: Present: soft, normal bowel sounds. Absent: distended, tenderness, guarding, rebound, rigid Extremities exam: Present: normal inspection, full ROM, normal capillary refill. Absent: tenderness, pedal edema, joint swelling, calf tenderness Back exam: Present: normal inspection Neurological exam: Present: alert, CN II-XII intact, other (minimally verbal to the nurse) Psychiatric exam: Present: flat affect Skin exam: Present: warm, dry, intact, normal color. Absent: rash Course Vital Signs 11/05/22 11/05/22 11/05/22 12:43 13:30 15:25 Temperature 97.8 F 97.8 F 97.8 F Pulse Rate 68 70 62 Respiratory 20 20 20 Rate Blood Pressure 123/67 125/58 120/57 O2 Sat by Pulse 98 98 97 Oximetry Medical Decision Making - Medical Decision Making Was pt. sent in by a medical professional or institution? [facility] Did you speak to anyone other than the patient for history? EMS, reviewing notes from nursing facility Did you review nursing and triage notes? yes and I agree Were old charts reviewed? yes. Most recent hospitalization was reviewed. Patient hospitalized for aspiration pneumonia and influenza A Differential Diagnosis? Syncope, blunt head trauma, SAH, SDH, Valvular disease, hypertrophic cardiomyopathy, pulmonary embolism, tamponade, tachycardia, bradycardia, PA, hypovolemia, hemorrhage, dissection, anemia, intracranial hemorrhage, seizure, hypoglycemia, carbon monoxide poisoning, this is not meant to be an all- inclusive list. EKG interpreted by me (3pts min.)? yes X-rays interpreted by me (1pt min.)? not done CT interpreted by me (1pt min.)? yes U/S interpreted by me (1pt. min.)? not done What testing was considered but not performed? (CT, X-rays, U/S, labs)? Why? none What meds were considered but not given? Why? pain medications however patient has no pain reported to nurse Did you discuss the management of the patient with other professionals? no Did you reconcile home meds? no Was smoking cessation discussed for >3mins.? no Was critical care preformed (if so, how long)? no Were there social determinants of health that impacted care today? How? (Homelessness, low income, unemployed, alcoholism, drug addiction, transportation, low edu. Level, literacy, decrease access to med. care, snf, rehab)? none Was there de-escalation of care discussed even if they declined? (Discuss DNR or withdrawal of care, Hospice)? no What co-morbidities impacted this encounter? (DM, HTN, Smoking, COPD, CAD, Cancer, CVA, Hep., AIDS, mental health diagnosis, sleep apnea, morbid obesity)? parkinsons dementia, bipolar Was patient admitted / discharged? Upon arrival patient was placed into room 14. Thorough history and physical exam was performed. Patient does arrive in a c-collar. CT imaging is performed the patient's brain and C-spine. No acute intracranial process at this time. Patient has returned to baseline. Will be discharged home to [facility]. Instructed to see his doctor to 4 days return for any new or worsening symptoms. Patient discharged back via EMS in stable condition Undiagnosed new problem with uncertain prognosis? yes Drug Therapy requiring intensive monitoring for toxicity (Heparin, Nitro, Insuli n, Cardizem)? no Were any procedures done? no Diagnosis/symptom? acute fall, concussion without loss of consciousness Acute, or Chronic, or Acute on Chronic? acute Uncomplicated (without systemic symptoms) or Complicated (systemic symptoms)? uncomplicated Side effects of treatment? none Exacerbation, Progression, or Severe Exacerbation] no Poses a threat to life or bodily function? no Disposition Clinical Impression: Fall, Concussion Disposition: HOME SELF-CARE Condition: Stable Instructions (If sedation given, give patient instructions): Fall Prevention for Older Adults (ED) Additional Instructions: Please follow up with your primary care doctor in 2 to 4 days and return for any new or worsening symptoms Is patient prescribed a controlled substance at d/c from ED?: No Referrals: Stephane London MD [Primary Care Provider] - 1-2 days Time of Disposition: 13:55
[2022-11-05 15:51] VITALS: BP 120/57; PULSE 62
== END 2022-11-05 15:25 | disposition home or self-care (01) ==
LOC: EC 12:37
DX: S06.0XAA Concussion with loss of consciousness status unknown, initial encounter (principal); K21.9 Gastro-esophageal reflux disease without esophagitis; F31.9 Bipolar disorder, unspecified; F41.9 Anxiety disorder, unspecified; Z79.52 Long term (current) use of systemic steroids; Z79.84 Long term (current) use of oral hypoglycemic drugs; W07.XXXA Fall from chair, initial encounter
CPT/HCPCS: 70450; 72125; 99284

== ENCOUNTER 2022-11-10 07:48 | Inpatient (IN) | payer MEDICARE, BC ==
[2022-11-10] MEDS: LACTATED RINGERS 1,000 ML IV SCH ×3 (08:38→20:50)
[2022-11-10] MEDS: SODIUM CHLORIDE 0.9% 500 ML 500 ML IV SCH ×4 (08:38→10:15)
[2022-11-10 08:39] LABS: Appearance,Urine Cloudy (Clear); Bacteria,Urine Few /hpf; Basophils % (A) 0 %; Bilirubin,Urine Negative (Negative); Blood,Urine Small (Negative); Color,Urine Yellow; Eosinophils % (A) 0 %; Glucose,Urine (UA) Negative (Negative); HCT 38.7 % (39.0-53.0); HGB 12.9 gm/dL (13.0-17.5); Ketones,Urine 2+ (Negative); Leukocyte Esterase,Urine Large (Negative); Lymphocytes # (A) 0.4 k/uL (1.0-4.8); Lymphocytes % (A) 5 %; MCH 32.3 pg (25.0-35.0); MCHC 33.4 g/dL (31.0-37.0); MCV 96.9 fL (80.0-100.0); Mean Platelet Volume 8.6; Monocytes # (A) 0.6 k/uL (0-1.0); Monocytes % (A) 8 %; Mucus,Urine Moderate /hpf; Neutrophils # (A) 6.3 k/uL (1.3-7.7); Neutrophils % (A) 85 %; Nitrite,Urine Negative (Negative); PH, Urine 5.5 (5.0-8.0); Protein,Urine 1+ (Negative); RBC,Urine 48 /hpf (0-5); RDW 13.8 % (11.5-15.5); Specific Gravity,Urine 1.023 (1.001-1.035); Squamous Epithelial Cell,Urine <1 /hpf (0-4); Urobilinogen,Urine <2.0 mg/dL (<2.0); WBC 7.4 k/uL (3.8-10.6); WBC,Urine 44 /hpf (0-5)
[2022-11-10 08:42] LABS: Platelet Count 177 k/uL (150-450)
[2022-11-10 08:43] LABS: VBG PH 7.46 (7.31-7.41)
[2022-11-10 08:45] LABS: Amphetamine Screen,Urine Not Detected (NotDetected); Barbiturate Screen,Urine Not Detected (NotDetected); Benzodiazepines Screen,Urine Not Detected (NotDetected); Cocaine Screen,Urine Not Detected (NotDetected); Methadone Screen, Urine Not Detected (NotDetected); Opiate Screen,Urine Not Detected (NotDetected); Oxycodone Screen, Urine Not Detected (NotDetected); Phencyclidine Screen,Urine Not Detected (NotDetected); Tricyclic Antidepressant,Urine Detected (NotDetected); Urn Cannabinoid Scrn Not Detected (NotDetected)
[2022-11-10 08:46] LABS: INR 1.1 (<1.2); Partial Thromboplastin Time 22.9 sec (22.0-30.0); Prothrombin Time 11.4 sec (9.0-12.0)
[2022-11-10 08:50] LABS: Calcium 8.3 mg/dL (8.4-10.2); Potassium 3.2 mmol/L (3.5-5.1); Total Bilirubin 0.5 mg/dL (0.2-1.3); Total Protein 5.4 g/dL (6.3-8.2)
--- NOTE | 2022-11-10 08:53 | CT ---
EXAMINATION TYPE: CT brain wo con DATE OF EXAM: 11/10/2022 COMPARISON: 11/05/2022 HISTORY: Fever, Sepsis, AMS CT DLP: 1129.[address] of the brain was performed. The ventricles, basal cisterns and sulci overlying the cerebral convexities demonstrate moderate enla rgement. There is no evidence for intracranial hemorrhage or sulcal effacement. There is decreased attenuation about the periventricular white matter and deep white matter of both c erebral hemispheres, compatible with chronic small vessel ischemia. Differential diagnosis does inclu de demyelination. No mass effects are seen.No midline shift. Osseous calvarium is intact. If symptoms persist consider MRI. IMPRESSION: 1. Age related atrophic and chronic small vessel ischemic change without acute intracranial process s een at this time.
[2022-11-10 08:55] LABS: Valproic Acid (Depakene) 57.6 ug/mL
--- NOTE | 2022-11-10 08:56 | ED ---
Altered Mental Status HPI - General Chief Complaint: Altered Mental Status Stated Complaint: Fever,Sepsis Time Seen by Provider: 11/10/22 07:50 Source: EMS Mode of arrival: EMS Limitations: altered mental status, physical limitation - History of Present Illness Initial Comments: Patient is 77-year-old male with past medical history of vascular dementia, bipolar disorder, past history of alcohol abuse who presents to the emergency department with altered mental status. He does reside at [facility]. It was reported that they went into the patient's room at 6:30 this morning. They noticed that he was febrile, altered with low oxygen. They did provide the patient with 2 Tylenols. He became more confused and therefore they called for EMS. EMS arrived upon the patient with an oxygen saturation in the 80s. They found him to have a temp of 105 axillary. They said that he had some questionable seizure-like activity as he had nystagmus of his eyes. They gave him 2.5 mg of Versed. They state that he had continuation of his symptoms and therefore gave him an additional 2.5. Patient arrives unable to provide any history. He was seen previously at our facility a few days ago for a fall and had a CT of his head performed. Patient is bed bound at baseline. Patient does have a power of defense attorney. He is DO NOT RESUSCITATE, DO NOT INTUBATE and no to vasopressors, blood products, cardioversion. - Related Data Home Medications Medication Instructions Recorded Confirmed Thiamine [Vitamin B-1] 100 mg PO DAILY@0800 06/24/21 11/10/22 Divalproex [Depakote] 250 mg PO TID@0800,1400,1800 07/13/21 11/10/22 Melatonin 5 mg PO DAILY@1800 07/13/21 11/10/22 QUEtiapine [SEROquel] 50 mg PO BID@0800,1800 07/13/21 11/10/22 lisinopriL [Zestril] 5 mg PO DAILY@0800 08/31/21 11/10/22 Acetaminophen Tab [Tylenol] 650 mg PO Q4H PRN 10/19/22 11/10/22 Benadryl Crete 1 spray TOPICAL QID PRN 10/19/22 11/10/22 Donepezil [Aricept] 5 mg PO HS 10/19/22 11/10/22 Tsering-Lanta 15 ml PO BID PRN 10/19/22 11/10/22 Kaolin Pectin 30 ml PO DIRECTED PRN 10/19/22 11/10/22 Magnesium Hydroxide [Milk of 2,400 mg PO HS PRN 10/19/22 11/10/22 Magnesia] Omeprazole [PriLOSEC] 20 mg PO BID PRN 10/19/22 11/10/22 Sertraline [Zoloft] 50 mg PO DAILY@0800 10/19/22 11/10/22 Sertraline [Zoloft] 100 mg PO DAILY@1800 10/19/22 11/10/22 guaiFENesin SYRUP 100MG/5ML 200 mg PO Q6H PRN 10/19/22 11/10/22 [Robitussin] metFORMIN HCL [Glucophage] 500 mg PO BID@0800,1800 10/19/22 11/10/22 rOPINIRole HCL [Requip] 1 mg PO BID@0800,1800 10/19/22 11/10/22 traZODone HCL [Desyrel] 25 mg PO DAILY@1800 10/19/22 11/10/22 Liquacel Liquid 30 ml PO BID 11/10/22 11/10/22 dexAMETHasone [Decadron] 4 mg PO DAILY@0800 11/10/22 11/10/22 Previous Rx's Medication Instructions Recorded Ascorbic Acid [Vitamin C] 1,000 mg PO DAILY #60 tab 09/04/21 Cholecalciferol [Vitamin D3 (25 50 mcg PO DAILY #60 tablet 09/04/21 Mcg = 1000 Iu)] Ipratropium-Albuterol Nebulize 3 ml INHALATION RT-QID 30 Days 10/24/22 [Duoneb 0.5 mg-3 mg/3 ml Soln] #120 each Allergies Allergy/AdvReac Type Severity Reaction Status Date / Time No Known Allergies Allergy Verified 11/10/22 09:44 Review of Systems ROS Statement: Those systems with pertinent positive or pertinent negative responses have been documented in the HPI. ROS Other: All systems not noted in ROS Statement are negative. Past Medical History Past Medical History: GERD/Reflux Additional Past Medical History / Comment(s): parkinson disease, dementia, cognitive impairement, covid 09/05 History of Any Multi-Drug Resistant Organisms: None Reported Past Surgical History: Unable to Obtain Additional Past Surgical History / Comment(s): eye surgery Past Anesthesia/Blood Transfusion Reactions: Unable to Obtain Past Psychological History: Anxiety, Bipolar, Depression Smoking Status: Never smoker Past Alcohol Use History: Daily Past Drug Use History: None Reported - Past Family History Father History Unknown: Yes Family Medical History: Unable to Obtain General Exam Limitations: altered mental status, physical limitation General appearance: obtunded Head exam: Present: atraumatic, normocephalic, normal inspection Eye exam: Present: normal appearance, PERRL, EOMI, conjunctival injection. Absent: scleral icterus, periorbital swelling Pupils: Present: mydriatic ENT exam: Present: mucous membranes dry Neck exam: Present: normal inspection. Absent: tenderness, meningismus, lymphadenopathy Respiratory exam: Present: rales, decreased breath sounds Cardiovascular Exam: Present: normal rhythm, tachycardia GI/Abdominal exam: Present: soft, normal bowel sounds. Absent: distended, tenderness, guarding, rebound, rigid Rectal exam: Present: other (excorations on bottom) Extremities exam: Present: normal inspection, full ROM, normal capillary refill. Absent: tenderness, pedal edema, joint swelling, calf tenderness Neurological exam: Present: altered, other (minimal responsive to painful stimuli) Course Vital Signs 11/10/22 11/10/22 11/10/22 07:49 07:50 08:00 Temperature 100.3 F H Pulse Rate 129 H Respiratory 24 22 20 Rate Blood Pressure 125/92 125/92 O2 Sat by Pulse 94 L 94 L 94 L Oximetry 11/10/22 11/10/22 11/10/22 08:07 08:15 08:44 Temperature 103.8 F H 101.3 F H Pulse Rate 121 H Respiratory 22 Rate Blood Pressure 83/47 O2 Sat by Pulse 94 L Oximetry 11/10/22 11/10/22 11/10/22 08:45 09:00 09:15 Temperature 99.9 F H 99.1 F Pulse Rate 105 H 101 H 109 H Respiratory 18 17 17 Rate Blood Pressure 78/49 56/32 70/43 O2 Sat by Pulse 95 93 L 95 Oximetry 11/10/22 11/10/22 11/10/22 09:30 10:00 10:15 Temperature 98.4 F 97.9 F 97.3 F L Pulse Rate 107 H 98 99 Respiratory 20 19 15 Rate Blood Pressure 99/66 97/53 82/52 O2 Sat by Pulse 94 L 98 96 Oximetry 11/10/22 11/10/22 11/10/22 10:30 11:00 11:07 Temperature 97.2 F L 97.0 F L Pulse Rate 99 100 92 Respiratory 12 15 Rate Blood Pressure 82/52 105/66 O2 Sat by Pulse 95 96 Oximetry 11/10/22 11/10/22 11/10/22 11:19 11:30 12:00 Temperature 96.8 F L 96.6 F L Pulse Rate 92 96 93 Respiratory 15 12 Rate Blood Pressure 73/48 89/60 O2 Sat by Pulse 87 L 97 Oximetry 11/10/22 11/10/22 11/10/22 12:30 13:00 15:57 Temperature 96.4 F L 96.1 F L Pulse Rate 92 89 95 Respiratory 15 15 Rate Blood Pressure 84/52 96/55 O2 Sat by Pulse 95 96 94 L Oximetry 11/10/22 16:07 Temperature Pulse Rate 92 Respiratory Rate Blood Pressure O2 Sat by Pulse Oximetry Medical Decision Making - Medical Decision Making Was pt. sent in by a medical professional or institution (, PA, SURFACE ROOM SHOP OPTICIAN, urgent care, hospital, or longterm...) When possible be specific [facility] Did you speak to anyone other than the patient for history (EMS, parent, family, police, friend...)? What history was obtained from this source EMS Did you review nursing and triage notes (agree or disagree)? Why? @ -[I reviewed and agree with nursing and triage notes] Were old charts reviewed (outside hosp., previous admission, EMS record, old EKG, old radiological studies, urgent care reports/EKG's, longterm records)? Report findings yes, admission from earlier this month where pt tested positive for influenza a and most recent ED visit for fall Differential Diagnosis (chest pain, altered mental status, abdominal pain women, abdominal pain men, vaginal bleeding, weakness, fever, dyspnea, syncope, headach e, dizziness, GI bleed, back pain, seizure, CVA, palpatations, mental health)? MDM Differential Altered Mental Status: Hypoglycemia, DKA, hypercapnia, ETOH, overdose, CO poisoning, trauma, myxedema coma, HTN encephalopathy, infection, encephalitis, psychosis, intercranial hemorrhage, hepatic encephalopathy, meningitis, CVA this is not meant to be an all-inclusive list EKG interpreted by me (3pts min.). yes X-rays interpreted by me (1pt min.). yes CT interpreted by me (1pt min.). yes U/S interpreted by me (1pt. min.). @ -[None done] What testing was considered but not performed or refused? (CT, X-rays, U/S, labs)? Why? @ -[None] What meds were considered but not given or refused? Why? vasopressors however DPOA states patient is a DNR/DNI/ no to cardioversion/vasopressors/etc Did you discuss the management of the patient with other professionals (professionals i.e. , PA, SURFACE ROOM SHOP OPTICIAN, lab, RT, psych nurse, manager social responsibility, puttying and calking supervisor, t eacher, admissions officer, corrections caseworker)? Give summary admitting physician Was smoking cessation discussed for >3mins.? @ -[No] Was critical care preformed (if so, how long)? @ -[No] Were there social determinants of health that impacted care today? How? (Homelessness, low income, unemployed, alcoholism, drug addiction, transportation, low edu. Level, literacy, decrease access to med. care, custodial, rehab)? @ -[No] Was there de-escalation of care discussed even if they declined (Discuss DNR or withdrawal of care, Hospice)? DNR status yes What co-morbidities impacted this encounter? (DM, HTN, Smoking, COPD, CAD, Cancer, CVA, ARF, Chemo, Hep., AIDS, mental health diagnosis, sleep apnea, morbid obesity)? dementia, recurrent aspiration pna Was patient admitted / discharged? Hospital course, mention meds given and route, prescriptions, significant lab abnormalities, going to OR and other pertinent info. Upon arrival patient was placed into trauma 1. A thorough history and physical exam was performed. IV is established. Patient given a 30 mL per KG fluid bolus and then started on 130 mL of normal saline per hour. Patient is still febrile and therefore he is given IV Motrin. Laboratory studies are conducted and reviewed. Potassium low and this is replaced. Troponin 1.19. Patient still test positive for influenza. TCAs positive urine. Chest x-rays performed which demonstrated improvement in the patient pneumonia. I did obtain blood cultures. Rocephin is ordered for antibiotics. I did call and speak with the patient's guardian. States that comfort is most important. She is agreeable to seeing what fluids and antibiotics due for the patient however if he does not respond, he does not want any extenuating measures. No to intubation, CPR, vasopressors, cardioversion. She is agreeable to consult with hospice in the event that the patient does not have improvement with gentle measures. I did inform her that the patient is very sick with a high cardiac enzymes. Patient's understands this and continues to want to proceed with the current course. Patient admitted to Dr. cornelius. He is pending transport to floor stable condition Undiagnosed new problem with uncertain prognosis? yes Drug Therapy requiring intensive monitoring for toxicity (Heparin, Nitro, Insul in, Cardizem)? @ -[No] Were any procedures done? @ -[No] Diagnosis/symptom? acute encephalopathy, hypotension, influenza a, nstemi Acute, or Chronic, or Acute on Chronic? influenza a - subacute, all rest of the diagnoses are acute Uncomplicated (without systemic symptoms) or Complicated (systemic symptoms)? complicated Side effects of treatment? volume overload with fluids, allergic reaction Exacerbation, Progression, or Severe Exacerbation? @ -[No] Poses a threat to life or bodily function? How? (Chest pain, [place], [place], pneumonia, PE, COPD, DKA, ARF, appy, cholecystitis, CVA, Diverticulitis, Homicidal, Suicidal, threat to staff... and all critical care pts) yes - Lab Data Result diagrams: 11/13/22 06:07 11/13/22 06:07 Lab Results 11/10/22 11/10/22 11/10/22 Range/Units 08:10 08:10 08:10 WBC 7.4 (3.8-10.6) k/uL RBC 4.00 L (4.30-5.90) m/uL Hgb 12.9 L (13.0-17.5) gm/dL Hct 38.7 L (39.0-53.0) % MCV 96.9 (80.0-100.0) fL MCH 32.3 (25.0-35.0) pg MCHC 33.4 (31.0-37.0) g/dL RDW 13.8 (11.5-15.5) % Plt Count 177 D (150-450) k/uL MPV 8.6 Neutrophils % 85 % Lymphocytes % 5 % Monocytes % 8 % Eosinophils % 0 % Basophils % 0 % Neutrophils # 6.3 (1.3-7.7) k/uL Lymphocytes # 0.4 L (1.0-4.8) k/uL Monocytes # 0.6 (0-1.0) k/uL Eosinophils # 0.0 (0-0.7) k/uL Basophils # 0.0 (0-0.2) k/uL PT 11.4 (9.0-12.0) sec INR 1.1 (<1.2) APTT 22.9 (22.0-30.0) sec VBG pH (7.31-7.41) VBG pCO2 (37-51) mmHg VBG HCO3 (24-28) mmol/L Sodium 148 H (137-145) mmol/L Potassium 3.2 L (3.5-5.1) mmol/L Chloride 115 H (98-107) mmol/L Carbon Dioxide 22 (22-30) mmol/L Anion Gap 11 mmol/L BUN 35 H (9-20) mg/dL Creatinine 1.18 (0.66-1.25) mg/dL Est GFR (CKD-EPI)AfAm 69 (>60 ml/min/1.73 sqM) Est GFR (CKD-EPI)NonAf 60 (>60 ml/min/1.73 sqM) Glucose 178 H (74-99) mg/dL Plasma Lactic Acid Ulises (0.7-2.0) mmol/L Calcium 8.3 L (8.4-10.2) mg/dL Total Bilirubin 0.5 (0.2-1.3) mg/dL AST 21 (17-59) U/L ALT 15 (4-49) U/L Alkaline Phosphatase 58 (38-126) U/L Troponin I (0.000-0.034) ng/mL Total Protein 5.4 L (6.3-8.2) g/dL Albumin 3.0 L (3.5-5.0) g/dL Procalcitonin (0.02-0.09) ng/mL Urine Color Urine Appearance (Clear) Urine pH (5.0-8.0) Ur Specific Fulton (1.001-1.035) Urine Protein (Negative) Urine Glucose (UA) (Negative) Urine Ketones (Negative) Urine Blood (Negative) Urine Nitrite (Negative) Urine Bilirubin (Negative) Urine Urobilinogen (<2.0) mg/dL Ur Leukocyte Esterase (Negative) Urine RBC (0-5) /hpf Urine WBC (0-5) /hpf Ur Squamous Epith Cells (0-4) /hpf Urine Bacteria (None) /hpf Urine Mucus (None) /hpf Urine Opiates Screen (NotDetected) Ur Oxycodone Screen (NotDetected) Urine Methadone Screen (NotDetected) Ur Propoxyphene Screen (NotDetected) Ur Barbiturates Screen (NotDetected) Valproic Acid 57.6 ug/mL U Tricyclic Antidepress (NotDetected) Ur Phencyclidine Scrn (NotDetected) Ur Amphetamines Screen (NotDetected) U Methamphetamines Scrn (NotDetected) U Benzodiazepines Scrn (NotDetected) Urine Cocaine Screen (NotDetected) U Marijuana (THC) Screen (NotDetected) Influenza Type A (PCR) (Not Detectd) Influenza Type B (PCR) (Not Detectd) RSV (PCR) (Not Detectd) SARS-CoV-2 (PCR) (Not Detectd) 11/10/22 11/10/22 11/10/22 Range/Units 08:10 08:10 08:10 WBC (3.8-10.6) k/uL RBC (4.30-5.90) m/uL Hgb (13.0-17.5) gm/dL Hct (39.0-53.0) % MCV (80.0-100.0) fL MCH (25.0-35.0) pg MCHC (31.0-37.0) g/dL RDW (11.5-15.5) % Plt Count (150-450) k/uL MPV Neutrophils % % Lymphocytes % % Monocytes % % Eosinophils % % Basophils % % Neutrophils # (1.3-7.7) k/uL Lymphocytes # (1.0-4.8) k/uL Monocytes # (0-1.0) k/uL Eosinophils # (0-0.7) k/uL Basophils # (0-0.2) k/uL PT (9.0-12.0) sec INR (<1.2) APTT (22.0-30.0) sec VBG pH (7.31-7.41) VBG pCO2 (37-51) mmHg VBG HCO3 (24-28) mmol/L Sodium (137-145) mmol/L Potassium (3.5-5.1) mmol/L Chloride (98-107) mmol/L Carbon Dioxide (22-30) mmol/L Anion Gap mmol/L BUN (9-20) mg/dL Creatinine (0.66-1.25) mg/dL Est GFR (CKD-EPI)AfAm (>60 ml/min/1.73 sqM) Est GFR (CKD-EPI)NonAf (>60 ml/min/1.73 sqM) Glucose (74-99) mg/dL Plasma Lactic Acid Ulises 1.9 (0.7-2.0) mmol/L Calcium (8.4-10.2) mg/dL Total Bilirubin (0.2-1.3) mg/dL AST (17-59) U/L ALT (4-49) U/L Alkaline Phosphatase (38-126) U/L Troponin I (0.000-0.034) ng/mL Total Protein (6.3-8.2) g/dL Albumin (3.5-5.0) g/dL Procalcitonin (0.02-0.09) ng/mL Urine Color Yellow Urine Appearance Cloudy (Clear) Urine pH 5.5 (5.0-8.0) Ur Specific [place] 1.023 (1.001-1.035) Urine Protein 1+ H (Negative) Urine Glucose (UA) Negative (Negative) Urine Ketones 2+ H (Negative) Urine Blood Small H (Negative) Urine Nitrite Negative (Negative) Urine Bilirubin Negative (Negative) Urine Urobilinogen <2.0 (<2.0) mg/dL Ur Leukocyte Esterase Large H (Negative) Urine RBC 48 H (0-5) /hpf Urine WBC 44 H (0-5) /hpf Ur Squamous Epith Cells <1 (0-4) /hpf Urine Bacteria Few H (None) /hpf Urine Mucus Moderate H (None) /hpf Urine Opiates Screen Not Detected (NotDetected) Ur Oxycodone Screen Not Detected (NotDetected) Urine Methadone Screen Not Detected (NotDetected) Ur Propoxyphene Screen Not Detected (NotDetected) Ur Barbiturates Screen Not Detected (NotDetected) Valproic Acid ug/mL U Tricyclic Antidepress Detected H (NotDetected) Ur Phencyclidine Scrn Not Detected (NotDetected) Ur Amphetamines Screen Not Detected (NotDetected) U Methamphetamines Scrn Not Detected (NotDetected) U Benzodiazepines Scrn Not Detected (NotDetected) Urine Cocaine Screen Not Detected (NotDetected) U Marijuana (THC) Screen Not Detected (NotDetected) Influenza Type A (PCR) (Not Detectd) Influenza Type B (PCR) (Not Detectd) RSV (PCR) (Not Detectd) SARS-CoV-2 (PCR) (Not Detectd) 11/10/22 11/10/22 11/10/22 Range/Units 08:10 08:10 08:10 WBC (3.8-10.6) k/uL RBC (4.30-5.90) m/uL Hgb (13.0-17.5) gm/dL Hct (39.0-53.0) % MCV (80.0-100.0) fL MCH (25.0-35.0) pg MCHC (31.0-37.0) g/dL RDW (11.5-15.5) % Plt Count (150-450) k/uL MPV Neutrophils % % Lymphocytes % % Monocytes % % Eosinophils % % Basophils % % Neutrophils # (1.3-7.7) k/uL Lymphocytes # (1.0-4.8) k/uL Monocytes # (0-1.0) k/uL Eosinophils # (0-0.7) k/uL Basophils # (0-0.2) k/uL PT (9.0-12.0) sec INR (<1.2) APTT (22.0-30.0) sec VBG pH 7.46 H (7.31-7.41) VBG pCO2 32 L (37-51) mmHg VBG HCO3 22 L (24-28) mmol/L Sodium (137-145) mmol/L Potassium (3.5-5.1) mmol/L Chloride (98-107) mmol/L Carbon Dioxide (22-30) mmol/L Anion Gap mmol/L BUN (9-20) mg/dL Creatinine (0.66-1.25) mg/dL Est GFR (CKD-EPI)AfAm (>60 ml/min/1.73 sqM) Est GFR (CKD-EPI)NonAf (>60 ml/min/1.73 sqM) Glucose (74-99) mg/dL Plasma Lactic Acid Ulises (0.7-2.0) mmol/L Calcium (8.4-10.2) mg/dL Total Bilirubin (0.2-1.3) mg/dL AST (17-59) U/L ALT (4-49) U/L Alkaline Phosphatase (38-126) U/L Troponin I 1.190 H* (0.000-0.034) ng/mL Total Protein (6.3-8.2) g/dL Albumin (3.5-5.0) g/dL Procalcitonin (0.02-0.09) ng/mL Urine Color Urine Appearance (Clear) Urine pH (5.0-8.0) Ur Specific [place] (1.001-1.035) Urine Protein (Negative) Urine Glucose (UA) (Negative) Urine Ketones (Negative) Urine Blood (Negative) Urine Nitrite (Negative) Urine Bilirubin (Negative) Urine Urobilinogen (<2.0) mg/dL Ur Leukocyte Esterase (Negative) Urine RBC (0-5) /hpf Urine WBC (0-5) /hpf Ur Squamous Epith Cells (0-4) /hpf Urine Bacteria (None) /hpf Urine Mucus (None) /hpf Urine Opiates Screen (NotDetected) Ur Oxycodone Screen (NotDetected) Urine Methadone Screen (NotDetected) Ur Propoxyphene Screen (NotDetected) Ur Barbiturates Screen (NotDetected) Valproic Acid ug/mL U Tricyclic Antidepress (NotDetected) Ur Phencyclidine Scrn (NotDetected) Ur Amphetamines Screen (NotDetected) U Methamphetamines Scrn (NotDetected) U Benzodiazepines Scrn (NotDetected) Urine Cocaine Screen (NotDetected) U Marijuana (THC) Screen (NotDetected) Influenza Type A (PCR) Detected A (Not Detectd) Influenza Type B (PCR) Not Detected (Not Detectd) RSV (PCR) Not Detected (Not Detectd) SARS-CoV-2 (PCR) Not Detected (Not Detectd) 11/10/22 Range/Units 08:10 WBC (3.8-10.6) k/uL RBC (4.30-5.90) m/uL Hgb (13.0-17.5) gm/dL Hct (39.0-53.0) % MCV (80.0-100.0) fL MCH (25.0-35.0) pg MCHC (31.0-37.0) g/dL RDW (11.5-15.5) % Plt Count (150-450) k/uL MPV Neutrophils % % Lymphocytes % % Monocytes % % Eosinophils % % Basophils % % Neutrophils # (1.3-7.7) k/uL Lymphocytes # (1.0-4.8) k/uL Monocytes # (0-1.0) k/uL Eosinophils # (0-0.7) k/uL Basophils # (0-0.2) k/uL PT (9.0-12.0) sec INR (<1.2) APTT (22.0-30.0) sec VBG pH (7.31-7.41) VBG pCO2 (37-51) mmHg VBG HCO3 (24-28) mmol/L Sodium (137-145) mmol/L Potassium (3.5-5.1) mmol/L Chloride (98-107) mmol/L Carbon Dioxide (22-30) mmol/L Anion Gap mmol/L BUN (9-20) mg/dL Creatinine (0.66-1.25) mg/dL Est GFR (CKD-EPI)AfAm (>60 ml/min/1.73 sqM) Est GFR (CKD-EPI)NonAf (>60 ml/min/1.73 sqM) Glucose (74-99) mg/dL Plasma Lactic Acid Ulises (0.7-2.0) mmol/L Calcium (8.4-10.2) mg/dL Total Bilirubin (0.2-1.3) mg/dL AST (17-59) U/L ALT (4-49) U/L Alkaline Phosphatase (38-126) U/L Troponin I (0.000-0.034) ng/mL Total Protein (6.3-8.2) g/dL Albumin (3.5-5.0) g/dL Procalcitonin 0.60 H (0.02-0.09) ng/mL Urine Color Urine Appearance (Clear) Urine pH (5.0-8.0) Ur Specific [place] (1.001-1.035) Urine Protein (Negative) Urine Glucose (UA) (Negative) Urine Ketones (Negative) Urine Blood (Negative) Urine Nitrite (Negative) Urine Bilirubin (Negative) Urine Urobilinogen (<2.0) mg/dL Ur Leukocyte Esterase (Negative) Urine RBC (0-5) /hpf Urine WBC (0-5) /hpf Ur Squamous Epith Cells (0-4) /hpf Urine Bacteria (None) /hpf Urine Mucus (None) /hpf Urine Opiates Screen (NotDetected) Ur Oxycodone Screen (NotDetected) Urine Methadone Screen (NotDetected) Ur Propoxyphene Screen (NotDetected) Ur Barbiturates Screen (NotDetected) Valproic Acid ug/mL U Tricyclic Antidepress (NotDetected) Ur Phencyclidine Scrn (NotDetected) Ur Amphetamines Screen (NotDetected) U Methamphetamines Scrn (NotDetected) U Benzodiazepines Scrn (NotDetected) Urine Cocaine Screen (NotDetected) U Marijuana (THC) Screen (NotDetected) Influenza Type A (PCR) (Not Detectd) Influenza Type B (PCR) (Not Detectd) RSV (PCR) (Not Detectd) SARS-CoV-2 (PCR) (Not Detectd) - EKG Data Rate: normal EKG Comments: EKG demonstrates sinus tachycardia with a rate of 127. NE interval 156. QRS 79. QTC of 401. No acute ST segment elevations or depressions Disposition Clinical Impression: Fever, Acute encephalopathy, Hypotension, Influenza A, CAP (community acquired pneumonia), Non-STEMI (non-ST elevated myocardial infarction) Disposition: ADMITTED IP TO THIS HOSP Condition: Serious Is patient prescribed a controlled substance at d/c from ED?: No Time of Disposition: 10:09 Decision to Admit Reason: Admit from EC Decision Date: 11/10/22 Decision Time: 10:09
[2022-11-10] MEDS ORDERED: POTASSIUM CHLORIDE 20 MEQ in WATER FOR INJECTION 1 100ML.BAG IVPB STA (09:19)
--- NOTE | 2022-11-10 09:26 | XR ---
EXAMINATION TYPE: XR chest 1V portable DATE OF EXAM: 11/10/2022 HISTORY: Shortness of breath. COMPARISON: 10/20/2021 TECHNIQUE: Single view of the chest is submitted. FINDINGS: Demonstrated are scattered senescent parenchymal change. Persistent but significantly improved right lower lobe infiltrate. Near-complete resolution left lowe r lobe infiltrate. The heart is stable. Hilar and mediastinal structures are within normal limits. Degenerative changes are seen of the dorsal spine. IMPRESSION: 1. Persistent but significantly improved right lower lobe infiltrate. Near-complete resolution left lower lobe infiltrate.
[2022-11-10] MEDS ORDERED: IBUPROFEN IV 600 MG in SODIUM CHLORIDE 0.9% 100 ML IV ONE (09:35)
[2022-11-10] MEDS ORDERED: IBUPROFEN IV 600 MG in SODIUM CHLORIDE 0.9% 250 ML IV ONE (09:45)
[2022-11-10] MEDS ORDERED: ACETAMINOPHEN TAB 325 MG TAB PO PRN (10:09)
[2022-11-10] MEDS ORDERED: NALOXONE 0.4 MG/ML 1 ML VIAL IV PRN (10:09)
[2022-11-10] MEDS ORDERED: IBUPROFEN 400 MG TAB PO PRN (10:09)
[2022-11-10] MEDS ORDERED: PANTOPRAZOLE 40 MG TABLET PO PRN (10:42)
[2022-11-10] MEDS: IPRATROPIUM-ALBUTEROL 3 ML NEB INHALATION SCH ×3 (11:04→20:06)
--- NOTE | 2022-11-10 11:04 | P.CRDCN ---
History of Present Illness Consult date: 11/10/22 History of present illness: HISTORY OF PRESENT ILLNESS: This is a 77-year-old male with a past medical history significant for dementia, hypertension, bipolar disorder, alcohol abuse, and seizure disorder. Patient does not follow with a podopediatrician. We have been asked to see the patient in consultation for elevated troponin. The patient is bed bound at baseline and resides at [facility]. He was found to be lethargic this morning with decreased oxygen levels. He was found to be febrile. He is positive for influenza A. Fever on admission to the hospital was 103.8. Apparently he had a fever to 105 at the facility he resides. The patient has been hypotensive and tachycardic since coming to the ER. He should has blood pressures charted as low as 56/32. He received 2 liters of fluid boluses. His blood pressure has since improved. Hi s tachycardia has also improved. Bedside telemetry reveals sinus mechanism with a heart rate in the 90s. The patient is a DO NOT RESUSCITATE. Patient examined at the bedside in the emergency room. There is no family present. The patient has a legal guardian. The patient is lethargic and unable to answer any questions at the time of examination. * EKG reveals sinus tachycardia with no signs of acute ischemia * Chest xray persistent but significantly improved right lower lobe infiltrate. Near complete resolution left lower lobe infiltrate. * CT of the brain: Age related atrophic and chronic small vessel ischemic changes without acute intracranial process seen at this time. * Laboratory data: WBC 7.4. Hemoglobin 12.9. Platelet count 177. Sodium 140. Potassium 3.2. BUN 35. Creatinine 1.18. Troponin 1.190. * Current home cardiac medications include lisinopril 5 mg daily * Most recent echocardiogram obtained in May 2021 revealing ejection fraction 55-60%, mild mitral regurgitation, trace tricuspid regurgitation REVIEW OF SYSTEMS: Unable to obtain thorough review of systems secondary to altered mental status PHYSICAL EXAM: VITAL SIGNS: Reviewed. GENERAL: Well-developed in no acute distress. HEENT: Head is normocephalic. Pupils are equal, round. Sclerae anicteric. Mucous membranes of the mouth are moist. Neck supple. No JVD or thyromegaly LUNGS: Respirations even and unlabored. Lungs essentially clear to auscultation bilaterally. Upper airway congested noted. HEART: Regular rate and rhythm. S1 and S2 heard. Systolic murmur noted ABDOMEN: Soft. Nondistended. Nontender. EXTREMITIES: No clubbing or cyanosis. Peripheral pulses intact. No lower extremity edema NEUROLOGIC: Lethargic ASSESSMENT: Acute Influenza A Sepsis with fever, tachycardia, and hypotension Encephalopathy Abnormal troponin, likely secondary to sepsis History of hypertension History of seizure disorder History of bipolar disorder Past history of alcohol abuse History of dementia PLAN: Troponin elevation is likely secondary to Type II HI, no evidence of ACS Obtain 2D echo to assess cardiac structure and function Patients prognosis guarded. Hospice has been consulted. Further recommendations pending patient course Nurse practitioner note has been reviewed by physician. Signing provider agrees with the documented findings, assessment, and plan of care. Past Medical History Past Medical History: GERD/Reflux Additional Past Medical History / Comment(s): parkinson disease, dementia, cognitive impairement, covid 09/05 History of Any Multi-Drug Resistant Organisms: None Reported Past Surgical History: Unable to Obtain Additional Past Surgical History / Comment(s): eye surgery Past Anesthesia/Blood Transfusion Reactions: Unable to Obtain Past Psychological History: Anxiety, Bipolar, Depression Smoking Status: Never smoker Past Alcohol Use History: Daily Past Drug Use History: None Reported - Past Family History Father History Unknown: Yes Family Medical History: Unable to Obtain Medications and Allergies Home Medications Medication Instructions Recorded Confirmed Type Thiamine [Vitamin B-1] 100 mg PO DAILY@0800 06/24/21 11/10/22 History Divalproex [Depakote] 250 mg PO TID@0800,1400,1800 07/13/21 11/10/22 History Melatonin 5 mg PO DAILY@1800 07/13/21 11/10/22 History QUEtiapine [SEROquel] 50 mg PO BID@0800,1800 07/13/21 11/10/22 History lisinopriL [Zestril] 5 mg PO DAILY@0800 08/31/21 11/10/22 History Ascorbic Acid [Vitamin C] 1,000 mg PO DAILY #60 tab 09/04/21 11/10/22 Rx Cholecalciferol [Vitamin D3 (25 50 mcg PO DAILY #60 tablet 09/04/21 11/10/22 Rx Mcg = 1000 Iu)] Acetaminophen Tab [Tylenol] 650 mg PO Q4H PRN 10/19/22 11/10/22 History Benadryl [place] 1 spray TOPICAL QID PRN 10/19/22 11/10/22 History Donepezil [Aricept] 5 mg PO HS 10/19/22 11/10/22 History T[place] 15 ml PO BID PRN 10/19/22 11/10/22 History Kaolin Pectin 30 ml PO DIRECTED PRN 10/19/22 11/10/22 History Magnesium Hydroxide [Milk of 2,400 mg PO HS PRN 10/19/22 11/10/22 History Magnesia] Omeprazole [PriLOSEC] 20 mg PO BID PRN 10/19/22 11/10/22 History Sertraline [Zoloft] 50 mg PO DAILY@0800 10/19/22 11/10/22 History Sertraline [Zoloft] 100 mg PO DAILY@1800 10/19/22 11/10/22 History guaiFENesin SYRUP 100MG/5ML 200 mg PO Q6H PRN 10/19/22 11/10/22 History [Robitussin] metFORMIN HCL [Glucophage] 500 mg PO BID@0800,1800 10/19/22 11/10/22 History rOPINIRole HCL [Requip] 1 mg PO BID@0800,1800 10/19/22 11/10/22 History traZODone HCL [Desyrel] 25 mg PO DAILY@1800 10/19/22 11/10/22 History Ipratropium-Albuterol Nebulize 3 ml INHALATION RT-QID 30 Days 10/24/22 11/10/22 Rx [Duoneb 0.5 mg-3 mg/3 ml Soln] #120 each Liquacel Liquid 30 ml PO BID 11/10/22 11/10/22 History dexAMETHasone [Decadron] 4 mg PO DAILY@0800 11/10/22 11/10/22 History Allergies Allergy/AdvReac Type Severity Reaction Status Date / Time No Known Allergies Allergy Verified 11/10/22 09:44 Physical Exam Vitals: Vital Signs Temp Pulse Resp BP Pulse Ox 11/10/22 10:15 97.3 F L 99 15 82/52 96 11/10/22 10:00 97.9 F 98 19 97/53 98 11/10/22 09:30 98.4 F 107 H 20 99/66 94 L 11/10/22 09:15 99.1 F 109 H 17 70/43 95 11/10/22 09:00 99.9 F H 101 H 17 56/32 93 L 11/10/22 08:45 105 H 18 78/49 95 11/10/22 08:44 101.3 F H 11/10/22 08:15 121 H 22 83/47 94 L 11/10/22 08:07 103.8 F H 11/10/22 08:00 20 125/92 94 L 11/10/22 07:50 22 94 L 11/10/22 07:49 100.3 F H 129 H 24 125/92 94 L Intake and Output 11/09/22 11/10/22 11/10/22 22:59 06:59 14:59 Other: Weight 69.672 kg Results 11/10/22 08:10 11/10/22 08:10 Cardiac Enzymes 11/10/22 11/10/22 Range/Units 08:10 08:10 AST 21 (17-59) U/L Troponin I 1.190 H* (0.000-0.034) ng/mL Coagulation 11/10/22 Range/Units 08:10 PT 11.4 (9.0-12.0) sec APTT 22.9 (22.0-30.0) sec CBC 11/10/22 Range/Units 08:10 WBC 7.4 (3.8-10.6) k/uL RBC 4.00 L (4.30-5.90) m/uL Hgb 12.9 L (13.0-17.5) gm/dL Hct 38.7 L (39.0-53.0) % Plt Count 177 D (150-450) k/uL Comprehensive Metabolic Panel 11/10/22 Range/Units 08:10 Sodium 148 H (137-145) mmol/L Potassium 3.2 L (3.5-5.1) mmol/L Chloride 115 H (98-107) mmol/L Carbon Dioxide 22 (22-30) mmol/L BUN 35 H (9-20) mg/dL Creatinine 1.18 (0.66-1.25) mg/dL Glucose 178 H (74-99) mg/dL Calcium 8.3 L (8.4-10.2) mg/dL AST 21 (17-59) U/L ALT 15 (4-49) U/L Alkaline Phosphatase 58 (38-126) U/L Total Protein 5.4 L (6.3-8.2) g/dL Albumin 3.0 L (3.5-5.0) g/dL Current Medications Generic Name Dose Route Start Last Admin Trade Name Freq PRN Reason Stop Dose Admin Acetaminophen 650 mg 11/10/22 10:09 Acetaminophen Tab 325 Mg Tab PO Q6HR PRN Mild Pain or Fever > 100.5 Albuterol/Ipratropium 3 ml 11/10/22 12:00 Ipratropium-Albuterol 3 Ml Neb INHALATION RT-Q4H ASAD Budesonide 0.5 mg 11/10/22 20:00 Budesonide 0.5 Mg/2 Ml Nebu INHALATION RT-BID ASAD Lactated Ringer's 1,000 mls @ 130 mls/hr 11/10/22 08:00 11/10/22 08:38 Lactated Ringers IV 130 mls/hr .Q7H42M ASAD Administration Potassium Chloride 20 meq/ IV 100 mls @ 50 mls/hr 11/10/22 09:19 11/10/22 09:41 Solution IVPB 11/10/22 11:18 50 mls/hr ONCE STA Administration Ibuprofen 600 mg/ Sodium 256 mls @ 200 mls/hr 11/10/22 09:45 11/10/22 09:40 Chloride IV 11/10/22 11:01 200 mls/hr ONCE ONE Administration Sodium Chloride 1,000 mls @ 130 mls/hr 11/10/22 10:15 Saline 0.9% IV .Q7H42M ASAD Ibuprofen 400 mg 11/10/22 10:09 Ibuprofen 400 Mg Tab PO Q6HR PRN Mild Pain or Fever > 100.5 Naloxone HCl 0.2 mg 11/10/22 10:09 Naloxone 0.4 Mg/Ml 1 Ml Vial IV Q2M PRN Opioid Reversal Intake and Output 11/09/22 11/10/22 11/10/22 22:59 06:59 14:59 Other: Weight 69.672 kg Patient Weight 11/11/22 06:59 Weight 69.672 kg 11/10/22 08:10 11/10/22 08:10
[2022-11-10] MEDS: SERTRALINE 50 MG TAB PO SCH (13:43)
[2022-11-10 16:49] LABS: Glucose,Whole Blood 139 mg/dL (70-110)
[2022-11-10] MEDS: DIVALPROEX 250 MG TABLET.DR PO SCH ×2 (18:05→18:26)
[2022-11-10] MEDS: SERTRALINE 100 MG TAB PO SCH (18:26)
[2022-11-10] MEDS: traZODone HCL 50 MG TAB PO SCH (18:26)
--- NOTE | 2022-11-10 19:08 | P.HPIM ---
History of Present Illness H&P Date: 11/10/22 Chief Complaint: Altered mental status This is a 77-year-old patient, follows with visiting physicians Dr. London. Chronic stable medical conditions include GERD, Parkinson's, advanced dementia, cognitive impairment, bipolar. Patient is resident of [facility]. When the staff had gone into the patient's room at 6:30 this morning but as he was febrile. A bit confused with low oxygen. Given Tylenol. Became more confused. EMS was called. EMS found his oxygen saturation the 80s. Also temperature 100.5 axillary. There was questionable seizure-like activity with the nystagmus of his eyes. 2.5 mg of Versed was given. Patient unable to give any history. Patient is bedbound at baseline. ER physician Dr. Mosley spoke to the power of ip attorney. He is to remain DO NOT RESUSCITATE and DO NOT INTUBATE no vasopressors blood products or cardioversion. Understandable his prognosis is guarded. When I came to see the patient patient's eyes are open but not really able to give any history. Is also hypothermic. Kasi hugger was ordered. Remains febrile. Patient also positive for influenza type A Review of systems, patient cannot obtained Past medical history to include: GERD, Parkinson's, dementia, cognitive impairment, covered in August 2021, bipolar, hypertension, prostate cancer Social history: Bedbound. As a legal guardian. Resident of [facility] Physical examination: VITAL SIGNS: 103.8 rectal, 121, 22, 83/47, 94% on 3 L on presentation GENERAL: BMI 20.8, laying in bed, lethargic eyes slightly open. Not really follow commands. EYES: Pupils equal. Conjunctiva normal. HEENT: External appearance of nose and ears normal, oral cavity dry mucous membranes. NECK: JVD not raised; masses not palpable. HEART: First and second heart sounds are normal; no edema. LUNGS: Respiratory rate normal; decreased breath sounds. ABDOMEN: Soft, nontender, liver spleen not palpable, no masses palpable. PSYCH: Patient not following commands and able to assessl. MUSCULOSKELETAL:No Clubbing/cyanosis;muscles-grossly intact. OA NEUROLOGICAL: Eyes are open. Not really following commands.. LYMPHATICS: No lymph nodes palpable in the axilla and neck INVESTIGATIONS, reviewed in the clinical context: White count 7.4 hemoglobin 12.9 platelets 177 sodium 148 progression 3.2 chloride 115 BUN 35 creatinine 1.18 Troponin I 1.19, 2.0, 1.8 UA: Leukoesterase large WBC 44 bacteria few Influenza type A detected Influenza type B/RSV/COVID-19: Not detected EKG tracing personally reviewed by me-sinus tachycardia. Rate 127. Some ST segment changes. Chest x-ray film personally reviewed by me: Portable: Some scattered infiltrates CT brain: Age-related atrophic and chronic small vessel ischemic changes. Without acute process. Assessment plan: -Acute metabolic encephalopathy/delirium from sepsis Aspiration precautions -Acute influenza A pneumonitis. Cannot rule out secondary bacterial infection. IV Zosyn -Sepsis. IV fluids. IV Zosyn. Lactated Ringer's -Severe cognitive impairment -Septic shock. Hold off vasopressors. DO NOT RESUSCITATE. -Essential hypertension Currently blood pressure low. Hold off any antihypertensives. -Parkinson's disease Requip -Bipolar disorder Zoloft. Trazodone. Seroquel. -Chronic medical debility, patient is bedbound -DO NOT RESUSCITATE -Patient has a legal guardian Patient's prognosis is guarded. No aggressive measures per POA. IV Zosyn. IV fluids. Patient's currently not capable of taking oral medications. Supportive care. Past Medical History Past Medical History: GERD/Reflux Additional Past Medical History / Comment(s): parkinson disease, dementia, cognitive impairement, covid 09/05 History of Any Multi-Drug Resistant Organisms: None Reported Past Surgical History: Unable to Obtain Additional Past Surgical History / Comment(s): eye surgery Past Anesthesia/Blood Transfusion Reactions: Unable to Obtain Past Psychological History: Anxiety, Bipolar, Depression Smoking Status: Never smoker Past Alcohol Use History: Daily Past Drug Use History: None Reported - Past Family History Father History Unknown: Yes Family Medical History: Unable to Obtain Medications and Allergies Home Medications Medication Instructions Recorded Confirmed Type Thiamine [Vitamin B-1] 100 mg PO DAILY@0800 06/24/21 11/10/22 History Divalproex [Depakote] 250 mg PO TID@0800,1400,1800 07/13/21 11/10/22 History Melatonin 5 mg PO DAILY@1800 07/13/21 11/10/22 History QUEtiapine [SEROquel] 50 mg PO BID@0800,1800 07/13/21 11/10/22 History lisinopriL [Zestril] 5 mg PO DAILY@0800 08/31/21 11/10/22 History Ascorbic Acid [Vitamin C] 1,000 mg PO DAILY #60 tab 09/04/21 11/10/22 Rx Cholecalciferol [Vitamin D3 (25 50 mcg PO DAILY #60 tablet 09/04/21 11/10/22 Rx Mcg = 1000 Iu)] Acetaminophen Tab [Tylenol] 650 mg PO Q4H PRN 10/19/22 11/10/22 History Benadryl [place] 1 spray TOPICAL QID PRN 10/19/22 11/10/22 History Donepezil [Aricept] 5 mg PO HS 10/19/22 11/10/22 History Tser[place] 15 ml PO BID PRN 10/19/22 11/10/22 History Kaolin Pectin 30 ml PO DIRECTED PRN 10/19/22 11/10/22 History Magnesium Hydroxide [Milk of 2,400 mg PO HS PRN 10/19/22 11/10/22 History Magnesia] Omeprazole [PriLOSEC] 20 mg PO BID PRN 10/19/22 11/10/22 History Sertraline [Zoloft] 50 mg PO DAILY@0800 10/19/22 11/10/22 History Sertraline [Zoloft] 100 mg PO DAILY@1800 10/19/22 11/10/22 History guaiFENesin SYRUP 100MG/5ML 200 mg PO Q6H PRN 10/19/22 11/10/22 History [Robitussin] metFORMIN HCL [Glucophage] 500 mg PO BID@0800,1800 10/19/22 11/10/22 History rOPINIRole HCL [Requip] 1 mg PO BID@0800,1800 10/19/22 11/10/22 History traZODone HCL [Desyrel] 25 mg PO DAILY@1800 10/19/22 11/10/22 History Ipratropium-Albuterol Nebulize 3 ml INHALATION RT-QID 30 Days 10/24/22 11/10/22 Rx [Duoneb 0.5 mg-3 mg/3 ml Soln] #120 each Liquacel Liquid 30 ml PO BID 11/10/22 11/10/22 History dexAMETHasone [Decadron] 4 mg PO DAILY@0800 11/10/22 11/10/22 History Allergies Allergy/AdvReac Type Severity Reaction Status Date / Time No Known Allergies Allergy Verified 11/10/22 09:44 Physical Exam Vitals: Vital Signs Temp Pulse Resp BP Pulse Ox 11/10/22 10:15 97.3 F L 99 15 82/52 96 11/10/22 10:00 97.9 F 98 19 97/53 98 11/10/22 09:30 98.4 F 107 H 20 99/66 94 L 11/10/22 09:15 99.1 F 109 H 17 70/43 95 11/10/22 09:00 99.9 F H 101 H 17 56/32 93 L 11/10/22 08:45 105 H 18 78/49 95 11/10/22 08:44 101.3 F H 11/10/22 08:15 121 H 22 83/47 94 L 11/10/22 08:07 103.8 F H 11/10/22 08:00 20 125/92 94 L 11/10/22 07:50 22 94 L 11/10/22 07:49 100.3 F H 129 H 24 125/92 94 L Intake and Output 11/09/22 11/10/22 11/10/22 22:59 06:59 14:59 Other: Weight 69.672 kg Results CBC & Chem 7: 11/10/22 08:10 11/10/22 08:10 Labs: Abnormal Lab Results - Last 24 Hours (Table) 11/10/22 11/10/22 11/10/22 Range/Units 08:10 08:10 08:10 RBC 4.00 L (4.30-5.90) m/uL Hgb 12.9 L (13.0-17.5) gm/dL Hct 38.7 L (39.0-53.0) % Lymphocytes # 0.4 L (1.0-4.8) k/uL VBG pH (7.31-7.41) VBG pCO2 (37-51) mmHg VBG HCO3 (24-28) mmol/L Sodium 148 H (137-145) mmol/L Potassium 3.2 L (3.5-5.1) mmol/L Chloride 115 H (98-107) mmol/L BUN 35 H (9-20) mg/dL Glucose 178 H (74-99) mg/dL Calcium 8.3 L (8.4-10.2) mg/dL Troponin I (0.000-0.034) ng/mL Total Protein 5.4 L (6.3-8.2) g/dL Albumin 3.0 L (3.5-5.0) g/dL Urine Protein 1+ H (Negative) Urine Ketones 2+ H (Negative) Urine Blood Small H (Negative) Ur Leukocyte Esterase Large H (Negative) Urine RBC 48 H (0-5) /hpf Urine WBC 44 H (0-5) /hpf Urine Bacteria Few H (None) /hpf Urine Mucus Moderate H (None) /hpf U Tricyclic Antidepress (NotDetected) Influenza Type A (PCR) (Not Detectd) 11/10/22 11/10/22 11/10/22 Range/Units 08:10 08:10 08:10 RBC (4.30-5.90) m/uL Hgb (13.0-17.5) gm/dL Hct (39.0-53.0) % Lymphocytes # (1.0-4.8) k/uL VBG pH (7.31-7.41) VBG pCO2 (37-51) mmHg VBG HCO3 (24-28) mmol/L Sodium (137-145) mmol/L Potassium (3.5-5.1) mmol/L Chloride (98-107) mmol/L BUN (9-20) mg/dL Glucose (74-99) mg/dL Calcium (8.4-10.2) mg/dL Troponin I 1.190 H* (0.000-0.034) ng/mL Total Protein (6.3-8.2) g/dL Albumin (3.5-5.0) g/dL Urine Protein (Negative) Urine Ketones (Negative) Urine Blood (Negative) Ur Leukocyte Esterase (Negative) Urine RBC (0-5) /hpf Urine WBC (0-5) /hpf Urine Bacteria (None) /hpf Urine Mucus (None) /hpf U Tricyclic Antidepress Detected H (NotDetected) Influenza Type A (PCR) Detected A (Not Detectd) 11/10/22 Range/Units 08:10 RBC (4.30-5.90) m/uL Hgb (13.0-17.5) gm/dL Hct (39.0-53.0) % Lymphocytes # (1.0-4.8) k/uL VBG pH 7.46 H (7.31-7.41) VBG pCO2 32 L (37-51) mmHg VBG HCO3 22 L (24-28) mmol/L Sodium (137-145) mmol/L Potassium (3.5-5.1) mmol/L Chloride (98-107) mmol/L BUN (9-20) mg/dL Glucose (74-99) mg/dL Calcium (8.4-10.2) mg/dL Troponin I (0.000-0.034) ng/mL Total Protein (6.3-8.2) g/dL Albumin (3.5-5.0) g/dL Urine Protein (Negative) Urine Ketones (Negative) Urine Blood (Negative) Ur Leukocyte Esterase (Negative) Urine RBC (0-5) /hpf Urine WBC (0-5) /hpf Urine Bacteria (None) /hpf Urine Mucus (None) /hpf U Tricyclic Antidepress (NotDetected) Influenza Type A (PCR) (Not Detectd)
[2022-11-10] MEDS: BUDESONIDE 0.5 MG/2 ML NEBU INHALATION SCH (20:06)
[2022-11-10] MEDS: SODIUM CHLORIDE 0.9% 1,000 ML IV SCH ×2 (20:49)
[2022-11-10] MEDS: PIPERACILLIN-TAZOBACTAM 3.375 GM in SODIUM CHLORIDE 0.9% 100 ML IVPB SCH (20:49)
[2022-11-10] MEDS: QUEtiapine 50 MG TAB PO SCH (21:17)
[2022-11-10] MEDS: DONEPEZIL 5 MG TAB PO SCH (21:17)
[2022-11-10] MEDS ORDERED: MORPHINE SULFATE 2 MG/ML SYRINGE IVP PRN (21:48)
[2022-11-10] MEDS: ACETAMINOPHEN SUPPOSITORY 650 MG SUPP RECTAL PRN (22:52)
[2022-11-11] MEDS: IPRATROPIUM-ALBUTEROL 3 ML NEB INHALATION SCH ×7 (00:07→23:38)
[2022-11-11] MEDS: SODIUM CHLORIDE 0.9% 1,000 ML IV SCH ×2 (00:14→18:21)
[2022-11-11] MEDS: PIPERACILLIN-TAZOBACTAM 3.375 GM in SODIUM CHLORIDE 0.9% 100 ML IVPB SCH ×3 (04:31→21:24)
[2022-11-11] MEDS: LACTATED RINGERS 1,000 ML IV SCH ×2 (04:32→21:27)
[2022-11-11] MEDS: BUDESONIDE 0.5 MG/2 ML NEBU INHALATION SCH ×2 (08:00→20:46)
[2022-11-11] MEDS: DIVALPROEX 250 MG TABLET.DR PO SCH ×4 (08:26→17:52)
[2022-11-11] MEDS: SERTRALINE 50 MG TAB PO SCH ×2 (08:26→08:56)
[2022-11-11 09:00] LABS: HCT 33.5 % (39.6-50.0); HGB 10.6 g/dL (13.0-17.0); MCH 32.1 pg (27.0-32.0); MCHC 31.6 g/dL (32.0-37.0); MCV 101.5 fL (80.0-97.0); Mean Platelet Volume 11.2 fL (9.5-12.2); NRBC Per 100 WBC 0 /100 WBCS (0.0-0.0); Platelet Count 141 X 10*3/uL (140-440); RDW 13.7 % (11.5-14.5); WBC 5.85 X 10*3/uL (4.50-10.00)
[2022-11-11 09:25] LABS: African American GFR (CKD) 61.4 (60.0-200.0); Anion Gap 10.5 mmol/L (10.00-18.00); BUN/Creat Ratio 24.77 Ratio (12.00-20.00); Blood Urea Nitrogen 32.2 mg/dL (9.0-27.0); Calcium 7.5 mg/dL (8.7-10.3); Carbon Dioxide 24.5 mmol/L (20.0-27.5); Potassium 3.6 mmol/L (3.5-5.5)
[2022-11-11 10:17] LABS: Basophils # (A) 0.02 X 10*3/uL (0.00-0.10); Basophils % (A) 0.3 %; Eosinophils # (A) 0 X 10*3/uL (0.04-0.35); Eosinophils % (A) 0 %; Immature Grans, Automated 0.3 %; Lymphocytes # (A) 0.64 X 10*3/uL (0.90-5.00); Lymphocytes % (A) 10.9 %; Monocytes # (A) 0.62 X 10*3/uL (0.20-1.00); Monocytes % (A) 10.6 %; Neutrophils # (A) 4.55 X 10*3/uL (1.80-7.70); Neutrophils % (A) 77.9 %
[2022-11-11] MEDS: ACETAMINOPHEN SUPPOSITORY 650 MG SUPP RECTAL PRN (13:23)
--- NOTE | 2022-11-11 15:08 | P.PN ---
Progress Note - Text Progress Note Date: 11/11/22 Chief Complaint: Altered mental status This is a 77-year-old patient, follows with visiting physicians Dr. London. Chronic stable medical conditions include GERD, Parkinson's, advanced dementia, cognitive impairment, bipolar. Patient is [facility]. When the staff had gone into the patient's room at 6:30 this morning but as he was febrile. A bit confused with low oxygen. Given Tylenol. Became more confused. EMS was called. EMS found his oxygen saturation the 80s. Also temperature 100.5 axillary. There was questionable seizure-like activity with the nystagmus of his eyes. 2.5 mg of Versed was given. Patient unable to give any history. Patient is bedbound at baseline. ER physician Dr. Mosley spoke to the power of taxation inspector. He is to remain DO NOT RESUSCITATE and DO NOT INTUBATE no vasopressors blood products or cardioversion. Understandable his prognosis is guarded. When I came to see the patient patient's eyes are open but not really able to give any history. Is also hypothermic. Kasi hugger was ordered. Remains febrile. Patient also positive for influenza type A Admitted with acute metabolic encephalopathy/delirium/acute influenza A pneumonitis, possibly bacterial pneumonia, sepsis, septic shock. Treated with IV fluids, IV Zosyn. November 11: Patient's friend and CLAUDIA Merchant at the bedside. Patient is having fever. On IV Zosyn. IV fluids. Able to open his eyes. When occasionally answer simple questions and words. As discussed with Lori at the patient's baseline: Patient is bedbound. He may occasionally speak a word. Not able to feed himself. Not able to interact his surroundings. She understands patient's prognosis guarded. Does not want any heroic measures. Has declined hospice. She also ready for patient to go back to the assisted living tomorrow, if patient remains stable. She will initiate hospice there. Does not require any hospice for grievance purposes. Patient's sister is coming in from [place] today. No other heroic measures. She accepted the fact the patient may . Active Medications Acetaminophen (Acetaminophen Tab 325 Mg Tab) 650 mg PO Q6HR PRN PRN Reason: Mild Pain or Fever > 100.5 Acetaminophen (Acetaminophen Suppository 650 Mg Supp) 650 mg RECTAL Q6HR PRN PRN Reason: Fever and/ or Pain Last Admin: 11/11/22 13:23 Dose: 650 mg Albuterol/Ipratropium (Ipratropium-Albuterol 3 Ml Neb) 3 ml INHALATION RT-Q4H [facility] Last Admin: 11/11/22 12:16 Dose: 3 ml Budesonide (Budesonide 0.5 Mg/2 Ml Nebu) 0.5 mg INHALATION RT-BID [facility] Last Admin: 11/11/22 08:00 Dose: 0.5 mg Divalproex Sodium (Divalproex 250 Mg Tablet.Dr) 250 mg PO TID@0800,1400,1800 [facility] Last Admin: 11/11/22 14:49 Dose: Not Given Donepezil HCl (Donepezil 5 Mg Tab) 5 mg PO [facility] Last Admin: 11/10/22 21:17 Dose: Not Given Lactated Ringer's (Lactated Ringers) 1,000 mls @ 130 mls/hr IV .Q7H42M [facility] Last Admin: 11/11/22 04:32 Dose: Not Given Sodium Chloride (Saline 0.9%) 1,000 mls @ 130 mls/hr IV .Q7H42M [facility] Last Admin: 11/11/22 00:14 Dose: 130 mls/hr Piperacillin Sod/Tazobactam (Sod 3.375 gm/ Sodium Chloride) 100 mls @ 25 mls/hr IVPB Q8H [facility]; Protocol Last Admin: 11/11/22 12:23 Dose: 25 mls/hr Ibuprofen (Ibuprofen 400 Mg Tab) 400 mg PO Q6HR PRN PRN Reason: Mild Pain or Fever > 100.5 Last Admin: 11/11/22 00:14 Dose: 400 mg Morphine Sulfate (Morphine Sulfate 2 Mg/Ml Syringe) 2 mg IVP Q4HR PRN PRN Reason: Pain/Discomfort Last Admin: 11/10/22 22:19 Dose: 2 mg Naloxone HCl (Naloxone 0.4 Mg/Ml 1 Ml Vial) 0.2 mg IV Q2M PRN PRN Reason: Opioid Reversal Pantoprazole Sodium (Pantoprazole 40 Mg Tablet) 40 mg PO BID PRN PRN Reason: gerd Quetiapine Fumarate (Quetiapine 50 Mg Tab) 50 mg PO [facility] Last Admin: 11/10/22 21:17 Dose: 50 mg Ropinirole HCl (Ropinirole Hcl 1 Mg Tab) 1 mg PO BID@0800,1800 [facility] Last Admin: 11/11/22 08:56 Dose: Not Given Sertraline HCl (Sertraline 50 Mg Tab) 50 mg PO DAILY@0800 [facility] Last Admin: 11/11/22 08:56 Dose: Not Given Sertraline HCl (Sertraline 100 Mg Tab) 100 mg PO DAILY@1800 [facility] Last Admin: 11/10/22 18:26 Dose: Not Given Trazodone HCl (Trazodone Hcl 50 Mg Tab) 25 mg PO DAILY@1800 [facility] Last Admin: 11/10/22 18:26 Dose: Not Given Past medical history to include: GERD, Parkinson's, dementia, cognitive impairment, covered in August 2021, bipolar, hypertension, prostate cancer Social history: Bedbound. As a legal guardian. Resident of [facility] Physical examination: VITAL SIGNS: 100.6, 102, 18, 129/73, 100% room air GENERAL: Laying in bed, lethargic but will open eyes.. EYES: Pupils equal. Conjunctiva normal. HEENT: External appearance of nose and ears normal, oral cavity dry mucous membranes. NECK: JVD not raised; masses not palpable. HEART: First and second heart sounds are normal; no edema. LUNGS: Respiratory rate normal; decreased breath sounds. ABDOMEN: Soft, nontender, liver spleen not palpable, no masses palpable. PSYCH: Patient will also with monosyllables. MUSCULOSKELETAL:No Clubbing/cyanosis;muscles-grossly intact. OA NEUROLOGICAL: Cranial nerves grossly intact. INVESTIGATIONS, reviewed in the clinical context: November 11: White count 5.8 hemoglobin 10.6 sodium 152 potassium 3.6 BUN 32.2 creatinine 1.3 procalcitonin 3.2 White count 7.4 hemoglobin 12.9 platelets 177 sodium 148 progression 3.2 chloride 115 BUN 35 creatinine 1.18 Troponin I 1.19, 2.0, 1.8 UA: Leukoesterase large WBC 44 bacteria few Influenza type A detected Influenza type B/RSV/COVID-19: Not detected EKG tracing personally reviewed by me-sinus tachycardia. Rate 127. Some ST segment changes. Chest x-ray film personally reviewed by me: Portable: Some scattered infiltrates CT brain: Age-related atrophic and chronic small vessel ischemic changes. Without acute process. Assessment plan: -Acute metabolic encephalopathy/delirium from sepsis: Slow improvement Aspiration precautions -Acute influenza A pneumonitis. Cannot rule out secondary bacterial infection. IV Zosyn -Sepsis. IV fluids. IV Zosyn. -Severe cognitive impairment -Septic shock.: Better no vasopressors. DO NOT RESUSCITATE. -Essential hypertension Currently blood pressure low. Hold off any antihypertensives. -Parkinson's disease Requip -Bipolar disorder Zoloft. Trazodone. Seroquel. -Chronic medical debility, patient is bedbound -Hypernatremia, for fluid deficit Change IV fluids to D5 0.45 -DO NOT RESUSCITATE -Patient has a legal guardian: Lori Merchant Change IV fluids are D5 0.45. Continue IV Zosyn. Supportive care. Legal guardian understands prognosis is guarded. Possibility of discharge to assisted living tomorrow with hospice. Advance care planning: This was discussed with patient's POA Lori Merchant. Understands patient is doing poorly. Patient been even . At this point to continue with IV antibiotics and IV fluids. If patient stabilizes by tomorrow also considering to take the patient back to assisted living with hospice be initiated there. Currently does not want hospice consult. Questions were answered. She is awaiting patient's sister to come in from [place] today. Time spent was about 25 minutes
[2022-11-11] MEDS: SERTRALINE 100 MG TAB PO SCH (17:52)
[2022-11-11] MEDS: traZODone HCL 50 MG TAB PO SCH (17:52)
[2022-11-11] MEDS: DEXTROSE 5%-0.45% NACL 1,000 ML IV SCH (18:23)
[2022-11-11] MEDS: DONEPEZIL 5 MG TAB PO SCH (20:15)
[2022-11-11] MEDS: QUEtiapine 50 MG TAB PO SCH (20:16)
[2022-11-12] MEDS: DEXTROSE 5%-0.45% NACL 1,000 ML IV SCH ×3 (01:34→22:15)
[2022-11-12] MEDS: IPRATROPIUM-ALBUTEROL 3 ML NEB INHALATION SCH ×5 (03:51→20:14)
[2022-11-12] MEDS: PIPERACILLIN-TAZOBACTAM 3.375 GM in SODIUM CHLORIDE 0.9% 100 ML IVPB SCH ×3 (06:34→22:15)
[2022-11-12] MEDS: BUDESONIDE 0.5 MG/2 ML NEBU INHALATION SCH ×2 (09:01→20:14)
[2022-11-12] MEDS: SERTRALINE 50 MG TAB PO SCH (09:11)
[2022-11-12] MEDS: DIVALPROEX 250 MG TABLET.DR PO SCH ×3 (09:11→17:46)
[2022-11-12] MEDS: traZODone HCL 50 MG TAB PO SCH (17:46)
[2022-11-12] MEDS: SERTRALINE 100 MG TAB PO SCH (17:46)
[2022-11-12] MEDS: DONEPEZIL 5 MG TAB PO SCH (22:13)
[2022-11-12] MEDS: QUEtiapine 50 MG TAB PO SCH (22:13)
[2022-11-13] MEDS: IPRATROPIUM-ALBUTEROL 3 ML NEB INHALATION SCH ×6 (00:08→23:43)
--- NOTE | 2022-11-13 02:53 | PN ---
PROGRESS NOTE DATE OF SERVICE: 11/12/2022 SUBJECTIVE: This is a 77-year-old gentleman who was admitted with acute influenza A. He also had some change in mental status. No chest pain. No palpitations. No fever. OBJECTIVE: VITAL SIGNS: Pulse is n respirations 18. CHEST: Clear to auscultation. CARDIOVASCULAR: S1 and S2. ABDOMEN: Soft. NERVOUS SYSTEM: Diffusely weak. LABORATORY DATA: Hemoglobin 10.6, sodium is 152, procalcitonin is 3.20. ASSESSMENT: 1. Acute metabolic encephalopathy. 2. Weakness. 3. Acute influenza A. 4. Elevated procalcitonin. 5. Sepsis. 6. Severe cognitive impairment. 7. Septic shock. 8. Hypertension. 9. Multiple medical issues. RECOMMENDATIONS: Recommend to continue current medications and continue symptomatic treatment. Otherwise at this time, I would recommend to continue with broad-spectrum IV antibiotics and the cultures are negative so far. Repeat labs. Prognosis guarded. Further recommendations to follow. See orders for details. MMODL / IJN: [id number] / CLARA
[2022-11-13] MEDS: DEXTROSE 5%-0.45% NACL 1,000 ML IV SCH (04:48)
[2022-11-13] MEDS: PIPERACILLIN-TAZOBACTAM 3.375 GM in SODIUM CHLORIDE 0.9% 100 ML IVPB SCH ×3 (04:48→20:33)
[2022-11-13] MEDS: BUDESONIDE 0.5 MG/2 ML NEBU INHALATION SCH ×2 (08:26→20:21)
[2022-11-13] MEDS: SERTRALINE 50 MG TAB PO SCH (09:43)
[2022-11-13] MEDS: DIVALPROEX 250 MG TABLET.DR PO SCH ×3 (09:43→17:34)
[2022-11-13 10:21] LABS: Basophils # (A) 0.03 X 10*3/uL (0.00-0.10); Basophils % (A) 0.5 %; Eosinophils # (A) 0.08 X 10*3/uL (0.04-0.35); Eosinophils % (A) 1.2 %; HGB 11.9 g/dL (13.0-17.0); Immature Grans, Automated 0.8 %; Lymphocytes # (A) 0.62 X 10*3/uL (0.90-5.00); Lymphocytes % (A) 9.4 %; MCH 31.4 pg (27.0-32.0); MCHC 31.3 g/dL (32.0-37.0); MCV 100.3 fL (80.0-97.0); Mean Platelet Volume 10.8 fL (9.5-12.2); Monocytes # (A) 0.56 X 10*3/uL (0.20-1.00); Monocytes % (A) 8.5 %; NRBC Per 100 WBC 0 /100 WBCS (0.0-0.0); Neutrophils # (A) 5.24 X 10*3/uL (1.80-7.70); Neutrophils % (A) 79.6 %; Platelet Count 150 X 10*3/uL (140-440); RBC 3.79 X 10*6/uL (4.40-5.60); RDW 13.2 % (11.5-14.5); WBC 6.58 X 10*3/uL (4.50-10.00)
[2022-11-13 10:39] LABS: African American GFR (CKD) 99.3 (60.0-200.0); Anion Gap 8.5 mmol/L (10.00-18.00); BUN/Creat Ratio 22.3 Ratio (12.00-20.00); Blood Urea Nitrogen 18.4 mg/dL (9.0-27.0); Calcium 7.9 mg/dL (8.7-10.3); Carbon Dioxide 27.6 mmol/L (20.0-27.5); Non-African American GFR(CKD) 85.7 (60.0-200.0)
[2022-11-13] MEDS: traZODone HCL 50 MG TAB PO SCH (17:50)
[2022-11-13] MEDS: SERTRALINE 100 MG TAB PO SCH (17:50)
[2022-11-13] MEDS: QUEtiapine 50 MG TAB PO SCH (20:33)
[2022-11-13] MEDS: DEXTROSE 5% IN WATER 1,000 ML with POTASSIUM CHLORIDE 40 MEQ IV SCH (20:33)
[2022-11-13] MEDS: DONEPEZIL 5 MG TAB PO SCH (20:33)
[2022-11-14] MEDS: DEXTROSE 5% IN WATER 1,000 ML with POTASSIUM CHLORIDE 40 MEQ IV SCH ×2 (02:24→12:39)
[2022-11-14] MEDS: PIPERACILLIN-TAZOBACTAM 3.375 GM in SODIUM CHLORIDE 0.9% 100 ML IVPB SCH ×3 (05:00→20:05)
[2022-11-14] MEDS: IPRATROPIUM-ALBUTEROL 3 ML NEB INHALATION SCH ×5 (05:08→20:59)
--- NOTE | 2022-11-14 06:25 | PN ---
PROGRESS NOTE DATE OF SERVICE: 11/13/2022 SUBJECTIVE: This is a 77-year-old gentleman, who was admitted with acute influenza A, also had some change in mental status and weakness. No chest pain. No palpitations. No fever. OBJECTIVE: VITAL SIGNS: Pulse is 60, blood pressure 130/70, respirations 16. CHEST: A few scattered rhonchi. ABDOMEN: Soft. NERVOUS SYSTEM: No focal deficits. LABORATORY DATA: Sodium 150, and chloride is 3. ASSESSMENT: 1. Acute metabolic encephalopathy. 2. Weakness. 3. Hyponatremia. 4. Acute influenza A. 5. Elevated procalcitonin. 6. Sepsis. 7. Severe cognitive impairment. 8. Multiple medical issues. 9. No code. RECOMMENDATIONS: Recommend to continue current medications, continue symptomatic treatment. Otherwise, change the fluid to D5 water and the patient is on IV Zosyn. Prognosis guarded. Further recommendations to follow. Repeat labs. Review of systems could not be taken. Home medications reviewed. Current medications reviewed. The patient also had the prognosis extremely guarded. As mentioned earlier, I am going to change the IV fluids and continue the antibiotics and also recommend repeat x-ray to evaluate. Medications were adjusted and DVT prophylaxis. See orders for further details. Further recommendations to follow. MMODL / IJN: [id number] /
--- NOTE | 2022-11-14 07:15 | XR ---
EXAMINATION TYPE: XR chest 1V portable DATE OF EXAM: 11/14/2022 6:59 AM COMPARISON: Chest radiographs from 11/10/2022. TECHNIQUE: XR chest 1V portable Portable AP radiograph of the chest. CLINICAL INDICATION:Male, 77 years old with history of chf; FINDINGS: Lungs/Pleura: No pleural effusion or pneumothorax. Increased diffuse interstitial opacities. Heart/mediastinum: Cardiomediastinal silhouette is unremarkable. Atherosclerotic calcifications are seen in the aorta. Musculoskeletal: Multiple level degenerative disc disease changes seen throughout the spine. No acute osseous adenopathy. IMPRESSION: Increased diffuse interstitial opacities which may represent pulmonary edema versus atypical viral pn eumonia.
[2022-11-14] MEDS: DIVALPROEX 250 MG TABLET.DR PO SCH ×3 (08:09→17:32)
[2022-11-14] MEDS: SERTRALINE 50 MG TAB PO SCH (08:09)
[2022-11-14] MEDS: BUDESONIDE 0.5 MG/2 ML NEBU INHALATION SCH ×2 (09:35→20:59)
[2022-11-14 10:42] LABS: Basophils # (A) 0.03 X 10*3/uL (0.00-0.10); Basophils % (A) 0.4 %; Eosinophils # (A) 0.12 X 10*3/uL (0.04-0.35); Eosinophils % (A) 1.7 %; HCT 34.7 % (39.6-50.0); HGB 11.1 g/dL (13.0-17.0); Immature Grans, Automated 1.3 %; Lymphocytes # (A) 0.72 X 10*3/uL (0.90-5.00); Lymphocytes % (A) 10.1 %; MCH 31.4 pg (27.0-32.0); MCV 98.3 fL (80.0-97.0); Mean Platelet Volume 10.5 fL (9.5-12.2); Monocytes # (A) 0.64 X 10*3/uL (0.20-1.00); NRBC Per 100 WBC 0 /100 WBCS (0.0-0.0); Neutrophils # (A) 5.53 X 10*3/uL (1.80-7.70); Neutrophils % (A) 77.5 %; Platelet Count 157 X 10*3/uL (140-440); RBC 3.53 X 10*6/uL (4.40-5.60); RDW 13.2 % (11.5-14.5); WBC 7.13 X 10*3/uL (4.50-10.00)
[2022-11-14 10:56] LABS: Anion Gap 7.7 mmol/L (10.00-18.00); BUN/Creat Ratio 18.6 Ratio (12.00-20.00); Blood Urea Nitrogen 15.1 mg/dL (9.0-27.0); Calcium 7.5 mg/dL (8.7-10.3); Carbon Dioxide 27.4 mmol/L (20.0-27.5); Potassium 2.7 mmol/L (3.5-5.5)
[2022-11-14 11:03] LABS: Non-African American GFR(CKD) 86.2 (60.0-200.0)
[2022-11-14] MEDS ORDERED: Potassium Replacement Protocol 1 EACH MISC MISCELLANE PRN (12:54)
[2022-11-14] MEDS: POTASSIUM CHLORIDE 10 MEQ in WATER FOR INJECTION 1 100ML.BAG IVPB SCH ×6 (15:14→21:43)
[2022-11-14] MEDS: traZODone HCL 50 MG TAB PO SCH (17:32)
[2022-11-14] MEDS: SERTRALINE 100 MG TAB PO SCH (17:32)
[2022-11-14] MEDS: DONEPEZIL 5 MG TAB PO SCH (20:06)
[2022-11-14] MEDS: QUEtiapine 50 MG TAB PO SCH (20:06)
--- NOTE | 2022-11-14 22:44 | P.PN ---
Subjective Progress Note Date: 11/14/22 Patient is being monitored on medical floor, no acute events overnight. He is receiving supportive care for acute influenza A infection, and also has some acute mental status changes and weakness. Chest xray today is showing increased diffuse interstitial opacities which may represent pulmonary edema versus atypical viral pneumonia. He continues on nasal cannula at 2-3L. Continues on IV zosyn for possible underlying bacterial infection his procalcitonin level was found to be 3.20. He is receiving D5 water with potassium. Sodium level today 149, potassium level of 2.7. Echocardiogram pending. Has remained afebrile over the last 2 days, heart rate 62, blood pressure 116/66, 97% on 3L nasal cannula. Unable to complete review of systems at this time patient not verbally responding to questions. PHYSICAL EXAMINATION: GENERAL: The patient is alert and oriented x1, not in any acute distress. Well developed, well nourished. Currently on 2L nasal cannula. HEENT: Pupils are round and equally reacting to light. EOMI. No scleral icterus. No conjunctival pallor. Normocephalic, atraumatic. No pharyngeal erythema. No thyromegaly. CARDIOVASCULAR: S1 and S2 present. No murmurs, rubs, or gallops. PULMONARY: Chest is clear to auscultation, no wheezing or crackles. Diminished bases. ABDOMEN: Soft, nontender, nondistended, normoactive bowel sounds. No palpable organomegaly. MUSCULOSKELETAL: No joint swelling or deformity. EXTREMITIES: No cyanosis, clubbing, or pedal edema. NEUROLOGICAL: Gross neurological examination did not reveal any focal deficits. Diffused weakness. SKIN: No rashes. Assessment and Plan Assessment Altered mental status from acute metabolic encephalopathy likely from i nfection/sepsis Acute hypoxic respiratory failure from acute influenza A infection, possibly underlying CHF Sepsis with septic shock on admission did not receive vasopressors, blood pressure improved with fluids Elevated procalcitonin level possible underlying bacterial infection Elevated troponin level, possibly from infection, rule out ACS. Anemia, macrocytic Hypernatremia improving with fluids Hypokalemia from poor oral intake Mild FLEX prerenal frorm poor oral intake improved with fluids History of Parkinson's History of dementia/cognitive impairment History of GERD Anxiety/Bipolar/Depression Chronic medical debility bedbound at baseline GI prophylaxis DVT prophylaxis Do Not Resuscitate/Do Not Intubate Plan Continue IV antibiotics, IV fluids Echocardiogram pending, cardiology work up on going Blood pressure medication remains on hold Replace potassium Continues oxygen support and titrate as needed BMP/Magnesium in AM Return to [facility] on discharge with homecare when medically stable The impression and plan of care has been dictated by Yamile Joya, Nurse Practitioner as directed. Dr. Reginaldo MD I have performed a history and physical examination and medical decision making of this patient, discussed the same with the dictator, and agree with the dictators assessment and plan as written, documented as a scribe. Based on total visit time, I have performed more than 50% of this visit. Objective - Vital Signs Vital signs: Vital Signs Temp 97.5 F L 11/14/22 07:57 Pulse 56 L 11/14/22 07:57 Resp 15 11/14/22 07:57 BP 154/97 11/14/22 07:57 Pulse Ox 86 L 11/14/22 07:57 FiO2 28 11/10/22 20:06 Intake & Output 11/13/22 11/14/22 11/14/22 18:59 06:59 18:59 Other: Voiding Method Indwelling Catheter Diaper Diaper # Voids 1 4 # Bowel Movements 1 2 - Labs CBC & Chem 7: 11/14/22 04:23 11/14/22 04:23 Labs: Abnormal Lab Results - Last 24 Hours (Table) 11/13/22 11/13/22 Range/Units 06:07 06:07 RBC 3.79 L (4.40-5.60) X 10*6/uL Hgb 11.9 L (13.0-17.0) g/dL Hct 38.0 L (39.6-50.0) % MCV 100.3 H (80.0-97.0) fL MCHC 31.3 L (32.0-37.0) g/dL Immature Gran # 0.05 H (0.00-0.04) X 10*3/uL Lymphocytes # 0.62 L (0.90-5.00) X 10*3/uL Sodium 150 H (135-145) mmol/L Potassium 3.0 L (3.5-5.5) mmol/L Chloride 114 H (96-109) mmol/L Carbon Dioxide 27.6 H (20.0-27.5) mmol/L Anion Gap 8.50 L (10.00-18.00) mmol/L BUN/Creatinine Ratio 22.30 H (12.00-20.00) Ratio Calcium 7.9 L (8.7-10.3) mg/dL Microbiology - Last 24 Hours (Table) 11/10/22 08:00 Blood Culture - Preliminary Blood No Growth after 72 hours 11/10/22 08:15 Blood Culture - Preliminary Blood No Growth after 72 hours Assessment and Plan Time with Patient: Less than 30
[2022-11-14] MEDS: HEPARIN SODIUM,PORCINE/PF 5,000 UNIT/0.5 ML SYRINGE SQ SCH (23:01)
[2022-11-15] MEDS: IPRATROPIUM-ALBUTEROL 3 ML NEB INHALATION SCH ×6 (01:37→19:41)
[2022-11-15] MEDS: PIPERACILLIN-TAZOBACTAM 3.375 GM in SODIUM CHLORIDE 0.9% 100 ML IVPB SCH ×3 (03:14→21:07)
[2022-11-15] MEDS: DEXTROSE 5% IN WATER 1,000 ML with POTASSIUM CHLORIDE 40 MEQ IV SCH ×3 (03:17→21:07)
[2022-11-15] MEDS: PANTOPRAZOLE 40 MG TABLET PO SCH (06:31)
[2022-11-15] MEDS: BUDESONIDE 0.5 MG/2 ML NEBU INHALATION SCH ×2 (08:06→19:41)
[2022-11-15] MEDS: DIVALPROEX 250 MG TABLET.DR PO SCH ×3 (09:05→17:19)
[2022-11-15] MEDS: SERTRALINE 50 MG TAB PO SCH (09:05)
[2022-11-15] MEDS: HEPARIN SODIUM,PORCINE/PF 5,000 UNIT/0.5 ML SYRINGE SQ SCH ×2 (09:05→21:07)
[2022-11-15 09:31] LABS: African American GFR (CKD) 106.2 (60.0-200.0); Anion Gap 7.4 mmol/L (10.00-18.00); BUN/Creat Ratio 12.29 Ratio (12.00-20.00); Blood Urea Nitrogen 8.6 mg/dL (9.0-27.0); Calcium 7.8 mg/dL (8.7-10.3); Carbon Dioxide 25.6 mmol/L (20.0-27.5); Magnesium 1.5 mg/dL (1.5-2.4); Non-African American GFR(CKD) 91.7 (60.0-200.0); Potassium 3.3 mmol/L (3.5-5.5)
[2022-11-15] MEDS ORDERED: Magnesium Replacement Protocol 1 EACH MISC MISCELLANE PRN (10:01)
[2022-11-15] MEDS: MAGNESIUM SULFATE-D5W PMX 1 GM in DEXTROSE/WATER 1 100ML.BAG IVPB SCH ×2 (10:14→11:25)
[2022-11-15] MEDS: POTASSIUM CHLORIDE 10 MEQ in WATER FOR INJECTION 1 100ML.BAG IVPB SCH ×4 (10:14→16:15)
[2022-11-15 13:46] VITALS: BMI 20.8
--- NOTE | 2022-11-15 16:09 | P.PN ---
Subjective Progress Note Date: 11/15/22 Patient is being monitored on medical floor, no acute events overnight. He is receiving supportive care for acute influenza A infection, and also has some acute mental status changes and weakness. Chest xray today is showing increased diffuse interstitial opacities which may represent pulmonary edema versus atypical viral pneumonia. He continues on nasal cannula at 2-3L. Continues on IV zosyn for possible underlying bacterial infection his procalcitonin level was found to be 3.20. He is receiving D5 water with potassium. Sodium level today 149, potassium level of 2.7. Echocardiogram pending. Has remained afebrile over the last 2 days, heart rate 62, blood pressure 116/66, 97% on 3L nasal cannula. 11/15/2022 Patient is monitored on medical floor. He is more alert and mentation is improving today. He is alert x 2. He is being treated for acute influenza A and currently has been weaned to room air. He denies shortness of breath and his lungs are clear today. Medically he is doing well and will recommend to discharge on oral antibiotics on return to the [facility]. He had echocardiogram done today which is currently pending. Cardiology following. Sodium today is 140, potassium is 3.3, BUN 8.6, creatinine 0.7, glucose stable, magnesium 1.5. He is afebrile, heart rate 62, blood pressure 137/79, nasal cannula 2L with oxygen saturation 98%. Review of Systems Constitutional: Denied any fatigue denied any fever. Cardio vascular: denied any chest pain, palpitations Gastrointestinal: denied any vomiting, diarrhea. Pulmonary: Denied any shortness of breath cough Neurologic denied any new focal deficits All inpatient medications were reviewed and appropriate changes in these medications as dictated in the interval history and assessment and plan. PHYSICAL EXAMINATION: GENERAL: The patient is alert and oriented x2-3, not in any acute distress. Well developed, well nourished. Currently on 2L nasal cannula. HEENT: Pupils are round and equally reacting to light. EOMI. No scleral icterus. No conjunctival pallor. Normocephalic, atraumatic. No pharyngeal erythema. No thyromegaly. CARDIOVASCULAR: S1 and S2 present. No murmurs, rubs, or gallops. PULMONARY: Chest is clear to auscultation, no wheezing or crackles. Diminished bases. ABDOMEN: Soft, nontender, nondistended, normoactive bowel sounds. No palpable organomegaly. MUSCULOSKELETAL: No joint swelling or deformity. EXTREMITIES: No cyanosis, clubbing, or pedal edema. NEUROLOGICAL: Gross neurological examination did not reveal any focal deficits. Generalized weakness. SKIN: No rashes. Assessment and Plan Assessment Altered mental status from acute metabolic encephalopathy likely from infection/sepsis improving Acute hypoxic respiratory failure from acute influenza A infection, possibly underlying CHF Sepsis with septic shock on admission did not receive vasopressors, blood pressure improved with fluids Elevated procalcitonin level possible underlying bacterial infection Elevated troponin level, possibly from infection, rule out ACS. Anemia, macrocytic Hypernatremia improving with fluids Hypokalemia from poor oral intake Mild FLEX prerenal frorm poor oral intake improved with fluids History of Parkinson's History of dementia/cognitive impairment History of GERD Anxiety/Bipolar/Depression Chronic medical debility bedbound at baseline GI prophylaxis DVT prophylaxis Do Not Resuscitate/Do Not Intubate Plan Continue IV antibiotics, IV fluids Echocardiogram pending, cardiology work up on going Blood pressure medication remains on hold Replace potassium/magnesium Wean off oxygen Return to [facility] on discharge with homecare when medically stable Dr. Hammond to resume care of this patient tomorrow. The impression and plan of care has been dictated by Yamile Joya Nurse Practitioner as directed. Dr. Reginaldo MD I have performed a history and physical examination and medical decision making of this patient, discussed the same with the dictator, and agree with the dictators assessment and plan as written, documented as a scribe. Based on total visit time, I have performed more than 50% of this visit. Objective - Vital Signs Vital signs: Vital Signs Temp 97.3 F L 11/15/22 07:14 Pulse 54 L 11/15/22 07:14 Resp 17 11/15/22 07:14 BP 137/88 11/15/22 07:14 Pulse Ox 100 11/15/22 07:14 FiO2 28 11/10/22 20:06 Intake & Output 11/14/22 11/15/22 11/15/22 18:59 06:59 18:59 Other: Voiding Method Diaper Diaper Diaper # Voids 2 4 # Bowel Movements 2 3 - Labs CBC & Chem 7: 11/14/22 04:23 11/15/22 03:33 Labs: Abnormal Lab Results - Last 24 Hours (Table) 11/14/22 11/14/22 11/15/22 Range/Units 04:23 04:23 03:33 RBC 3.53 L (4.40-5.60) X 10*6/uL Hgb 11.1 L (13.0-17.0) g/dL Hct 34.7 L (39.6-50.0) % MCV 98.3 H (80.0-97.0) fL Immature Gran # 0.09 H (0.00-0.04) X 10*3/uL Lymphocytes # 0.72 L (0.90-5.00) X 10*3/uL Sodium 149 H (135-145) mmol/L Potassium 2.7 L* 3.3 L (3.5-5.5) mmol/L Chloride 114 H (96-109) mmol/L Anion Gap 7.70 L 7.40 L (10.00-18.00) mmol/L BUN 8.6 L (9.0-27.0) mg/dL Glucose 135 H 139 H (70-110) mg/dL Calcium 7.5 L 7.8 L (8.7-10.3) mg/dL Microbiology - Last 24 Hours (Table) 11/10/22 08:00 Blood Culture - Preliminary Blood No Growth after 96 hours 11/10/22 08:15 Blood Culture - Preliminary Blood No Growth after 96 hours Assessment and Plan Time with Patient: Less than 30
[2022-11-15] MEDS: SERTRALINE 100 MG TAB PO SCH (17:19)
[2022-11-15] MEDS: traZODone HCL 50 MG TAB PO SCH (17:19)
[2022-11-15] MEDS: DONEPEZIL 5 MG TAB PO SCH (21:07)
[2022-11-15] MEDS: QUEtiapine 50 MG TAB PO SCH (21:07)
[2022-11-16] MEDS: PIPERACILLIN-TAZOBACTAM 3.375 GM in SODIUM CHLORIDE 0.9% 100 ML IVPB SCH ×3 (04:25→21:35)
[2022-11-16] MEDS: HEPARIN SODIUM,PORCINE/PF 5,000 UNIT/0.5 ML SYRINGE SQ SCH ×2 (07:49→21:35)
[2022-11-16] MEDS: DIVALPROEX 250 MG TABLET.DR PO SCH ×3 (07:49→17:06)
[2022-11-16] MEDS: PANTOPRAZOLE 40 MG TABLET PO SCH (07:49)
[2022-11-16] MEDS: SERTRALINE 50 MG TAB PO SCH (07:49)
[2022-11-16] MEDS: IPRATROPIUM-ALBUTEROL 3 ML NEB INHALATION SCH ×6 (09:40→23:30)
[2022-11-16] MEDS: BUDESONIDE 0.5 MG/2 ML NEBU INHALATION SCH ×2 (09:41→20:48)
[2022-11-16] MEDS ORDERED: POTASSIUM CHLORIDE ER 20 MEQ TAB.ER PO STA (10:36)
[2022-11-16 10:47] LABS: African American GFR (CKD) 114.5 (60.0-200.0); Anion Gap 11.5 mmol/L (10.00-18.00); BUN/Creat Ratio 7.62 Ratio (12.00-20.00); Blood Urea Nitrogen 4.5 mg/dL (9.0-27.0); Calcium 7.8 mg/dL (8.7-10.3); Carbon Dioxide 26.4 mmol/L (20.0-27.5); Magnesium 1.7 mg/dL (1.5-2.4); Non-African American GFR(CKD) 98.8 (60.0-200.0); Potassium 3.1 mmol/L (3.5-5.5)
--- NOTE | 2022-11-16 16:10 | P.PN ---
Progress Note - Text Progress Note Date: 11/16/22 Chief Complaint: Altered mental status This is a 77-year-old patient, follows with visiting physicians Dr. London. Chronic stable medical conditions include GERD, Parkinson's, advanced dementia, cognitive impairment, bipolar. Patient is resident of [facility]. When the staff had gone into the patient's room at 6:30 this morning but as he was febrile. A bit confused with low oxygen. Given Tylenol. Became more confused. EMS was called. EMS found his oxygen saturation the 80s. Also temperature 100.5 axillary. There was questionable seizure-like activity with the nystagmus of his eyes. 2.5 mg of Versed was given. Patient unable to give any history. Patient is bedbound at baseline. ER physician Dr. Mosley spoke to the power of prosecuting attorney. He is to remain DO NOT RESUSCITATE and DO NOT INTUBATE no vasopressors blood products or cardioversion. Understandable his prognosis is guarded. When I came to see the patient patient's eyes are open but not really able to give any history. Is also hypothermic. Kasi hugger was ordered. Remains febrile. Patient also positive for influenza type A Admitted with acute metabolic encephalopathy/delirium/acute influenza A pneumonitis, possibly bacterial pneumonia, sepsis, septic shock. Treated with IV fluids, IV Zosyn. November 11: Patient's friend and CLAUDIA Merchant at the bedside. Patient is having fever. On IV Zosyn. IV fluids. Able to open his eyes. When occasionally answer simple questions and words. As discussed with Lori at the patient's baseline: Patient is bedbound. He may occasionally speak a word. Not able to feed himself. Not able to interact his surroundings. She understands patient's prognosis guarded. Does not want any heroic measures. Has declined hospice. She also ready for patient to go back to the assisted living tomorrow, if patient remains stable. She will initiate hospice there. Does not require any hospice for grievance purposes. Patient's sister is coming in from [place] today. No other heroic measures. She accepted the fact the patient may . Patient: Covered by [facility] hospitalists: Patient is being monitored on medical floor, no acute events overnight. He is receiving supportive care for acute influenza A infection, and also has some a cute mental status changes and weakness. Chest xray today is showing increased diffuse interstitial opacities which may represent pulmonary edema versus atypical viral pneumonia. He continues on nasal cannula at 2-3L. Continues on IV zosyn for possible underlying bacterial infection his procalcitonin level was found to be 3.20. He is receiving D5 water with potassium. Sodium level today 149, potassium level of 2.7. Echocardiogram pending. Has remained afebrile over the last 2 days, heart rate 62, blood pressure 116/66, 97% on 3L nasal cannula. 11/15/2022 Patient is monitored on medical floor. He is more alert and mentation is improving today. He is alert x 2. He is being treated for acute influenza A and currently has been weaned to room air. He denies shortness of breath and his lungs are clear today. Medically he is doing well and will recommend to discharge on oral antibiotics on return to the [facility]. He had echocardiogram done today which is currently pending. Cardiology following. Sodium today is 140, potassium is 3.3, BUN 8.6, creatinine 0.7, glucose stable, magnesium 1.5. He is afebrile, heart rate 62, blood pressure 137/79, nasal cannula 2L with oxygen saturation 98%. 11/16/2022: Patient was covered by [facility] hospitalists from November 12 through November 15. Patient up in a bed. Answering yes and no simple questions. Can tell his name. Pulse ox 94% on room air. Oral intake documented to be 100%. Discussed with rehabilitation caseworker. No family at the bedside. Plan for DC tomorrow. Active Medications Acetaminophen (Acetaminophen Tab 325 Mg Tab) 650 mg PO Q6HR PRN PRN Reason: Mild Pain or Fever > 100.5 Acetaminophen (Acetaminophen Suppository 650 Mg Supp) 650 mg RECTAL Q6HR PRN PRN Reason: Fever and/ or Pain Last Admin: 11/11/22 13:23 Dose: 650 mg Albuterol/Ipratropium (Ipratropium-Albuterol 3 Ml Neb) 3 ml INHALATION RT-Q4H [facility] Last Admin: 11/16/22 15:33 Dose: Not Given Budesonide (Budesonide 0.5 Mg/2 Ml Nebu) 0.5 mg INHALATION RT-BID [facility] Last Admin: 11/16/22 09:41 Dose: Not Given Divalproex Sodium (Divalproex 250 Mg Tablet.Dr) 250 mg PO TID@0800,1400,1800 [facility] Last Admin: 11/16/22 14:14 Dose: 250 mg Donepezil HCl (Donepezil 5 Mg Tab) 5 mg PO [facility] Last Admin: 11/15/22 21:07 Dose: 5 mg Heparin Sodium (Porcine) (Heparin Sodium,Porcine/Pf 5,000 Unit/0.5 Ml Syringe) 5,000 unit SQ Q12HR [facility] Last Admin: 11/16/22 07:49 Dose: 5,000 unit Piperacillin Sod/Tazobactam (Sod 3.375 gm/ Sodium Chloride) 100 mls @ 25 mls/hr IVPB Q8H [facility]; Protocol Last Admin: 11/16/22 14:14 Dose: 25 mls/hr Potassium Chloride 40 meq/ (Dextrose/Water) 1,020 mls @ 100 mls/hr IV .[id number] [facility] Last Admin: 11/15/22 21:07 Dose: 100 mls/hr Miscellaneous Information (Potassium Replacement Protocol 1 Each Misc) 1 each MISCELLANE DAILY PRN; Protocol PRN Reason: Per Protocol Miscellaneous Information (Magnesium Replacement Protocol 1 Each Misc) 1 each MISCELLANE DAILY PRN; Protocol PRN Reason: Per Protocol Naloxone HCl (Naloxone 0.4 Mg/Ml 1 Ml Vial) 0.2 mg IV Q2M PRN PRN Reason: Opioid Reversal Pantoprazole Sodium (Pantoprazole 40 Mg Tablet) 40 mg PO [id number]-[id number] [facility] Last Admin: 11/16/22 07:49 Dose: 40 mg Quetiapine Fumarate (Quetiapine 50 Mg Tab) 50 mg PO [facility] Last Admin: 11/15/22 21:07 Dose: 50 mg Ropinirole HCl (Ropinirole Hcl 1 Mg Tab) 1 mg PO BID@0800,1800 [facility] Last Admin: 11/16/22 07:49 Dose: 1 mg Sertraline HCl (Sertraline 50 Mg Tab) 50 mg PO DAILY@0800 [facility] Last Admin: 11/16/22 07:49 Dose: 50 mg Sertraline HCl (Sertraline 100 Mg Tab) 100 mg PO DAILY@1800 [facility] Last Admin: 11/15/22 17:19 Dose: 100 mg Trazodone HCl (Trazodone Hcl 50 Mg Tab) 25 mg PO DAILY@1800 [facility] Last Admin: 11/15/22 17:19 Dose: 25 mg Past medical history to include: GERD, Parkinson's, dementia, cognitive impairment, covered in August 2021, bipolar, hypertension, prostate cancer Social history: Bedbound. As a legal guardian. Resident of [facility] Physical examination: VITAL SIGNS: 97.8, 61, 20, 1:30/84, 96% room air GENERAL: Sitting In bed awake, tired EYES: Pupils equal. Conjunctiva normal. HEENT: External appearance of nose and ears normal, oral cavity dry mucous m embranes. NECK: JVD not raised; masses not palpable. HEART: First and second heart sounds are normal; no edema. LUNGS: Respiratory rate normal; decreased breath sounds. ABDOMEN: Soft, nontender, liver spleen not palpable, no masses palpable. PSYCH: Does say his name slowly.. MUSCULOSKELETAL:No Clubbing/cyanosis;muscles-grossly intact. OA NEUROLOGICAL: Cranial nerves grossly intact. INVESTIGATIONS, reviewed in the clinical context: November 16: Potassium 3.1 creatinine 0.6 November 14: White count 7.1 hemoglobin 11.1 platelets 157 November 11: White count 5.8 hemoglobin 10.6 sodium 152 potassium 3.6 BUN 32.2 creatinine 1.3 procalcitonin 3.2 White count 7.4 hemoglobin 12.9 platelets 177 sodium 148 progression 3.2 chloride 115 BUN 35 creatinine 1.18 Troponin I 1.19, 2.0, 1.8 UA: Leukoesterase large WBC 44 bacteria few Influenza type A detected Influenza type B/RSV/COVID-19: Not detected EKG tracing personally reviewed by me-sinus tachycardia. Rate 127. Some ST segment changes. Chest x-ray film personally reviewed by me: Portable: Some scattered infiltrates CT brain: Age-related atrophic and chronic small vessel ischemic changes. Without acute process. Assessment plan: -Acute metabolic encephalopathy/delirium from sepsis: Improving Aspiration precautions -Acute influenza A pneumonitis. Possible secondary bacterial infection. IV Zosyn. Repeat procalcitonin -Sepsis.: Better IV fluids. IV Zosyn. -Severe cognitive impairment -Septic shock.: Better no vasopressors. DO NOT RESUSCITATE. -Essential hypertension Currently blood pressure low. Hold off any antihypertensives. -Parkinson's disease Requip -Bipolar disorder Zoloft. Trazodone. Seroquel. -Chronic medical debility, patient is bedbound -Hypernatremia, for fluid deficit: Better IV fluids to D5 0.45 -DO NOT RESUSCITATE -Patient has a legal guardian: Lori Merchant DC IV fluids. Discussed with rehabilitation caseworker. Check pro calcitonin. Changed to oral antibiotic tomorrow. Hopefully discharge tomorrow.
--- NOTE | 2022-11-16 16:16 | CA ---
Transthoracic Echo Report Name: Chetan Duke Age: 77 Gender: M : 1945 Exam Date: 11/15/2022 07:26 Exam Location: [place] [facility] Ht (in): 70 Wt (lb): 153 Ordering Physician: Argelia Torres Attending/Referring Phys: [id number], Brian Corset Maker Vonda Fraga RDCS Procedure CPT: Indications: LV function Cardiac Hx: Technical Quality: Very technically difficult study Contrast 1: Total Dose (mL): Contrast 2: Total Dose (mL): MEASUREMENTS (Male / Female) Normal Values 2D ECHO LV Diastolic Diameter PLAX 4.6 cm 4.2 - 5.9 / 3.9 - 5.3 cm LV Systolic Diameter PLAX 4.2 cm IVS Diastolic Thickness 1.0 cm 0.6 - 1.0 / 0.6 - 0.9 cm LVPW Diastolic Thickness 1.3 cm 0.6 - 1.0 / 0.6 - 0.9 cm LV Relative Wall Thickness 0.5 RV Internal Dim ED PLAX 2.7 cm LV Diastolic Volume MOD 4C 50.3 cm??? LV Systolic Volume MOD 4C 25.1 cm??? LV Ejection Fraction MOD 4C 50.2 % LV Diastolic Length 4C 8.1 cm LV Systolic Length 4C 7.5 cm M-MODE Aortic Root Diameter MM 2.7 cm LA Systolic Diameter MM 3.3 cm LA Ao Ratio MM 1.2 AV Cusp Separation MM 1.2 cm DOPPLER AV Peak Velocity 92.3 cm/s AV Peak Gradient 3.4 mmHg LVOT Peak Velocity 66.7 cm/s LVOT Peak Gradient 1.8 mmHg MV Area PHT 3.5 cm??? MR Peak Velocity 335.4 cm/s MR Peak Gradient 45.0 mmHg Mitral E Point Velocity 72.7 cm/s Mitral A Point Velocity 79.5 cm/s Mitral E to A Ratio 0.9 MV Deceleration Time 215.4 ms TR Peak Velocity 193.5 cm/s TR Peak Gradient 15.0 mmHg FINDINGS Left Ventricle Left ventricular hypertrophy. Left ventricular ejection fraction is estimated at 45-50 %. Right Ventricle Right ventricular hypertrophy. Right Atrium Normal right atrial size. Left Atrium Normal left atrial size. Mitral Valve Mitral valve thickened. Mild mitral regurgitation. Aortic Valve Thickened aortic valve without stenosis. No aortic regurgitation. Tricuspid Valve Mild tricuspid regurgitation. Pulmonic Valve Pulmonic valve not well visualized. Pericardium No pericardial effusion. No pleural effusion. Aorta Normal size aortic root and proximal ascending aorta. CONCLUSIONS Mildly impaired LV functions iliac between 45-50% Previewed by: Dr. Leodan Trejo MD (Electronically Signed) Final Date: 16 November 2022 16:15
[2022-11-16] MEDS: DEXTROSE 5% IN WATER 1,000 ML with POTASSIUM CHLORIDE 40 MEQ IV SCH (16:27)
[2022-11-16] MEDS: traZODone HCL 50 MG TAB PO SCH (17:06)
[2022-11-16] MEDS: SERTRALINE 100 MG TAB PO SCH (17:06)
[2022-11-16] MEDS: POTASSIUM CHLORIDE ER 20 MEQ TAB.ER PO SCH ×2 (17:14→18:28)
[2022-11-16] MEDS: DONEPEZIL 5 MG TAB PO SCH (21:35)
[2022-11-16] MEDS: QUEtiapine 50 MG TAB PO SCH (21:35)
[2022-11-17] MEDS: IPRATROPIUM-ALBUTEROL 3 ML NEB INHALATION SCH ×3 (04:15→11:04)
[2022-11-17] MEDS: PIPERACILLIN-TAZOBACTAM 3.375 GM in SODIUM CHLORIDE 0.9% 100 ML IVPB SCH (04:51)
[2022-11-17 07:18] VITALS: BP 119/75; PULSE 80; TEMP 96.8
[2022-11-17] MEDS: BUDESONIDE 0.5 MG/2 ML NEBU INHALATION SCH (08:18)
[2022-11-17] MEDS: PANTOPRAZOLE 40 MG TABLET PO SCH (08:39)
[2022-11-17] MEDS: HEPARIN SODIUM,PORCINE/PF 5,000 UNIT/0.5 ML SYRINGE SQ SCH (08:39)
[2022-11-17] MEDS: DIVALPROEX 250 MG TABLET.DR PO SCH (08:39)
[2022-11-17] MEDS: SERTRALINE 50 MG TAB PO SCH (08:39)
[2022-11-17 10:19] VITALS: RESP 15
--- NOTE | 2022-11-17 17:44 | P.DS ---
Providers Date of admission: 11/10/22 10:12 Expected date of discharge: 11/17/22 Attending physician: Dereck Hammond Consults: 11/10/22 10:09 Consult Physician Urgent Consulting Provider: [facility] Consult Reason/Comments: elevated trop Do you want consulting provider notified?: Yes Primary care physician: Stephane London [facility] Course: Chief Complaint: Altered mental status This is a 77-year-old patient, follows with visiting physicians Dr. London. Chronic stable medical conditions include GERD, Parkinson's, advanced dementia, cognitive impairment, bipolar. Patient is resident of [facility]. When the staff had gone into the patient's room at 6:30 this morning but as he was febrile. A bit confused with low oxygen. Given Tylenol. Became more confused. EMS was called. EMS found his oxygen saturation the 80s. Also temperature 100.5 axillary. There was questionable seizure-like activity with the nystagmus of his eyes. 2.5 mg of Versed was given. Patient unable to give any history. Patient is bedbound at baseline. ER physician Dr. Mosley spoke to the power of workers compensation attorney. He is to remain DO NOT RESUSCITATE and DO NOT INTUBATE no vasopressors blood products or cardioversion. Understandable his prognosis is guarded. When I came to see the patient patient's eyes are open but not really able to give any history. Is also hypothermic. Kasi hugger was ordered. Remains febrile. Patient also positive for influenza type A Admitted with acute metabolic encephalopathy/delirium/acute influenza A pneumonitis, possibly bacterial pneumonia, sepsis, septic shock. Treated with IV fluids, IV Zosyn. November 11: Patient's friend and POA Lori Merchant at the bedside. Patient is having fever. On IV Zosyn. IV fluids. Able to open his eyes. When occasionally answer simple questions and words. As discussed with Lori at the patient's baseline: Patient is bedbound. He may occasionally speak a word. Not able to feed himself. Not able to interact his surroundings. She understands patient's prognosis guarded. Does not want any heroic measures. Has declined hospice. She also ready for patient to go back to the assisted living tomorrow, if patient remains stable. She will initiate hospice there. Does not require any hospice for grievance purposes. Patient's sister is coming in from [place] today. No other heroic measures. She accepted the fact the patient may . Patient: Covered by [facility] Hospitalists: Patient is being monitored on medical floor, no acute events overnight. He is receiving supportive care for acute influenza A infection, and also has some acute mental status changes and weakness. Chest xray today is showing increased diffuse interstitial opacities which may represent pulmonary edema versus atypical viral pneumonia. He continues on nasal cannula at 2-3L. Continues on IV zosyn for possible underlying bacterial infection his procalcitonin level was found to be 3.20. He is receiving D5 water with potassium. Sodium level today 149, potassium level of 2.7. Echocardiogram pending. Has remained afebrile over the last 2 days, heart rate 62, blood pressure 116/66, 97% on 3L nasal cannula. 11/15/2022 Patient is monitored on medical floor. He is more alert and mentation is improving today. He is alert x 2. He is being treated for acute influenza A and currently has been weaned to room air. He denies shortness of breath and his lungs are clear today. Medically he is doing well and will recommend to discharge on oral antibiotics on return to the [facility]. He had echocardiogram done today which is currently pending. Cardiology following. Sodium today is 140, potassium is 3.3, BUN 8.6, creatinine 0.7, glucose stable, magnesium 1.5. He is afebrile, heart rate 62, blood pressure 137/79, nasal cannula 2L with oxygen saturation 98%. 11/16/2022: Patient was covered by [facility] Hospitalists from November 12 through November 15. Patient up in a bed. Answering yes and no simple questions. Can tell his name. Pulse ox 94% on room air. Oral intake documented to be 100%. Discussed with housing case manager. No family at the bedside. Plan for DC tomorrow. 11/17/2022: Comfortable. No new issues. Oral intake good. More awake. Return to assisted living. Patient's psych medications dose adjusted as he was rather somnolent to which he responded well. Discussion and discharge planning more than 35 minutes Past medical history to include: GERD, Parkinson's, dementia, cognitive impairment, covered in August 2021, bipolar, hypertension, prostate cancer Social history: Bedbound. As a legal guardian. Resident of [facility] Physical examination: VITAL SIGNS: 96.8, 80, 18, 10 9 x 75, 91% on room air GENERAL: Sitting In bed awake, comfortable EYES: Pupils equal. Conjunctiva normal. HEENT: External appearance of nose and ears normal, oral cavity dry mucous membranes. NECK: JVD not raised; masses not palpable. HEART: First and second heart sounds are normal; no edema. LUNGS: Respiratory rate normal; decreased breath sounds. ABDOMEN: Soft, nontender, liver spleen not palpable, no masses palpable. PSYCH: Does say his name slowly.. MUSCULOSKELETAL:No Clubbing/cyanosis;muscles-grossly intact. OA NEUROLOGICAL: Cranial nerves grossly intact. INVESTIGATIONS, reviewed in the clinical context: November 16: Potassium 3.1 creatinine 0.6 November 14: White count 7.1 hemoglobin 11.1 platelets 157 November 11: White count 5.8 hemoglobin 10.6 sodium 152 potassium 3.6 BUN 32.2 creatinine 1.3 procalcitonin 3.2 White count 7.4 hemoglobin 12.9 platelets 177 sodium 148 progression 3.2 chloride 115 BUN 35 creatinine 1.18 Troponin I 1.19, 2.0, 1.8 UA: Leukoesterase large WBC 44 bacteria few Influenza type A detected Influenza type B/RSV/COVID-19: Not detected EKG tracing personally reviewed by me-sinus tachycardia. Rate 127. Some ST segment changes. Chest x-ray film personally reviewed by me: Portable: Some scattered infiltrates CT brain: Age-related atrophic and chronic small vessel ischemic changes. Without acute process. Assessment plan: -Acute metabolic encephalopathy/delirium from sepsis: Better -Acute influenza A pneumonitis. Probable secondary bacterial infection.: Better IV Zosyn. Completed course -Sepsis.: Better IV fluids. IV Zosyn. -Severe cognitive impairment -Septic shock.: Better no vasopressors. DO NOT RESUSCITATE. -Essential hypertension Lisinopril discontinued. -Parkinson's disease Requip -Bipolar disorder Zoloft 100 kg at 6 PM. Trazodone 25 mg at 6 PM. Seroquel 50 mg daily at bedtime. -Chronic medical debility, patient is bedbound -Hypernatremia, for fluid deficit: Better Received IV fluids to D5 0.45 -DO NOT RESUSCITATE -Patient has a legal guardian: Lori Merchant Disposition: [facility] home: [facility] Plan - Discharge Summary Discharge Rx Participant: No New Discharge Prescriptions: Continue Thiamine [Vitamin B-1] 100 mg PO DAILY@0800 Divalproex [Depakote] 250 mg PO TID@0800,1400,1800 Ascorbic Acid [Vitamin C] 1,000 mg PO DAILY #60 tab Cholecalciferol [Vitamin D3 (25 Mcg = 1000 Iu)] 50 mcg PO DAILY #60 tablet traZODone HCL [Desyrel] 25 mg PO DAILY@1800 Omeprazole [PriLOSEC] 20 mg PO BID PRN PRN Reason: gerd Kaolin Pectin 30 ml PO DIRECTED PRN PRN Reason: Diarrhea Ipratropium-Albuterol Nebulize [Duoneb 0.5 mg-3 mg/3 ml Soln] 3 ml INHALATION RT-QID 30 Days #120 each Liquacel Liquid 30 ml PO BID Sertraline [Zoloft] 100 mg PO DAILY@1800 rOPINIRole HCL [Requip] 1 mg PO BID@0800,1800 metFORMIN HCL [Glucophage] 500 mg PO BID@0800,1800 Magnesium Hydroxide [Milk of Magnesia] 2,400 mg PO HS PRN PRN Reason: Constipation guaiFENesin SYRUP 100MG/5ML [Robitussin] 200 mg PO Q6H PRN PRN Reason: Cough Donepezil [Aricept] 5 mg PO HS Acetaminophen Tab [Tylenol] 650 mg PO Q4H PRN PRN Reason: Pain Or Fever > 100.5 Tsering-L[place] 15 ml PO BID PRN PRN Reason: Indigestion Benadryl [place] 1 spray TOPICAL QID PRN PRN Reason: irritation Changed QUEtiapine [SEROquel] 50 mg PO HS #0 Discontinued Melatonin 5 mg PO DAILY@1800 dexAMETHasone [Decadron] 4 mg PO DAILY@0800 lisinopriL [Zestril] 5 mg PO DAILY@0800 Sertraline [Zoloft] 50 mg PO DAILY@0800 Discharge Medication List Thiamine [Vitamin B-1] 100 mg PO DAILY@0800 06/24/21 [History] Divalproex [Depakote] 250 mg PO TID@0800,1400,1800 07/13/21 [History] Ascorbic Acid [Vitamin C] 1,000 mg PO DAILY #60 tab 09/04/21 [Rx] Cholecalciferol [Vitamin D3 (25 Mcg = 1000 Iu)] 50 mcg PO DAILY #60 tablet 09/04/21 [Rx] Acetaminophen Tab [Tylenol] 650 mg PO Q4H PRN 10/19/22 [History] Benadryl [place] 1 spray TOPICAL QID PRN 10/19/22 [History] Donepezil [Aricept] 5 mg PO HS 10/19/22 [History] Tsering-L[place] 15 ml PO BID PRN 10/19/22 [History] Kaolin Pectin 30 ml PO DIRECTED PRN 10/19/22 [History] Magnesium Hydroxide [Milk of Magnesia] 2,400 mg PO HS PRN 10/19/22 [History] Omeprazole [PriLOSEC] 20 mg PO BID PRN 10/19/22 [History] Sertraline [Zoloft] 100 mg PO DAILY@1800 10/19/22 [History] guaiFENesin SYRUP 100MG/5ML [Robitussin] 200 mg PO Q6H PRN 10/19/22 [History] metFORMIN HCL [Glucophage] 500 mg PO BID@0800,1800 10/19/22 [History] rOPINIRole HCL [Requip] 1 mg PO BID@0800,1800 10/19/22 [History] traZODone HCL [Desyrel] 25 mg PO DAILY@1800 10/19/22 [History] Ipratropium-Albuterol Nebulize [Duoneb 0.5 mg-3 mg/3 ml Soln] 3 ml INHALATION RT-QID 30 Days #120 each 10/24/22 [Rx] Liquacel Liquid 30 ml PO BID 11/10/22 [History] QUEtiapine [SEROquel] 50 mg PO HS #0 11/17/22 [Rx] Follow up Appointment(s)/Referral(s): [facility] [NON-STAFF] - (AGENCY WILL CONTACT YOU.) Stephane London MD [Primary Care Provider] - 1-2 days (PLEASE CALL AND SCHEDULE APPOINTMENT.) Patient Instructions/Handouts: Influenza (DC), Sepsis (DC), Bacterial Pneumonia (DC) Activity/Diet/Wound Care/Special Instructions: *Discharging RN: Call [facility] home to go over d/c papers: [phone]. Patient will need ambulance transport at discharge - [phone]. Form on chart. Discharge Disposition: HOME WITH HOME HEALTH SERVICES
== END 2022-11-17 12:04 | disposition home health service (06) | DRG 871 ==
LOC: EC 07:48 → 3SCARD 10:12 → 4SSUR 13:50
PROVIDERS: ADMIT Hospitalist; ATTEND Hospitalist
DX: A41.89 Other specified sepsis (principal); G93.41 Metabolic encephalopathy; J96.01 Acute respiratory failure with hypoxia; J69.0 Pneumonitis due to inhalation of food and vomit; R65.21 Severe sepsis with septic shock; I21.A1 Myocardial infarction type 2; J10.01 Influenza due to other identified influenza virus with the same other identified influenza virus pneumonia; N17.9 Acute kidney failure, unspecified; E87.0 Hyperosmolality and hypernatremia; E87.1 Hypo-osmolality and hyponatremia; F02.83 Dementia in other diseases classified elsewhere, unspecified severity, with mood disturbance; F01.53 Vascular dementia, unspecified severity, with mood disturbance; F01.54 Vascular dementia, unspecified severity, with anxiety; G20 Parkinson's disease; I11.0 Hypertensive heart disease with heart failure; R54 Age-related physical debility; I50.9 Heart failure, unspecified; G40.909 Epilepsy, unspecified, not intractable, without status epilepticus; D53.9 Nutritional anemia, unspecified; F31.9 Bipolar disorder, unspecified; F10.11 Alcohol abuse, in remission; I08.1 Rheumatic disorders of both mitral and tricuspid valves; Z66 Do not resuscitate; H55.00 Unspecified nystagmus; R68.0 Hypothermia, not associated with low environmental temperature; E87.6 Hypokalemia; K21.9 Gastro-esophageal reflux disease without esophagitis; Z20.822 Contact with and (suspected) exposure to COVID-19; Z74.01 Bed confinement status; Z79.899 Other long term (current) drug therapy; Z79.84 Long term (current) use of oral hypoglycemic drugs; Z86.16 Personal history of COVID-19; Z85.46 Personal history of malignant neoplasm of prostate
CPT/HCPCS: 36415; 70450; 71045; 80048; 80053; 80164; 80306; 81001; 82803; 83605; 83735; 84132; 84145; 84484; 85025; 85610; 85730; 87040; 87086; 87636; 93005; 93306; 94640; 94760; 96361; 96365; 96367; 99285